=== PATIENT | female | born 1930 | race Caucasian/White ===

== ENCOUNTER 2017-02-13 14:12 | Inpatient (IN) | payer BC ==
--- NOTE | 2017-02-13 17:13 | PDOC ---
History of Present Illness - General History Source: Patient Exam Limitations: No Limitations - History of Present Illness Initial Comments: 02/13/17 17:13 Patient is a 86 year old female with a significant past medical history of hypertension, hyperlipidemia and colon ca (s/p resection in 2011 no radiating, no chemotherapy) who presents to the ED with left hip pain for 1 month sent in by Dr. Valentine. Patient states that the pain is localized to the left groin and outer left hip. She notes that she is unable to ambulate due to pain. Patient can only ambulate using her rolerate cane. Patient states that she is unable to get up and down the stairs at her house. She states that the pain is worse in the morning when she wakes up and when she tries to get up to use the restroom. Patient states that 3 months ago she was doing exercises at home and believes that she developed the pain after. Patient notes that she is unable to raise the leg because it is very weak. She denies any back pain. She denies any recent trauma or fall. PCP - Dr. Valentine SH: lives at home alone <Caridad Capellan - Last Filed: 02/13/17 17:23> <Elsie Garcia - Last Filed: 02/13/17 18:25> - General Chief Complaint: Pain Stated Complaint: PAIN IN LEG Time Seen by Provider: 02/13/17 16:13 Past History <Caridad Capellan - Last Filed: 02/13/17 17:23> - Past Medical History Anemia: No Asthma: No Cancer: Yes (colon ca) Cardiac Disorders: No CVA: No COPD: No CHF: No Dementia: No Diabetes: No GI Disorders: No Disorders: No HTN: Yes Hypercholesterolemia: Yes Liver Disease: No Seizures: No Thyroid Disease: No - Surgical History Abdominal Surgery: Yes (COLOSTOMY WITH REVERSAL) Appendectomy: No Cardiac Surgery: No Cholecystectomy: No Lung Surgery: No Neurologic Surgery: No Orthopedic Surgery: No - Psycho/Social/Smoking Cessation Hx Anxiety: No Suicidal Ideation: No Smoking History: Never smoked Have you smoked in the past 12 months: No If you are a former smoker, when did you quit?: 25yrs ago Hx Alcohol Use: No Drug/Substance Use Hx: No Substance Use Type: None Hx Substance Use Treatment: No <Elsie Garcia - Last Filed: 02/13/17 18:25> - Past Medical History Allergies/Adverse Reactions: Allergies Allergy/AdvReac Type Severity Reaction Status Date / Time No Known Drug Allergies Allergy Verified 02/13/17 14:18 Home Medications: Ambulatory Orders Irbesartan [Avapro (Nf) -] 300 mg PO DAILY 01/21/13 Metoprolol Succinate/Hctz [Dutoprol 25-12.5 mg Tablet] 1 each PO DAILY 08/30/14 Rosuvastatin Calcium [Crestor] 10 mg PO HS 08/30/14 Review of Systems - Review of Systems Able to Perform ROS?: Yes Comments:: 02/13/17 17:13 GENERAL/CONSTITUTIONAL: No fever or chills. No weakness. HEAD, EYES, EARS, NOSE AND THROAT: No change in vision. No ear pain or discharge. No sore throat. GASTROINTESTINAL: No nausea, vomiting, diarrhea or constipation. GENITOURINARY: No dysuria, frequency, or change in urination. CARDIOVASCULAR: No chest pain or shortness of breath. RESPIRATORY: No cough, wheezing, or hemoptysis. MUSCULOSKELETAL:(+)left hip/groin pain. No muscle swelling. No neck or back pain. SKIN: No rash NEUROLOGIC: No headache, vertigo, loss of consciousness, or change in strength/ sensation. ENDOCRINE: No increased thirst. No abnormal weight change. HEMATOLOGIC/LYMPHATIC: No anemia, easy bleeding, or history of blood clots. ALLERGIC/IMMUNOLOGIC: No hives or skin allergy. <Caridad Capellan - Last Filed: 02/13/17 17:23> *Physical Exam - Vital Signs Last Vital Signs Temp Pulse Resp BP Pulse Ox 98.9 F 90 20 152/57 95 02/13/17 14:14 02/13/17 14:14 02/13/17 14:14 02/13/17 14:14 02/13/17 14:14 - Physical Exam Comments: 02/13/17 17:14 GENERAL: Awake, alert, and fully oriented, in no acute distress HEAD: No signs of trauma EYES: PERRLA, EOMI, sclera anicteric, conjunctiva clear ENT: Auricles normal inspection, nares patent, Moist mucosa NECK: Normal ROM, supple, no lymphadenopathy, JVD, or masses LUNGS: Breath sounds equal, clear to auscultation bilaterally. No wheezes, and no crackles HEART: Regular rate and rhythm, normal S1 and S2, no murmurs, rubs or gallops ABDOMEN: Soft, nontender, normoactive bowel sounds. No guarding, no rebound. No masses EXTREMITIES: (+) left anterior hip tenderness and lateral hip tenderness, right hip non tender full ROM. (+)Left hip flexion 4/5 (limited due to pain), (+)All else 5/5, (+)Sensation 5/5 in all extremities. No edema. No clubbing or cyanosis. No cords. NEUROLOGICAL: No midline spinal tenderness. Normal speech SKIN: (+)Right anterior jones eczematous type dermatitis. Warm, Dry, normal turgor. <Caridad Capellan - Last Filed: 02/13/17 17:23> - Vital Signs Last Vital Signs Temp Pulse Resp BP Pulse Ox 98.9 F 90 20 152/57 95 02/13/17 14:14 02/13/17 14:14 02/13/17 14:14 02/13/17 14:14 02/13/17 14:14 <Elsie Garcia - Last Filed: 02/13/17 18:25> Heart Score/ECG Review #1 ECG reviewed & interpreted by me at: 18:25 General ECG Interpretation: Sinus Rhythm, Normal Rate (92), Normal Intervals, No acute ischemic changes <Elsie Garcia - Last Filed: 02/13/17 18:25> ED Treatment Course - RADIOLOGY Radiology Studies Ordered: Category Date Time Status HIP & PELVIS-LEFT [RAD] Stat Radiology 02/13/17 16:56 Ordered SPINE-LUMBAR SACRAL [RAD] Stat Radiology 02/13/17 16:56 Ordered <Elsie Garcia - Last Filed: 02/13/17 18:25> Medical Decision Making - Medical Decision Making 02/13/17 17:08 86 yo F with h/o HLD and HTN ( colon ca s/p resection 2011) here wtih c/o left hip pain. has been going on for one month. did have an injury while exercising 3 mo ago. now pain with movement of hip. worse with going down stairs. has been using a walker. lives alone, now pain so bad unable to ambulate without assistance. no more recent trauma. no f/c no urinary complaints. no new back pain. does have h/o confirmed compression fractures on old ct per pt family at bedside . no new hernia. no n/v no sp no sob. no new weakness or numbness. on exam awake alert . lungs clear , heart RRR no m/r/g. abd soft nontender. left groin with anterior gale ttp, left lateral hip ttp. pain with hip flexion at 90deg. 4/5 hip flex due to pain, 5/5 ext, sensation intact bilat lower ext. 5 /5 all other extremities. nomildline spinal tenderness. plan xray hip, pelvis, spin. differential arthritis, anter pubic rami path fracture. uti plan ua xrays,. pt declines pain control at this time. may require admission for pt assessment due to living alone, unable to ambulate. will d/w dr. valentine. <Elsie Garcia - Last Filed: 02/13/17 18:25> *DC/Admit/Observation/Transfer - Attestations Scribe Attestion: 02/13/17 17:17 Documentation prepared by LATHA Warner, acting as medical physicist for Elsie Garcia MD. <Caridad Capellan - Last Filed: 02/13/17 17:23> - Discharge Dispostion Admit: Yes <Elsie Garcia - Last Filed: 02/13/17 18:25> Diagnosis at time of Disposition: Hip pain, left, Cannot walk - Referrals Referrals: Abby Valentine MD [Primary Care Provider] -
[2017-02-13] MEDS ORDERED: ATORVASTATIN CA 40 MG TABLET (FP) PO ONE (18:07)
[2017-02-13] MEDS ORDERED: METOPROLOL SUCCINATE 25 MG TAB.SR.24H (FP) PO ONE (18:07)
[2017-02-13] MEDS ORDERED: FUROSEMIDE 40 MG TABLET (FP) PO ONE (18:07)
[2017-02-13] MEDS ORDERED: ATORVASTATIN CA 40 MG TABLET (FP) ONE (18:38)
[2017-02-13] MEDS ORDERED: FUROSEMIDE 40 MG TABLET (FP) ONE (18:38)
[2017-02-13 19:14] LABS: URINE APPEARANCE CLEAR; URINE BILIRUBIN NEGATIVE (NEGATIVE); URINE COLOR YELLOW; URINE GLUCOSE (UA) NEGATIVE (NEGATIVE); URINE KETONE NEGATIVE (NEGATIVE); URINE NITRITE NEGATIVE (NEGATIVE); URINE PROTEIN NEGATIVE (NEGATIVE); URINE UROBILINOGEN NEGATIVE E.U./dl (0.2-1.0)
[2017-02-13 19:15] LABS: URINE BLOOD 1+ (NEGATIVE); URINE LEUK ESTERASE TRACE (NEGATIVE)
[2017-02-13 19:17] LABS: URINE BACTERIA RARE /hpf (NONE SEEN); URINE MUCUS RARE; URINE RBC 16 /hpf (0-3); URINE WBC 8 /hpf (3-5)
[2017-02-13 19:20] LABS: BASOPHIL 1.4 % (0-2.0); EOSINOPHIL 0.8 % (0-4.5); MCH 28.4 pg (25.7-33.7); MCHC 32.2 g/dl (32.0-36.0); MEAN CELL VOLUME 88.1 fl (80-96); MEAN PLT VOLUME 8.9 fl (7.5-11.1); NEUTROPHILS 67.7 % (42.8-82.8); PLATELET COUNT 302 K/MM3 (134-434); RDW 13.7 % (11.6-15.6); WHITE BLOOD COUNT 7.3 K/mm3 (4.0-10.0)
[2017-02-13 20:37] LABS: ALBUMIN 3.5 g/dl (3.4-5.0); ANION GAP 9 (8-16); BILIRUBIN,TOTAL 0.6 mg/dL (0.2-1.0); CALCIUM 9.1 mg/dL (8.5-10.1); CO2 27 mmol/L (21-32); COCKROFT - GAULT 77.35; CREATININE 0.7 mg/dL (0.55-1.02); GLUCOSE,RANDOM 95 mg/dL (74-106); SGOT/AST 20 U/L (15-37); SGPT/ALT 17 U/L (12-78); TOT PROT 6.8 g/dl (6.4-8.2)
[2017-02-13 20:38] LABS: ALK PHOS 165 U/L (45-117)
[2017-02-14 00:08] VITALS: BMI 37.6
[2017-02-14 08:14] LABS: BASOPHIL 1.3 % (0-2.0); MCH 28.9 pg (25.7-33.7); MCHC 33.2 g/dl (32.0-36.0); MEAN CELL VOLUME 87.3 fl (80-96); MEAN PLT VOLUME 9.1 fl (7.5-11.1); NEUTROPHILS 60.6 % (42.8-82.8); PLATELET COUNT 381 K/MM3 (134-434); RDW 13.8 % (11.6-15.6); WHITE BLOOD COUNT 10.3 K/mm3 (4.0-10.0)
[2017-02-14 09:08] LABS: BILIRUBIN,TOTAL 0.8 mg/dL (0.2-1.0); CALCIUM 9.8 mg/dL (8.5-10.1); COCKROFT - GAULT 59.9675; CREATININE 0.9 mg/dL (0.55-1.02); TOT PROT 7.4 g/dl (6.4-8.2)
[2017-02-14] MEDS: LOSARTAN POTASSIUM 50 MG TABLET (FP) PO SCH (09:41)
--- NOTE | 2017-02-14 10:59 | PN ---
Progress Note (short form) - Note Progress Note: Pt is an 86 year old female well known to us. She has acute on chronic severe left hip pain. She denies any recent history of trauma. Her left hip hurts with weight bearing. She has a history of severe left hip OA. We have recommended a left THR in the past. PE Pt is overweight. She has no signs of acute trauma. She is able to ambulate, but with pain. ROM of hip, knee, ankle, foot, toes all good. Xrays Show severe left hip OA, deformed femoral head Imp Severe left hip OA Rec Left THR on an elective, out pt basis Now do P.T., WBAT Pain meds
--- NOTE | 2017-02-14 14:02 | HP ---
Admitting History and Physical - Primary Care Physician PCP: Abby Mtz - Admission Chief Complaint: Left groin pain History of Present Illness: Patient is a 86 year old female with a significant past medical history of hypertension, hyperlipidemia and colon ca (s/p resection in 2011 no radiating, no chemotherapy) who presents to the ED with left hip pain for 1 month sent in by Dr. Mtz. Patient states that the pain is localized to the left groin and outer left hip. She notes that she is unable to ambulate due to pain. Patient states that she is unable to get up and down the stairs at her house. She states that the pain is worse when she lies down in bed, in the morning when she wakes up and when she tries to get up to use the restroom. Patient states that 3 months ago she was doing exercises at home and believes that she developed the pain after. Patient notes that she is unable to raise the leg because it is very weak. She denies any back pain. She denies any recent trauma or fall. PCP - Dr. Mtz SH: lives at home alone History Source: Patient Limitations to Obtaining History: No Limitations - Past Medical History Cardiovascular: Yes: HTN, Hyperlipdemia - Past Surgical History Additional Past Surgical History: Colon resection - Smoking History Smoking history: Never smoked Have you smoked in the past 12 months: No If you are a former smoker, when did you quit?: 25yrs ago - Alcohol/Substance Use Hx Alcohol Use: No - Social History Usual Living Arrangement: Yes: Alone ADL: Independent History of Recent Travel: No Home Medications - Allergies Allergies/Adverse Reactions: Allergies Allergy/AdvReac Type Severity Reaction Status Date / Time No Known Drug Allergies Allergy Verified 02/13/17 14:18 - Home Medications Home Medications: Ambulatory Orders Irbesartan [Avapro (Nf) -] 300 mg PO DAILY 01/21/13 Rosuvastatin Calcium [Crestor] 10 mg PO HS 08/30/14 Furosemide [Lasix -] 40 mg PO DAILY 02/13/17 Metoprolol Succinate [Toprol Xl -] 25 mg PO DAILY 02/13/17 Family Disease History - Family Disease History Family Disease History: Diabetes: Sister (HTN, Hyperlipidemia), Heart Disease: Brother (CABG,HTN, hyperlipidemia), Sister Review of Systems - Review of Systems Constitutional: reports: No Symptoms Eyes: reports: No Symptoms HENT: reports: No Symptoms Neck: reports: No Symptoms Cardiovascular: reports: No Symptoms Respiratory: reports: No Symptoms Gastrointestinal: reports: No Symptoms Genitourinary: reports: No Symptoms Breasts: reports: No Symptoms Reported Musculoskeletal: reports: Muscle Pain (Left Groin and left thigh) Integumentary: reports: No Symptoms Neurological: reports: No Symptoms Endocrine: reports: No Symptoms Hematology/Lymphatic: reports: No Symptoms Psychiatric: reports: No Symptoms Pain Intensity: 3 Physical Examination Vital Signs: Vital Signs Temperature 98.4 F 02/14/17 06:15 Pulse Rate 99 H 02/14/17 06:15 Respiratory Rate 20 02/14/17 06:15 Blood Pressure 128/74 02/14/17 06:15 O2 Sat by Pulse Oximetry (%) 95 02/13/17 23:38 Constitutional: Yes: Well Nourished, No Distress, Calm Cardiovascular: Yes: Regular Rate and Rhythm Respiratory: Yes: WNL, Regular Gastrointestinal: Yes: WNL, Normal Bowel Sounds Musculoskeletal: Yes: WNL Extremities: Yes: WNL Edema: No Peripheral Pulses WNL: Yes Integumentary: Yes: WNL Neurological: Yes: Alert, Oriented ...Motor Strength: WNL Psychiatric: Yes: WNL, Alert, Oriented Labs: CBC, BMP 02/14/17 06:00 02/14/17 06:00 Problem List - Problems (1) Hip pain, left Code(s): M25.552 - PAIN IN LEFT HIP (2) Lumbar disc disease with radiculopathy Code(s): M51.16 - INTERVERTEBRAL DISC DISORDERS W RADICULOPATHY, LUMBAR REGION Assessment/Plan MRI OF LUMBAR SPINE ORTHOPEDIC CONSULT PHYSICAL THERAPY PAIN MANAGEMENT D/C IN AM TO REHAB
[2017-02-14] MEDS: GABAPENTIN 100 MG CAPSULE (FP) PO SCH ×2 (14:09→21:34)
--- NOTE | 2017-02-14 16:29 | EKG ---
Test Reason : Blood Pressure : / mmHG Vent. Rate : 092 BPM Atrial Rate : 090 BPM P-R Int : 168 ms QRS Dur : 072 ms QT Int : 348 ms P-R-T Axes : 090 -10 007 degrees QTc Int : 430 ms SINUS RHYTHM WITH PREMATURE ATRIAL COMPLEXES NONSPECIFIC ST ABNORMALITY ABNORMAL ECG WHEN COMPARED WITH ECG OF 29-OCT-2011 19:10, FUSION COMPLEXES ARE NO LONGER PRESENT PREMATURE VENTRICULAR COMPLEXES ARE NO LONGER PRESENT PREMATURE ATRIAL COMPLEXES ARE NOW PRESENT T WAVE INVERSION NO LONGER EVIDENT IN ANTERIOR LEADS QT HAS SHORTENED Confirmed by EARLE BALLARD, DEVEN (2014) on 02/14/2017 4:28:37 PM Referred By: Confirmed By:DEVEN OG MD
[2017-02-14] MEDS ORDERED: PT OWN MED DRAWER 7, Y5N ONE (21:31)
[2017-02-14] MEDS: KETOROLAC TROMETHAMINE 10 MG TABLET PO PRN (21:34)
[2017-02-15] MEDS: GABAPENTIN 100 MG CAPSULE (FP) PO SCH ×3 (05:36→22:13)
[2017-02-15] MEDS ORDERED: PT OWN MED DRAWER 7, Y5N ONE ×3 (06:40→22:06)
--- NOTE | 2017-02-15 08:47 | PN ---
Progress Note, Physician History of Present Illness: BACK PAIN ON MOVEMENT - Current Medication List Current Medications: Active Medications Acetaminophen (Tylenol -) 650 mg PO Q6H PRN PRN Reason: PAIN Gabapentin (Neurontin -) 100 mg PO TID [facility] Last Admin: 02/15/17 05:36 Dose: 100 mg Ketorolac Tromethamine (Toradol) 10 mg PO TID PRN PRN Reason: PAIN LEVEL 6-10 Stop: 02/18/17 21:59 Last Admin: 02/14/17 21:34 Dose: 10 mg Losartan Potassium (Cozaar -) 100 mg PO DAILY [facility] Last Admin: 02/14/17 09:41 Dose: 100 mg - Objective Vital Signs: Vital Signs Temperature 98.1 F 02/15/17 06:19 Pulse Rate 100 H 02/15/17 06:19 Respiratory Rate 21 02/15/17 06:19 Blood Pressure 134/95 02/15/17 06:19 O2 Sat by Pulse Oximetry (%) 95 02/14/17 21:00 Cardiovascular: Yes: Murmur, S1, S2 Respiratory: Yes: Regular, CTA Bilaterally Gastrointestinal: Yes: Normal Bowel Sounds, Soft. No: Tenderness Labs: CBC, BMP 02/14/17 06:00 02/14/17 06:00 Problem List - Problems (1) Lumbar disc disease with radiculopathy Assessment/Plan: CT OF LS NS PAIN CONTROL PT---SNF Code(s): M51.16 - INTERVERTEBRAL DISC DISORDERS W RADICULOPATHY, LUMBAR REGION (2) Compression fracture Assessment/Plan: R/O NEW FRACTURE CT OF THORACIC SPINE Code(s): OIZ6125 - (3) Hypertension Assessment/Plan: SAME MEDS Code(s): I10 - ESSENTIAL (PRIMARY) HYPERTENSION (4) Abnormal EKG Assessment/Plan: CARDIOLOGY CONSULT WILL REVIEW OFFICE RECORDS Code(s): R94.31 - ABNORMAL ELECTROCARDIOGRAM [ECG] [EKG]
--- NOTE | 2017-02-15 08:56 | PN ---
Progress Note (short form) - Note Progress Note: Ortho Pt seen and examined- feeling better, less pain in left hip PE- decr pain with ambulation, decr rom with IR and ER, calf soft, nt nvi a/p- left hip djd, LS spine multi-level DDD prior L1 kyphoplasty PT pain control f/u as outpatient may require a THR if pain does not improve d/w Dr. Smith
[2017-02-15 09:48] LABS: BASOPHIL 1.2 % (0-2.0); EOSINOPHIL 1.6 % (0-4.5); MCH 29.1 pg (25.7-33.7); MCHC 33.3 g/dl (32.0-36.0); MEAN CELL VOLUME 87.6 fl (80-96); MEAN PLT VOLUME 8.4 fl (7.5-11.1); NEUTROPHILS 53.8 % (42.8-82.8); PLATELET COUNT 312 K/MM3 (134-434); RDW 13.6 % (11.6-15.6); WHITE BLOOD COUNT 7.2 K/mm3 (4.0-10.0)
[2017-02-15] MEDS: LOSARTAN POTASSIUM 50 MG TABLET (FP) PO SCH (11:30)
[2017-02-15] MEDS: KETOROLAC TROMETHAMINE 10 MG TABLET PO PRN ×2 (11:31→22:13)
--- NOTE | 2017-02-15 12:00 | PN ---
Progress Note (short form) - Note Progress Note: NEUROSURGERY CONSULT DICTATED Chart reviewed CT scan reviewed History obtained Pt examined H/o hypertension, hyperlipidemia and colon ca c/o chronic left hip pain with 1 month exacerbation. Pain is localized to the left groin. She notes that she is unable to ambulate and get upstairs due to pain. Pain is better sitting down. No leg numbness or tingling though some L hip weakness. Had received lumabr EPSI x3 (Dr Cochran) for LBP previously which were not effective reportedly. PE: AF, VSS, sitting in chair General- obese, B LE edema CN- intact; Motor 5/5 except L IP 4- pain limited; Sensation- intact LT, decreased distal vibration B LE; DTR- hyporeflexia B; negative SLR B to [address]: multilevel DDD, osteopenia, prior T12 and L1 vertebroplasty cement contrast; no significant canal compromise; T11 sup endplate fx No acute neurosurgical issue L groin pain most c/w L hip disease Pt does not want to undergo surgery Can consider L hip injection for temporary pain relief If mid or low back pain could consult Dr Cochran for T11 vertebroplasty
[2017-02-15 12:10] LABS: ERYTHROCYTE SEDIMENTATION RATE 40 mm/hr (0-30)
--- NOTE | 2017-02-15 15:32 | CON.CARD ---
Consult Consult Specialty:: Cardiology Referred by:: Dr. Mtz Reason for Consultation:: Abnormal ECG - History of Present Illness History of Present Illness: 86 F HTN HLD obesity with prior colon Ca and chronic lower extremity edema and osteoarthritis. Admitted 02/13/17 for intractable left hip pain. She has no previous history of arrhythmia or CAD. States she is unable to lay flat due to dispnea. Leg swelling has been ongoing and managed with diuretics. Deines chest pain, dyspnea, cough dizziness. - History Source History Provided By: Patient, Medical Record Limitations to Obtaining History: No Limitations - Past Medical History Cardio/Vascular: Yes: HTN, Hyperlipdemia - Alcohol/Substance Use Hx Alcohol Use: No - Smoking History Smoking history: Never smoked Have you smoked in the past 12 months: No If you are a former smoker, when did you quit?: 25yrs ago - Social History ADL: Independent History of Recent Travel: No Home Medications - Allergies Allergies/Adverse Reactions: Allergies Allergy/AdvReac Type Severity Reaction Status Date / Time No Known Drug Allergies Allergy Verified 02/13/17 14:18 - Home Medications Home Medications: Ambulatory Orders Irbesartan [Avapro (Nf) -] 300 mg PO DAILY 01/21/13 Rosuvastatin Calcium [Crestor] 10 mg PO HS 08/30/14 Furosemide [Lasix -] 40 mg PO DAILY 02/13/17 Metoprolol Succinate [Toprol Xl -] 25 mg PO DAILY 02/13/17 Family Disease History - Family Disease History Family Disease History: Diabetes: Sister (HTN, Hyperlipidemia), Heart Disease: Brother (CABG,HTN, hyperlipidemia), Sister Review of Systems - Review of Systems Constitutional: reports: No Symptoms Eyes: reports: No Symptoms HENT: reports: No Symptoms Neck: reports: No Symptoms Cardiovascular: reports: Edema, Shortness of Breath Respiratory: reports: Orthopnea Gastrointestinal: reports: No Symptoms Genitourinary: reports: No Symptoms Vital Signs: Vital Signs Temperature 97.3 F L 02/15/17 15:08 Pulse Rate 104 H 02/15/17 15:08 Respiratory Rate 21 02/15/17 06:19 Blood Pressure 125/56 02/15/17 15:08 O2 Sat by Pulse Oximetry (%) 95 02/14/17 21:00 Constitutional: Yes: Obese Eyes: Yes: Conjunctiva Clear, EOM Intact HENT: Yes: Atraumatic, Normocephalic Neck: Yes: Supple, Trachea Midline Respiratory: Yes: Regular, CTA Bilaterally Gastrointestinal: Yes: Normal Bowel Sounds, Soft Cardiovascular: Yes: Regular Rate and Rhythm JVD: No Carotid Bruit: No Heart Sounds: Yes: S1, S2 Edema: Yes Edema: LLE: 1+, RLE: 1+ - Other Data Labs, Other Data: CBC, BMP 02/15/17 09:40 02/14/17 06:00 NSR with APCs and NSST Imaging - Results Chest X-ray: Report Reviewed (Promenent mediastinum. CLear lungs) EKG: Image Reviewed Problem List - Problems (1) Abnormal EKG Code(s): R94.31 - ABNORMAL ELECTROCARDIOGRAM [ECG] [EKG] Assessment/Plan 86 F obese HTN with HLD and chronic Lext edema admitted for intractible hip pain. ECG was compared to 2014 and is unchanged. Has Nonspecific ST changes and APCs. Rec: Lower extremity venous duplex Echocardiogram
[2017-02-16] MEDS: GABAPENTIN 100 MG CAPSULE (FP) PO SCH ×3 (06:15→22:23)
--- NOTE | 2017-02-16 08:49 | PN ---
Progress Note (short form) - Note Progress Note: NEUROSURGERY Some L groin pain Able to bear weight with L leg with pain meds PE: AF, VSS, sitting in chair General- obese, B LE edema CN- intact; Motor 5/5 except L IP 4- pain limited; Sensation- intact LT, decreased distal vibration B LE; DTR- hyporeflexia B; negative SLR B to [address]: multilevel DDD, osteopenia, prior T12 and L1 vertebroplasty cement contrast; no significant canal compromise; T11 sup endplate fx T11 acute/subacute fx No acute neurosurgical issue L groin pain most c/w L hip disease PT Pt does not want to undergo surgery If recurrent mid or low back pain could re-consult Dr Cochran for T11 vertebroplasty
--- NOTE | 2017-02-16 09:15 | PN ---
Progress Note, Physician History of Present Illness: BACK PAIN ON MOVEMENT - Current Medication List Current Medications: Active Medications Acetaminophen (Tylenol -) 650 mg PO Q6H PRN PRN Reason: PAIN Gabapentin (Neurontin -) 100 mg PO TID [facility] Last Admin: 02/16/17 06:15 Dose: 100 mg Ketorolac Tromethamine (Toradol) 10 mg PO TID PRN PRN Reason: PAIN LEVEL 6-10 Stop: 02/18/17 21:59 Last Admin: 02/15/17 22:13 Dose: 10 mg Losartan Potassium (Cozaar -) 100 mg PO DAILY [facility] Last Admin: 02/15/17 11:30 Dose: 100 mg - Objective Vital Signs: Vital Signs Temperature 98.4 F 02/16/17 08:00 Pulse Rate 91 H 02/16/17 08:00 Respiratory Rate 18 02/16/17 08:00 Blood Pressure 133/95 02/16/17 08:00 O2 Sat by Pulse Oximetry (%) 95 02/15/17 21:00 Cardiovascular: Yes: S1, S2 Respiratory: Yes: Regular, CTA Bilaterally Gastrointestinal: Yes: Normal Bowel Sounds, Soft Labs: CBC, BMP 02/15/17 09:40 02/14/17 06:00 Problem List - Problems (1) Lumbar disc disease with radiculopathy Assessment/Plan: CT OF LS NS PAIN CONTROL PT---SNF Code(s): M51.16 - INTERVERTEBRAL DISC DISORDERS W RADICULOPATHY, LUMBAR REGION (2) Compression fracture Assessment/Plan: NEW FRACTURE CT OF THORACIC SPINE Code(s): [id number] - (3) Hypertension Assessment/Plan: SAME MEDS Code(s): I10 - ESSENTIAL (PRIMARY) HYPERTENSION (4) Abnormal EKG Assessment/Plan: CARDIOLOGY CONSULT NOTED WILL REVIEW OFFICE RECORDS Code(s): R94.31 - ABNORMAL ELECTROCARDIOGRAM [ECG] [EKG]
[2017-02-16] MEDS: LOSARTAN POTASSIUM 50 MG TABLET (FP) PO SCH (09:58)
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
[2017-02-16] MEDS ORDERED: FLUCONAZOLE 100 MG TABLET (UD) PO ONE (15:00)
[2017-02-17] MEDS: GABAPENTIN 100 MG CAPSULE (FP) PO SCH ×3 (06:48→22:39)
--- NOTE | 2017-02-17 09:42 | PN ---
Progress Note (short form) - Note Progress Note: NEUROSURGERY Some L groin pain Still does not want surgery for L hip Not much back complaint PE: AF, VSS General- obese, B LE edema CN- intact; Motor 5/5 except L IP 4- pain limited; Sensation- intact LT, decreased distal vibration B LE T11 sup endplate fx T11 acute/subacute fx No acute neurosurgical issue L groin pain most c/w L hip disease, plans per ortho and patient F/U T spine x-rays to assess T11 stature in 2-4 weeks If recurrent mid or low back pain could re-consult Dr [facility]
[2017-02-17] MEDS: LOSARTAN POTASSIUM 50 MG TABLET (FP) PO SCH (09:55)
[2017-02-17] MEDS: KETOROLAC TROMETHAMINE 10 MG TABLET PO PRN ×2 (09:57→17:57)
[2017-02-17] MEDS ORDERED: PT OWN MED DRAWER 7, Y5N ONE ×2 (09:57→22:33)
--- NOTE | 2017-02-17 12:50 | PN ---
Progress Note, Physician History of Present Illness: BACK PAIN ON MOVEMENT - Current Medication List Current Medications: Active Medications Acetaminophen (Tylenol -) 650 mg PO Q6H PRN PRN Reason: PAIN Gabapentin (Neurontin -) 100 mg PO TID [facility] Last Admin: 02/17/17 06:48 Dose: 100 mg Ketorolac Tromethamine (Toradol) 10 mg PO TID PRN PRN Reason: PAIN LEVEL 6-10 Stop: 02/18/17 21:59 Last Admin: 02/17/17 09:57 Dose: 10 mg Losartan Potassium (Cozaar -) 100 mg PO DAILY [facility] Last Admin: 02/17/17 09:55 Dose: 100 mg - Objective Vital Signs: Vital Signs Temperature 97.8 F 02/17/17 08:00 Pulse Rate 81 02/17/17 08:00 Respiratory Rate 18 02/17/17 08:00 Blood Pressure 158/61 02/17/17 08:00 O2 Sat by Pulse Oximetry (%) 95 02/16/17 21:00 Cardiovascular: Yes: Regular Rate and Rhythm Respiratory: Yes: Regular, CTA Bilaterally Gastrointestinal: Yes: Normal Bowel Sounds, Soft Labs: CBC, BMP 02/15/17 09:40 02/14/17 06:00 Problem List - Problems (1) Lumbar disc disease with radiculopathy Assessment/Plan: CT--DISC AND NEW COPMRESION FX NS PAIN CONTROL PT---SNF Code(s): M51.16 - INTERVERTEBRAL DISC DISORDERS W RADICULOPATHY, LUMBAR REGION (2) Compression fracture Assessment/Plan: NEW FRACTURE CT OF THORACIC SPINE--COMPRESSION FX Code(s): [id number] - (3) Hypertension Assessment/Plan: SAME MEDS Code(s): I10 - ESSENTIAL (PRIMARY) HYPERTENSION (4) Abnormal EKG Assessment/Plan: CARDIOLOGY CONSULT NOTED WILL REVIEW OFFICE RECORDS Code(s): R94.31 - ABNORMAL ELECTROCARDIOGRAM [ECG] [EKG]
--- NOTE | 2017-02-17 15:28 | PN ---
Progress Note, Physician Chief Complaint: Remains comfortable History of Present Illness: 86 F HTN HLD obesity with prior colon Ca and chronic lower extremity edema and osteoarthritis. Admitted 02/13/17 for intractable left hip pain. She has no previous history of arrhythmia or CAD. States she is unable to lay flat due to dispnea. Leg swelling has been ongoing and managed with diuretics. Deines chest pain, dyspnea, cough dizziness. Echocardiogram 02/15/17: EF 63.4% Normal LV FXN Normal RV FXN Mild MR Mild TR Trival pericardial effusion - Current Medication List Current Medications: Active Medications Acetaminophen (Tylenol -) 650 mg PO Q6H PRN PRN Reason: PAIN Gabapentin (Neurontin -) 100 mg PO TID [facility] Last Admin: 02/17/17 14:05 Dose: 100 mg Ketorolac Tromethamine (Toradol) 10 mg PO TID PRN PRN Reason: PAIN LEVEL 6-10 Stop: 02/18/17 21:59 Last Admin: 02/17/17 09:57 Dose: 10 mg Losartan Potassium (Cozaar -) 100 mg PO DAILY [facility] Last Admin: 02/17/17 09:55 Dose: 100 mg - Objective Vital Signs: Vital Signs Temperature 98.2 F 02/17/17 14:00 Pulse Rate 82 02/17/17 14:00 Respiratory Rate 18 02/17/17 14:00 Blood Pressure 155/58 02/17/17 14:00 O2 Sat by Pulse Oximetry (%) 96 02/17/17 09:00 Constitutional: Yes: No Distress Cardiovascular: Yes: Regular Rate and Rhythm, S1, S2 (No MRHG) Respiratory: Yes: CTA Bilaterally Gastrointestinal: Yes: Soft Extremities: Yes: Other (Trace edema of the lower extremities bilaterally) Labs: CBC, BMP 02/15/17 09:40 02/14/17 06:00 Assessment/Plan [facility] *LIVE* 02/14/17 06:00 86 F obese HTN with HLD and chronic Lext edema admitted for intractible hip pain. ECG was compared to 2014 and is unchanged. Has Nonspecific ST changes and APCs. Echocardiogram with normal LV function giving her the diagnosis of diastolic CHF (HFpEF) Would therefore consider adding a low dose beta dorothy such as lopressor 25 mg BID and a mild Thiazide diuretic such as HCTZ 12.5 mg daily.
[2017-02-18] MEDS: GABAPENTIN 100 MG CAPSULE (FP) PO SCH ×3 (06:38→21:05)
[2017-02-18] MEDS ORDERED: PT OWN MED DRAWER 7, Y5N ONE ×3 (08:25→20:31)
[2017-02-18] MEDS: KETOROLAC TROMETHAMINE 10 MG TABLET PO PRN ×3 (08:33→21:05)
[2017-02-18] MEDS: LOSARTAN POTASSIUM 50 MG TABLET (FP) PO SCH (09:25)
--- NOTE | 2017-02-18 10:58 | DS ---
Physical Examination Vital Signs: Vital Signs Temperature 98 F 02/18/17 08:00 Pulse Rate 78 02/18/17 08:00 Respiratory Rate 18 02/18/17 08:00 Blood Pressure 164/93 02/18/17 08:00 O2 Sat by Pulse Oximetry (%) 95 02/17/17 21:00 Constitutional: Yes: Calm Neck: Yes: Trachea Midline Cardiovascular: Yes: Regular Rate and Rhythm, S1, S2 Respiratory: Yes: CTA Bilaterally Gastrointestinal: Yes: Normal Bowel Sounds, Soft Extremities: Yes: Erythema (on right jones circular) Edema: Yes Neurological: Yes: Alert, Oriented Labs: CBC, BMP 02/15/17 09:40 02/14/17 06:00 Discharge Summary Reason For Visit: PAIN OF LEFT HIP Current Active Problems Abnormal EKG (Acute) Cannot walk (Acute) Compression fracture (Acute) Hip pain, left (Acute) Hypertension (Acute) Lumbar disc disease with radiculopathy (Acute) Hospital Course: - Primary Care Physician PCP: Abby Mtz - Admission Chief Complaint: Left groin pain History of Present Illness: Patient is a 86 year old female with a significant past medical history of hypertension, hyperlipidemia and colon ca (s/p resection in 2011 no radiating, no chemotherapy) who presents to the ED with left hip pain for 1 month sent in by Dr. Mtz. Patient states that the pain is localized to the left groin and outer left hip. She notes that she is unable to ambulate due to pain. Patient states that she is unable to get up and down the stairs at her house. She states that the pain is worse when she lies down in bed, in the morning when she wakes up and when she tries to get up to use the restroom. Patient states that 3 months ago she was doing exercises at home and believes that she developed the pain after. Patient notes that she is unable to raise the leg because it is very weak. She denies any back pain. She denies any recent trauma or fall. PCP - Dr. Mtz SH: lives at home alone History Source: Patient Limitations to Obtaining History: No Limitations T 11 subacute fracture, multilevel DDD and osteopenia L groin pain sec to hip\seen by ortho no surgery for now will need THR if pain gets worse plan to go to rehab and pain control- tramadol and neurontin cardio: seen by echo normal Ejection fractire diastolic CHf start on lopressor and HCTZ 12.5mg daily check bmp weekly Condition: Improved - Instructions Referrals: Abby Mtz MD [Primary Care Provider] - Disposition: [facility] - Home Medications Comprehensive Discharge Medication List: Ambulatory Orders Irbesartan [Avapro (Nf) -] 300 mg PO DAILY 01/21/13 Rosuvastatin Calcium [Crestor] 10 mg PO HS 08/30/14 Furosemide [Lasix -] 40 mg PO DAILY 02/13/17 Metoprolol Succinate [Toprol Xl -] 25 mg PO DAILY 02/13/17
[2017-02-18] MEDS: HYDROCHLOROTHIAZIDE 12.5 MG CAPSULE (FP) PO SCH (11:54)
[2017-02-18] MEDS: METOPROLOL TARTRATE 25 MG TABLET (FP) PO SCH ×2 (11:54→21:05)
[2017-02-19] MEDS: GABAPENTIN 100 MG CAPSULE (FP) PO SCH ×3 (05:52→21:12)
--- NOTE | 2017-02-19 10:11 | PN ---
Progress Note, Physician Chief Complaint: Left Hip Fracture History of Present Illness: Patient came in the hospital with left hip pain. CT thoracic and lumbar spine showed mild acute compression of L4, mild compression of L1 and moderate compression of T12. - Current Medication List Current Medications: Active Medications Acetaminophen (Tylenol -) 650 mg PO Q6H PRN PRN Reason: PAIN Gabapentin (Neurontin -) 100 mg PO TID [facility] Last Admin: 02/19/17 05:52 Dose: 100 mg Hydrochlorothiazide (Hctz -) 12.5 mg PO DAILY [facility] Last Admin: 02/18/17 11:54 Dose: 12.5 mg Losartan Potassium (Cozaar -) 100 mg PO DAILY [facility] Last Admin: 02/18/17 09:25 Dose: 100 mg Metoprolol Tartrate (Lopressor -) 25 mg PO BID [facility] Last Admin: 02/18/17 21:05 Dose: 25 mg - Objective Vital Signs: Vital Signs Temperature 97.6 F 02/19/17 06:34 Pulse Rate 59 L 02/19/17 06:34 Respiratory Rate 16 02/19/17 06:34 Blood Pressure 141/52 02/19/17 06:34 O2 Sat by Pulse Oximetry (%) 96 02/18/17 09:00 Constitutional: Yes: Well Nourished, No Distress, Calm Cardiovascular: Yes: Regular Rate and Rhythm Respiratory: Yes: Regular Gastrointestinal: Yes: Normal Bowel Sounds Extremities: Yes: WNL Edema: No Peripheral Pulses WNL: Yes Neurological: Yes: Alert, Oriented Labs: CBC, BMP 02/15/17 09:40 02/14/17 06:00 Problem List - Problems (1) Hip pain, left Assessment/Plan: Physical Therapy Pain management Code(s): M25.552 - PAIN IN LEFT HIP (2) Lumbar disc disease with radiculopathy Assessment/Plan: Pain management Code(s): M51.16 - INTERVERTEBRAL DISC DISORDERS W RADICULOPATHY, LUMBAR REGION Assessment/Plan PHYSICAL THERAPY PAIN MANAGEMENT D/C TO REHAB PENDING AUTH.
[2017-02-19] MEDS: METOPROLOL TARTRATE 25 MG TABLET (FP) PO SCH ×2 (10:59→21:12)
[2017-02-19] MEDS: HYDROCHLOROTHIAZIDE 12.5 MG CAPSULE (FP) PO SCH (11:00)
[2017-02-19] MEDS: LOSARTAN POTASSIUM 50 MG TABLET (FP) PO SCH (11:01)
[2017-02-20] MEDS: ACETAMINOPHEN 325 MG TABLET (FP) PO PRN ×3 (00:46→19:37)
[2017-02-20] MEDS: GABAPENTIN 100 MG CAPSULE (FP) PO SCH ×3 (05:53→21:17)
[2017-02-20] MEDS: LOSARTAN POTASSIUM 50 MG TABLET (FP) PO SCH (11:06)
[2017-02-20] MEDS: HYDROCHLOROTHIAZIDE 12.5 MG CAPSULE (FP) PO SCH (11:06)
[2017-02-20] MEDS: METOPROLOL TARTRATE 25 MG TABLET (FP) PO SCH ×2 (11:07→21:17)
--- NOTE | 2017-02-20 11:52 | DS ---
Physical Examination Vital Signs: Vital Signs Temperature 97.6 F 02/20/17 06:00 Pulse Rate 54 L 02/20/17 06:00 Respiratory Rate 18 02/20/17 06:00 Blood Pressure 132/62 02/20/17 06:00 O2 Sat by Pulse Oximetry (%) 96 02/18/17 09:00 Cardiovascular: Yes: Regular Rate and Rhythm Respiratory: Yes: Regular, CTA Bilaterally Gastrointestinal: Yes: Normal Bowel Sounds, Soft Neurological: Yes: Alert, Oriented, Unsteady Gait, Weakness Labs: CBC, BMP 02/15/17 09:40 02/14/17 06:00 Discharge Summary Reason For Visit: PAIN OF LEFT HIP Current Active Problems Abnormal EKG (Acute) Cannot walk (Acute) Compression fracture (Acute) Hip pain, left (Acute) Hypertension (Acute) Lumbar disc disease with radiculopathy (Acute) Hospital Course: Chief Complaint: Left groin pain History of Present Illness: Patient is a 86 year old female with a significant past medical history of hypertension, hyperlipidemia and colon ca (s/p resection in 2011 no radiating, no chemotherapy) who presents to the ED with left hip pain for 1 month that got much worse affecting her adl. Patient states that the pain is localized to the left groin and outer left hip. She notes that she is unable to ambulate due to pain. Patient states that she is unable to get up and down the stairs at her house. She states that the pain is worse when she lies down in bed, in the morning when she wakes up and when she tries to get up to use the restroom. Patient states that 3 months ago she was doing exercises at home and believes that she developed the pain after. Patient notes that she is unable to raise the leg because it is very weak. She denies any back pain. She denies any recent trauma or fall. PCP - Dr. Mtz SH: lives at home alone History Source: Patient Limitations to Obtaining History: No Limitations T 11 subacute fracture, multilevel DDD and osteopenia L groin pain sec to hip\seen by ortho no surgery for now will need THR if pain gets worse plan to go to rehab and pain control- tramadol and neurontin cardio: seen by echo normal Ejection fraction diastolic CHf start on lopressor and HCTZ 12.5mg daily check bmp weekly Condition: Improved Condition: Improved - Instructions Diet, Activity, Other Instructions: tramadol prn for pain uptitrate neurontin as needed check weekly BMP to monitor lytes and renal function check BP once daily Referrals: Abby Mtz MD [Primary Care Provider] - Disposition: RETIREMENT FACILITY - Home Medications Comprehensive Discharge Medication List: Ambulatory Orders Irbesartan [Avapro (Nf) -] 300 mg PO DAILY 01/21/13 Rosuvastatin Calcium [Crestor] 10 mg PO HS 08/30/14 Gabapentin [Neurontin -] 100 mg PO TID #90 tab MDD 3 02/18/17 Hydrochlorothiazide [Hctz -] 12.5 mg PO DAILY #30 cap MDD 1 02/18/17 Ketorolac Tromethamine [Toradol -] 10 mg PO TID PRN #20 tablet MDD 3 02/18/17 Metoprolol Tartrate [Lopressor -] 25 mg PO BID #60 tablet MDD 2 02/18/17
[2017-02-21] MEDS: GABAPENTIN 100 MG CAPSULE (FP) PO SCH ×3 (05:59→21:19)
[2017-02-21] MEDS ORDERED: PT OWN MED DRAWER 7, Y5N ONE (09:09)
[2017-02-21] MEDS: HYDROCHLOROTHIAZIDE 12.5 MG CAPSULE (FP) PO SCH (09:12)
[2017-02-21] MEDS: LOSARTAN POTASSIUM 50 MG TABLET (FP) PO SCH (09:12)
[2017-02-21] MEDS: METOPROLOL TARTRATE 25 MG TABLET (FP) PO SCH ×2 (09:12→21:19)
[2017-02-21] MEDS: ACETAMINOPHEN 325 MG TABLET (FP) PO PRN (09:14)
--- NOTE | 2017-02-21 11:02 | PN ---
Progress Note (short form) - Note Progress Note: Pt seen and examined. Still c/o severe pain in the left hip and ant groin area. This pain is due to her severe left hip OA We are recommending a L THR, as an out pt, when medically cleared
--- NOTE | 2017-02-21 18:39 | PN ---
Progress Note, Physician Chief Complaint: Left Hip Fracture History of Present Illness: Patient came in the hospital with left hip pain. CT thoracic and lumbar spine showed mild acute compression of L4, mild compression of L1 and moderate compression of T12. - Current Medication List Current Medications: Active Medications Acetaminophen (Tylenol -) 650 mg PO Q6H PRN PRN Reason: PAIN Last Admin: 02/21/17 09:14 Dose: 650 mg Gabapentin (Neurontin -) 100 mg PO TID [facility] Last Admin: 02/21/17 14:00 Dose: 100 mg Hydrochlorothiazide (Hctz -) 12.5 mg PO DAILY [facility] Last Admin: 02/21/17 09:12 Dose: 12.5 mg Losartan Potassium (Cozaar -) 100 mg PO DAILY [facility] Last Admin: 02/21/17 09:12 Dose: 100 mg Metoprolol Tartrate (Lopressor -) 25 mg PO BID [facility] Last Admin: 02/21/17 09:12 Dose: 25 mg - Objective Vital Signs: Vital Signs Temperature 98.6 F 02/21/17 13:58 Pulse Rate 61 02/21/17 13:58 Respiratory Rate 18 02/21/17 09:05 Blood Pressure 144/66 02/21/17 13:58 O2 Sat by Pulse Oximetry (%) 97 02/21/17 09:00 Constitutional: Yes: Well Nourished, No Distress, Calm Cardiovascular: Yes: Regular Rate and Rhythm Respiratory: Yes: Regular Gastrointestinal: Yes: Normal Bowel Sounds Musculoskeletal: Yes: Joint Stiffness, Muscle Pain, Muscle Weakness Edema: No Peripheral Pulses WNL: Yes Neurological: Yes: Alert, Oriented Labs: CBC, BMP 02/15/17 09:40 02/14/17 06:00 Problem List - Problems (1) Hip pain, left Assessment/Plan: Physical [id number] PENDING Pain management Code(s): M25.552 - PAIN IN LEFT HIP (2) Lumbar disc disease with radiculopathy Assessment/Plan: Pain management Code(s): M51.16 - INTERVERTEBRAL DISC DISORDERS W RADICULOPATHY, LUMBAR REGION Assessment/Plan PHYSICAL [id number] AWAITING AUTH FROM INSURANCE PAIN MANAGEMENT D/C TO REHAB PENDING AUTH.
[2017-02-21] MEDS ORDERED: KETOROLAC TROMETHAMINE 10 MG TABLET PO PRN (18:40)
[2017-02-21] MEDS ORDERED: traMADol HCL 50 MG TABLET PO PRN (19:58)
[2017-02-22] MEDS: GABAPENTIN 100 MG CAPSULE (FP) PO SCH ×3 (05:48→21:32)
[2017-02-22] MEDS ORDERED: PT OWN MED DRAWER 7, Y5N ONE (09:05)
[2017-02-22] MEDS: LOSARTAN POTASSIUM 50 MG TABLET (FP) PO SCH (09:06)
[2017-02-22] MEDS: METOPROLOL TARTRATE 25 MG TABLET (FP) PO SCH ×2 (09:06→21:32)
[2017-02-22] MEDS: HYDROCHLOROTHIAZIDE 12.5 MG CAPSULE (FP) PO SCH (09:06)
--- NOTE | 2017-02-22 10:05 | PN ---
Progress Note, Physician Chief Complaint: Left Hip Fracture History of Present Illness: Patient came in the hospital with left hip pain. CT thoracic and lumbar spine showed mild acute compression of L4, mild compression of L1 and moderate compression of T12. - Current Medication List Current Medications: Active Medications Acetaminophen (Tylenol -) 650 mg PO Q6H PRN PRN Reason: PAIN Last Admin: 02/21/17 09:14 Dose: 650 mg Gabapentin (Neurontin -) 100 mg PO TID [facility] Last Admin: 02/22/17 05:48 Dose: 100 mg Hydrochlorothiazide (Hctz -) 12.5 mg PO DAILY [facility] Last Admin: 02/22/17 09:06 Dose: 12.5 mg Losartan Potassium (Cozaar -) 100 mg PO DAILY [facility] Last Admin: 02/22/17 09:06 Dose: 100 mg Metoprolol Tartrate (Lopressor -) 25 mg PO BID [facility] Last Admin: 02/22/17 09:06 Dose: 25 mg Tramadol HCl (Ultram -) 50 mg PO Q8H PRN PRN Reason: PAIN Last Admin: 02/22/17 08:40 Dose: 50 mg - Objective Vital Signs: Vital Signs Temperature 98.5 F 02/22/17 09:00 Pulse Rate 88 02/22/17 09:00 Respiratory Rate 18 02/22/17 09:00 Blood Pressure 154/67 02/22/17 09:00 O2 Sat by Pulse Oximetry (%) 97 02/22/17 09:00 Constitutional: Yes: Well Nourished, No Distress, Calm Cardiovascular: Yes: Regular Rate and Rhythm Respiratory: Yes: Regular Gastrointestinal: Yes: Normal Bowel Sounds Musculoskeletal: Yes: Joint Stiffness (left hip), Muscle Weakness Extremities: Yes: WNL Edema: Yes Edema: LLE: Trace, RLE: Trace Peripheral Pulses WNL: Yes Labs: CBC, BMP 02/15/17 09:40 02/14/17 06:00 Problem List - Problems (1) Hip pain, left Assessment/Plan: Physical [id number] PENDING Pain management Code(s): M25.552 - PAIN IN LEFT HIP (2) Lumbar disc disease with radiculopathy Assessment/Plan: Pain management Awaiting response from [facility] for peer to peer. Left message to call back. Code(s): M51.16 - INTERVERTEBRAL DISC DISORDERS W RADICULOPATHY, LUMBAR REGION Assessment/Plan PHYSICAL [id number] AWAITING AUTH FROM INSURANCE PAIN MANAGEMENT- tolerating Tramadol so far. D/C TO REHAB PENDING AUTH.
[2017-02-23] MEDS: KETOROLAC TROMETHAMINE 10 MG TABLET PO PRN (00:02)
[2017-02-23] MEDS: GABAPENTIN 100 MG CAPSULE (FP) PO SCH ×3 (06:12→21:35)
[2017-02-23] MEDS ORDERED: PT OWN MED DRAWER 7, Y5N ONE (06:50)
--- NOTE | 2017-02-23 09:57 | PN ---
Progress Note, Physician Chief Complaint: THIS IS MY FIRST ENCOUNTER WITH THIS PATIENT NOTES AND RECORDS REVIEWED MILD DISTRESS C/O SEDATIVE EFFECT OF PAIN MEDS - Current Medication List Current Medications: Active Medications Acetaminophen (Tylenol -) 650 mg PO Q6H PRN PRN Reason: PAIN Last Admin: 02/21/17 09:14 Dose: 650 mg Gabapentin (Neurontin -) 100 mg PO TID [facility] Last Admin: 02/23/17 06:12 Dose: 100 mg Hydrochlorothiazide (Hctz -) 12.5 mg PO DAILY [facility] Last Admin: 02/22/17 09:06 Dose: 12.5 mg Ketorolac Tromethamine (Toradol) 10 mg PO Q8H PRN Stop: 02/27/17 10:33 Last Admin: 02/23/17 00:02 Dose: 10 mg Losartan Potassium (Cozaar -) 100 mg PO DAILY [facility] Last Admin: 02/22/17 09:06 Dose: 100 mg Metoprolol Tartrate (Lopressor -) 25 mg PO BID [facility] Last Admin: 02/22/17 21:32 Dose: 25 mg - Objective Vital Signs: Vital Signs Temperature 98.2 F 02/23/17 06:43 Pulse Rate 55 L 02/23/17 06:43 Respiratory Rate 20 02/23/17 06:43 Blood Pressure 114/75 02/23/17 06:43 O2 Sat by Pulse Oximetry (%) 97 02/22/17 21:00 Constitutional: Yes: Mild Distress Eyes: Yes: WNL HENT: Yes: WNL Neck: Yes: WNL Cardiovascular: Yes: WNL Respiratory: Yes: WNL Gastrointestinal: Yes: WNL Genitourinary: Yes: WNL Musculoskeletal: Yes: Back Pain, Joint Stiffness, Joint Swelling, Muscle Pain, Muscle Weakness Extremities: Yes: WNL Edema: No Peripheral Pulses WNL: Yes Integumentary: Yes: WNL Wound/Incision: Yes: Clean/Dry Neurological: Yes: WNL ...Motor Strength: LLE, RLE Psychiatric: Yes: WNL Labs: CBC, BMP 02/15/17 09:40 02/14/17 06:00 Problem List - Problems (1) Cannot walk Code(s): R26.2 - DIFFICULTY IN WALKING, NOT ELSEWHERE CLASSIFIED (2) Compression fracture Code(s): [id number] - (3) Hip pain, left Code(s): M25.552 - PAIN IN LEFT HIP (4) Hypertension Code(s): I10 - ESSENTIAL (PRIMARY) HYPERTENSION (5) Lumbar disc disease with radiculopathy Code(s): M51.16 - INTERVERTEBRAL DISC DISORDERS W RADICULOPATHY, LUMBAR REGION Assessment/Plan PAIN CONTROL, WILL NEED TO ADJUST DOSAGE IF PATIENT FEELS SEDATED. FALL RISK PRECAUTIONS OOB TO CHAIR WITH ASSIST [facility] SATURDAY
[2017-02-23] MEDS: HYDROCHLOROTHIAZIDE 12.5 MG CAPSULE (FP) PO SCH (10:06)
[2017-02-23] MEDS: LOSARTAN POTASSIUM 50 MG TABLET (FP) PO SCH (10:06)
[2017-02-23] MEDS: METOPROLOL TARTRATE 25 MG TABLET (FP) PO SCH ×2 (10:07→21:35)
--- NOTE | 2017-02-23 11:31 | PN ---
Progress Note (short form) - Note Progress Note: Pt seen, doing better, weight bearing is possible but painful in hips. As we've discussed she needs an elective THR as an out pt. She can be DC'd from our pov, and f/u as an out pt
[2017-02-23] MEDS: ACETAMINOPHEN 325 MG TABLET (FP) PO PRN (11:59)
[2017-02-24] MEDS: GABAPENTIN 100 MG CAPSULE (FP) PO SCH ×3 (06:17→22:11)
[2017-02-24] MEDS: METOPROLOL TARTRATE 25 MG TABLET (FP) PO SCH ×2 (09:39→22:11)
[2017-02-24] MEDS: LOSARTAN POTASSIUM 50 MG TABLET (FP) PO SCH (09:39)
[2017-02-24] MEDS: HYDROCHLOROTHIAZIDE 12.5 MG CAPSULE (FP) PO SCH (09:39)
[2017-02-24] MEDS ORDERED: PT OWN MED DRAWER 7, Y5N ONE (09:45)
[2017-02-24] MEDS: KETOROLAC TROMETHAMINE 10 MG TABLET PO PRN (09:54)
--- NOTE | 2017-02-24 11:37 | PN ---
Progress Note, Physician Chief Complaint: AWAKE ALERT DOES NOT WANT SURGERY WOULD LIKE TO SEE DR TOWNSEND PHYSIATRY FOR A POSSIBLE EPIDURAL INJECTION ETC... - Current Medication List Current Medications: Active Medications Acetaminophen (Tylenol -) 650 mg PO Q6H PRN PRN Reason: PAIN Last Admin: 02/23/17 11:59 Dose: 650 mg Gabapentin (Neurontin -) 100 mg PO TID [facility] Last Admin: 02/24/17 06:17 Dose: 100 mg Hydrochlorothiazide (Hctz -) 12.5 mg PO DAILY [facility] Last Admin: 02/24/17 09:39 Dose: 12.5 mg Ketorolac Tromethamine (Toradol) 10 mg PO Q8H PRN Stop: 02/27/17 10:33 Last Admin: 02/24/17 09:54 Dose: 10 mg Losartan Potassium (Cozaar -) 100 mg PO DAILY [facility] Last Admin: 02/24/17 09:39 Dose: 100 mg Metoprolol Tartrate (Lopressor -) 25 mg PO BID [facility] Last Admin: 02/24/17 09:39 Dose: 25 mg - Objective Vital Signs: Vital Signs Temperature 98.8 F 02/24/17 09:38 Pulse Rate 61 02/24/17 09:38 Respiratory Rate 20 02/24/17 09:38 Blood Pressure 149/71 02/24/17 09:38 O2 Sat by Pulse Oximetry (%) 98 02/23/17 21:00 Constitutional: Yes: Mild Distress Eyes: Yes: WNL HENT: Yes: WNL Neck: Yes: WNL Cardiovascular: Yes: WNL Respiratory: Yes: WNL Gastrointestinal: Yes: WNL Genitourinary: Yes: WNL Musculoskeletal: Yes: Back Pain, Joint Swelling, Muscle Pain, Muscle Weakness Extremities: Yes: WNL Edema: No Peripheral Pulses WNL: Yes Integumentary: Yes: WNL Wound/Incision: Yes: Clean/Dry Neurological: Yes: Other ...Motor Strength: LLE, RLE Psychiatric: Yes: Other Labs: CBC, BMP 02/15/17 09:40 02/14/17 06:00 Problem List - Problems (1) Cannot walk Code(s): R26.2 - DIFFICULTY IN WALKING, NOT ELSEWHERE CLASSIFIED (2) Compression fracture Code(s): [id number] - (3) Hip pain, left Code(s): M25.552 - PAIN IN LEFT HIP (4) Hypertension Code(s): I10 - ESSENTIAL (PRIMARY) HYPERTENSION (5) Lumbar disc disease with radiculopathy Code(s): M51.16 - INTERVERTEBRAL DISC DISORDERS W RADICULOPATHY, LUMBAR REGION Assessment/Plan PATIENT WOULD LIKE NON-SURGICAL OPTIONS PHYSIATRY EVAL PAIN CONTROL PT
[2017-02-25] MEDS: GABAPENTIN 100 MG CAPSULE (FP) PO SCH ×3 (06:05→21:51)
[2017-02-25 08:02] LABS: MCH 29.1 pg (25.7-33.7); MCHC 32.9 g/dl (32.0-36.0); MEAN CELL VOLUME 88.3 fl (80-96); MEAN PLT VOLUME 9.2 fl (7.5-11.1); PLATELET COUNT 281 K/MM3 (134-434); RDW 13.7 % (11.6-15.6); WHITE BLOOD COUNT 5.4 K/mm3 (4.0-10.0)
[2017-02-25 08:29] LABS: ANION GAP 8 (8-16); CO2 31 mmol/L (21-32); COCKROFT - GAULT 67.4645; CREATININE 0.8 mg/dL (0.55-1.02); GLUCOSE,RANDOM 84 mg/dL (74-106); SGOT/AST 14 U/L (15-37); SGPT/ALT 15 U/L (12-78)
[2017-02-25 08:30] LABS: ALK PHOS 117 U/L (45-117); BILIRUBIN,TOTAL 0.5 mg/dL (0.2-1.0); TOT PROT 5.7 g/dl (6.4-8.2)
[2017-02-25] MEDS: METOPROLOL TARTRATE 25 MG TABLET (FP) PO SCH ×2 (09:25→21:51)
[2017-02-25] MEDS: LOSARTAN POTASSIUM 50 MG TABLET (FP) PO SCH (09:25)
[2017-02-25] MEDS: HYDROCHLOROTHIAZIDE 12.5 MG CAPSULE (FP) PO SCH (09:25)
--- NOTE | 2017-02-25 10:08 | PN ---
Progress Note, Physician History of Present Illness: back pain hip pain unsteady gait - Current Medication List Current Medications: Active Medications Acetaminophen (Tylenol -) 650 mg PO Q6H PRN PRN Reason: PAIN Last Admin: 02/23/17 11:59 Dose: 650 mg Gabapentin (Neurontin -) [address] [facility] Last Admin: 02/25/17 06:05 Dose: 100 mg Hydrochlorothiazide (Hctz -) 12.[address] [facility] Last Admin: 02/25/17 09:25 Dose: 12.5 mg Ketorolac Tromethamine (Toradol) 10 mg PO Q8H PRN Stop: 02/27/17 10:33 Last Admin: 02/24/17 09:54 Dose: 10 mg Losartan Potassium (Cozaar -) [address] [facility] Last Admin: 02/25/17 09:25 Dose: 100 mg Metoprolol Tartrate (Lopressor -) [address] [facility] Last Admin: 02/25/17 09:25 Dose: 25 mg - Objective Vital Signs: Vital Signs Temperature 98.3 F 02/25/17 05:59 Pulse Rate 55 L 02/25/17 05:59 Respiratory Rate 20 02/25/17 05:59 Blood Pressure 138/57 02/25/17 05:59 O2 Sat by Pulse Oximetry (%) 98 02/24/17 21:00 Cardiovascular: Yes: Regular Rate and Rhythm Respiratory: Yes: Regular, CTA Bilaterally Gastrointestinal: Yes: Normal Bowel Sounds, Soft Neurological: Yes: Unsteady Gait, Weakness Labs: CBC, BMP 02/25/17 05:38 02/25/17 05:38 Problem List - Problems (1) Lumbar disc disease with radiculopathy Assessment/Plan: CT--DISC AND NEW COPMRESION FX NS PAIN CONTROL PT---SNF Code(s): M51.16 - INTERVERTEBRAL DISC DISORDERS W RADICULOPATHY, LUMBAR REGION (2) Compression fracture Assessment/Plan: NEW FRACTURE CT OF THORACIC SPINE--COMPRESSION FX Code(s): [id number] - (3) Hypertension Assessment/Plan: SAME MEDS Code(s): I10 - ESSENTIAL (PRIMARY) HYPERTENSION (4) Abnormal EKG Assessment/Plan: CARDIOLOGY CONSULT NOTED Code(s): R94.31 - ABNORMAL ELECTROCARDIOGRAM [ECG] [EKG] (5) Hip pain, left Assessment/Plan: need thr--will hold off on surgery at this time Code(s): M25.552 - PAIN IN LEFT HIP
[2017-02-25] MEDS ORDERED: PT OWN MED DRAWER 7, Y5N ONE (11:35)
[2017-02-25] MEDS: KETOROLAC TROMETHAMINE 10 MG TABLET PO PRN (11:42)
--- NOTE | 2017-02-25 17:05 | CONS ---
DATE OF CONSULTATION: 02/25/2017 REFERRING PHYSICIAN: Breanna Mcgregor MD HISTORY OF PRESENT ILLNESS: The patient is an 86-year-old woman who was admitted with difficulty walking and pain in her left groin on February 13, 2017. 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 She also underwent CT of the lumbar spine, which showed multiple compression fractures including a mild acute/subacute compression of L4 and moderate compression/anterior wedging of T11 with mild retropulsion. Patient really does not complain of her back pain at all at this point. The pain is more in the left lower quadrant of her abdomen and possibly the left groin. She has undergone evaluation with physical therapy, is able to ambulate about 55 feet with a rolling walker with supervision, step to gait, favoring the left lower extremity. Blood work on admission: CBC normal. WBC 7.2, hemoglobin 12.2, platelet count 312. Repeat February 25 showed normal platelet count 281, hemoglobin 10.9, WBC is 6.4. Chemistry on February 14 was within normal limits except for a slight elevation in her glucose 116 but normal sodium 140, potassium 3.8, chloride borderline 97, CO2 32, BUN 15, creatinine 0.9. She did have an increase in her BUN on last blood work February 25 done today, with a BUN of 26 to creatinine 0.8, and normal glucose 8.4. The patient does live in an apartment within a private home and has a few flights of stairs, which are apparently very large stairs to negotiate at home. REVIEW OF PAST MEDICAL AND SURGICAL HISTORY: Hypertension, hyperlipidemia, colon cancer status post resection in 2011 without any need for radiation or chemotherapy. SOCIAL HISTORY: As above. REVIEW OF SYSTEMS: No lightheadedness, dizziness, blurry vision, double vision. No headache. No nausea, vomiting, difficulty swallowing, difficulty chewing. No neck pain. No midback or low back pain. She has chronic swelling in her lower extremities, she states due to cellulitis in the past but no calf tenderness. Again, some left lower quadrant pain but no other joint arthralgias. No shoulder pain or upper extremity discomfort. No knee pain or right groin or hip pain. No numbness/tingling in the upper or lower extremities. PHYSICAL EXAMINATION: General: Slightly overweight petite woman seen both sitting as well as standing by the bedside. HEENT: Normocephalic and atraumatic. Extraocular muscles appear intact. Neck: Supple, with fairly good cervical range of motion. She has no tenderness in the thoracic or lumbar paraspinals. Extremities: Extremities do have edema, at least +2, with some erythema noted or some vascular change noted distally in the right lower extremity. Neuromuscular: She is awake and cooperative. She is oriented and seems to have good insight into her medical conditions. Her cranial nerves appear grossly intact. She has fairly good strength and range in the upper extremities. 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 Good elbow flexion, elbow extension. Normal sensation in the lower extremities. She has slight limitation in left hip flexion but no real tenderness in the hip flexor muscle, and no real pain with resisted hip flexion. More tenderness in the left lower quadrant of the abdomen. She has better range and strength in the right hip girdle, and good knee flexion/extension, good dorsiflexion and plantar flexion. No pain with internal/external rotation of the hip. She is able to sit to stand, but she does favor the left lower extremity. OVERALL IMPRESSION: 1. Deficits in mobility and activities of daily living. 2. Left lower quadrant abdominal discomfort plus/minus groin pain, probable strain of the muscle, improving. 3. History of thoracic and lumbar compression fractures without any significant pain. 4. 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 5. Overweight. 6. History of hypertension. 7. History of hyperlipidemia. 8. History of colon cancer in 2011 without any need for radiation, resection only, no chemotherapy. 9. Elevated risk for deep vein thrombosis due to immobility. 10. History of edema of the lower extremities. Rule out chronic venous insufficiency, possible history of cellulitis, per the patient. PLAN/SUGGESTION: 1. Continue physical therapy. 2. Out of bed to chair. 3. Abdominal binder for use when sitting, transferring, and ambulating as needed. 4. Will consider deep vein thrombosis prophylaxis until more mobile. 5. Bowel regimen. Monitor for constipation. 6. Monitor heels and sacrum for pressure ulcerations or erythema. 7. Patient agreeable to short-term rehab in a alf facility. Currently awaiting bed availability. Thank you for this referral. NADIA TOWNSEND M.D. KODI/[id number]
[2017-02-26] MEDS: GABAPENTIN 100 MG CAPSULE (FP) PO SCH ×2 (05:52→14:20)
[2017-02-26] MEDS: HYDROCHLOROTHIAZIDE 12.5 MG CAPSULE (FP) PO SCH (10:39)
[2017-02-26] MEDS: METOPROLOL TARTRATE 25 MG TABLET (FP) PO SCH (10:40)
[2017-02-26] MEDS: LOSARTAN POTASSIUM 50 MG TABLET (FP) PO SCH (10:40)
[2017-02-26] MEDS ORDERED: PT OWN MED DRAWER 7, Y5N ONE (14:19)
[2017-02-26] MEDS: KETOROLAC TROMETHAMINE 10 MG TABLET PO PRN (14:20)
[2017-02-26 14:23] VITALS: BP 135/79; PULSE 72; TEMP 98.2
--- NOTE | 2017-02-26 18:16 | PN ---
Progress Note, Physician Chief Complaint: Left Hip Fracture History of Present Illness: Patient came in the hospital with left hip pain. CT thoracic and lumbar spine showed mild acute compression of L4, mild compression of L1 and moderate compression of T12. Left several messages for [employer], No response received. - Current Medication List Current Medications: Active Medications Acetaminophen (Tylenol -) 650 mg PO Q6H PRN PRN Reason: PAIN Last Admin: 02/23/17 11:59 Dose: 650 mg Gabapentin (Neurontin -) 100 mg PO TID [facility] Last Admin: 02/26/17 14:20 Dose: 100 mg Hydrochlorothiazide (Hctz -) 12.5 mg PO DAILY [facility] Last Admin: 02/26/17 10:39 Dose: 12.5 mg Ketorolac Tromethamine (Toradol) 10 mg PO Q8H PRN Stop: 02/27/17 10:33 Last Admin: 02/26/17 14:20 Dose: 10 mg Losartan Potassium (Cozaar -) 100 mg PO DAILY [facility] Last Admin: 02/26/17 10:40 Dose: 100 mg Metoprolol Tartrate (Lopressor -) 25 mg PO BID [facility] Last Admin: 02/26/17 10:40 Dose: 25 mg - Objective Vital Signs: Vital Signs Temperature 98.2 F 02/26/17 14:00 Pulse Rate 72 02/26/17 14:00 Respiratory Rate 18 02/26/17 14:00 Blood Pressure 135/79 02/26/17 14:00 O2 Sat by Pulse Oximetry (%) 98 02/25/17 21:00 Constitutional: Yes: Well Nourished, No Distress, Calm Cardiovascular: Yes: Regular Rate and Rhythm Respiratory: Yes: Regular Gastrointestinal: Yes: Normal Bowel Sounds Musculoskeletal: Yes: Joint Stiffness (left hip), Muscle Weakness, Other ( unsteady gait, walking minimally with walker.) Edema: Yes Edema: LLE: Trace, RLE: Trace Labs: CBC, BMP 02/25/17 05:38 02/25/17 05:38 Problem List - Problems (1) Hip pain, left Assessment/Plan: Physical Therapy at home Pain management Code(s): M25.552 - PAIN IN LEFT HIP (2) Lumbar disc disease with radiculopathy Assessment/Plan: Pain management at home Left several messages to call back, no response received. D/C home with VNS and PT Code(s): M51.16 - INTERVERTEBRAL DISC DISORDERS W RADICULOPATHY, LUMBAR REGION Assessment/Plan Unable to receive any response from the insurance. Patient d/c'd home with VNS and PT.
== END 2017-02-26 19:02 | disposition home health service (06) | DRG 543 ==
LOC: JER 14:12 → JERBED 17:54 → J6S 21:14
PROVIDERS: ADMIT Family Medicine; ATTEND Family Medicine
DX: M48.56XA Collapsed vertebra, not elsewhere classified, lumbar region, initial encounter for fracture (principal); I50.30 Unspecified diastolic (congestive) heart failure; M48.54XA Collapsed vertebra, not elsewhere classified, thoracic region, initial encounter for fracture; M51.16 Intervertebral disc disorders with radiculopathy, lumbar region; E78.5 Hyperlipidemia, unspecified; I11.0 Hypertensive heart disease with heart failure; R94.31 Abnormal electrocardiogram [ECG] [EKG]; M85.80 Other specified disorders of bone density and structure, unspecified site; E66.9 Obesity, unspecified; Z68.37 Body mass index [BMI] 37.0-37.9, adult; Z71.3 Dietary counseling and surveillance; R26.2 Difficulty in walking, not elsewhere classified; M16.12 Unilateral primary osteoarthritis, left hip; M47.9 Spondylosis, unspecified
CPT/HCPCS: 36415; 71010-TC; 72100-TC; 72128-TC; 72131-TC; 73523-TC; 80053; 81003; 81015; 85025; 85027; 85651; 87081; 93005; 93010; 93306-TC; 93970-TC; 97116-GP; 97162-PG; 99284-25

== ENCOUNTER 2017-09-26 19:10 | Inpatient (IN) | payer OTHER, MEDICARE ==
[2017-09-26 19:19] VITALS: BMI 34.3
--- NOTE | 2017-09-26 19:35 | PDOC ---
History of Present Illness <Chantelle Montes - Last Filed: 09/26/17 22:23> - General History Source: Patient Exam Limitations: No Limitations - History of Present Illness Initial Comments: 09/26/17 22:32 Patient is a 86 year old female with a significant past medical history of HTN, HLD and Colon cancer, who presents to the ED with complaints of right leg pain, s/p wound for 3 months. Patient reports she has not seen a doctor for 6 months due to being bed bound for 5 months. She reports experiencing burning and tingling on right leg secondary to wound. Patient reports experiencing left hip pain and right shoulder pain, but denies any hx of falling. As per patient' s daughter, patient is supposed to have surgery on hip but orthopedists states he wants a cardiac consult. Patient reports experiencing 2 episodes of vomiting yesterday afternoon. Denies chest pain, SOB. Denies nausea, vomiting. Denies fevers, chills. Denies contact with sick individuals, out of state travelling. Denies dysuria, hematuria. Denies any other symptoms. Allergies: None Social history: Lives alone. Former smoker (20 years ago). No alcohol. No illicit drugs. Surgical history: Colon resection (2011) PMD: Dr. Mtz <Abdoulaye Osorio - Last Filed: 09/26/17 22:54> - General Chief Complaint: Weakness Stated Complaint: WEAKNESS Time Seen by Provider: 09/26/17 19:25 Past History - Past Medical History Anemia: No Asthma: No Cancer: Yes (colon ca) Cardiac Disorders: No CVA: No COPD: No CHF: No Dementia: No Diabetes: No GI Disorders: No Disorders: No HTN: Yes Hypercholesterolemia: Yes Liver Disease: No Seizures: No Thyroid Disease: No - Surgical History Abdominal Surgery: Yes (COLOSTOMY WITH REVERSAL) Appendectomy: No Cardiac Surgery: No Cholecystectomy: No Lung Surgery: No Neurologic Surgery: No Orthopedic Surgery: No - Suicide/Smoking/Psychosocial Hx Smoking History: Former smoker Have you smoked in the past 12 months: No If you are a former smoker, when did you quit?: 25yrs ago Information on smoking cessation initiated: No Hx Alcohol Use: No Drug/Substance Use Hx: No Substance Use Type: None Hx Substance Use Treatment: No <Chantelle Montes - Last Filed: 09/26/17 22:23> <Abdoulaye Osorio - Last Filed: 09/26/17 22:54> - Past Medical History Allergies/Adverse Reactions: Allergies Allergy/AdvReac Type Severity Reaction Status Date / Time No Known Drug Allergies Allergy Verified 09/26/17 19:15 Home Medications: Ambulatory Orders Hydrochlorothiazide [Hctz -] 12.5 mg PO DAILY #30 cap MDD 1 02/26/17 Atorvastatin Ca [Lipitor] 40 mg PO HS 07/29/17 Cephalexin [Keflex] 500 mg PO QID 07/29/17 Cholecalciferol (Vitamin D3) [Vitamin D3] 1 each PO DAILY 07/29/17 Furosemide [Lasix] 40 mg PO DAILY 07/29/17 Metoprolol Tartrate [Lopressor -] 25 mg PO DAILY MDD 2 07/29/17 Silver Sulfadiazine 1% Top Cr [Silvadene -] 1 applic TP DAILY 07/29/17 Review of Systems - Review of Systems Able to Perform ROS?: Yes Comments:: 09/26/17 22:53 GENERAL/CONSTITUTIONAL: No fever or chills. No weakness. HEAD, EYES, EARS, NOSE AND THROAT: No change in vision. No ear pain or discharge. No sore throat. GASTROINTESTINAL: No nausea, vomiting, diarrhea or constipation. GENITOURINARY: No dysuria, frequency, or change in urination. CARDIOVASCULAR: No chest pain or shortness of breath. RESPIRATORY: No cough, wheezing, or hemoptysis. MUSCULOSKELETAL: +Bilateral leg swelling. +Left hip pain. +Right shoulder pain. No neck or back pain. SKIN: +Right leg wound. NEUROLOGIC: No headache, vertigo, loss of consciousness, or change in strength/ sensation. ENDOCRINE: No increased thirst. No abnormal weight change. HEMATOLOGIC/LYMPHATIC: No anemia, easy bleeding, or history of blood clots. ALLERGIC/IMMUNOLOGIC: No hives or skin allergy. All Other Systems: Reviewed and Negative <Abdoulaye Osorio - Last Filed: 09/26/17 22:54> *Physical Exam - Vital Signs Last Vital Signs Temp Pulse Resp BP Pulse Ox 97.6 F 94 H 18 90/67 100 09/26/17 19:16 09/26/17 19:16 09/26/17 19:16 09/26/17 19:16 09/26/17 19:16 <Chantelle Montes - Last Filed: 09/26/17 22:23> - Vital Signs Last Vital Signs Temp Pulse Resp BP Pulse Ox 97.6 F 94 H 18 90/67 100 09/26/17 19:16 09/26/17 19:16 09/26/17 19:16 09/26/17 19:16 09/26/17 19:16 - Physical Exam Comments: 09/26/17 22:53 GENERAL: Awake, alert, and fully oriented, in no acute distress HEAD: No signs of trauma EYES: PERRLA, EOMI, sclera anicteric, conjunctiva clear ENT: Auricles normal inspection, hearing grossly normal, nares patent, oropharynx clear without exudates. Moist mucosa NECK: Normal ROM, supple, no lymphadenopathy, JVD, or masses LUNGS: Breath sounds equal, clear to auscultation bilaterally. No wheezes, and no crackles HEART: Regular rate and rhythm, normal S1 and S2, no murmurs, rubs or gallops ABDOMEN: Soft, nontender, normoactive bowel sounds. No guarding, no rebound. No masses EXTREMITIES: +Limited right shoulder ROM. +Bilateral lower extremity edema. + bilateral feet deformity. +Chronic venous stasis changes in both legs. + Ulceration of bilateral lower extremity. No surround erythema or cellulitis. Normal range of motion, no edema. No clubbing or cyanosis. No cords, erythema, or tenderness NEUROLOGICAL: Cranial nerves II through XII grossly intact. Normal speech, normal gait SKIN: Warm, Dry, normal turgor, no rashes or lesions noted. <Abdoulaye Osorio - Last Filed: 09/26/17 22:54> Heart Score/ECG Review - ECG Intrepretation Comment:: 09/26/17 22:23 sinus at 85, nl axis, nl interval, t wave flattening diffusely, no acute st/t wave findings <Chantelle Montes - Last Filed: 09/26/17 22:23> ED Treatment Course - LABORATORY CBC & Chemistry Diagram: 09/26/17 20:40 09/26/17 20:40 <Chantelle Montes - Last Filed: 09/26/17 22:23> - LABORATORY CBC & Chemistry Diagram: 09/26/17 20:40 09/26/17 20:40 - ADDITIONAL ORDERS Additional order review: Laboratory Results 09/26/17 09/26/17 09/26/17 20:40 20:40 20:40 PT with INR 10.70 INR 0.95 PTT (Actin FS) 24.2 L Sodium Potassium Chloride Carbon Dioxide Anion Gap BUN Creatinine Creat Clearance w eGFR Random Glucose Lactic Acid Calcium Magnesium Total Bilirubin AST ALT Alkaline Phosphatase Creatine Kinase Troponin I B-Natriuretic Peptide Total Protein Albumin Stool Occult Blood Negative Blood Type Cancelled Antibody Screen Cancelled 09/26/17 09/26/17 09/26/17 20:40 20:40 20:40 PT with INR INR PTT (Actin FS) Sodium 138 Potassium 3.4 L Chloride 102 Carbon Dioxide 24 D Anion Gap 12 BUN 138 H* Creatinine 3.0 H Creat Clearance w eGFR 14.87 Random Glucose 135 H Lactic Acid 0.8 Calcium 8.9 Magnesium 2.7 H Total Bilirubin 0.3 D AST 6 L D ALT 11 L D Alkaline Phosphatase 134 H Creatine Kinase 30 Troponin I < 0.02 B-Natriuretic Peptide 685.48 H Total Protein 7.2 D Albumin 3.5 Stool Occult Blood Blood Type Antibody Screen 09/26/17 20:40 RBC 4.15 MCV 87.5 MCHC 33.0 RDW 13.1 MPV 9.4 Neutrophils % 70.5 D Lymphocytes % 20.9 D Monocytes % 7.0 Eosinophils % 0.6 Basophils % 1.0 <Abdoulaye Osorio - Last Filed: 09/26/17 22:54> Medical Decision Making - Medical Decision Making 09/26/17 20:22 a/p: 86yo female with LE weakness/edema/ulcers -bedbound -has not been out of the house x 6 months -hx of R frozen shoulder and L hip pain -unable to ambulate -will need hospitalization -labs, ekg, cxr, shoulder xray, pelvis/hip xray -will need UA -melena on rectal exam 09/26/17 22:02 pt with acute dvt on L on ultrasound will need heparin therapy will need admission also with ARF will give ivf hydration 09/26/17 22:[address] Borja - accepts pt to service <Chantelle Montes - Last Filed: 09/26/17 22:23> *DC/Admit/Observation/Transfer - Discharge Dispostion Admit: Yes - Attestations Physician Attestion: 09/26/17 22:14 I, Dr. Chantelle Montes DO, attest that this document has been prepared under my direction and personally reviewed by me in its entirety. I further attest, that it accurately reflects all work, treatment, procedures and medical decision -making performed by me. <Chantelle Montes - Last Filed: 09/26/17 22:23> - Attestations Scribe Attestion: 09/26/17 22:54 Documentation prepared by Abdoulaye Osorio, acting as medical microbiologist for Chantelle Montes DO, MD/. <Abdoulaye Osorio - Last Filed: 09/26/17 22:54> Diagnosis at time of Disposition: Hip pain, left, Cannot walk, Acute renal failure, Acute DVT (deep venous thrombosis) - Discharge Dispostion Condition at time of disposition: Guarded
[2017-09-26 20:59] LABS: EOS % 0.6 % (0-4.5); HEMATOCRIT 36.3 % (32.4-45.2); LYMPH % 20.9 % (8-40); MCH 28.9 pg (25.7-33.7); MEAN CELL VOLUME 87.5 fl (80-96); MEAN PLT VOLUME 9.4 fl (7.5-11.1); NEUT % 70.5 % (42.8-82.8); PLATELET COUNT 339 K/MM3 (134-434); RBC 4.15 M/mm3 (3.60-5.2); RDW 13.1 % (11.6-15.6); WHITE BLOOD COUNT 8.6 K/mm3 (4.0-10.0)
[2017-09-26 21:13] LABS: INR 0.95 (0.82-1.09); PROTHROMBIN TIME (PATIENT) 10.7 SEC (9.98-11.88)
[2017-09-26 21:16] LABS: ACTIVATED PTT 24.2 SECONDS (26.9-34.4)
[2017-09-26 21:26] LABS: ALBUMIN 3.5 g/dl (3.4-5.0); ANION GAP 12 (8-16); CALCIUM 8.9 mg/dL (8.5-10.1); CHLORIDE 102 mmol/L (98-107); CO2 24 mmol/L (21-32); GLUCOSE,RANDOM 135 mg/dL (74-106); MAGNESIUM 2.7 mg/dL (1.8-2.4); POTASSIUM 3.4 mmol/L (3.5-5.1); SODIUM 138 mmol/L (136-145)
[2017-09-26 21:39] LABS: ALK PHOS 134 U/L (45-117); BILIRUBIN,TOTAL 0.3 mg/dL (0.2-1.0); SGOT/AST 6 U/L (15-37); SGPT/ALT 11 U/L (12-78); TOT PROT 7.2 g/dl (6.4-8.2)
[2017-09-26 21:41] LABS: BLOOD UREA NITROGEN 138 mg/dL (7-18)
[2017-09-26] MEDS ORDERED: HEPARIN NA (PORCINE) 5,000 UNITS/ML 1ML VIAL IVPUSH PRN (22:02)
[2017-09-26] MEDS ORDERED: SODIUM CHLORIDE 0.9% 1000 ML INFUS.BAG IV ONE (22:07)
--- NOTE | 2017-09-26 22:11 | PN ---
Teaching Attending Note Name of Resident: Isra Zhong ATTENDING PHYSICIAN STATEMENT I saw and evaluated the patient. I reviewed the resident's note and discussed the case with the resident. I agree with the resident's findings and plan as documented. SUBJECTIVE: 86 yo F with pmhx HTN, HLD, colon Ca, (s/p resection 12) who has not left her house in 6 months. She came in with pain in the right lower extremity X 3 months. Notes she has not been to a physician in 6 months, due to being bed- bound. Also notes 2 episodes of vomiting yesterday. Notes she has left hip pain and right shoulder pain. She was also supposed to have hip sx as per ED note, but cardiac clearance was wanted. OBJECTIVE: Physical: VS: Vital Signs Period Temp Pulse Resp BP Sys/Brown Pulse Ox Last 24 Hr 97.6 F 94 18 90/67 100 GEN: NAD, Resting in bed, AA0X3 HEENT: NCAT, PERRL, throat without erythema or exudates CARD: RRR S1, S2 RESP: CTAB ABD: BSx4, NTD to palpation EXT: +2 Pitting edema bilateral, multiple Excorations on LE, with surrounding erythema and edema CBCD WBC 8.6 K/mm3 (4.0-10.0) D 09/26/17 20:40 RBC 4.15 M/mm3 (3.60-5.2) 09/26/17 20:40 Hgb 12.0 GM/dL (10.7-15.3) D 09/26/17 20:40 Hct 36.3 % (32.4-45.2) 09/26/17 20:40 MCV 87.5 fl (80-96) 09/26/17 20:40 MCHC 33.0 g/dl (32.0-36.0) 09/26/17 20:40 RDW 13.1 % (11.6-15.6) 09/26/17 20:40 Plt Count 339 K/MM3 (134-434) D 09/26/17 20:40 MPV 9.4 fl (7.5-11.1) 09/26/17 20:40 CMP Sodium 138 mmol/L (136-145) 09/26/17 20:40 Potassium 3.4 mmol/L (3.5-5.1) L 09/26/17 20:40 Chloride 102 mmol/L (98-107) 09/26/17 20:40 Carbon Dioxide 24 mmol/L (21-32) D 09/26/17 20:40 Anion Gap 12 (8-16) 09/26/17 20:40 BUN 138 mg/dL (7-18) H* 09/26/17 20:40 Creatinine 3.0 mg/dL (0.55-1.02) H 09/26/17 20:40 Creat Clearance w eGFR 14.87 (>60) 09/26/17 20:40 Random Glucose 135 mg/dL (74-106) H 09/26/17 20:40 Calcium 8.9 mg/dL (8.5-10.1) 09/26/17 20:40 Total Bilirubin 0.3 mg/dL (0.2-1.0) D 09/26/17 20:40 AST 6 U/L (15-37) L D 09/26/17 20:40 ALT 11 U/L (12-78) L D 09/26/17 20:40 Alkaline Phosphatase 134 U/L (45-117) H 09/26/17 20:40 Total Protein 7.2 g/dl (6.4-8.2) D 09/26/17 20:40 Albumin 3.5 g/dl (3.4-5.0) 09/26/17 20:40 CARDIAC ENZYMES Creatine Kinase 30 IU/L (26-192) 09/26/17 20:40 Troponin I < 0.02 ng/ml (0.00-0.05) 09/26/17 20:40 Ambulatory Orders Hydrochlorothiazide [Hctz -] 12.5 mg PO DAILY #30 cap MDD 1 02/26/17 Atorvastatin Ca [Lipitor] 40 mg PO HS 07/29/17 Cephalexin [Keflex] 500 mg PO QID 07/29/17 Cholecalciferol (Vitamin D3) [Vitamin D3] 1 each PO DAILY 07/29/17 Furosemide [Lasix] 40 mg PO DAILY 07/29/17 Metoprolol Tartrate [Lopressor -] 25 mg PO DAILY MDD 2 07/29/17 Silver Sulfadiazine 1% Top Cr [Silvadene -] 1 applic TP DAILY 07/29/17 Duplex LE: Non-Occlusive Thrombosis in LLE involving common femoral, femoral, profunda femoral, and posterior tibial veins. L. Popiteal V not visualized. NO evidence of DVT in RLE EKG: sinus at 85, nl axis, nl interval, t wave flattening diffusely, no acute st /t wave findings CXR- No Acute Process ASSESSMENT AND PLAN: 86 yo F with pmhx HTN, HLD, colon Ca, (s/p resection 12) who presents with RLE pain found to have a DVT, in LLE and bilateral cellulitis 1.) DVT - Heparin gtt - Chk. Coags in Am - Transition to NoAc if possible - CBC in AM 2.) Bilateral Cellulitis - Clindamycin 600 Iv Q 8 - Cx 3.) ARF - Urine Lytes - IVF - Hold Lasix and HCTZ - Nephro consult 4.) Hx. OF Colon Ca - Follow up outpt.
--- NOTE | 2017-09-26 22:33 | HP ---
CHIEF COMPLAINT: Weakness, R leg pain PCP: Dr. Mtz HISTORY OF PRESENT ILLNESS: 86 yo woman w/ pmh of HTN, HLD, Diastolic CHF and Colon Ca (s/p resection in 2011 no radiation, no chemotherapy) who presents with progressive weakness, inability to ambulate and R leg pain and L hip pain. Pt states that she has been functionally bedbound for the last six month due to chronic L hip pain. Pt normally ambulates with a walker at home, but endorses progressive decreased strength in her legs, stating she has been vitually unable to walk over the last few days. Pt endorses chronic L hip pain (present on last admission on 03/02 ) and R leg pain on her anterior jones at a wound site for the last three months. Patient describes the pain as burning with paresthesias. She has not seen a doctor in the last six months. She denies any hx of kidney dz, kidney stones, diabetes, autoimmune conditions, vasculitidies, recent contrast exposure or new medications. In addition, pt endorse "black" diarrhea yesterday , but denies any hematochezia or other episodes of melena. She denies any fever/ chills, GLASS, cough, SOB, CP, palpitations, Abdominal pain, N/V, back or groin pain. She denies any dysuria, hematuria, hesistancy or frequency. Pt endorses chronic BL LE edema, as well as R shoulder pain w/ limited ROM. Pt states she normally consumes copious amounts of water and has received good PO hydration up until today. She denies any hx of blood clots, sick contacts or recent travel. Pt lives at home alone, however receives assistance from visiting [employer] [facility]. ER course was notable for: (1) BUN/Cr 138/3.0 (2) BNP 685 (3) L leg DVT on duplex Recent Travel: None PAST MEDICAL HISTORY: Colon Ca HTN HLD Lumbar Disk Dz w/ radiculopathy Thoracic spine compression fx's Diastolic CHF on ECHO PAST SURGICAL HISTORY: Colostomy w/ reversal Social History: Smoking:Former smoker, quit 25 years ago Alcohol: no Drugs: no Lives at home alone, ambulates with walker Family History: Sister with unspecified renal dz. Father with CAD. Allergies No Known Drug Allergies Allergy (Verified 09/26/17 19:15) HOME MEDICATIONS: Home Medications Medication Instructions Recorded Hydrochlorothiazide [Hctz -] 12.5 mg PO DAILY #30 cap MDD 1 02/26/17 Atorvastatin Ca [Lipitor] 40 mg PO HS 07/29/17 Cephalexin [Keflex] 500 mg PO QID 07/29/17 Cholecalciferol (Vitamin D3) 1 each PO DAILY 07/29/17 [Vitamin D3] Furosemide [Lasix] 40 mg PO DAILY 07/29/17 Metoprolol Tartrate [Lopressor -] 25 mg PO DAILY MDD 2 07/29/17 Silver Sulfadiazine 1% Top Cr 1 applic TP DAILY 07/29/17 [Silvadene -] REVIEW OF SYSTEMS CONSTITUTIONAL: generalized weakness Absent: fever, chills, diaphoresis, malaise, loss of appetite, weight change HEENT: Absent: rhinorrhea, nasal congestion, throat pain, throat swelling, difficulty swallowing, mouth swelling, ear pain, eye pain, visual changes CARDIOVASCULAR: peripheral edema Absent: chest pain, syncope, palpitations, irregular heart rate, lightheadedness , RESPIRATORY: Absent: cough, shortness of breath, dyspnea with exertion, orthopnea, wheezing, stridor, hemoptysis GASTROINTESTINAL: diarrhea, black stools yesterday Absent: abdominal pain, abdominal distension, nausea, vomiting, constipation, melena, hematochezia GENITOURINARY: Absent: dysuria, frequency, urgency, hesitancy, hematuria, flank pain, genital pain MUSCULOSKELETAL: R shoulder pain/decreased ROM, L hip pain, R LE pain on anterior jones wound Absent: myalgia, arthralgia, joint swelling, back pain, neck pain SKIN: R jones rash Absent:itching, pallor HEMATOLOGIC/IMMUNOLOGIC: Absent: easy bleeding, easy bruising, lymphadenopathy, frequent infections ENDOCRINE: Absent: unexplained weight gain, unexplained weight loss, heat intolerance, cold intolerance NEUROLOGIC: Absent: headache, focal weakness or paresthesias, dizziness, unsteady gait, seizure, mental status changes, bladder or bowel incontinence PHYSICAL EXAMINATION Vital Signs - 24 hr 09/26/17 19:16 Temperature 97.6 F Pulse Rate 94 H Respiratory 18 Rate Blood Pressure 90/67 O2 Sat by Pulse 100 Oximetry (%) GENERAL: Awake, alert, and fully oriented, in no intermittent distress, complaining of hip pain. Obese woman HEAD: Normal with no signs of trauma. EYES: Pupils equal, round and reactive to light, extraocular movements intact, sclera anicteric, conjunctiva clear. No lid lag. EARS, NOSE, THROAT: Ears normal, nares patent, oropharynx clear without exudates. Moist mucous membranes. NECK: Normal range of motion, supple without lymphadenopathy, JVD, or masses. LUNGS: Breath sounds equal, clear to auscultation bilaterally. Decreased at bases. No wheezes, and no crackles. No accessory muscle use. HEART: Distant heart sounds, RRR, normal S1 and S2 without murmur, rub or gallop. ABDOMEN: Protuberant. Soft, nontender, not distended, normoactive bowel sounds, no guarding, no rebound, no masses. No hepatomegaly or splenomegaly. MUSCULOSKELETAL: Decreased ROM in R shoulder and L hip. Normal range of motion at all other joints. No bony deformities or tenderness. No CVA tenderness. UPPER EXTREMITIES: 2+ pulses, warm, well-perfused. No cyanosis. No clubbing. No peripheral edema. LOWER EXTREMITIES: 2+ pulses, warm, well-perfused. No calf tenderness. 3+ peripheral edema with chronic venous insufficiency. Chronic toe deformities, BL severe varus deviation of halluces. NEUROLOGICAL: Cranial nerves II-XII intact. Normal speech. Gait not evaluated. 5/5 strength grossly in all extremities. Unable to lift L leg due to hip pain. Preserved sensation to light touch across all dermatomes. PSYCHIATRIC: Cooperative. Good eye contact. Appropriate mood and affect. SKIN: Large cellulitic ulcer on R anterior jones with surrounding erythema, calor , minimal purulence noted.. L inflamed ulcer on proximal, posterior calf, as well. Warm, dry, normal turgor, normal capillary refill. Laboratory Results - last 24 hr CBC, BMP 09/26/17 20:40 09/26/17 20:40 09/26/17 09/26/17 09/26/17 20:40 20:40 20:40 WBC 8.6 D RBC 4.15 Hgb 12.0 D Hct 36.3 MCV 87.5 MCH 28.9 MCHC 33.0 RDW 13.1 Plt Count 339 D MPV 9.4 Neutrophils % 70.5 D Lymphocytes % 20.9 D Monocytes % 7.0 Eosinophils % 0.6 Basophils % 1.0 PT with INR INR PTT (Actin FS) Sodium 138 Potassium 3.4 L Chloride 102 Carbon Dioxide 24 D Anion Gap 12 BUN 138 H* Creatinine 3.0 H Creat Clearance w eGFR 14.87 Random Glucose 135 H Lactic Acid 0.8 Calcium 8.9 Magnesium 2.7 H Total Bilirubin 0.3 D AST 6 L D ALT 11 L D Alkaline Phosphatase 134 H Creatine Kinase 30 Troponin I < 0.02 B-Natriuretic Peptide Total Protein 7.2 D Albumin 3.5 Blood Type Antibody Screen 09/26/17 09/26/17 09/26/17 20:40 20:40 20:40 WBC RBC Hgb Hct MCV MCH MCHC RDW Plt Count MPV Neutrophils % Lymphocytes % Monocytes % Eosinophils % Basophils % PT with INR 10.70 INR 0.95 PTT (Actin FS) 24.2 L Sodium Potassium Chloride Carbon Dioxide Anion Gap BUN Creatinine Creat Clearance w eGFR Random Glucose Lactic Acid Calcium Magnesium Total Bilirubin AST ALT Alkaline Phosphatase Creatine Kinase Troponin I B-Natriuretic Peptide 685.48 H Total Protein Albumin Blood Type Cancelled Antibody Screen Cancelled FOBT negative EKG: sinus at 85, nl axis, nl interval, t wave flattening diffusely, no acute st /t wave findings CXR: No acute pathology noted Venous Duplex LEs: 1. Nonocclusive thrombosis in the left lower extremity involving the common femoral, femoral, profunda femoral and posterior tibial veins. Left popliteal vein not visualized. 2. No evidence of deep vein thrombosis in the right lower extremity, as above. ASSESSMENT/PLAN: 86 yo woman w/ pmh of HTN, HLD, Diastolic CHF and Colon Ca (s/p resection in 2011 no radiation, no chemotherapy) who presents with progressive weakness, inability to ambulate and R leg pain and L hip pain. Now w/ found to have ARF secondary to unknown etiology (pre, intra, or post-renal - diabetic, stones, dehydration, meds, AI, obstructive uropathy, cardiogenic, thrombus, etc...). Will likely require extensive work-up. #Acute renal failure - Unknown etiology (pre, intra or post-renal etiology); BUN /Cr 138/3.0 - Renal u/s w/ doppler - f/u UA - Urine lytes - A1C - IVFs - Renal Consulted - Confirm current meds - May require renal bx - Avoid nephrotoxic agents - Hold HCTZ, lasix - Once determined if pre, intra or postrenal, will require further work-up for etiology #R leg cellulitis - afebrile, no WBC count - Wound care - ID consulted - Trend fever, WBC curve - ECHO to r/o IE given ARF - IV Abx, renally dosed - Clindamycin 600mg IV q8h #L leg DVT - confirmed on U/S - heparin gtt - check coags in AM - Start NOAC if possible - CBC in AM - negative FOBT #Weakness - likely secondary to deconditioning - Monitor #HTN - - Hold BB, diuretics in setting of Hypotension - Confirm home meds - Vitals Q4h #HLD - Lipid panel - Statin #Diastolic CHF - BNP elevated; prior echo w/ diastolic CHF - ECHO - Strict Is and Os - Daily Weights PPX Heparin gtt FEN NS 75cc/hr Daily BMP, monitor for hypoK Fat-controlled diet Plan discussed with attending, Dr. Huong Zhong, PGY1 Visit type - Emergency Visit Emergency Visit: Yes ED Registration Date: 09/26/17 Care time: The patient presented to the Emergency Department on the above date and was hospitalized for further evaluation of their emergent condition. - New Patient This patient is new to me today: Yes Date on this admission: 09/27/17 - Critical Care Critical Care patient: No
[2017-09-26] MEDS ORDERED: HEPARIN INFUSION - 25,000 UNITS/500 ML INFUS.BAG IVPB ONE (22:39)
[2017-09-26] MEDS: HEPARIN - 25,000 UNIT in SODIUM CHLORIDE 495 ML IV SCH (22:46)
[2017-09-26] MEDS ORDERED: SODIUM CHLORIDE 1,000 ML IV SCH (23:30)
[2017-09-27] MEDS ORDERED: morphine CARPU-JECT 10 MG/1 ML DISP.SYRIN ONE ×3 (00:32→09:31)
[2017-09-27] MEDS: morphine CARPU-JECT 10 MG/1 ML DISP.SYRIN IVPUSH PRN ×3 (00:34→09:36)
[2017-09-27 00:58] LABS: URINE APPEARANCE CLEAR; URINE BILIRUBIN NEGATIVE (NEGATIVE); URINE BLOOD 2+ (NEGATIVE); URINE COLOR STRAW; URINE GLUCOSE (UA) NEGATIVE (NEGATIVE); URINE KETONE NEGATIVE (NEGATIVE); URINE NITRITE NEGATIVE (NEGATIVE); URINE PROTEIN NEGATIVE (NEGATIVE); URINE UROBILINOGEN NEGATIVE mg/dL (0.2-1.0)
[2017-09-27 01:01] LABS: URINE LEUK ESTERASE 2+ (NEGATIVE)
[2017-09-27] MEDS ORDERED: CLINDAMYCIN 600MG PREMIX IVPB 600 MG/50 ML BAG IVPB SCH (02:00)
[2017-09-27 02:05] LABS: EPI CELLS RARE /HPF (FEW); URINE BACTERIA RARE /hpf (NONE SEEN); URINE HYALINE CAST 4 /lpf; URINE MUCUS RARE
[2017-09-27] MEDS ORDERED: CLINDAMYCIN 600MG PREMIX IVPB 600 MG/50 ML BAG IVPB ONE (02:06)
[2017-09-27 04:55] LABS: BASO % 0.7 % (0-2.0); EOS % 0.6 % (0-4.5); HEMATOCRIT 31.3 % (32.4-45.2); HEMOGLOBIN 10.3 GM/dL (10.7-15.3); LYMPH % 27.9 % (8-40); MCH 28.9 pg (25.7-33.7); MEAN CELL VOLUME 87.7 fl (80-96); MEAN PLT VOLUME 9.1 fl (7.5-11.1); MONO % 8.6 % (3.8-10.2); NEUT % 62.2 % (42.8-82.8); PLATELET COUNT 310 K/MM3 (134-434); RBC 3.57 M/mm3 (3.60-5.2); WHITE BLOOD COUNT 8.4 K/mm3 (4.0-10.0)
[2017-09-27 05:21] LABS: CHOLESTEROL 305 mg/dL (50-200); HDL CHOLESTEROL 42 mg/dL (40-60); LDL CHOLESTEROL (ONLY SJRH) 203 mg/dL (5-100); TRIGLYCERIDES 203 mg/dL (35-160)
[2017-09-27 05:31] LABS: ALBUMIN 2.9 g/dl (3.4-5.0); ANION GAP 10 (8-16); BILIRUBIN,TOTAL 0.3 mg/dL (0.2-1.0); CALCIUM 8.3 mg/dL (8.5-10.1); CHLORIDE 106 mmol/L (98-107); CO2 26 mmol/L (21-32); CREATININE 2.5 mg/dL (0.55-1.02); GLUCOSE,RANDOM 119 mg/dL (74-106); MAGNESIUM 2.6 mg/dL (1.8-2.4); PHOSPHOROUS 5.3 mg/dL (2.5-4.9); POTASSIUM 3.6 mmol/L (3.5-5.1); SGOT/AST 10 U/L (15-37); SGPT/ALT 11 U/L (12-78); SODIUM 142 mmol/L (136-145)
[2017-09-27 05:32] LABS: ALK PHOS 113 U/L (45-117)
[2017-09-27 05:56] LABS: BLOOD UREA NITROGEN 131 mg/dL (7-18)
[2017-09-27] MEDS ORDERED: SODIUM CHLORIDE 1,000 ML IV SCH (06:01)
--- NOTE | 2017-09-27 09:27 | PN ---
Progress Note (short form) - Note Progress Note: ID consult dictated imp/reccd 86 year old female admitted from home nonambulatory for last 6 months, essentailly homebound due to left hip pain also chronic right shoulder pain- lack of mobility seen by practitioner at home yesterday and sent to ED with low bp no fevers or chills LLE DVT Acute renal failure cellulitis (mild) both lower extrmities fluids anticoagulation blood cultures/ancef Problem List - Problems (1) Acute DVT (deep venous thrombosis) Code(s): I82.409 - ACUTE EMBOLISM AND THOMBOS UNSP DEEP VN UNSP LOWER EXTREMITY (2) Acute renal failure Code(s): N17.9 - ACUTE KIDNEY FAILURE, UNSPECIFIED (3) Cellulitis Code(s): L03.90 - CELLULITIS, UNSPECIFIED
[2017-09-27] MEDS ORDERED: CHOLECALCIFEROL PO SCH (10:00)
[2017-09-27] MEDS ORDERED: CEFAZOLIN 1 GM PUSH 1 GM/10 ML SYRINGE IVPUSH SCH (10:00)
--- NOTE | 2017-09-27 10:02 | EKG ---
Test Reason : Blood Pressure : / mmHG Vent. Rate : 085 BPM Atrial Rate : 081 BPM P-R Int : 000 ms QRS Dur : 062 ms QT Int : 364 ms P-R-T Axes : 000 052 -17 degrees QTc Int : 433 ms NORMAL SINUS RHYTHM WITH MARKED SINUS ARRHYTHMIA ABNORMAL ECG Confirmed by MD PRUDENCIO, JEANNE ([id number]) on 09/27/2017 10:02:13 AM Referred By: Confirmed By:JEANNE FLANNERY MD
--- NOTE | 2017-09-27 10:25 | PN ---
Progress Note, Physician Chief Complaint: LLE DVT Weakness Cellulitis History of Present Illness: NAD, feels weak. seen in radiology, down for renal ultrasound -no pain at this time, controlled with morphine - Current Medication List Current Medications: Active Medications Atorvastatin Calcium (Lipitor -) 40 mg PO HS MATHEW Cefazolin Sodium (Ancef -) 1 gm IVPUSH BID MATHEW Heparin Sodium (Porcine) (Heparin -) 1,000 unit IVPUSH PRN PRN PRN Reason: Heparin Heparin Sodium (Porcine) (Heparin -) 5,000 unit IVPUSH PRN PRN PRN Reason: Heparin Heparin Sodium (Porcine) 25, (000 unit/ Sodium Chloride) 500 mls @ 20 mls/hr IV TITR MATHEW; 1,000 UNIT/HR PRN Reason: Protocol Last Admin: 09/26/17 22:46 Dose: 1,000 unit/hr, 20 mls/hr Lactated Ringer's (Lactated Ringers Solution) 1,000 ml in 1,000 mls @ 125 mls/ hr IV ASDIR MATHEW Morphine Sulfate (Morphine Injection -) 1 mg IVPUSH Q4H PRN PRN Reason: PAIN LEVEL 4 - 6 Last Admin: 09/27/17 09:36 Dose: 1 mg Non-Formulary Medication (Cholecalciferol (Vitamin D3) [Vitamin D3]) 1 each PO DAILY [facility] - Objective Vital Signs: Vital Signs Temperature 97.8 F 09/27/17 09:35 Pulse Rate 84 09/27/17 09:35 Respiratory Rate 16 09/27/17 09:35 Blood Pressure 119/62 09/27/17 09:35 O2 Sat by Pulse Oximetry (%) 98 09/27/17 09:35 Constitutional: Yes: Well Nourished, No Distress, Calm Cardiovascular: Yes: Regular Rate and Rhythm Respiratory: Yes: Regular Gastrointestinal: Yes: Normal Bowel Sounds, Soft, Abdomen, Obese Musculoskeletal: Yes: Muscle Weakness Extremities: Yes: Erythema (RLE) Edema: Yes (RLE) Peripheral Pulses WNL: Yes Wound/Incision: Yes: Reddened (RLE) Neurological: Yes: Alert, Oriented Psychiatric: Yes: Alert, Oriented Labs: CBC, BMP 09/27/17 04:30 09/27/17 04:30 INR, PTT INR 0.95 (0.82-1.09) 09/26/17 20:40 - ....Imaging Chest X-ray: Report Reviewed Ultrasound: Report Reviewed Problem List - Problems (1) Weakness Assessment/Plan: -secondary to polyarthritis -DVT -dehydration -on IVF -Physical therapy once stabilized Code(s): R53.1 - WEAKNESS (2) Polyarthralgia Code(s): M25.50 - PAIN IN UNSPECIFIED JOINT (3) Acute DVT (deep venous thrombosis) Assessment/Plan: -Vascular consult -IV heparin for now until renal function is at baseline, then likely switch over to facto Xa inhibitors Code(s): I82.409 - ACUTE EMBOLISM AND THOMBOS UNSP DEEP VN UNSP LOWER EXTREMITY (4) Acute renal failure Assessment/Plan: -dehydration -LR IVF to avoid metabolic acidosis -renal U/S unremarkable -nephrology consult Code(s): N17.9 - ACUTE KIDNEY FAILURE, UNSPECIFIED (5) Cellulitis Assessment/Plan: -ID consult appreciated -IV abx -silvadene topical daily Code(s): L03.90 - CELLULITIS, UNSPECIFIED (6) Anemia Assessment/Plan: -likely dilutional -check Iron profile, B 12, folate, TSH, FT4 -Guaiac all stools -monitor H/H Code(s): D64.9 - ANEMIA, UNSPECIFIED Assessment/Plan see problem list Echo done, overall improvement in cardiac functioning
--- NOTE | 2017-09-27 11:30 | CONS ---
DATE OF CONSULTATION: DATE OF DICTATION: 09/27/2017 REQUESTING PHYSICIAN: Abby Mtz MD HISTORY OF PRESENT ILLNESS: This is an 86-year-old woman with a past medical history of hypertension, hyperlipidemia, diastolic heart failure, and prior colon cancer. She was in the hospital in January of 2017 with pain in her left hip. 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 She had CT scan of the lumbar spine, which showed multiple compression fractures. She was ultimately discharged home with VNS. She reports that for the last 6 months, she has had worsening mobility. She has really been unable to leave her house. She denies any fevers or chills. She has been having a home health aide. She has nieces who live nearby who help with food. She has essentially been non-ambulatory. She was seen yesterday by a practitioner who came to her house who noted she was having a low blood pressure and sent her to the emergency room. She has seen an orthopedist, and the plan is for left hip surgery when she is medically maximized. She also complains of shoulder pain, which is chronic. In the emergency room, she was noted to be awake and alert. Her blood pressure was noted to be low. She was started on gentle IV fluids. She had no cultures drawn. She was started on clindamycin for some erythema of both her legs. She had a duplex, as well, for both her legs done that showed a left lower extremity DVT. She was started on heparin. ALLERGIES: She has no known drug allergies. PAST MEDICAL HISTORY: Notable for colon cancer, hypertension, hyperlipidemia, she has multiple compression fractures, diastolic heart failure. PAST SURGICAL HISTORY: Notable for colostomy with reversal. FAMILY HISTORY: Unremarkable. SOCIAL HISTORY: She lives alone. She has essentially been bedbound. She has not gone out, she reports, for months. There is no history of any substance use. She is a former smoker, quit 25 years ago. REVIEW OF SYSTEMS: She had diarrhea yesterday which has resolved. She has chronic shoulder pain of her right shoulder. She complains of severe pain in her left hip. MEDICATIONS AT HOME: Include hydrochlorothiazide, Lipitor, vitamin D, Lasix, Lopressor. PHYSICAL EXAMINATION General: She is awake and alert. Vital signs: Temperature of 97.6; pulse of 64, blood pressure 98/53, respiratory rate 18, she is saturating 98% on room air. HEENT: She is normocephalic. Her eyes are anicteric. Neck: Supple. Lungs: Clear to auscultation. Heart: Regular rate and rhythm. Abdomen: Soft, nontender. Extremities: She has limited range of motion of her right shoulder. She has limited range of motion of her left hip. She has swelling of her left calf, and she has venous stasis changes with some mild erythema of both her legs. DIAGNOSTIC DATA: Duplex of her legs show left lower extremity DVT. Right shoulder shows a large joint effusion versus hematoma. She has a humeral head that is medially displaced. Chest x-ray shows no pulmonary disease. X-rays of her hip and pelvis showed deformed left hip. SUMMARY: This is an elderly woman with severe left hip osteoarthritis, now left lower extremity deep venous thrombosis with some mild cellulitis of her legs. She has no systemic signs of infection. She is in acute renal failure, as well, which needs to be evaluated. Would suggest, we treat her at this time with some cefazolin for cellulitis and address her other acute problems including her deep venous thrombosis and acute renal failure. Will obtain blood cultures for completeness. Further recommendations to follow. Juan C [id number]
[2017-09-27] MEDS: LACTATED RINGERS SOLUTION 1,000 ML/1,000 ML INFUS.BAG IV SCH (11:37)
[2017-09-27] MEDS ORDERED: METOPROLOL TARTRATE 25 MG TABLET (FP) ONE (12:33)
[2017-09-27] MEDS: METOPROLOL TARTRATE 25 MG TABLET (FP) PO SCH (12:35)
[2017-09-27] MEDS ORDERED: CEFAZOLIN 1 GM/D5W 1 GM/50 ML BAG ONE (12:48)
[2017-09-27] MEDS: CEFAZOLIN 1 GM PUSH 1 GM/10 ML DISP.SYRIN IVPUSH SCH ×2 (12:51→23:05)
[2017-09-27] MEDS ORDERED: SILVER SULFADIAZINE 1% TOP CREAM 50 GM JAR TP ONE (13:05)
[2017-09-27] MEDS: SILVER SULFADIAZINE 1% TOP CREAM 400 GM JAR TP SCH (13:05)
[2017-09-27] MEDS ORDERED: ONDANSETRON 4 MG/2 ML VIAL ONE (13:28)
[2017-09-27] MEDS ORDERED: ONDANSETRON 4 MG/2 ML VIAL IVPUSH PRN (16:34)
--- NOTE | 2017-09-27 17:07 | CON.NEP ---
Consult Consult Specialty:: Nephrology Referred by:: Medicine Reason for Consultation:: Acute kidney injury - History of Present Illness Chief Complaint: Inability to ambulate for 6 months. Fatigue and tiredness. Edema and erythema of the lower extremities. - History Source History Provided By: Patient, Medical Record Limitations to Obtaining History: No Limitations - Past Medical History Cardio/Vascular: Yes: HTN, Hyperlipdemia Gastrointestinal: Yes: Cancer Renal/: Yes: Renal Inusuff ...: No (Elderly) Heme/Onc: Yes: Anemia Musculoskeletal: Yes: Chronic low back pain - Smoking History Smoking history: Former smoker Have you smoked in the past 12 months: No If you are a former smoker, when did you quit?: 25yrs ago - Social History ADL: Independent (Lives alone at home) History of Recent Travel: No Home Medications - Allergies Allergies/Adverse Reactions: Allergies Allergy/AdvReac Type Severity Reaction Status Date / Time No Known Drug Allergies Allergy Verified 09/26/17 19:15 - Home Medications Home Medications: Ambulatory Orders Atorvastatin Ca [Lipitor] 40 mg PO HS 07/29/17 Cholecalciferol (Vitamin D3) [Vitamin D3] 1 each PO DAILY 07/29/17 Furosemide [Lasix] 40 mg PO DAILY 07/29/17 Metoprolol Tartrate [Lopressor -] 25 mg PO DAILY MDD 2 07/29/17 Silver Sulfadiazine 1% Top Cr [Silvadene -] 1 applic TP DAILY 07/29/17 Family Disease History - Family Disease History Family Disease History: Diabetes: Sister (HTN, Hyperlipidemia), Heart Disease: Brother (CABG,HTN, hyperlipidemia), Sister Review of Systems - Review of Systems Constitutional: reports: Loss of Appetite, Weakness Musculoskeletal: reports: Extremity Pain, Muscle Weakness Integumentary: reports: Blister, Bruising, Erythema Nephrology Consult - Height Height: 4 ft 11 in - Weight Weight: 170 lb - BMI Body Mass Index (BMI): 34.3 - Lab Results CBC,BMP: CBC, BMP 09/27/17 04:30 09/27/17 04:30 Anion Gap: Anion Gap Anion Gap 10 (8-16) 09/27/17 04:30 - Physical Examination Vital Signs: Vital Signs Temperature 97.6 F 09/27/17 13:36 Pulse Rate 83 09/27/17 13:36 Respiratory Rate 16 09/27/17 13:36 Blood Pressure 119/53 09/27/17 13:36 O2 Sat by Pulse Oximetry (%) 98 09/27/17 13:36 Problem List - Problems (1) Acute DVT (deep venous thrombosis) Code(s): I82.409 - ACUTE EMBOLISM AND THOMBOS UNSP DEEP VN UNSP LOWER EXTREMITY (2) Acute renal failure Assessment/Plan: Elderly female with history of hypertension, hyperlipidemia and colon cancer s/ p resection in 2011 who is now admitted with cellulitis of the right leg, DVT of the left lower extremity, anemia and probable acute kidney injury. Patient has relatively high BUN:creatinine ratio which will favor pre renal etiology. However the presence of cellulitis also raises suspicion for post infectious etiology. In addition, the fact that the patient has been home bound and has this multiple blistering lesions in the lower extremity raises the possibility of rhabdomyolysis. In the interim continue iv fluid using lactated ringers as you are currently doing and monitor fluid intake and urine output. Obtain result of renal sonogram. Check spot urine for protein and creatinine ratio, obtain CPK , ASO and serum complement, ( c3, c4)., ANCA titers. Avoid the use of nephrotoxic agents and adjust all medications for reduced eGFR. Will follow. Thank you for the consultation. Code(s): N17.9 - ACUTE KIDNEY FAILURE, UNSPECIFIED (3) Anemia Assessment/Plan: Check iron indices, vitamin B12 and folate level. Also check stool for occult blood as this could also lead to an increase in the blood urea nitrogen. Code(s): D64.9 - ANEMIA, UNSPECIFIED (4) Cellulitis Code(s): L03.90 - CELLULITIS, UNSPECIFIED
--- NOTE | 2017-09-27 17:48 | PN ---
Progress Note (short form) - Note Progress Note: Vascular Surgery Pt seen and examined. LLE DVT. On IV heparin. Can convert to AC for 6 months. Silvadene and ARELIS wraps to right lower ext daily. Right jones ulcer is clean. Sergio Gamez DO
[2017-09-27] MEDS: ATORVASTATIN CA 40 MG TABLET (FP) PO SCH (21:31)
[2017-09-28] MEDS: HEPARIN - 25,000 UNIT in SODIUM CHLORIDE 495 ML IV SCH ×2 (02:28→10:45)
[2017-09-28 08:37] LABS: CHLORIDE 109 mmol/L (98-107); POTASSIUM 3.2 mmol/L (3.5-5.1); SODIUM 144 mmol/L (136-145)
[2017-09-28 08:50] LABS: HEMATOCRIT 28.7 % (32.4-45.2); HEMOGLOBIN 9.4 GM/dL (10.7-15.3); MCH 29.3 pg (25.7-33.7); MEAN CELL VOLUME 88.9 fl (80-96); MEAN PLT VOLUME 9.4 fl (7.5-11.1); PLATELET COUNT 307 K/MM3 (134-434); RBC 3.22 M/mm3 (3.60-5.2); RDW 12.7 % (11.6-15.6); WHITE BLOOD COUNT 6.7 K/mm3 (4.0-10.0)
[2017-09-28 09:00] LABS: ALBUMIN 2.6 g/dl (3.4-5.0); ANION GAP 13 (8-16); BLOOD UREA NITROGEN 86 mg/dL (7-18); CALCIUM 8.2 mg/dL (8.5-10.1); CO2 22 mmol/L (21-32); CREATININE 1.6 mg/dL (0.55-1.02); GLUCOSE,RANDOM 71 mg/dL (74-106); SGOT/AST 11 U/L (15-37); SGPT/ALT 12 U/L (12-78); TOT PROT 5.5 g/dl (6.4-8.2)
[2017-09-28 09:08] LABS: ALK PHOS 144 U/L (45-117); BILIRUBIN,TOTAL 0.3 mg/dL (0.2-1.0)
[2017-09-28] MEDS: CEFAZOLIN 1 GM PUSH 1 GM/10 ML DISP.SYRIN IVPUSH SCH ×2 (09:37→21:37)
[2017-09-28] MEDS: LACTATED RINGERS SOLUTION 1,000 ML/1,000 ML INFUS.BAG IV SCH (09:38)
[2017-09-28] MEDS: SILVER SULFADIAZINE 1% TOP CREAM 400 GM JAR TP SCH (09:38)
[2017-09-28] MEDS: METOPROLOL TARTRATE 25 MG TABLET (FP) PO SCH (09:38)
[2017-09-28] MEDS ORDERED: FLU VACCINE QUAD 60 MCG/0.5 ML (MDV 17-18) IM ONE (10:00)
--- NOTE | 2017-09-28 13:21 | PN ---
Progress Note, Physician - Current Medication List Current Medications: Active Medications Atorvastatin Calcium (Lipitor -) 40 mg PO HS [facility] Last Admin: 09/27/17 21:31 Dose: 40 mg Heparin Sodium (Porcine) (Heparin -) 1,000 unit IVPUSH PRN PRN PRN Reason: Heparin Heparin Sodium (Porcine) (Heparin -) 5,000 unit IVPUSH PRN PRN PRN Reason: Heparin Heparin Sodium (Porcine) 25, (000 unit/ Sodium Chloride) 500 mls @ 20 mls/hr IV TITR MATHEW; 1,000 UNIT/HR PRN Reason: Protocol Last Admin: 09/28/17 02:28 Dose: 1,000 unit/hr, 20 mls/hr Lactated Ringer's (Lactated Ringers Solution) 1,000 ml in 1,000 mls @ 125 mls/ hr IV ASDIR [facility] Last Admin: 09/28/17 09:38 Dose: Not Given Cefazolin Sodium (Ancef -) 1 gm in 10 mls @ 120 mls/hr IVPUSH BID [facility] Last Admin: 09/28/17 09:37 Dose: 120 mls/hr Metoprolol Tartrate (Lopressor -) 25 mg PO DAILY [facility] Last Admin: 09/28/17 09:38 Dose: 25 mg Morphine Sulfate (Morphine Injection -) 1 mg IVPUSH Q4H PRN PRN Reason: PAIN LEVEL 4 - 6 Last Admin: 09/27/17 09:36 Dose: 1 mg Non-Formulary Medication (Cholecalciferol (Vitamin D3) [Vitamin D3]) 1 each PO DAILY [facility] Ondansetron HCl (Zofran Injection) 4 mg IVPUSH Q8H PRN PRN Reason: NAUSEA Silver Sulfadiazine (Silvadene -) 1 applic TP DAILY [facility] Last Admin: 09/28/17 09:38 Dose: 1 applic - Objective Vital Signs: Vital Signs Temperature 98.1 F 09/28/17 10:00 Pulse Rate 107 H 09/28/17 10:00 Respiratory Rate 20 09/28/17 10:00 Blood Pressure 120/62 09/28/17 10:00 O2 Sat by Pulse Oximetry (%) 98 09/27/17 21:00 Labs: CBC, BMP 09/28/17 05:48 09/28/17 05:48 INR, PTT INR 0.95 (0.82-1.09) 09/26/17 20:40
--- NOTE | 2017-09-28 13:30 | PN ---
Progress Note, Physician Chief Complaint: AWAKE ALERT FEELING BETTER WITH DVT LEFT LEG THIS IS MY FIRST ENCOUNTER WITH THIS PATIENT EVENTS AND NOTES REVIEWED - Current Medication List Current Medications: Active Medications Atorvastatin Calcium (Lipitor -) 40 mg PO HS [facility] Last Admin: 09/27/17 21:31 Dose: 40 mg Heparin Sodium (Porcine) (Heparin -) 1,000 unit IVPUSH PRN PRN PRN Reason: Heparin Heparin Sodium (Porcine) (Heparin -) 5,000 unit IVPUSH PRN PRN PRN Reason: Heparin Heparin Sodium (Porcine) 25, (000 unit/ Sodium Chloride) 500 mls @ 20 mls/hr IV TITR MATHEW; 1,000 UNIT/HR PRN Reason: Protocol Last Admin: 09/28/17 02:28 Dose: 1,000 unit/hr, 20 mls/hr Lactated Ringer's (Lactated Ringers Solution) 1,000 ml in 1,000 mls @ 125 mls/ hr IV ASDIR [facility] Last Admin: 09/28/17 09:38 Dose: Not Given Cefazolin Sodium (Ancef -) 1 gm in 10 mls @ 120 mls/hr IVPUSH BID [facility] Last Admin: 09/28/17 09:37 Dose: 120 mls/hr Metoprolol Tartrate (Lopressor -) 25 mg PO DAILY [facility] Last Admin: 09/28/17 09:38 Dose: 25 mg Morphine Sulfate (Morphine Injection -) 1 mg IVPUSH Q4H PRN PRN Reason: PAIN LEVEL 4 - 6 Last Admin: 09/27/17 09:36 Dose: 1 mg Non-Formulary Medication (Cholecalciferol (Vitamin D3) [Vitamin D3]) 1 each PO DAILY [facility] Ondansetron HCl (Zofran Injection) 4 mg IVPUSH Q8H PRN PRN Reason: NAUSEA Potassium Chloride (K-Dur -) 40 meq PO ONCE ONE Stop: 09/28/17 13:30 Silver Sulfadiazine (Silvadene -) 1 applic TP DAILY [facility] Last Admin: 09/28/17 09:38 Dose: 1 applic - Objective Vital Signs: Vital Signs Temperature 98.1 F 09/28/17 10:00 Pulse Rate 107 H 09/28/17 10:00 Respiratory Rate 20 09/28/17 10:00 Blood Pressure 120/62 09/28/17 10:00 O2 Sat by Pulse Oximetry (%) 98 09/27/17 21:00 Constitutional: Yes: No Distress Eyes: Yes: WNL HENT: Yes: WNL Neck: Yes: WNL Cardiovascular: Yes: WNL Respiratory: Yes: WNL Gastrointestinal: Yes: WNL Genitourinary: Yes: WNL Musculoskeletal: Yes: Muscle Pain Extremities: Yes: WNL Edema: No Peripheral Pulses WNL: Yes Integumentary: Yes: WNL Wound/Incision: Yes: Clean/Dry Neurological: Yes: WNL ...Motor Strength: LLE, RLE Psychiatric: Yes: WNL Labs: CBC, BMP 09/28/17 05:48 09/28/17 05:48 INR, PTT INR 0.95 (0.82-1.09) 09/26/17 20:40 Problem List - Problems (1) Acute DVT (deep venous thrombosis) Code(s): I82.409 - ACUTE EMBOLISM AND THOMBOS UNSP DEEP VN UNSP LOWER EXTREMITY Qualifiers: DVT location: lower extremity Laterality: left (2) Acute renal failure Code(s): N17.9 - ACUTE KIDNEY FAILURE, UNSPECIFIED (3) Anemia Code(s): D64.9 - ANEMIA, UNSPECIFIED (4) Cannot walk Code(s): R26.2 - DIFFICULTY IN WALKING, NOT ELSEWHERE CLASSIFIED (5) Cellulitis Code(s): L03.90 - CELLULITIS, UNSPECIFIED (6) Hip pain, left Code(s): M25.552 - PAIN IN LEFT HIP (7) Polyarthralgia Code(s): M25.50 - PAIN IN UNSPECIFIED JOINT (8) Weakness Code(s): R53.1 - WEAKNESS (9) Abnormal EKG Code(s): R94.31 - ABNORMAL ELECTROCARDIOGRAM [ECG] [EKG] (10) Hypertension Code(s): I10 - ESSENTIAL (PRIMARY) HYPERTENSION (11) Lumbar disc disease with radiculopathy Code(s): M51.16 - INTERVERTEBRAL DISC DISORDERS W RADICULOPATHY, LUMBAR REGION Assessment/Plan MONITOR H/H ON HEPARIN IV STOOL OCCULT CHECK DAILY PT EVAL WILL NEED 3 MONTHS OF COUMADIN THERAPY ONCE CLEARED FOR A GI BLEED
[2017-09-28] MEDS ORDERED: POTASSIUM CHLORIDE TABS 20 MEQ TABLET.ER (FP) PO ONE (14:00)
--- NOTE | 2017-09-28 15:00 | PN ---
Progress Note (short form) - Note Progress Note: 86 year old female with history of diastolic HF, hypertension and hyperlipidemia admitted with DVT of the left lower extremity and cellulitis of the right leg. Patient is feeling better today and laboratory data reflect resolving azotemia. Vitals: Vital Signs (72 hours) 09/26/17 09/27/17 09/27/17 19:16 04:49 05:06 Temperature 97.6 F Pulse Rate 94 H 64 Pulse Rate [ Apical] Respiratory 18 Rate Blood Pressure 90/67 Blood Pressure [Right Arm] O2 Sat by Pulse 100 97 97 Oximetry (%) 09/27/17 09/27/17 09/27/17 05:07 06:52 09:35 Temperature 97.8 F Pulse Rate Pulse Rate [ 64 64 84 Apical] Respiratory 23 18 16 Rate Blood Pressure Blood Pressure 98/48 98/53 119/62 [Right Arm] O2 Sat by Pulse 97 98 98 Oximetry (%) 09/27/17 09/27/17 09/27/17 11:51 13:08 13:36 Temperature 98.6 F 97.6 F Pulse Rate 111 H Pulse Rate [ 132 H 83 Apical] Respiratory 16 16 Rate Blood Pressure Blood Pressure 136/69 119/53 [Right Arm] O2 Sat by Pulse 98 97 98 Oximetry (%) 09/27/17 09/27/17 09/27/17 18:00 19:00 21:00 Temperature 97.1 F L 99 F Pulse Rate 82 72 Pulse Rate [ Apical] Respiratory 20 20 20 Rate Blood Pressure 99/46 101/50 Blood Pressure [Right Arm] O2 Sat by Pulse 98 98 Oximetry (%) 09/27/17 09/28/17 09/28/17 22:00 02:00 05:32 Temperature 99 F 98.5 F 98.9 F Pulse Rate 75 75 79 Pulse Rate [ Apical] Respiratory 20 20 20 Rate Blood Pressure 100/49 113/55 121/46 Blood Pressure [Right Arm] O2 Sat by Pulse Oximetry (%) 09/28/17 09/28/17 10:00 14:00 Temperature 98.1 F 99.3 F Pulse Rate 107 H 91 H Pulse Rate [ Apical] Respiratory 20 20 Rate Blood Pressure 120/62 93/41 Blood Pressure [Right Arm] O2 Sat by Pulse Oximetry (%) Lungs; coarse breath sound in both lung [place] Heart: S1 S2 regular Abd: Full, soft and non-tender Ext: Dressing over the right leg Neuro: Awake and alert Labs: CBCD WBC 6.7 K/mm3 (4.0-10.0) 09/28/17 05:48 RBC 3.22 M/mm3 (3.60-5.2) L 09/28/17 05:48 Hgb 9.4 GM/dL (10.7-15.3) L 09/28/17 05:48 Hct 28.7 % (32.4-45.2) L 09/28/17 05:48 MCV 88.9 fl (80-96) 09/28/17 05:48 MCHC 33.0 g/dl (32.0-36.0) 09/28/17 05:48 RDW 12.7 % (11.6-15.6) 09/28/17 05:48 Plt Count 307 K/MM3 (134-434) 09/28/17 05:48 MPV 9.4 fl (7.5-11.1) 09/28/17 05:48 CMP Sodium 144 mmol/L (136-145) 09/28/17 05:48 Potassium 3.2 mmol/L (3.5-5.1) L 09/28/17 05:48 Chloride 109 mmol/L (98-107) H 09/28/17 05:48 Carbon Dioxide 22 mmol/L (21-32) 09/28/17 05:48 Anion Gap 13 (8-16) 09/28/17 05:48 BUN 86 mg/dL (7-18) H D 09/28/17 05:48 Creatinine 1.6 mg/dL (0.55-1.02) H 09/28/17 05:48 Creat Clearance w eGFR 30.71 (>60) 09/28/17 05:48 Calcium 8.2 mg/dL (8.5-10.1) L 09/28/17 05:48 Total Bilirubin 0.3 mg/dL (0.2-1.0) 09/28/17 05:48 AST 11 U/L (15-37) L 09/28/17 05:48 ALT 12 U/L (12-78) 09/28/17 05:48 Alkaline Phosphatase 144 U/L (45-117) H D 09/28/17 05:48 Total Protein 5.5 g/dl (6.4-8.2) L 09/28/17 05:48 Albumin 2.6 g/dl (3.4-5.0) L 09/28/17 05:48 A/P: Elderly femaale with resolving azotemia most likely secondary to intra- vascular volume depletion. Patient is responding to the current management. Will follow. Avoid the use of nephrotoxic agents. Replete potassium deficit orally as tolerated. Problem List - Problems (1) Acute DVT (deep venous thrombosis) Code(s): I82.409 - ACUTE EMBOLISM AND THOMBOS UNSP DEEP VN UNSP LOWER EXTREMITY (2) Acute renal failure Code(s): N17.9 - ACUTE KIDNEY FAILURE, UNSPECIFIED (3) Anemia Code(s): D64.9 - ANEMIA, UNSPECIFIED (4) Cellulitis Code(s): L03.90 - CELLULITIS, UNSPECIFIED
[2017-09-28] MEDS ORDERED: PT OWN MED DRAWER 7, Y5N ONE (21:33)
[2017-09-28] MEDS: ATORVASTATIN CA 40 MG TABLET (FP) PO SCH (21:37)
[2017-09-28] MEDS: morphine CARPU-JECT 10 MG/1 ML DISP.SYRIN IVPUSH PRN (21:44)
[2017-09-29 06:36] LABS: SERUM IRON SATURATION 50 % (15-55); TOTAL IRON BINDING CAPACITY 201 ug/dL (250-450); UIBC 101 ug/dL (118-369)
[2017-09-29 07:25] LABS: HEMATOCRIT 26.7 % (32.4-45.2); HEMOGLOBIN 8.8 GM/dL (10.7-15.3); MCH 29.5 pg (25.7-33.7); MCHC 33.1 g/dl (32.0-36.0); MEAN PLT VOLUME 9.6 fl (7.5-11.1); PLATELET COUNT 275 K/MM3 (134-434); WHITE BLOOD COUNT 7.4 K/mm3 (4.0-10.0)
[2017-09-29 07:59] LABS: ANION GAP 8 (8-16); BLOOD UREA NITROGEN 59 mg/dL (7-18); CALCIUM 7.8 mg/dL (8.5-10.1); CHLORIDE 111 mmol/L (98-107); CO2 26 mmol/L (21-32); GLUCOSE,RANDOM 94 mg/dL (74-106); MAGNESIUM 1.6 mg/dL (1.8-2.4); SODIUM 145 mmol/L (136-145)
[2017-09-29 08:01] LABS: CREATININE 1.1 mg/dL (0.55-1.02)
[2017-09-29] MEDS: morphine CARPU-JECT 10 MG/1 ML DISP.SYRIN IVPUSH PRN ×2 (09:07→21:52)
[2017-09-29] MEDS: HEPARIN NA (PORCINE) 5,000 UNITS/ML 1ML VIAL IVPUSH PRN (09:09)
[2017-09-29] MEDS: CEFAZOLIN 1 GM PUSH 1 GM/10 ML DISP.SYRIN IVPUSH SCH ×2 (09:09→21:52)
[2017-09-29] MEDS: METOPROLOL TARTRATE 25 MG TABLET (FP) PO SCH (09:09)
[2017-09-29] MEDS: HEPARIN - 25,000 UNIT in SODIUM CHLORIDE 495 ML IV SCH ×2 (09:10→15:44)
--- NOTE | 2017-09-29 10:36 | PN ---
Progress Note, Physician Chief Complaint: AWAKE ALERT FEELING BETTER WITH DVT LEFT LEG NO ABD PAIN NO BM FOR 2 DAYS - Current Medication List Current Medications: Active Medications Atorvastatin Calcium (Lipitor -) 40 mg PO HS [facility] Last Admin: 09/28/17 21:37 Dose: 40 mg Heparin Sodium (Porcine) (Heparin -) 1,000 unit IVPUSH PRN PRN PRN Reason: Heparin Last Admin: 09/29/17 09:09 Dose: 1,000 unit Heparin Sodium (Porcine) (Heparin -) 5,000 unit IVPUSH PRN PRN PRN Reason: Heparin Heparin Sodium (Porcine) 25, (000 unit/ Sodium Chloride) 500 mls @ 20 mls/hr IV TITR MATHEW; 1,000 UNIT/HR PRN Reason: Protocol Last Admin: 09/29/17 09:10 Dose: 800 unit/hr, 16 mls/hr Lactated Ringer's (Lactated Ringers Solution) 1,000 ml in 1,000 mls @ 125 mls/ hr IV ASDIR [facility] Last Admin: 09/28/17 09:38 Dose: Not Given Cefazolin Sodium (Ancef -) 1 gm in 10 mls @ 120 mls/hr IVPUSH BID [facility] Last Admin: 09/29/17 09:09 Dose: 120 mls/hr Metoprolol Tartrate (Lopressor -) 25 mg PO DAILY [facility] Last Admin: 09/29/17 09:09 Dose: 25 mg Morphine Sulfate (Morphine Injection -) 1 mg IVPUSH Q4H PRN PRN Reason: PAIN LEVEL 4 - 6 Last Admin: 09/29/17 09:07 Dose: 1 mg Non-Formulary Medication (Cholecalciferol (Vitamin D3) [Vitamin D3]) 1 each PO DAILY [facility] Ondansetron HCl (Zofran Injection) 4 mg IVPUSH Q8H PRN PRN Reason: NAUSEA Silver Sulfadiazine (Silvadene -) 1 applic TP DAILY [facility] Last Admin: 09/28/17 09:38 Dose: 1 applic - Objective Vital Signs: Vital Signs Temperature 98.2 F 09/29/17 05:54 Pulse Rate 82 09/29/17 05:54 Respiratory Rate 20 09/29/17 05:54 Blood Pressure 109/67 09/29/17 05:54 O2 Sat by Pulse Oximetry (%) 98 09/28/17 21:00 Constitutional: Yes: Mild Distress Eyes: Yes: WNL, Occular Prosthesis HENT: Yes: Other Neck: Yes: Tenderness Respiratory: Yes: WNL Gastrointestinal: Yes: WNL Genitourinary: Yes: WNL Musculoskeletal: Yes: Muscle Pain Extremities: Yes: WNL Edema: No Peripheral Pulses WNL: Yes Integumentary: Yes: WNL Wound/Incision: Yes: Clean/Dry Neurological: Yes: WNL ...Motor Strength: LLE Psychiatric: Yes: WNL Labs: CBC, BMP 09/29/17 05:05 09/29/17 05:05 INR, PTT INR 0.95 (0.82-1.09) 09/26/17 20:40 Problem List - Problems (1) Acute DVT (deep venous thrombosis) Code(s): I82.409 - ACUTE EMBOLISM AND THOMBOS UNSP DEEP VN UNSP LOWER EXTREMITY Qualifiers: DVT location: lower extremity Laterality: left (2) Acute renal failure Code(s): N17.9 - ACUTE KIDNEY FAILURE, UNSPECIFIED (3) Anemia Code(s): D64.9 - ANEMIA, UNSPECIFIED (4) Cannot walk Code(s): R26.2 - DIFFICULTY IN WALKING, NOT ELSEWHERE CLASSIFIED (5) Cellulitis Code(s): L03.90 - CELLULITIS, UNSPECIFIED (6) Hip pain, left Code(s): M25.552 - PAIN IN LEFT HIP (7) Polyarthralgia Code(s): M25.50 - PAIN IN UNSPECIFIED JOINT (8) Weakness Code(s): R53.1 - WEAKNESS (9) Abnormal EKG Code(s): R94.31 - ABNORMAL ELECTROCARDIOGRAM [ECG] [EKG] (10) Hypertension Code(s): I10 - ESSENTIAL (PRIMARY) HYPERTENSION (11) Lumbar disc disease with radiculopathy Code(s): M51.16 - INTERVERTEBRAL DISC DISORDERS W RADICULOPATHY, LUMBAR REGION Assessment/Plan MONITOR H/H ON HEPARIN IV STOOL OCCULT CHECK DAILY PT EVAL WILL NEED 3 MONTHS OF COUMADIN THERAPY ONCE CLEARED FOR A GI BLEED
[2017-09-29] MEDS ORDERED: MAGNESIUM SULF 50% (8.12 MEQ/2 ML-1 GM VIAL) IVPB ONE (11:00)
--- NOTE | 2017-09-29 15:16 | CON.GI ---
Consult Consult Specialty:: GI: Dr. Evangelista covering for Dr. Morton who resumes care Referred by:: Dr. Breanna Mcgregor Reason for Consultation:: Anemia - History of Present Illness Chief Complaint: "My leg was hurting me" History of Present Illness: 86F admitted to [facility] for leg pain and she describes being told that her blood pressure was low by a ? home health aid or visiting nurse. Asked to evaluate anemia. Hgb was 10.3 on admission and 8.8 today. Ms. Bacon gives a history of anemia however her Hgb was 10/9 03/02. She describes dark bowel movements this past week and no overt rectal bleeding. NSAID use described as occasional , having used aleve about a month ago. She also gives a history of colon cancer in 2011 that led to ileostomy with subsequent reversal of her ileostomy. She was started on heparin for LLE DVT on admission. She has not had an upper endoscopy and has not had a colonoscopy since her colon cancer was diagnosed. - History Source History Provided By: Patient, Medical Record - Past Medical History Cardio/Vascular: Yes: HTN, Hyperlipdemia Gastrointestinal: Yes: Cancer (colon cancer s/p resection 2011) Renal/: Yes: Renal Inusuff ...: No (Elderly) Musculoskeletal: Yes: Chronic low back pain, Osteoarthritis - Past Surgical History Past Surgical History: Yes: Ileosotomy (with ) - Alcohol/Substance Use Hx Alcohol Use: No History of Substance Use: reports: None - Smoking History Smoking history: Former smoker Have you smoked in the past 12 months: No If you are a former smoker, when did you quit?: 25yrs ago - Social History ADL: Independent (Lives alone at home, ) 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 Place of : [facility] [employer] History of Recent Travel: No Home Medications - Allergies Allergies/Adverse Reactions: Allergies Allergy/AdvReac Type Severity Reaction Status Date / Time No Known Drug Allergies Allergy Verified 09/26/17 19:15 - Home Medications Home Medications: Ambulatory Orders Atorvastatin Ca [Lipitor] 40 mg PO HS 07/29/17 Cholecalciferol (Vitamin D3) [Vitamin D3] 1 each PO DAILY 07/29/17 Furosemide [Lasix] 40 mg PO DAILY 07/29/17 Metoprolol Tartrate [Lopressor -] 25 mg PO DAILY [facility] 2 07/29/17 Silver Sulfadiazine 1% Top Cr [Silvadene -] 1 applic TP DAILY 07/29/17 Family Disease History - Family Disease History Family Disease History: Diabetes: Sister (HTN, Hyperlipidemia), Heart Disease: Brother (CABG,HTN, hyperlipidemia), Sister, Other: Father ( 70: [place]), Mother ( 84: chf) Other Family History: No children, no family history of colorectal cancer or other GI malignancy Review of Systems - Review of Systems Constitutional: reports: Weakness. denies: Chills, Lethargy, Unintentional Wgt. Loss Cardiovascular: denies: Chest Pain Respiratory: reports: SOB Gastrointestinal: reports: Other (dark BM's). denies: Abdominal Pain, Bloating , Constipation, Diarrhea, Dysphagia, Nausea, Rectal Bleeding, Vomiting Musculoskeletal: reports: Joint Pain (left hip) Physical Exam-GI Vital Signs: Vital Signs Temperature 98.2 F 09/29/17 14:00 Pulse Rate 72 09/29/17 14:00 Respiratory Rate 20 09/29/17 14:00 Blood Pressure 132/46 09/29/17 14:00 O2 Sat by Pulse Oximetry (%) 98 09/28/17 21:00 Constitutional: Yes: Calm Eyes: No: Sclera Icterus Cardiovascular: Yes: Regular Rate and Rhythm, Murmur Respiratory: Yes: CTA Bilaterally Gastrointestinal Inspection: Yes: Scars (horizontal right sided abdominal scar with suspected non tender incisional hernia) ...Auscultate: Yes: Normoactive Bowel Sounds ...Palpate: No: Hepatomegaly, Splenomegaly ...Percussion: No: Tympanitic ...Rectal Exam: Yes: Other (No external lesions, no masses, dark stool in rectal vault, guaiac negative) Edema: Yes Edema: LLE: 1+, RLE: 1+ Neurological: Yes: Alert, Oriented Labs: CBC, BMP 09/29/17 05:05 09/29/17 05:05 INR, PTT INR 0.95 (0.82-1.09) 09/26/17 20:40 Hepatic Panel Total Bilirubin 0.3 mg/dL (0.2-1.0) 09/28/17 05:48 AST 11 U/L (15-37) L 09/28/17 05:48 ALT 12 U/L (12-78) 09/28/17 05:48 Alkaline Phosphatase 144 U/L (45-117) H D 09/28/17 05:48 Albumin 2.6 g/dl (3.4-5.0) L 09/28/17 05:48 Problem List - Problems (1) Anemia Assessment/Plan: Decrease in H/H with initiation of heparin. Gave h/o dark BM history prior to admission (without iron use) and while guaiac negative on my exam, I discussed that especially in the setting of needing anticoagulation given her LLE DVT, EGD and colonoscopy with Ms. Bacon to assess potential sources of GI blood loss such a PUD, bleeding blood vessels, polyps. I also explained that given that she had a history of colon cancer and has not had follow-up colonoscopy since her surgery in 2011, colonoscopy would be helpful in excluding recurrence. She was still uncertain if she wanted to proceed with procedures. I advised she speak with her PMD Dr. Mtz regarding this and would keep her on heparin while she makes final decision before initializing oral anticoagulation. Protonix 40mg once daily Dr. Morton will resume coverage 09/30 Code(s): D64.9 - ANEMIA, UNSPECIFIED
[2017-09-29] MEDS: LACTATED RINGERS SOLUTION 1,000 ML/1,000 ML INFUS.BAG IV SCH (15:41)
[2017-09-29] MEDS: PANTOPRAZOLE 40 MG TABLET (FP) PO SCH (17:25)
[2017-09-29] MEDS: SILVER SULFADIAZINE 1% TOP CREAM 50 GM JAR TP SCH (17:41)
[2017-09-29] MEDS ORDERED: PT OWN MED DRAWER 7, Y5N ONE (20:47)
[2017-09-29] MEDS: ATORVASTATIN CA 40 MG TABLET (FP) PO SCH (21:51)
--- NOTE | 2017-09-30 08:26 | PN ---
Progress Note, Physician - Current Medication List Current Medications: Active Medications Atorvastatin Calcium (Lipitor -) 40 mg PO HS [facility] Last Admin: 09/29/17 21:51 Dose: 40 mg Heparin Sodium (Porcine) (Heparin -) 1,000 unit IVPUSH PRN PRN PRN Reason: Heparin Last Admin: 09/29/17 09:09 Dose: 1,000 unit Heparin Sodium (Porcine) (Heparin -) 5,000 unit IVPUSH PRN PRN PRN Reason: Heparin Last Admin: 09/29/17 15:43 Dose: 5,000 unit Heparin Sodium (Porcine) 25, (000 unit/ Sodium Chloride) 500 mls @ 20 mls/hr IV TITR MATHEW; 1,000 UNIT/HR PRN Reason: Protocol Last Titration: 09/29/17 23:30 Dose: 800 unit/hr, 16 mls/hr Lactated Ringer's (Lactated Ringers Solution) 1,000 ml in 1,000 mls @ 125 mls/ hr IV ASDIR [facility] Last Admin: 09/29/17 15:41 Dose: 125 mls/hr Cefazolin Sodium (Ancef -) 1 gm in 10 mls @ 120 mls/hr IVPUSH BID [facility] Last Admin: 09/29/17 21:52 Dose: 120 mls/hr Metoprolol Tartrate (Lopressor -) 25 mg PO DAILY [facility] Last Admin: 09/29/17 09:09 Dose: 25 mg Morphine Sulfate (Morphine Injection -) 1 mg IVPUSH Q4H PRN PRN Reason: PAIN LEVEL 4 - 6 Last Admin: 09/29/17 21:52 Dose: 1 mg Non-Formulary Medication (Cholecalciferol (Vitamin D3) [Vitamin D3]) 1 each PO DAILY [facility] Ondansetron HCl (Zofran Injection) 4 mg IVPUSH Q8H PRN PRN Reason: NAUSEA Pantoprazole Sodium (Protonix -) 40 mg PO DAILY [facility] Last Admin: 09/29/17 17:25 Dose: 40 mg Silver Sulfadiazine (Silvadene -) 1 applic TP DAILY [facility] Last Admin: 09/29/17 17:41 Dose: 1 applic - Objective Vital Signs: Vital Signs Temperature 98.4 F 09/30/17 06:00 Pulse Rate 75 09/30/17 06:00 Respiratory Rate 20 09/30/17 06:00 Blood Pressure 122/62 09/30/17 06:00 O2 Sat by Pulse Oximetry (%) 98 09/29/17 20:35 Labs: INR, PTT INR 0.95 (0.82-1.09) 09/26/17 20:40 Assessment/Plan - Problems (1) Weakness Assessment/Plan: -secondary to polyarthritis -DVT -dehydration -on IVF -Physical therapy once stabilized Code(s): R53.1 - WEAKNESS (2) Polyarthralgia Code(s): M25.50 - PAIN IN UNSPECIFIED JOINT (3) Acute DVT (deep venous thrombosis) Assessment/Plan: -Vascular consult -IV heparin for now until renal function is at baseline, then likely switch over to facto Xa inhibitors Code(s): I82.409 - ACUTE EMBOLISM AND THOMBOS UNSP DEEP VN UNSP LOWER EXTREMITY (4) Acute renal failure Assessment/Plan: -IMPROVED -dehydration -LR IVF to avoid metabolic acidosis -renal U/S unremarkable -nephrology consult Code(s): N17.9 - ACUTE KIDNEY FAILURE, UNSPECIFIED (5) Cellulitis Assessment/Plan: -ID consult appreciated -IV abx -silvadene topical daily Code(s): L03.90 - CELLULITIS, UNSPECIFIED (6) Anemia Assessment/Plan: -likely dilutional -check Iron profile, B 12, folate, TSH, FT4 -Guaiac all stools -monitor H/H Code(s): D64.9 - ANEMIA, UNSPECIFIED
[2017-09-30 08:32] LABS: HEMATOCRIT 27.7 % (32.4-45.2); HEMOGLOBIN 8.9 GM/dL (10.7-15.3); MCH 28.7 pg (25.7-33.7); MCHC 32.2 g/dl (32.0-36.0); MEAN CELL VOLUME 88.9 fl (80-96); PLATELET COUNT 266 K/MM3 (134-434); RBC 3.11 M/mm3 (3.60-5.2); WHITE BLOOD COUNT 6.1 K/mm3 (4.0-10.0)
[2017-09-30 08:43] LABS: CHLORIDE 110 mmol/L (98-107); POTASSIUM 3.9 mmol/L (3.5-5.1); SODIUM 145 mmol/L (136-145)
[2017-09-30 09:02] LABS: ANION GAP 10 (8-16); BLOOD UREA NITROGEN 31 mg/dL (7-18); CALCIUM 8.3 mg/dL (8.5-10.1); CO2 25 mmol/L (21-32); CREATININE 0.9 mg/dL (0.55-1.02); GLUCOSE,RANDOM 93 mg/dL (74-106)
[2017-09-30] MEDS: CEFAZOLIN 1 GM PUSH 1 GM/10 ML DISP.SYRIN IVPUSH SCH ×2 (09:35→21:34)
[2017-09-30] MEDS: HEPARIN NA (PORCINE) 5,000 UNITS/ML 1ML VIAL IVPUSH PRN (09:36)
[2017-09-30] MEDS: METOPROLOL TARTRATE 25 MG TABLET (FP) PO SCH (09:43)
[2017-09-30] MEDS: PANTOPRAZOLE 40 MG TABLET (FP) PO SCH (09:43)
[2017-09-30] MEDS: HEPARIN - 25,000 UNIT in SODIUM CHLORIDE 495 ML IV SCH (09:44)
[2017-09-30] MEDS: SILVER SULFADIAZINE 1% TOP CREAM 50 GM JAR TP SCH (09:44)
[2017-09-30] MEDS: morphine CARPU-JECT 10 MG/1 ML DISP.SYRIN IVPUSH PRN ×2 (09:48→21:32)
--- NOTE | 2017-09-30 13:04 | PN ---
Progress Note, Physician History of Present Illness: No events. Comfortable. - Current Medication List Current Medications: Active Medications Atorvastatin Calcium (Lipitor -) 40 mg PO HS [facility] Last Admin: 09/29/17 21:51 Dose: 40 mg Heparin Sodium (Porcine) (Heparin -) 1,000 unit IVPUSH PRN PRN PRN Reason: Heparin Last Admin: 09/30/17 09:36 Dose: 1,000 unit Heparin Sodium (Porcine) (Heparin -) 5,000 unit IVPUSH PRN PRN PRN Reason: Heparin Last Admin: 09/29/17 15:43 Dose: 5,000 unit Heparin Sodium (Porcine) 25, (000 unit/ Sodium Chloride) 500 mls @ 20 mls/hr IV TITR MATHEW; 1,000 UNIT/HR PRN Reason: Protocol Last Admin: 09/30/17 09:44 Dose: 900 unit/hr, 18 mls/hr Cefazolin Sodium (Ancef -) 1 gm in 10 mls @ 120 mls/hr IVPUSH BID [facility] Last Admin: 09/30/17 09:35 Dose: 120 mls/hr Metoprolol Tartrate (Lopressor -) 25 mg PO DAILY [facility] Last Admin: 09/30/17 09:43 Dose: 25 mg Morphine Sulfate (Morphine Injection -) 1 mg IVPUSH Q4H PRN PRN Reason: PAIN LEVEL 4 - 6 Last Admin: 09/30/17 09:48 Dose: 1 mg Non-Formulary Medication (Cholecalciferol (Vitamin D3) [Vitamin D3]) 1 each PO DAILY [facility] Ondansetron HCl (Zofran Injection) 4 mg IVPUSH Q8H PRN PRN Reason: NAUSEA Pantoprazole Sodium (Protonix -) 40 mg PO DAILY [facility] Last Admin: 09/30/17 09:43 Dose: 40 mg Silver Sulfadiazine (Silvadene -) 1 applic TP DAILY [facility] Last Admin: 09/30/17 09:44 Dose: 1 applic - Objective Vital Signs: Vital Signs Temperature 98 F 09/30/17 10:00 Pulse Rate 86 09/30/17 10:00 Respiratory Rate 18 09/30/17 10:00 Blood Pressure 110/66 09/30/17 10:00 O2 Sat by Pulse Oximetry (%) 98 09/30/17 09:00 Constitutional: Yes: No Distress, Calm Eyes: Yes: Conjunctiva Clear HENT: Yes: Atraumatic Neck: Yes: Supple Cardiovascular: Yes: Regular Rate and Rhythm Respiratory: Yes: Regular Gastrointestinal: Yes: Normal Bowel Sounds, Soft. No: Melena, Rectal Bleeding, Tenderness, Vomiting Neurological: Yes: Alert, Oriented Labs: CBC, BMP 09/30/17 07:15 09/30/17 07:15 INR, PTT INR 0.95 (0.82-1.09) 09/26/17 20:40 Laboratory Results - last 24 hr 09/29/17 09/29/17 09/29/17 14:38 17:06 21:35 WBC RBC Hgb Hct MCV MCH MCHC RDW Plt Count MPV PTT (Actin FS) 38.3 H 104.2 H D Sodium Potassium Chloride Carbon Dioxide Anion Gap BUN Creatinine POC Glucometer 115 Random Glucose Calcium 09/30/17 09/30/17 09/30/17 07:15 07:15 07:15 WBC 6.1 RBC 3.11 L Hgb 8.9 L Hct 27.7 L MCV 88.9 MCH 28.7 MCHC 32.2 RDW 13.0 Plt Count 266 MPV 9.0 PTT (Actin FS) 46.7 H D Sodium 145 Potassium 3.9 Chloride 110 H Carbon Dioxide 25 Anion Gap 10 BUN 31 H D Creatinine 0.9 POC Glucometer Random Glucose 93 Calcium 8.3 L Problem List - Problems (1) Anemia Code(s): D64.9 - ANEMIA, UNSPECIFIED (2) History of colon cancer in adulthood Code(s): Z85.038 - PERSONAL HISTORY OF MALIGNANT NEOPLASM OF LARGE INTESTINE Assessment/Plan Normocytic, normochromic anemia in an 86 yo patient with history of colon cancer 5 y ago, s/p partial colectomy w/o follow up to date. No overts signs of bleeding. EGD and colnoscopy, including risks and benefits were discussed. The patient is considering. Monitor for signs of GI bleeding, continue PPI for now. Will follow
--- NOTE | 2017-09-30 15:22 | PN ---
Progress Note (short form) - Note Progress Note: much improved no longer in pain Vital Signs Period Temp Pulse Resp BP Sys/Brown Pulse Ox Last 24 Hr 97.5 F-98.5 F 68-86 18-20 106-122/48-66 98-98 cor-rrr lungs clear abd soft,nt ext no edema CBC, BMP 09/30/17 07:15 09/30/17 07:15 Microbiology 09/27/17 09:57 Blood - Peripheral Venous Blood Culture - Preliminary NO GROWTH OBTAINED AFTER 72 HOURS, INCUBATION TO CONTINUE FOR 2 DAYS. 09/27/17 09:57 Blood - Peripheral Venous Blood Culture - Preliminary NO GROWTH OBTAINED AFTER 72 HOURS, INCUBATION TO CONTINUE FOR 2 DAYS. 09/26/17 20:15 Urine - Urine - Catheterized Urine Culture - Final Escherichia Coli imp/reccd LLE DVT Acute renal failure cellulitis (mild) both lower extrmities fluids anticoagulation blood cultures/ancef day #4 Problem List - Problems (1) Acute DVT (deep venous thrombosis) Code(s): I82.409 - ACUTE EMBOLISM AND THOMBOS UNSP DEEP VN UNSP LOWER EXTREMITY Qualifiers: DVT location: lower extremity Laterality: left (2) Acute renal failure Code(s): N17.9 - ACUTE KIDNEY FAILURE, UNSPECIFIED (3) Cellulitis Code(s): L03.90 - CELLULITIS, UNSPECIFIED
--- NOTE | 2017-09-30 18:18 | PN ---
Progress Note (short form) - Note Progress Note: Elderly female admitted with cellulitis of the right leg and DVT of the left lower extremity. Patient is feeling much better with resolving acute azotemia. She reports improving oral intake. Vitals; Vital Signs (72 hours) 09/27/17 09/27/17 09/27/17 19:00 21:00 22:00 Temperature 99 F 99 F Pulse Rate 72 75 Respiratory 20 20 20 Rate Blood Pressure 101/50 100/49 O2 Sat by Pulse 98 98 Oximetry (%) 09/28/17 09/28/17 09/28/17 02:00 05:32 09:00 Temperature 98.5 F 98.9 F Pulse Rate 75 79 Respiratory 20 20 20 Rate Blood Pressure 113/55 121/46 O2 Sat by Pulse 98 Oximetry (%) 09/28/17 09/28/17 09/28/17 10:00 14:00 19:40 Temperature 98.1 F 99.3 F 98.1 F Pulse Rate 107 H 91 H 70 Respiratory 20 20 20 Rate Blood Pressure 120/62 93/41 99/40 O2 Sat by Pulse Oximetry (%) 09/28/17 09/29/17 09/29/17 21:00 02:27 05:54 Temperature 98.4 F 97.4 F L 98.2 F Pulse Rate 88 90 82 Respiratory 20 20 20 Rate Blood Pressure 108/47 114/49 109/67 O2 Sat by Pulse 98 Oximetry (%) 09/29/17 09/29/17 09/29/17 09:00 14:00 18:00 Temperature 98 F 98.2 F 98.5 F Pulse Rate 100 H 72 68 Respiratory 18 20 20 Rate Blood Pressure 104/60 132/46 106/48 O2 Sat by Pulse 98 Oximetry (%) 09/29/17 09/29/17 09/30/17 20:34 20:35 02:00 Temperature 98.1 F 97.5 F L Pulse Rate 82 86 Respiratory 20 20 20 Rate Blood Pressure 122/54 120/59 O2 Sat by Pulse 98 Oximetry (%) 09/30/17 09/30/17 09/30/17 06:00 09:00 10:00 Temperature 98.4 F 98 F Pulse Rate 75 86 Respiratory 20 18 Rate Blood Pressure 122/62 110/66 O2 Sat by Pulse 98 Oximetry (%) 09/30/17 14:10 Temperature 98.9 F Pulse Rate 62 Respiratory 18 Rate Blood Pressure 114/56 O2 Sat by Pulse Oximetry (%) Lungs: Good air entry bilat Heart: S1 S2 regular, no gallop Abd; Full, soft, non-tender, BS normal Ext: Dressing over the right leg. Decreasing edema Labs: CBC,CMP WBC 6.1 K/mm3 (4.0-10.0) 09/30/17 07:15 RBC 3.11 M/mm3 (3.60-5.2) L 09/30/17 07:15 Hgb 8.9 GM/dL (10.7-15.3) L 09/30/17 07:15 Hct 27.7 % (32.4-45.2) L 09/30/17 07:15 MCV 88.9 fl (80-96) 09/30/17 07:15 MCH 28.7 pg (25.7-33.7) 09/30/17 07:15 MCHC 32.2 g/dl (32.0-36.0) 09/30/17 07:15 RDW 13.0 % (11.6-15.6) 09/30/17 07:15 Plt Count 266 K/MM3 (134-434) 09/30/17 07:15 MPV 9.0 fl (7.5-11.1) 09/30/17 07:15 Neutrophils % 62.2 % (42.8-82.8) 09/27/17 04:30 Lymphocytes % 27.9 % (8-40) D 09/27/17 04:30 Monocytes % 8.6 % (3.8-10.2) 09/27/17 04:30 Eosinophils % 0.6 % (0-4.5) 09/27/17 04:30 Basophils % 0.7 % (0-2.0) 09/27/17 04:30 Sodium 145 mmol/L (136-145) 09/30/17 07:15 Potassium 3.9 mmol/L (3.5-5.1) 09/30/17 07:15 Chloride 110 mmol/L (98-107) H 09/30/17 07:15 Carbon Dioxide 25 mmol/L (21-32) 09/30/17 07:15 Anion Gap 10 (8-16) 09/30/17 07:15 BUN 31 mg/dL (7-18) H D 09/30/17 07:15 Creatinine 0.9 mg/dL (0.55-1.02) 09/30/17 07:15 Creat Clearance w eGFR 30.71 (>60) 09/28/17 05:48 POC Glucometer 115 UNITS (80-120) 09/29/17 17:06 Random Glucose 93 mg/dL (74-106) 09/30/17 07:15 Hemoglobin A1c % 6.4 % (4.8-6.0) H D 09/27/17 04:30 Serum Osmolality 329 mosm/kg (278-305) H 09/27/17 04:30 Lactic Acid 0.8 mmol/L (0.4-2.0) 09/26/17 20:40 Calcium 8.3 mg/dL (8.5-10.1) L 09/30/17 07:15 Phosphorus 5.3 mg/dL (2.5-4.9) H 09/27/17 04:30 Magnesium 1.6 mg/dL (1.8-2.4) L D 09/29/17 05:05 Iron 100 ug/dL (27-139) 09/28/17 05:48 TIBC 201 ug/dL (250-450) L 09/28/17 05:48 Iron Saturation 50 % (15-55) 09/28/17 05:48 Ferritin 284.920 ng/ml (6.9-282.5) H 09/28/17 05:48 Total Bilirubin 0.3 mg/dL (0.2-1.0) 09/28/17 05:48 AST 11 U/L (15-37) L 09/28/17 05:48 ALT 12 U/L (12-78) 09/28/17 05:48 Alkaline Phosphatase 144 U/L (45-117) H D 09/28/17 05:48 Creatine Kinase 30 IU/L (26-192) 09/26/17 20:40 Troponin I < 0.02 ng/ml (0.00-0.05) 09/26/17 20:40 B-Natriuretic Peptide 685.48 pg/ml (5-450) H 09/26/17 20:40 Total Protein 5.5 g/dl (6.4-8.2) L 09/28/17 05:48 Albumin 2.6 g/dl (3.4-5.0) L 09/28/17 05:48 Triglycerides 203 mg/dL (35-160) H 09/27/17 04:30 Cholesterol 305 mg/dL (50-200) H 09/27/17 04:30 Total LDL Cholesterol 203 mg/dL (5-100) H 09/27/17 04:30 HDL Cholesterol 42 mg/dL (40-60) 09/27/17 04:30 Vitamin B12 570 pg/ml (180-914) 09/28/17 05:48 Serum Folate 8 ng/ml (3.1-17.5) 09/28/17 05:48 TSH 2.06 uIU/ml (0.358-3.74) 09/28/17 05:48 Free T4 1.34 ng/dl (0.76-1.46) 09/28/17 05:48 A/P: Elderly female with right leg cellulitis, left LE deep vein thrombosis and resolving acute azotemia Remove in dwelling carrillo catheter. Will follow as needed. Problem List - Problems (1) Acute DVT (deep venous thrombosis) Code(s): I82.409 - ACUTE EMBOLISM AND THOMBOS UNSP DEEP VN UNSP LOWER EXTREMITY Qualifiers: DVT location: lower extremity Laterality: left (2) Acute renal failure Code(s): N17.9 - ACUTE KIDNEY FAILURE, UNSPECIFIED (3) Anemia Code(s): D64.9 - ANEMIA, UNSPECIFIED (4) Cellulitis Code(s): L03.90 - CELLULITIS, UNSPECIFIED
[2017-09-30] MEDS: ATORVASTATIN CA 40 MG TABLET (FP) PO SCH (21:32)
[2017-09-30] MEDS ORDERED: PT OWN MED DRAWER 7, Y5N ONE (21:34)
[2017-10-01] MEDS: morphine CARPU-JECT 10 MG/1 ML DISP.SYRIN IVPUSH PRN (06:46)
[2017-10-01 07:19] LABS: HEMATOCRIT 27.5 % (32.4-45.2); HEMOGLOBIN 8.9 GM/dL (10.7-15.3); MCHC 32.6 g/dl (32.0-36.0); MEAN CELL VOLUME 88.9 fl (80-96); MEAN PLT VOLUME 9.1 fl (7.5-11.1); PLATELET COUNT 274 K/MM3 (134-434); RBC 3.09 M/mm3 (3.60-5.2); RDW 13.2 % (11.6-15.6); WHITE BLOOD COUNT 6.1 K/mm3 (4.0-10.0)
--- NOTE | 2017-10-01 07:57 | PN ---
Progress Note, Physician - Current Medication List Current Medications: Active Medications Atorvastatin Calcium (Lipitor -) 40 mg PO HS [facility] Last Admin: 09/30/17 21:32 Dose: 40 mg Cefazolin Sodium (Ancef -) 1 gm in 10 mls @ 120 mls/hr IVPUSH BID [facility] Last Admin: 09/30/17 21:34 Dose: 120 mls/hr Metoprolol Tartrate (Lopressor -) 25 mg PO DAILY [facility] Last Admin: 09/30/17 09:43 Dose: 25 mg Non-Formulary Medication (Cholecalciferol (Vitamin D3) [Vitamin D3]) 1 each PO DAILY [facility] Ondansetron HCl (Zofran Injection) 4 mg IVPUSH Q8H PRN PRN Reason: NAUSEA Pantoprazole Sodium (Protonix -) 40 mg PO DAILY [facility] Last Admin: 09/30/17 09:43 Dose: 40 mg Silver Sulfadiazine (Silvadene -) 1 applic TP DAILY [facility] Last Admin: 09/30/17 09:44 Dose: 1 applic - Objective Vital Signs: Vital Signs Temperature 98.5 F 10/01/17 05:00 Pulse Rate 85 10/01/17 05:00 Respiratory Rate 20 10/01/17 05:00 Blood Pressure 104/75 10/01/17 05:00 O2 Sat by Pulse Oximetry (%) 98 09/30/17 21:00 Cardiovascular: Yes: S1, S2 Respiratory: Yes: Regular, CTA Bilaterally Gastrointestinal: Yes: Normal Bowel Sounds, Soft Labs: CBC, BMP 10/01/17 05:20 09/30/17 07:15 INR, PTT INR 0.95 (0.82-1.09) 09/26/17 20:40 Assessment/Plan - Problems (1) Weakness Assessment/Plan: -secondary to polyarthritis -DVT -dehydration resolved -OFF IVF -Physical therapy Code(s): R53.1 - WEAKNESS (2) Polyarthralgia Code(s): M25.50 - PAIN IN UNSPECIFIED JOINT (3) Acute DVT (deep venous thrombosis) Assessment/Plan: -Vascular consult -IV heparin --DC START ELIQUIS Code(s): I82.409 - ACUTE EMBOLISM AND THOMBOS UNSP DEEP VN UNSP LOWER EXTREMITY (4) Acute renal failure Assessment/Plan: -IMPROVED -dehydration -DC LR IVF -renal U/S unremarkable -nephrology consult Code(s): N17.9 - ACUTE KIDNEY FAILURE, UNSPECIFIED (5) Cellulitis Assessment/Plan: -ID consult appreciated -IV abx -silvadene topical daily Code(s): L03.90 - CELLULITIS, UNSPECIFIED (6) Anemia Assessment/Plan: -likely dilutional -check Iron profile, B 12, folate, TSH, FT4 -Guaiac all stools -monitor H/H -GI ON CASE Code(s): D64.9 - ANEMIA, UNSPECIFIED PHYSICAL THERAPY--SNF--D/W PT
--- NOTE | 2017-10-01 09:00 | PN ---
Progress Note, Physician History of Present Illness: No events. Comfortable. - Current Medication List Current Medications: Active Medications Apixaban (Eliquis -) 10 mg PO BID [facility] Atorvastatin Calcium (Lipitor -) 40 mg PO HS [facility] Last Admin: 09/30/17 21:32 Dose: 40 mg Cefazolin Sodium (Ancef -) 1 gm in 10 mls @ 120 mls/hr IVPUSH BID [facility] Last Admin: 09/30/17 21:34 Dose: 120 mls/hr Metoprolol Tartrate (Lopressor -) 25 mg PO DAILY [facility] Last Admin: 09/30/17 09:43 Dose: 25 mg Non-Formulary Medication (Cholecalciferol (Vitamin D3) [Vitamin D3]) 1 each PO DAILY [facility] Ondansetron HCl (Zofran Injection) 4 mg IVPUSH Q8H PRN PRN Reason: NAUSEA Pantoprazole Sodium (Protonix -) 40 mg PO DAILY [facility] Last Admin: 09/30/17 09:43 Dose: 40 mg Silver Sulfadiazine (Silvadene -) 1 applic TP DAILY [facility] Last Admin: 09/30/17 09:44 Dose: 1 applic - Objective Vital Signs: Vital Signs Temperature 98.5 F 10/01/17 05:00 Pulse Rate 85 10/01/17 05:00 Respiratory Rate 20 10/01/17 05:00 Blood Pressure 104/75 10/01/17 05:00 O2 Sat by Pulse Oximetry (%) 98 09/30/17 21:00 Constitutional: Yes: No Distress, Calm Eyes: Yes: Conjunctiva Clear HENT: Yes: Atraumatic Neck: Yes: Supple Cardiovascular: Yes: Regular Rate and Rhythm Respiratory: Yes: Regular Gastrointestinal: Yes: Soft. No: Melena, Rectal Bleeding, Tenderness Neurological: Yes: Alert Labs: CBC, BMP 10/01/17 05:20 09/30/17 07:15 INR, PTT INR 0.95 (0.82-1.09) 09/26/17 20:40 Abnormal Lab Results 09/30/17 09/30/17 10/01/17 07:15 15:40 05:20 RBC 3.09 L Hgb 8.9 L Hct 27.5 L PTT (Actin FS) 76.7 H D Chloride 110 H BUN 31 H D Calcium 8.3 L 10/01/17 05:20 RBC Hgb Hct PTT (Actin FS) 71.7 H Chloride BUN Calcium Problem List - Problems (1) Anemia Code(s): D64.9 - ANEMIA, UNSPECIFIED (2) History of colon cancer in adulthood Code(s): Z85.038 - PERSONAL HISTORY OF MALIGNANT NEOPLASM OF LARGE INTESTINE Assessment/Plan Normocytic, normochromic anemia in an 86 yo patient with history of colon cancer 5 y ago, s/p partial colectomy w/o follow up to date. No overts signs of bleeding. EGD and colonoscopy, including risks and benefits were discussed. The patient is not interest in having these done at this time. Monitor for signs of GI blood loss.
[2017-10-01] MEDS ORDERED: PT OWN MED DRAWER 7, Y5N ONE (10:02)
[2017-10-01] MEDS: DOCUSATE SODIUM 100 MG CAPSULE (FP) PO SCH ×2 (10:11→21:57)
[2017-10-01] MEDS: PANTOPRAZOLE 40 MG TABLET (FP) PO SCH (10:11)
[2017-10-01] MEDS: METOPROLOL TARTRATE 25 MG TABLET (FP) PO SCH (10:11)
--- NOTE | 2017-10-01 10:20 | CONS ---
PHYSICAL MEDICINE REHABILITATION CONSULTATION DATE OF CONSULTATION: 10/01/2017 REFERRING PHYSICIAN: Abby Mtz MD HISTORY OF PRESENT ILLNESS: The patient is an 86-year-old woman with extensive past medical history which includes lumbar radiculopathy, thoracic compression fractures, left hip osteoarthritis, who was admitted with bilateral lower extremity pain. Patient underwent evaluation including an ultrasound of the left lower extremity, which showed a deep venous thrombosis. Patient also found to have right lower extremity cellulitis. She was started on anticoagulation as well as antibiotics. On admission, her BUN was over 130 and creatinine elevated at 3.0. She had a low potassium of 3.4. Hemoglobin was 12.0, WBC was 8.6, and platelet count normal at 379. She was treated with antibiotic, IV fluid hydration, and her BUN has improved to 31, creatinine 0.9 as of yesterday's blood work. Potassium normalized at 3.9. She does have a drop in her hemoglobin, 8.9, possibly due to hemodilution. Mainly, she is complaining of left hip pain at this point. She had other imaging including a right shoulder, which showed a large joint effusion versus hematoma. She states she has chronic problems with her right shoulder and underwent cortisone injection with Dr. Waylon miles in May, but the pain has recurred. She also underwent x-rays of her pelvis, which showed destruction of the left femoral head with dislocated left hip and deformed left acetabulum, underlying degenerative changes. Intact right hip was noted. Patient is anticoagulated with Eliquis and is now seen in rehabilitation evaluation. Again, she continues to have pain mainly near the left hip and in the right shoulder. PAST MEDICAL AND SURGICAL HISTORY: Congestive heart failure, colon cancer, hypertension, lumbar radiculopathy, hyperlipidemia. SOCIAL HISTORY: Patient lives in a private house. She has 2 flights of stairs. Premorbidly, she used a rollator, struggled with stair negotiation. Current function: She has not been evaluated by Therapy and is mainly at bedrest. REVIEW OF SYSTEMS: No headache. No lightheadedness, dizziness. No blurry vision, double vision, or change in vision. No nausea, vomiting, difficulty swallowing, difficulty chewing. No chest pain, shortness of breath, dyspnea on exertion, cough, or abdominal pain. She is constipated. No bowel movement she states since admission. She has no numbness, tingling. She does not complain of any knee pain or other joint arthralgias. PHYSICAL EXAMINATION: General: Patient is an overweight woman, seen lying in bed, in no acute distress. HEENT: She is normocephalic and atraumatic. Her extraocular muscles appear intact. Neck: Supple with reduced range of motion. Extremities: She has dressing in the right lower extremity and dysvascular changes noted. Some edema in the left lower extremity more than the right. Neuromuscular: She is awake, alert, oriented x3. Cranial nerves are grossly intact. She has good strength and range in the upper extremities except for in her right shoulder where she has limited active range due to pain. Passively, she has some crepitus in the right shoulder and some pain past 90 degrees. In the lower extremities, she has weakness of the left proximal lower extremity, only 1/5 in the hip girdle and knee extensors, 2/5 left dorsiflexion, plantar flexion 5/5. Right lower extremity at least antigravity strength in the hip girdle as well as distally in the right lower extremity. She has passive pain with internal and external rotation of the left hip. Normal sensation to light touch in the upper and lower extremities. Pin not used due to frail skin and edema. Unable to assess gait. OVERALL IMPRESSION: 1. Deficits in mobility and activities of daily living, multifactorial. 2. Underlying left hip deformity, osteoarthritis, possible dislocation. 3. Left lower extremity deep venous thrombosis on anticoagulation. 4. Right lower extremity cellulitis. 5. Acute kidney injury, improved. 6. Right shoulder pain, history of adhesive capsulitis, possible underlying degenerative changes. 7. Overweight. 8. Diffuse osteoarthritis. 9. Other past medical history as above including congestive heart failure and colon cancer. PLAN/SUGGESTION: 1. Physical therapy ordered for mobilization as able. Bed mobility. Range of motion, strengthening, transfers if appropriate. 2. Out of bed to chair. 3. Bowel regimen: Will order Colace but consider stronger medication if needed. 4. On Eliquis. No further anticoagulation needed. 5. Case management for evaluation for longterm facility. She has been to [facility]. Thank you for this referral. NADIA TOWNSEND M.D. [id number]
[2017-10-01] MEDS: APIXABAN 5 MG TABLET PO SCH ×2 (10:45→22:03)
[2017-10-01] MEDS: CEFAZOLIN 1 GM PUSH 1 GM/10 ML DISP.SYRIN IVPUSH SCH (12:24)
--- NOTE | 2017-10-01 14:52 | PN ---
Progress Note (short form) - Note Progress Note: hip pain today Vital Signs Period Temp Pulse Resp BP Sys/Brown Pulse Ox Last 24 Hr 97.9 F-98.6 F 73-91 18-20 104-133/38-82 98-98 cor-rrr lungs clear abd soft,nt ext less erythema of the legs CBC, BMP 10/01/17 05:20 09/30/17 07:15 Microbiology 09/27/17 09:57 Blood - Peripheral Venous Blood Culture - Preliminary NO GROWTH OBTAINED AFTER 96 HOURS, INCUBATION TO CONTINUE FOR 1 DAYS. 09/27/17 09:57 Blood - Peripheral Venous Blood Culture - Preliminary NO GROWTH OBTAINED AFTER 96 HOURS, INCUBATION TO CONTINUE FOR 1 DAYS. 09/26/17 20:15 Urine - Urine - Catheterized Urine Culture - Final Escherichia Coli imp/reccd LLE DVT Acute renal failure-resolved cellulitis (mild) both lower extremities- improved-day #5 antibiotics can switch to po keflex for 3 days please call back if needed Problem List - Problems (1) Acute DVT (deep venous thrombosis) Code(s): I82.409 - ACUTE EMBOLISM AND THOMBOS UNSP DEEP VN UNSP LOWER EXTREMITY Qualifiers: DVT location: lower extremity Laterality: left (2) Acute renal failure Code(s): N17.9 - ACUTE KIDNEY FAILURE, UNSPECIFIED (3) Cellulitis Code(s): L03.90 - CELLULITIS, UNSPECIFIED
[2017-10-01] MEDS: oxyCODONE HCL 5 MG TABLET PO PRN ×2 (15:35→21:57)
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
[2017-10-01] MEDS: CEPHALEXIN MONOHYDRATE 500 MG CAPSULE (UD) PO SCH (21:56)
[2017-10-01] MEDS: ATORVASTATIN CA 40 MG TABLET (FP) PO SCH (21:57)
[2017-10-02 07:36] LABS: HEMATOCRIT 26.6 % (32.4-45.2); HEMOGLOBIN 8.7 GM/dL (10.7-15.3); MCHC 32.6 g/dl (32.0-36.0); MEAN CELL VOLUME 88.9 fl (80-96); MEAN PLT VOLUME 8.9 fl (7.5-11.1); PLATELET COUNT 278 K/MM3 (134-434); RBC 2.99 M/mm3 (3.60-5.2); WHITE BLOOD COUNT 7.1 K/mm3 (4.0-10.0)
--- NOTE | 2017-10-02 08:30 | PN ---
Progress Note, Physician History of Present Illness: IMPROVING STATED ON PT - Current Medication List Current Medications: Active Medications Apixaban (Eliquis -) 5 mg PO BID [facility] Atorvastatin Calcium (Lipitor -) 40 mg PO HS [facility] Last Admin: 10/01/17 21:57 Dose: 40 mg Cephalexin HCl (Keflex -) 500 mg PO BID [facility] Last Admin: 10/01/17 21:56 Dose: 500 mg Docusate Sodium (Colace -) 100 mg PO BID [facility] Last Admin: 10/01/17 21:57 Dose: 100 mg Metoprolol Tartrate (Lopressor -) 25 mg PO DAILY [facility] Last Admin: 10/01/17 10:11 Dose: 25 mg Non-Formulary Medication (Cholecalciferol (Vitamin D3) [Vitamin D3]) 1 each PO DAILY [facility] Ondansetron HCl (Zofran Injection) 4 mg IVPUSH Q8H PRN PRN Reason: NAUSEA Oxycodone HCl (Roxicodone -) 5 mg PO Q4H PRN PRN Reason: PAIN LEVEL 4 - 6 Last Admin: 10/01/17 21:57 Dose: 5 mg Pantoprazole Sodium (Protonix -) 40 mg PO DAILY [facility] Last Admin: 10/01/17 10:11 Dose: 40 mg Silver Sulfadiazine (Silvadene -) 1 applic TP DAILY [facility] Last Admin: 09/30/17 09:44 Dose: 1 applic - Objective Vital Signs: Vital Signs Temperature 98.8 F 10/02/17 02:00 Pulse Rate 75 10/02/17 05:46 Respiratory Rate 20 10/02/17 05:46 Blood Pressure 115/52 10/02/17 05:46 O2 Sat by Pulse Oximetry (%) 96 10/01/17 21:00 Cardiovascular: Yes: Murmur, S1, S2 Respiratory: Yes: Regular, CTA Bilaterally Gastrointestinal: Yes: Normal Bowel Sounds, Soft Labs: CBC, BMP 10/02/17 06:25 09/30/17 07:15 INR, PTT INR 0.95 (0.82-1.09) 09/26/17 20:40 Assessment/Plan - Problems (1) Weakness Assessment/Plan: -IMPROVED -secondary to polyarthritis -DVT -dehydration resolved -OFF IVF -Physical therapy Code(s): R53.1 - WEAKNESS (2) Polyarthralgia ORTHO ON CASE Code(s): M25.50 - PAIN IN UNSPECIFIED JOINT (3) Acute DVT (deep venous thrombosis) Assessment/Plan: -Vascular consult -IV heparin --DC START ELIQUIS Code(s): I82.409 - ACUTE EMBOLISM AND THOMBOS UNSP DEEP VN UNSP LOWER EXTREMITY (4) Acute renal failure Assessment/Plan: -IMPROVED -dehydration -DC LR IVF -renal U/S unremarkable -nephrology consult Code(s): N17.9 - ACUTE KIDNEY FAILURE, UNSPECIFIED (5) Cellulitis Assessment/Plan: -ID consult appreciated -IV abx -silvadene topical daily Code(s): L03.90 - CELLULITIS, UNSPECIFIED (6) Anemia Assessment/Plan: -likely dilutional -check Iron profile, B 12, folate, TSH, FT4 -Guaiac all stools -monitor H/H -GI ON CASE Code(s): D64.9 - ANEMIA, UNSPECIFIED (7) Abnormal Echo Assessment/Plan: -[facility] PHYSICAL THERAPY--SNF ONCE CLEARED BY CARDIO--D/W PT
--- NOTE | 2017-10-02 09:08 | PN ---
Progress Note (short form) - Note Progress Note: Ortho Pt seen and examined. left hip is feeling ok + ttp, dec rom nvi a/p defers THR at present time If pain and immobility continues then she will consider THR d/w Dr. Mclaughlin
[2017-10-02] MEDS: METOPROLOL TARTRATE 25 MG TABLET (FP) PO SCH (09:31)
[2017-10-02] MEDS: APIXABAN 5 MG TABLET PO SCH ×2 (09:31→22:09)
[2017-10-02] MEDS: CEPHALEXIN MONOHYDRATE 500 MG CAPSULE (UD) PO SCH ×2 (09:32→22:09)
[2017-10-02] MEDS: PANTOPRAZOLE 40 MG TABLET (FP) PO SCH (09:32)
[2017-10-02] MEDS: DOCUSATE SODIUM 100 MG CAPSULE (FP) PO SCH ×3 (09:32→22:24)
[2017-10-02] MEDS: oxyCODONE HCL 5 MG TABLET PO PRN ×3 (10:04→22:21)
--- NOTE | 2017-10-02 12:39 | CON.CARD ---
Consult Consult Specialty:: Cardiology Reason for Consultation:: Abnormal echocardiogram - History of Present Illness Chief Complaint: Left HIP pain History of Present Illness: This is an 86 year old female with HTN, HLD, and colol Ca. She presented to the hospital with right leg pain. No cardiac symptoms. An echocardiogram 09/27/17 showed an EF of 78%, normal LV function, normal RV size and function, on the mitral leaflet there is a mobile echodensity attached to the posterior leaflet measuring 0.5 cm x 0.4 cm. I personally reviewed the study, the same area of focal calcification was present on an echocardiogram performed on 02/15/17. It appears to be an area of focal calcification of a chordal structure and does not have the echo appearance of a vegetation. It did not change size from to 09/27/17. 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 History of Recent Travel: No Home Medications - Allergies Allergies/Adverse Reactions: Allergies Allergy/AdvReac Type Severity Reaction Status Date / Time No Known Drug Allergies Allergy Verified 09/26/17 19:15 - Home Medications Home Medications: Ambulatory Orders Atorvastatin Ca [Lipitor] 40 mg PO HS 07/29/17 Cholecalciferol (Vitamin D3) [Vitamin D3] 1 each PO DAILY 07/29/17 Furosemide [Lasix] 40 mg PO DAILY 07/29/17 Metoprolol Tartrate [Lopressor -] 25 mg PO DAILY [facility] 2 07/29/17 Silver Sulfadiazine 1% Top Cr [Silvadene -] 1 applic TP DAILY 07/29/17 Family Disease History - Family Disease History Family Disease History: Diabetes: Sister (HTN, Hyperlipidemia), Heart Disease: Brother (CABG,HTN, hyperlipidemia), Sister, Other: Father ( 70: MS), Mother ( 84: chf) Other Family History: No children, no family history of colorectal cancer or other GI malignancy Review of Systems Unable to obtain ROS, reason: As per HPI Vital Signs: Vital Signs Temperature 98.5 F 10/02/17 09:00 Pulse Rate 95 H 10/02/17 09:00 Respiratory Rate 18 10/02/17 09:00 Blood Pressure 123/70 10/02/17 09:00 O2 Sat by Pulse Oximetry (%) 96 10/02/17 09:00 Constitutional: Yes: Well Nourished, No Distress HENT: Yes: WNL Neck: Yes: WNL Respiratory: Yes: CTA Bilaterally Gastrointestinal: Yes: Soft Cardiovascular: Yes: Regular Rate and Rhythm (NL S1 S2, no MRHG) Extremities: Yes: WNL Edema: Yes (Bilateral lower extremies) Neurological: Yes: Alert, Oriented (Grossly nonfocal) - Other Data Labs, Other Data: CBC, BMP 10/02/17 06:25 09/30/17 07:15 INR, PTT INR 0.95 (0.82-1.09) 09/26/17 20:40 Assessment/Plan Abnormal Echocardiography findings The echocardiogram 09/27/17 showed an EF of 78%, normal LV function, normal RV size and function, on the mitral leaflet there is a mobile echodensity attached to the posterior leaflet measuring 0.5 cm x 0.4 cm. I personally reviewed the study, the same area of focal calcification was present on an echocardiogram performed on 02/15/17. It appears to be an area of focal calcification of a chordal structure and does not have the echo appearance of a vegetation. It did not change size from 02/15/17 to 09/27/17. Given the stable nature of this finding and the lack of clinical signs of infection, this finding likely represents an area of focal calcification on a chordal structure of the mitral valve and does not require further testing at this time.
[2017-10-02] MEDS: ATORVASTATIN CA 40 MG TABLET (FP) PO SCH (22:09)
[2017-10-02] MEDS: SILVER SULFADIAZINE 1% TOP CREAM 50 GM JAR TP SCH (22:40)
[2017-10-03] MEDS: oxyCODONE HCL 5 MG TABLET PO PRN ×2 (03:18→09:37)
[2017-10-03 08:21] VITALS: BP 119/67; PULSE 89; TEMP 98.6
--- NOTE | 2017-10-03 08:40 | DS ---
Physical Examination Vital Signs: Vital Signs Temperature 98.6 F 10/03/17 08:17 Pulse Rate 89 10/03/17 08:17 Respiratory Rate 20 10/03/17 08:21 Blood Pressure 119/67 10/03/17 08:17 O2 Sat by Pulse Oximetry (%) 100 10/03/17 08:21 Cardiovascular: Yes: S1, S2 Respiratory: Yes: Regular, CTA Bilaterally Gastrointestinal: Yes: Normal Bowel Sounds, Soft Labs: CBC, BMP 10/02/17 06:25 09/30/17 07:15 Discharge Summary Reason For Visit: ACUTE RENAL FAILURE/ACUTE DEEP VEIN THROMBOSIS Current Active Problems Acute DVT (deep venous thrombosis) (Acute) Acute renal failure (Acute) Anemia (Acute) Anemia (Acute) Cannot walk (Acute) Cellulitis (Acute) Hip pain, left (Acute) History of colon cancer in adulthood (Acute) Polyarthralgia (Acute) Weakness (Acute) Hospital Course: 86 yo woman w/ pmh of HTN, HLD, Diastolic CHF and Colon Ca (s/p resection in 2011 no radiation, no chemotherapy) who presents with progressive weakness, inability to ambulate and R leg pain and L hip pain. Pt states that she has been functionally bedbound for the last six month due to chronic L hip pain. Pt normally ambulates with a walker at home, but endorses progressive decreased strength in her legs, stating she has been vitually unable to walk over the last few days. Pt endorses chronic L hip pain (present on last admission on 03/02 ) and R leg pain on her anterior jones at a wound site for the last three months. Patient describes the pain as burning with paresthesias. She has not seen a doctor in the last six months. She denies any hx of kidney dz, kidney stones, diabetes, autoimmune conditions, vasculitidies, recent contrast exposure or new medications. In addition, pt endorse "black" diarrhea yesterday , but denies any hematochezia or other episodes of melena. She denies any fever/ chills, GLASS, cough, SOB, CP, palpitations, Abdominal pain, N/V, back or groin pain. She denies any dysuria, hematuria, hesistancy or frequency. Pt endorses chronic BL LE edema, as well as R shoulder pain w/ limited ROM. Pt states she normally consumes copious amounts of water and has received good PO hydration up until today. She denies any hx of blood clots, sick contacts or recent travel. Pt lives at home alone, however receives assistance from visiting [employer] service. ER course was notable for: (1) BUN/Cr 138/3.0 (2) BNP 685 (3) L leg DVT on duplex Recent Travel: None PAST MEDICAL HISTORY: Colon Ca HTN HLD Lumbar Disk Dz w/ radiculopathy Thoracic spine compression fx's Diastolic CHF on ECHO PAST SURGICAL HISTORY: Colostomy w/ reversal - Problems (1) Weakness Assessment/Plan: -IMPROVED -secondary to polyarthritis -DVT -dehydration resolved -OFF IVF -Physical therapy Code(s): R53.1 - WEAKNESS (2) Polyarthralgia ORTHO ON CASE Code(s): M25.50 - PAIN IN UNSPECIFIED JOINT (3) Acute DVT (deep venous thrombosis) Assessment/Plan: -Vascular consult -IV heparin --DC START ELIQUIS Code(s): I82.409 - ACUTE EMBOLISM AND THOMBOS UNSP DEEP VN UNSP LOWER EXTREMITY (4) Acute renal failure Assessment/Plan: -IMPROVED -dehydration -DC LR IVF -renal U/S unremarkable -nephrology consult Code(s): N17.9 - ACUTE KIDNEY FAILURE, UNSPECIFIED (5) Cellulitis Assessment/Plan: -ID consult appreciated -OFF IV abx -silvadene topical daily Code(s): L03.90 - CELLULITIS, UNSPECIFIED (6) Anemia Assessment/Plan: -likely dilutional -check Iron profile, B 12, folate, TSH, FT4 -Guaiac all stools -monitor H/H -GI ON CASE Code(s): D64.9 - ANEMIA, UNSPECIFIED (7) Abnormal Echo Assessment/Plan: -CRDIO NOTED-NO FURTHER W/U PHYSICAL THERAPY--SNF ONCE CLEARED BY CARDIO--D/W PT Condition: Improved - Instructions Diet, Activity, Other Instructions: 2 gm Sodium/Cholesterol/Fat controlled diet Maintain good hydration throughout the day Daily physical therapy Pain management Disposition: [facility] F[facility]ILITY - Home Medications Comprehensive Discharge Medication List: Ambulatory Orders Atorvastatin Ca [Lipitor] 40 mg PO HS 07/29/17 Cholecalciferol (Vitamin D3) [Vitamin D3] 1 each PO DAILY 07/29/17 Metoprolol Tartrate [Lopressor -] 25 mg PO DAILY MDD 2 07/29/17 Silver Sulfadiazine 1% Top Cr [Silvadene -] 1 applic TP DAILY 07/29/17 Apixaban [Eliquis -] 5 mg PO BID tablet 10/03/17 Docusate Sodium [Colace -] 100 mg PO BID capsule 10/03/17 Oxycodone HCl [Roxicodone -] 5 mg PO Q4H PRN tablet MDD 4 10/03/17 Pantoprazole Sodium [Protonix -] 40 mg PO DAILY tablet.ec 10/03/17
[2017-10-03] MEDS: CEPHALEXIN MONOHYDRATE 500 MG CAPSULE (UD) PO SCH (09:10)
[2017-10-03] MEDS: APIXABAN 5 MG TABLET PO SCH (09:11)
[2017-10-03] MEDS: PANTOPRAZOLE 40 MG TABLET (FP) PO SCH (09:11)
[2017-10-03] MEDS: DOCUSATE SODIUM 100 MG CAPSULE (FP) PO SCH (09:11)
[2017-10-03] MEDS: METOPROLOL TARTRATE 25 MG TABLET (FP) PO SCH (09:11)
--- NOTE | 2017-10-03 10:40 | PN ---
Progress Note (short form) - Note Progress Note: Pt seen and examined. Her left hip doesn't bother her at all at this time, therefore I am not rec surgery. I would rec a left THR if she cannot ambulate bc of left hip pain and/or dysfunction.
[2017-10-03] MEDS: SILVER SULFADIAZINE 1% TOP CREAM 50 GM JAR TP SCH (10:55)
--- NOTE | 2017-10-03 12:29 | EKG ---
Test Reason : Blood Pressure : / mmHG Vent. Rate : 134 BPM Atrial Rate : 122 BPM P-R Int : 000 ms QRS Dur : 062 ms QT Int : 324 ms P-R-T Axes : 000 025 -41 degrees QTc Int : 483 ms SUPRAVENTRICULAR TACHYCARDIA NONSPECIFIC ST AND T WAVE ABNORMALITY ABNORMAL ECG WHEN COMPARED WITH ECG OF 26-SEP-2017 20:53, SINUS RHYTHM HAS REPLACED ATRIAL FIBRILLATION VENT. RATE HAS INCREASED BY [address] NOW DEPRESSED IN LATERAL LEADS NONSPECIFIC T WAVE ABNORMALITY NOW EVIDENT IN LATERAL LEADS Confirmed by DEVEN OG MD ([id number]) on 10/03/2017 12:29:30 PM Referred By: Confirmed By:DEVEN OG MD
== END 2017-10-03 11:20 | DRG 300 ==
LOC: JER 19:10 → JERBED 22:22 → J4W 09-27 14:45
PROVIDERS: ADMIT Internal Medicine; ATTEND Family Medicine
DX: I82.412 Acute embolism and thrombosis of left femoral vein (principal); N17.9 Acute kidney failure, unspecified; L03.116 Cellulitis of left lower limb; L03.115 Cellulitis of right lower limb; I50.30 Unspecified diastolic (congestive) heart failure; R53.1 Weakness; I82.432 Acute embolism and thrombosis of left popliteal vein; M54.5 Low back pain; M25.552 Pain in left hip; M25.511 Pain in right shoulder; D64.9 Anemia, unspecified; E78.5 Hyperlipidemia, unspecified; E86.0 Dehydration; M51.16 Intervertebral disc disorders with radiculopathy, lumbar region; M84.452D Pathological fracture, left femur, subsequent encounter for fracture with routine healing; M16.12 Unilateral primary osteoarthritis, left hip; R94.31 Abnormal electrocardiogram [ECG] [EKG]; I11.0 Hypertensive heart disease with heart failure; L89.222 Pressure ulcer of left hip, stage 2; L89.212 Pressure ulcer of right hip, stage 2; Z74.01 Bed confinement status; Z85.038 Personal history of other malignant neoplasm of large intestine; Z87.891 Personal history of nicotine dependence
CPT/HCPCS: 36415; 71045-TC-FY; 73030-TC-RT-FY; 73523-TC; 76775-TC; 80048; 80053; 80061; 81003; 81015; 82272; 82550; 82570; 82607; 82728; 82746; 82962; 83036; 83540; 83550; 83605; 83721; 83735; 83880; 83930; 83935; 84100; 84300; 84439; 84443; 84484; 85025; 85027; 85610; 85730; 87040; 87086; 87186; 90688; 93005; 93010; 93306-TC; 93970-TC; 97116-GP; 97161-GP; 99285-25; G0008; J1644

== ENCOUNTER 2017-11-17 10:35 | Inpatient (IN) | payer OTHER, MEDICARE ==
--- NOTE | 2017-11-17 11:11 | PDOC ---
Attending Attestation - Resident Resident Name: Matthew Rodríguez - ED Attending Attestation I have performed the following: I have examined & evaluated the patient, The case was reviewed & discussed with the resident, I agree w/resident's findings & plan, Exceptions are as noted - HPI HPI: 11/17/17 11:13 86y F hx of dvt (on eliquis) presents with painful rash to LLE x 3 weeks that is itchy, burning. STarted as itchy, but became burning nature. pt was given abx as outpatient (keflex) due to supicion of cellulitis without improvement. Denies any fever/chills, n/v, diarrhea, dysuria, hematuria, cough, hemoptysis vitals noted for fever here with HR of 120 GENERAL: The patient is awake, alert, and fully oriented, Nontoxic - in no acute distress. HEAD: Normocephalic, atraumatic. EYES: extraocular movements intact, sclera anicteric, conjunctiva clear. ENT: Normal voice, Moist mucous membranes. NECK: Normal range of motion, supple LUNGS: Breath sounds equal, clear to auscultation bilaterally. No wheezes, no rhonchi, no rales. HEART: Regular rate and rhythm, normal S1 and S2 without murmur, rub or gallop. ABDOMEN: Soft, nontender, normoactive bowel sounds. No guarding, no rebound. . No CVA tenderness EXTREMITIES: bl edema in lower extreimites, no tenderness NEUROLOGICAL: No facial assymetry, Normal speech, PSYCH: Normal mood, normal affect. SKIN: erythemadous plaques/vesicles along L4 dermotome on left thigh/buttock, but small vesicular rash also noted in the mid/left abdomen likely zoster, but with tachcyardia, low grade fever, concern for possible suprainfection with additional abdomen area and +fever/tachycardia - ? disseminated zoster will ck labs will dw dr. valentine - Physicial Exam PE: 11/18/17 20:15 see above - Medical Decision Making 11/17/17 14:13 labs reviewed noted for hyokalemia --> will replete anticipate obs awaiting UA 11/17/17 15:13 case dw covering ID requests admission for further management possible suprainfection of her zoster
--- NOTE | 2017-11-17 11:16 | PDOC ---
History of Present Illness <Ilya Sethi - Last Filed: 11/17/17 16:13> - History of Present Illness Initial Comments: 11/17/17 11:45 The patient is an 86 year old female with a history of HTN, HLD, Colon CA, DVT who presents for evaluation of a rash to her left thigh. The patient reports a 3 week history of worsening erythematous rash with blistering to her right thigh. She notes that her symptoms initially began as an itching sensation and then the rash began and has worsened over the past 3 week prompting her presentation to the ED for evaluation. She states that the rash has a severe burning sensation. She denies fevers, chills, SOB, chest pain, nausea, vomiting , abdominal pain, or changes with urination or bowel movements. <Matthew Rodríguez - Last Filed: 11/17/17 16:16> - General Chief Complaint: Rash Stated Complaint: BLISTERS ON THIGH Time Seen by Provider: 11/17/17 10:39 Past History <Ilya Sethi - Last Filed: 11/17/17 16:13> - Past Medical History Anemia: No Asthma: No Cancer: Yes (colon ca) Cardiac Disorders: No CVA: No COPD: No CHF: No Dementia: No Diabetes: No GI Disorders: No Disorders: No HTN: Yes Hypercholesterolemia: Yes Liver Disease: No Seizures: No Thyroid Disease: No - Surgical History Abdominal Surgery: Yes (COLOSTOMY WITH REVERSAL) Appendectomy: No Cardiac Surgery: No Cholecystectomy: No Lung Surgery: No Neurologic Surgery: No Orthopedic Surgery: No - Immunization History Immunization Up to Date: Yes - Suicide/Smoking/Psychosocial Hx Smoking History: Former smoker Have you smoked in the past 12 months: No If you are a former smoker, when did you quit?: 30 yrs ago Information on smoking cessation initiated: No Hx Alcohol Use: No Drug/Substance Use Hx: No Substance Use Type: None Hx Substance Use Treatment: No <Matthew Rodríguez - Last Filed: 11/17/17 16:16> - Past Medical History Allergies/Adverse Reactions: Allergies Allergy/AdvReac Type Severity Reaction Status Date / Time No Known Drug Allergies Allergy Verified 11/17/17 10:58 Home Medications: Ambulatory Orders Atorvastatin Ca [Lipitor] 40 mg PO HS 07/29/17 Metoprolol Tartrate [Lopressor -] 25 mg PO DAILY MDD 2 07/29/17 Silver Sulfadiazine 1% Top Cr [Silvadene -] 1 applic TP DAILY 07/29/17 Apixaban [Eliquis -] 5 mg PO BID tablet 10/03/17 Pantoprazole Sodium [Protonix -] 40 mg PO DAILY tablet.ec 10/03/17 Cephalexin [Keflex] 500 mg PO TID 11/17/17 Furosemide [Lasix] 40 mg PO DAILY 11/17/17 Metolazone 2.5 mg PO DAILY 11/17/17 Oxycodone HCl 10 mg PO Q12H 11/17/17 oxyCODONE HCL [Roxicodone -] 5 mg PO Q6H PRN MDD 4 11/17/17 Review of Systems - Review of Systems Comments:: 11/17/17 11:49 Constitutional: No fevers, chills, fatigue, malaise HEENT: No Rhinorrhea, nasal congestion, visual changes Cardiovascular: No chest pain, syncope, palpitations, lightheadedness Respiratory: No Cough, SOB, Hemoptysis, Gastrointestinal: No Abdominal pain, Nausea, Vomiting, Constipation, Diarrhea, Melena Genitourinary: No Dysuria, Frequency, Urgency, Hesitancy, Hematuria, Flank pain Musculoskeletal: No Myalgia, arthralgia Skin: Rash to the left thigh. No bruising, pallor Neurologic: No Headache, Dizziness, Numbness, Weakness, or Tingling Psychiatric: No Hallucinations. No SI or HI <Matthew Rodríguez - Last Filed: 11/17/17 16:16> *Physical Exam - Vital Signs Last Vital Signs Temp Pulse Resp BP Pulse Ox 98.2 F 102 H 20 94/47 97 11/17/17 14:58 11/17/17 14:58 11/17/17 10:58 11/17/17 14:58 11/17/17 14:58 <Ilya Sethi - Last Filed: 11/17/17 16:13> - Vital Signs Last Vital Signs Temp Pulse Resp BP Pulse Ox 100.1 F H 120 H 20 124/66 97 11/17/17 10:58 11/17/17 10:58 11/17/17 10:58 11/17/17 10:58 11/17/17 10:58 - Physical Exam Comments: 11/17/17 11:49 General Appearance: Nourished. No Apparent Distress HEENT: EOMI, ROGELIO. No Pharyngeal Erythema, Tonsillar Exudate, Tonsillar Erythema Neck: No Cervical Lymphadenopathy Respiratory/Chest: Lungs Clear, Normal Breath Sounds. No Crackles, Rales, Rhonchi, Wheezing Cardiovascular: Regular Rhythm, Regular Rate. No Murmur, Gallops, Rubs Gastrointestinal/Abdominal: Normal Bowel Sounds, Soft. No Guarding, Rebound, Tenderness Musculoskeletal: No CVA Tenderness Extremity: Normal Capillary Refill Integumentary: Erythematous rash with vesicles in a dermatomal pattern along the L2/L3 dermatome on the left thigh. Normal Color, Dry, Warm Neurologic: Fully Oriented, Alert, Normal Mood/Affect, Normal Response, <Matthew Rodríguez - Last Filed: 11/17/17 16:16> ED Treatment Course - LABORATORY CBC & Chemistry Diagram: 11/17/17 11:30 11/17/17 13:03 - ADDITIONAL ORDERS Additional order review: Laboratory Results 11/17/17 11/17/17 11/17/17 13:03 11:30 11:30 PT with INR INR PTT (Actin FS) VBG pH POC VBG pCO2 POC VBG pO2 Mixed VBG HCO3 Sodium 138 Potassium 2.8 L* Chloride 95 L Carbon Dioxide 34 H Anion Gap 9 BUN 39 H Creatinine 1.2 H Creat Clearance w eGFR 42.80 Random Glucose 125 H Lactic Acid 1.4 Calcium 7.8 L Total Bilirubin 0.4 D AST 17 ALT 10 L Alkaline Phosphatase 121 H Creatine Kinase 31 Troponin I < 0.02 Total Protein 5.8 L Albumin 2.4 L Blood Type Cancelled Antibody Screen Cancelled 11/17/17 11/17/17 11/17/17 11:30 11:30 11:30 PT with INR 15.10 H INR 1.34 H D PTT (Actin FS) 23.6 L VBG pH 7.45 H POC VBG pCO2 51.0 POC VBG pO2 28.4 Mixed VBG HCO3 35.1 H Sodium Cancelled Potassium Cancelled Chloride Cancelled Carbon Dioxide Cancelled Anion Gap Cancelled BUN Cancelled Creatinine Cancelled Creat Clearance w eGFR Cancelled Random Glucose Cancelled Lactic Acid Calcium Cancelled Total Bilirubin Cancelled AST Cancelled ALT Cancelled Alkaline Phosphatase Cancelled Creatine Kinase Cancelled Troponin I Cancelled Total Protein Cancelled Albumin Cancelled Blood Type Antibody Screen 11/17/17 11:30 RBC 3.73 D MCV 85.8 MCHC 33.4 RDW 15.5 D MPV 8.5 Neutrophils % 72.7 Lymphocytes % 17.9 D Monocytes % 8.3 Eosinophils % 0.5 Basophils % 0.6 - Medications Given in the ED: ED Medications Discontinued Medications Generic Name Dose Route Start Last Admin Trade Name Estrellita PRN Reason Stop Dose Admin Oxycodone/Acetaminophen 1 combo 11/17/17 14:15 11/17/17 14:35 Percocet 5/325 - PO 11/17/17 14:16 1 combo ONCE ONE Administration Potassium Chloride 40 meq 11/17/17 13:44 11/17/17 14:35 K-Dur - PO 11/17/17 13:45 40 meq ONCE ONE Administration <Ilya Sethi - Last Filed: 11/17/17 16:13> - LABORATORY CBC & Chemistry Diagram: 11/17/17 11:30 11/17/17 13:03 <Matthew Rodríguez - Last Filed: 11/17/17 16:16> Medical Decision Making - Medical Decision Making 11/17/17 16:[address] Mtz service for admission at about 14:30, told hospitalist is covering. Paged hospitalist at 15:00, who said they don't cover Dr. Mtz until 17:00. Called Dr. Mtz service again at 15:30. Called Dr. Mtz service again at 16:00, who said [facility] Marie is covering. Awaiting callback. 11/17/17 16:13 Spoke with ARCHANA Salazar regarding this patient. <Ilya Sethi - Last Filed: 11/17/17 16:13> - Medical Decision Making 11/17/17 11:52 The patient is an 86 year old female with a history of HTN, HLD, Colon CA, DVT who presents for evaluation of a rash to her left thigh. Differential includes but is not limited to: Shingles, cellulitis, infectious, metabolic derangement. Given the patient's physical exam, her symptoms are consistent with shingles. However, given the patient's tachycardia and low grade fever, we will obtain a cbc, cmp, lactate, blood cultures, troponin, ekg to evaluate for possible other etiologies. We will continue to monitor and reassess. 11/17/17 15:09 CBC is unremarkable. cmp demonstrates a hypokalemia to 2.8. Lactate and troponin are unremarkable. We discussed the case with ID who have evaluated the patient and agree with admission for further management given the severity of her zoster infection and the possibility of a superimposed cellulitis. We will treat with 800mg of acyclovir and ancef in the meantime per ID recs. The patient will require admission for further management. We appreciate ID consultation and recs. 11/17/17 16:15 We discussed the case with ARCHANA Salazar who accepted the patient for admission. <Matthew Rodríguez - Last Filed: 11/17/17 16:16> *DC/Admit/Observation/Transfer <Ilya Sethi - Last Filed: 11/17/17 16:13> - Discharge Dispostion Admit: Yes <Matthew Rodríguez - Last Filed: 11/17/17 16:16> Diagnosis at time of Disposition: Herpes zoster Qualifiers: Herpes zoster complications: unspecified herpes zoster complication Qualified Code(s): B02.8 - Zoster with other complications Cellulitis Qualifiers: Site of cellulitis: unspecified site Qualified Code(s): L03.90 - Cellulitis, unspecified - Discharge Dispostion Condition at time of disposition: Stable
[2017-11-17 12:20] LABS: VENOUS PH 7.45 (7.32-7.42); VENOUS PO2 28.4 mmHg (28-48)
[2017-11-17 12:21] LABS: BASO % 0.6 % (0-2.0); EOS % 0.5 % (0-4.5); HEMOGLOBIN 10.7 GM/dL (10.7-15.3); LYMPH % 17.9 % (8-40); MCH 28.6 pg (25.7-33.7); MCHC 33.4 g/dl (32.0-36.0); MEAN CELL VOLUME 85.8 fl (80-96); MEAN PLT VOLUME 8.5 fl (7.5-11.1); MONO % 8.3 % (3.8-10.2); NEUT % 72.7 % (42.8-82.8); PLATELET COUNT 341 K/MM3 (134-434); RBC 3.73 M/mm3 (3.60-5.2); RDW 15.5 % (11.6-15.6); WHITE BLOOD COUNT 5.2 K/mm3 (4.0-10.0)
[2017-11-17 12:29] LABS: INR 1.34 (0.82-1.09); PROTHROMBIN TIME (PATIENT) 15.1 SEC (9.98-11.88)
[2017-11-17 12:32] LABS: ACTIVATED PTT 23.6 SECONDS (26.9-34.4)
[2017-11-17 13:39] LABS: ALBUMIN 2.4 g/dl (3.4-5.0); ANION GAP 9 (8-16); BILIRUBIN,TOTAL 0.4 mg/dL (0.2-1.0); BLOOD UREA NITROGEN 39 mg/dL (7-18); CALCIUM 7.8 mg/dL (8.5-10.1); CHLORIDE 95 mmol/L (98-107); CO2 34 mmol/L (21-32); CREATININE 1.2 mg/dL (0.55-1.02); GLUCOSE,RANDOM 125 mg/dL (74-106); SGOT/AST 17 U/L (15-37); SGPT/ALT 10 U/L (12-78); SODIUM 138 mmol/L (136-145); TOT PROT 5.8 g/dl (6.4-8.2)
[2017-11-17 13:41] LABS: ALK PHOS 121 U/L (45-117)
[2017-11-17 13:44] LABS: POTASSIUM 2.8 mmol/L (3.5-5.1)
[2017-11-17] MEDS ORDERED: POTASSIUM CHLORIDE TABS 20 MEQ TABLET.ER (FP) PO ONE ×2 (13:44→14:20)
--- NOTE | 2017-11-17 14:18 | EKG ---
Test Reason : Blood Pressure : / mmHG Vent. Rate : 107 BPM Atrial Rate : 127 BPM P-R Int : 000 ms QRS Dur : 062 ms QT Int : 344 ms P-R-T Axes : 068 001 017 degrees QTc Int : 459 ms UNDETERMINED RHYTHM POSSIBLE Normal SINUS RHYTHM with FREQUENT APCS vs MULTIFOCAL ATRIAL TACHYCARDIA CANNOT RULE OUT ANTERIOR INFARCT , AGE UNDETERMINED NONSPECIFIC ST ABNORMALITY ABNORMAL ECG Confirmed by MD PRUDENCIO, JEANNE ([id number]) on 11/17/2017 2:18:15 PM Referred By: Confirmed By:JEANNE FLANNERY MD
[2017-11-17] MEDS ORDERED: ACYCLOVIR 400 MG TABLET PO ONE (15:08)
[2017-11-17] MEDS ORDERED: CEFAZOLIN 1 GM in DEXTROSE 5%-WATER - 50 ML IVPB ONE (15:08)
[2017-11-17] MEDS ORDERED: SODIUM CHLORIDE 1,000 ML IV STA (15:32)
[2017-11-17] MEDS ORDERED: ACYCLOVIR 200 MG CAPSULE ONE (15:56)
[2017-11-17] MEDS ORDERED: CEFAZOLIN 1 GM PUSH 1 GM/10 ML DISP.SYRIN IVPUSH ONE (15:56)
[2017-11-17] MEDS: PATIENT'S OWN MEDICATION (NON-FORMULARY) (Oxycodone Hcl [Oxycodone Hcl] 10 MG) PO SCH ×2 (16:37→16:57)
[2017-11-17] MEDS ORDERED: oxyCODONE HCL 5 MG TABLET ONE (16:56)
[2017-11-17 19:22] VITALS: BMI 31.3
[2017-11-17] MEDS: APIXABAN 5 MG TABLET PO SCH (21:47)
[2017-11-17] MEDS: oxyCODONE HCL 10 MG SUSTAINED ACTING TABLET PO SCH (21:47)
[2017-11-17] MEDS: ATORVASTATIN CA 40 MG TABLET (FP) PO SCH (21:47)
[2017-11-18] MEDS: oxyCODONE HCL 5 MG TABLET PO PRN ×3 (01:02→19:59)
[2017-11-18 07:19] LABS: BASO % 0.7 % (0-2.0); EOS % 1.4 % (0-4.5); HEMATOCRIT 25.2 % (32.4-45.2); HEMOGLOBIN 8.5 GM/dL (10.7-15.3); LYMPH % 32.9 % (8-40); MCH 28.9 pg (25.7-33.7); MCHC 33.7 g/dl (32.0-36.0); MEAN CELL VOLUME 85.9 fl (80-96); MEAN PLT VOLUME 8.4 fl (7.5-11.1); MONO % 11.2 % (3.8-10.2); NEUT % 53.8 % (42.8-82.8); PLATELET COUNT 264 K/MM3 (134-434); RBC 2.94 M/mm3 (3.60-5.2); RDW 15.4 % (11.6-15.6); WHITE BLOOD COUNT 5.3 K/mm3 (4.0-10.0)
[2017-11-18 07:46] LABS: CHLORIDE 100 mmol/L (98-107); POTASSIUM 3.2 mmol/L (3.5-5.1); SODIUM 139 mmol/L (136-145)
[2017-11-18 07:55] LABS: ALK PHOS 95 U/L (45-117); ANION GAP 6 (8-16); BILIRUBIN,TOTAL 0.4 mg/dL (0.2-1.0); BLOOD UREA NITROGEN 30 mg/dL (7-18); CALCIUM 7.2 mg/dL (8.5-10.1); CO2 33 mmol/L (21-32); CREATININE 0.8 mg/dL (0.55-1.02); GLUCOSE,RANDOM 88 mg/dL (74-106); SGOT/AST 15 U/L (15-37); SGPT/ALT 7 U/L (12-78)
--- NOTE | 2017-11-18 08:43 | HP ---
Admitting History and Physical - Admission History of Present Illness: 86 year old female with a history of HTN, HLD, Colon CA, DVT who presents for evaluation of a rash to her left thigh. The patient reports a 3 week history of worsening erythematous rash with blistering to her right thigh. She notes that her symptoms initially began as an itching sensation and then the rash began and has worsened over the past 3 week prompting her presentation to the ED for evaluation. She states that the rash has a severe burning sensation. She denies fevers, chills, SOB, chest pain, nausea, vomiting, abdominal pain, or changes with urination or bowel movements. Patient states it was treated as outpatient but not sure of meds - Past Medical History Cardiovascular: Yes: HTN, Hyperlipdemia Gastrointestinal: Yes: Cancer (colon cancer s/p resection 2011) Renal/: Yes: Renal Inusuff Heme/Onc: Yes: Anemia Musculoskeletal: Yes: Chronic low back pain, Osteoarthritis - Past Surgical History Past Surgical History: Yes: Ileosotomy (with ) - Smoking History Smoking history: Former smoker Have you smoked in the past 12 months: No If you are a former smoker, when did you quit?: 30 yrs ago - Alcohol/Substance Use Hx Alcohol Use: No History of Substance Use: reports: None - Social History ADL: Independent (Lives alone at home, ) 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 History of Recent Travel: No Home Medications - Allergies Allergies/Adverse Reactions: Allergies Allergy/AdvReac Type Severity Reaction Status Date / Time No Known Drug Allergies Allergy Verified 11/17/17 10:58 - Home Medications Home Medications: Ambulatory Orders Atorvastatin Ca [Lipitor] 40 mg PO HS 07/29/17 Metoprolol Tartrate [Lopressor -] 25 mg PO DAILY 07/29/17 Silver Sulfadiazine 1% Top Cr [Silvadene -] 1 applic TP DAILY 07/29/17 Apixaban [Eliquis -] 5 mg PO BID tablet 10/03/17 Pantoprazole Sodium [Protonix -] 40 mg PO DAILY tablet.ec 10/03/17 Bacitracin - [Bacitracin Topical Ointment -] 1 applic TP DAILY 11/17/17 Carboxymethylcellulose Sodium [Lubricant Eye Drops] 1 each OU HS 11/17/17 Cephalexin [Keflex] 500 mg PO TID 11/17/17 Clotrimazole [Lotrimin AF] 0 gm TP BID 11/17/17 Diphenhydramine HCl [Benadryl -] 25 mg PO Q4H PRN 11/17/17 Furosemide [Lasix] 40 mg PO DAILY 11/17/17 Metolazone 2.5 mg PO DAILY 11/17/17 oxyCODONE HCL [Roxicodone -] 5 mg PO Q6H PRN MDD 4 11/17/17 oxyCODONE SR [Oxycontin] 10 mg PO BID 11/17/17 Family Disease History - Family Disease History Family Disease History: Diabetes: Sister (HTN, Hyperlipidemia), Heart Disease: Brother (CABG,HTN, hyperlipidemia), Sister, Other: Father ( 70: VT), Mother ( 84: chf) Review of Systems - Review of Systems Cardiovascular: denies: Chest Pain Respiratory: denies: SOB Gastrointestinal: denies: Abdominal Pain Integumentary: reports: Blister, Erythema Neurological: reports: No Symptoms Physical Examination Vital Signs: Vital Signs Temperature 99.4 F 11/18/17 06:00 Pulse Rate 115 H 11/18/17 06:00 Respiratory Rate 16 11/18/17 06:00 Blood Pressure 121/75 11/18/17 06:00 O2 Sat by Pulse Oximetry (%) 97 11/17/17 18:40 Cardiovascular: Yes: Murmur, S1, S2 Respiratory: Yes: Regular, CTA Bilaterally Gastrointestinal: Yes: Normal Bowel Sounds, Soft, Tenderness Integumentary: Yes: Erythema, Rash, Other (bullous ds) Labs: CBC, BMP 11/18/17 06:35 Problem List - Problems (1) Bullous dermatitis Assessment/Plan: Derm consult id consult iv abx Code(s): L13.9 - BULLOUS DISORDER, UNSPECIFIED (2) Cellulitis Assessment/Plan: per id Code(s): L03.90 - CELLULITIS, UNSPECIFIED Qualifiers: Site of cellulitis: unspecified site Qualified Code(s): L03.90 - Cellulitis , unspecified (3) Anemia Assessment/Plan: follow labs stool for blood Code(s): D64.9 - ANEMIA, UNSPECIFIED (4) Herpes zoster Assessment/Plan: await id consult Code(s): B02.9 - ZOSTER WITHOUT COMPLICATIONS Qualifiers: Herpes zoster complications: unspecified herpes zoster complication Qualified Code(s): B02.8 - Zoster with other complications (5) Tachycardia Assessment/Plan: ekg follow labs increase metoprolol cardio Code(s): R00.0 - TACHYCARDIA, UNSPECIFIED
--- NOTE | 2017-11-18 09:04 | CON.ID ---
Consult Consult Specialty:: Infectious Disease Referred by:: Primary Team Reason for Consultation:: Rash on Left thigh - History of Present Illness History of Present Illness: 86 year old F with pmh of HTN, HLD, DVT, and colon cancer ([id number], s/p surgery, in remission) presented with rash to her left thigh. Patient states 3 months prior she began having itching to her abdomen and erythema. The rash over time spread to her left thigh with blisters. Patient endorses pruritus and burning. Patient denies fever, chills, abdominal pain, new medications. - History Source History Provided By: Patient Limitations to Obtaining History: No Limitations - Past Medical History Cardio/Vascular: Yes: HTN, Hyperlipdemia Gastrointestinal: Yes: Cancer (colon cancer s/p resection 2011) Renal/: Yes: Renal Inusuff Musculoskeletal: Yes: Chronic low back pain, Osteoarthritis - Past Surgical History Past Surgical History: Yes: Ileosotomy (with ) - Alcohol/Substance Use Hx Alcohol Use: No History of Substance Use: reports: None - Smoking History Smoking history: Former smoker Have you smoked in the past 12 months: No If you are a former smoker, when did you quit?: 30 yrs ago - Social History ADL: Independent (Lives alone at home, ) 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 History of Recent Travel: No Home Medications - Allergies Allergies/Adverse Reactions: Allergies Allergy/AdvReac Type Severity Reaction Status Date / Time No Known Drug Allergies Allergy Verified 11/17/17 10:58 - Home Medications Home Medications: Ambulatory Orders Atorvastatin Ca [Lipitor] 40 mg PO HS 07/29/17 Metoprolol Tartrate [Lopressor -] 25 mg PO DAILY 07/29/17 Silver Sulfadiazine 1% Top Cr [Silvadene -] 1 applic TP DAILY 07/29/17 Apixaban [Eliquis -] 5 mg PO BID tablet 10/03/17 Pantoprazole Sodium [Protonix -] 40 mg PO DAILY tablet.ec 10/03/17 Bacitracin - [Bacitracin Topical Ointment -] 1 applic TP DAILY 11/17/17 Carboxymethylcellulose Sodium [Lubricant Eye Drops] 1 each OU HS 11/17/17 Cephalexin [Keflex] 500 mg PO TID 11/17/17 Clotrimazole [Lotrimin AF] 0 gm TP BID 11/17/17 Diphenhydramine HCl [Benadryl -] 25 mg PO Q4H PRN 11/17/17 Furosemide [Lasix] 40 mg PO DAILY 11/17/17 Metolazone 2.5 mg PO DAILY 11/17/17 oxyCODONE HCL [Roxicodone -] 5 mg PO Q6H PRN MDD 4 11/17/17 oxyCODONE SR [Oxycontin] 10 mg PO BID 11/17/17 Family Disease History - Family Disease History Family Disease History: Diabetes: Sister (HTN, Hyperlipidemia), Heart Disease: Brother (CABG,HTN, hyperlipidemia), Sister, Other: Father ( 70: [place]), Mother ( 84: chf) Review of Systems - Review of Systems Constitutional: reports: Fever Eyes: reports: No Symptoms HENT: reports: No Symptoms Neck: reports: No Symptoms Cardiovascular: reports: No Symptoms Respiratory: reports: No Symptoms Gastrointestinal: reports: Other (abdominal itching) Integumentary: reports: Blister, Erythema, Pruritis, Rash Hematology/Lymphatic: reports: No Symptoms Physical Exam Vital Signs: Vital Signs Temperature 98.9 F 11/18/17 08:45 Pulse Rate 132 H 11/18/17 08:45 Respiratory Rate 18 11/18/17 08:45 Blood Pressure 111/66 11/18/17 08:45 O2 Sat by Pulse Oximetry (%) 96 11/18/17 08:45 Constitutional: Yes: Well Nourished, No Distress, Calm Eyes: Yes: Conjunctiva Clear, EOM Intact HENT: Yes: Atraumatic, Normocephalic Neck: Yes: Supple, Trachea Midline Cardiovascular: Yes: Tachycardia, S1, S2 Respiratory: Yes: Regular, CTA Bilaterally Gastrointestinal: Yes: Normal Bowel Sounds, Soft. No: Tenderness Integumentary: Yes: Other (Grouped vesicles and tense bullae on an erythematous base in dermatomal distrubtion of L1-L3.) Neurological: Yes: Alert, Oriented Psychiatric: Yes: Alert, Oriented Labs: CBC, BMP 11/18/17 06:35 11/18/17 06:35 Microbiology 11/17/17 11:30 Blood Culture - Preliminary Blood - Peripheral Venous Pending Organism Assessment/Plan Assessment: 1. Herpes Zoster 2. G+ cocci in clusters bacteremia Plan: 1. Acyclovir IV 10 mg/kg q8h 2. IVF 3. Contact Isolation 4. Vancomycin 1g BID
[2017-11-18] MEDS ORDERED: PT OWN MED DRAWER 7, Y5N ONE ×2 (09:09→18:05)
[2017-11-18] MEDS: PANTOPRAZOLE 40 MG TABLET (FP) PO SCH (09:19)
[2017-11-18] MEDS: APIXABAN 5 MG TABLET PO SCH ×2 (09:19→21:51)
[2017-11-18] MEDS: oxyCODONE HCL 10 MG SUSTAINED ACTING TABLET PO SCH ×2 (09:20→21:50)
--- NOTE | 2017-11-18 09:31 | PN ---
Teaching Attending Note Name of Resident: Darius Crawley ATTENDING PHYSICIAN STATEMENT I saw and evaluated the patient. I reviewed the resident's note and discussed the case with the resident. I agree with the resident's findings and plan as documented. SUBJECTIVE:Painful blistering rash in a dermatomal distribution sacrum and down the left leg. 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
[2017-11-18] MEDS ORDERED: POTASSIUM CHLORIDE 10 MEQ in SODIUM CHLORIDE 1,000 ML IVPB SCH (09:45)
[2017-11-18] MEDS ORDERED: SODIUM CHLORIDE 1,000 ML with POTASSIUM CHLORIDE 10 MEQ IVPB SCH (09:45)
[2017-11-18] MEDS ORDERED: METOPROLOL TARTRATE 25 MG TABLET (FP) PO SCH (10:00)
[2017-11-18] MEDS ORDERED: FUROSEMIDE 40 MG TABLET (FP) PO SCH (10:00)
[2017-11-18] MEDS ORDERED: METOLAZONE 2.5 MG TABLET (FP) PO SCH (10:00)
--- NOTE | 2017-11-18 10:33 | EKG ---
Test Reason : Blood Pressure : / mmHG Vent. Rate : 092 BPM Atrial Rate : 092 BPM P-R Int : 168 ms QRS Dur : 072 ms QT Int : 366 ms P-R-T Axes : 062 000 015 degrees QTc Int : 452 ms SINUS RHYTHM WITH PREMATURE ATRIAL COMPLEXES LOW VOLTAGE QRS NONSPECIFIC ST AND T WAVE ABNORMALITY ABNORMAL ECG WHEN COMPARED WITH ECG OF 17-NOV-2017 12:22, NO SIGNIFICANT CHANGE WAS FOUND Confirmed by BRANDON BALLARD, GURWINDER ([id number]) on 11/18/2017 10:32:47 AM Referred By: Confirmed By:GURWINDER TAYLOR MD
[2017-11-18 11:00] LABS: MAGNESIUM 1.7 mg/dL (1.8-2.4)
--- NOTE | 2017-11-18 11:25 | PN ---
Progress Note, Physician Chief Complaint: patient in isolation on acyclovir - Current Medication List Current Medications: Active Medications Apixaban (Eliquis -) 5 mg PO BID [facility] Last Admin: 11/18/17 09:19 Dose: 5 mg Atorvastatin Calcium (Lipitor -) 40 mg PO HS [facility] Last Admin: 11/17/17 21:47 Dose: 40 mg Furosemide (Lasix -) 40 mg PO DAILY [facility] Last Admin: 11/18/17 09:19 Dose: 40 mg Acyclovir 700 mg/ Dextrose 114 mls @ 100 mls/hr IVPB Q8H-IV [facility] Potassium Chloride 10 meq/ (Sodium Chloride) 105 mls @ 100 mls/hr IVPB Q60M [facility] Stop: 11/18/17 12:44 Magnesium Sulfate (Magnesium Sulfate) 1 gm IVPB ONCE ONE Stop: 11/18/17 11:22 Metoprolol Tartrate (Lopressor -) 25 mg PO BID [facility] Oxycodone HCl (Roxicodone -) 5 mg PO Q6H PRN PRN Reason: PAIN LEVEL 4 - 6 Last Admin: 11/18/17 01:02 Dose: 5 mg Oxycodone HCl (Oxycontin -) 10 mg PO BID [facility] Last Admin: 11/18/17 09:20 Dose: 10 mg Pantoprazole Sodium (Protonix -) 40 mg PO DAILY [facility] Last Admin: 11/18/17 09:19 Dose: 40 mg Potassium Chloride (K-Dur -) 20 meq PO DAILY [facility] - Objective Vital Signs: Vital Signs Temperature 98.9 F 11/18/17 08:45 Pulse Rate 132 H 11/18/17 08:45 Respiratory Rate 18 11/18/17 08:45 Blood Pressure 111/66 11/18/17 08:45 O2 Sat by Pulse Oximetry (%) 96 11/18/17 08:45 Constitutional: Yes: Calm Cardiovascular: Yes: Regular Rate and Rhythm, S1, S2 Respiratory: Yes: CTA Bilaterally Gastrointestinal: Yes: Normal Bowel Sounds, Soft Extremities: Yes: Other (bullous rash on left thigh) Neurological: Yes: Alert, Oriented Labs: CBC, BMP 11/18/17 06:35 11/18/17 06:35 INR, PTT INR 1.34 (0.82-1.09) H D 11/17/17 11:30 Problem List - Problems (1) Bullous dermatitis Assessment/Plan: derm consult ID on board isolation acyclovir Code(s): L13.9 - BULLOUS DISORDER, UNSPECIFIED (2) Herpes zoster Assessment/Plan: acyclovir and hydration Code(s): B02.9 - ZOSTER WITHOUT COMPLICATIONS Qualifiers: Herpes zoster complications: unspecified herpes zoster complication Qualified Code(s): B02.8 - Zoster with other complications (3) Acute DVT (deep venous thrombosis) Assessment/Plan: AC Code(s): I82.409 - ACUTE EMBOLISM AND THOMBOS UNSP DEEP VN UNSP LOWER EXTREMITY Qualifiers: DVT location: lower extremity Laterality: left (4) Electrolyte abnormality Assessment/Plan: repleted Mg and K Code(s): E87.8 - OTH DISORDERS OF ELECTROLYTE AND FLUID BALANCE, NEC
[2017-11-18] MEDS: POTASSIUM CHLORIDE TABS 20 MEQ TABLET.ER (FP) PO SCH (11:35)
[2017-11-18] MEDS: SODIUM CHLORIDE 1,000 ML IV SCH (11:35)
[2017-11-18] MEDS ORDERED: MAGNESIUM 1GM/D5W 100ML - 100 ML IVPB IVPB ONE (12:00)
[2017-11-18] MEDS: ACYCLOVIR INJECTION 700 MG in DEXTROSE 5%-WATER - 100 ML IVPB SCH ×2 (12:07→18:11)
[2017-11-18] MEDS: POTASSIUM CHLORIDE 10 MEQ in SODIUM CHLORIDE 100 ML IVPB SCH ×2 (12:21→13:27)
[2017-11-18] MEDS: VANCOMYCIN 1,000 MG in DEXTROSE 5%-WATER - 250 ML IVPB SCH (13:27)
--- NOTE | 2017-11-18 14:46 | CON.CARD ---
Consult Consult Specialty:: cardiology Referred by:: Bibi Reason for Consultation:: Tachycardia - History of Present Illness Chief Complaint: Painful rash History of Present Illness: The patient is an 86-year-old female, we have a history of hypertension, hyperlipidemia, colon cancer resected, chronic leg edema, now admitted with a painful rash and tachycardia. The patient reports no chest pains, no palpitations, no shortness of breath. The pain is controlled. Tachycardias resolved. - History Source History Provided By: Patient, Medical Record Limitations to Obtaining History: Poor Historian - Past Medical History Cardio/Vascular: Yes: HTN, Hyperlipdemia Gastrointestinal: Yes: Cancer (colon cancer s/p resection 2011) Renal/: Yes: Renal Inusuff Musculoskeletal: Yes: Chronic low back pain, Osteoarthritis - Past Surgical History Past Surgical History: Yes: Ileosotomy (with ) - Alcohol/Substance Use Hx Alcohol Use: No History of Substance Use: reports: None - Smoking History Smoking history: Former smoker Have you smoked in the past 12 months: No If you are a former smoker, when did you quit?: 30 yrs ago - Social History ADL: Independent (Lives alone at home, ) 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 History of Recent Travel: No Home Medications - Allergies Allergies/Adverse Reactions: Allergies Allergy/AdvReac Type Severity Reaction Status Date / Time No Known Drug Allergies Allergy Verified 11/17/17 10:58 - Home Medications Home Medications: Ambulatory Orders Atorvastatin Ca [Lipitor] 40 mg PO HS 07/29/17 Metoprolol Tartrate [Lopressor -] 25 mg PO DAILY 07/29/17 Silver Sulfadiazine 1% Top Cr [Silvadene -] 1 applic TP DAILY 07/29/17 Apixaban [Eliquis -] 5 mg PO BID tablet 10/03/17 Pantoprazole Sodium [Protonix -] 40 mg PO DAILY tablet.ec 10/03/17 Bacitracin - [Bacitracin Topical Ointment -] 1 applic TP DAILY 11/17/17 Carboxymethylcellulose Sodium [Lubricant Eye Drops] 1 each OU HS 11/17/17 Cephalexin [Keflex] 500 mg PO TID 11/17/17 Clotrimazole [Lotrimin AF] 0 gm TP BID 11/17/17 Diphenhydramine HCl [Benadryl -] 25 mg PO Q4H PRN 11/17/17 Furosemide [Lasix] 40 mg PO DAILY 11/17/17 Metolazone 2.5 mg PO DAILY 11/17/17 oxyCODONE HCL [Roxicodone -] 5 mg PO Q6H PRN MDD 4 11/17/17 oxyCODONE SR [Oxycontin] 10 mg PO BID 11/17/17 Family Disease History - Family Disease History Family Disease History: Diabetes: Sister (HTN, Hyperlipidemia), Heart Disease: Brother (CABG,HTN, hyperlipidemia), Sister, Other: Father ( 70: [place]), Mother ( 84: chf) Review of Systems - Review of Systems Constitutional: reports: No Symptoms Eyes: reports: No Symptoms HENT: reports: No Symptoms Neck: reports: No Symptoms Cardiovascular: reports: No Symptoms Respiratory: reports: No Symptoms Gastrointestinal: reports: No Symptoms Genitourinary: reports: No Symptoms Breasts: reports: No Symptoms Reported Musculoskeletal: reports: No Symptoms Integumentary: reports: Blister Neurological: reports: No Symptoms Endocrine: reports: No Symptoms Hematology/Lymphatic: reports: No Symptoms Psychiatric: reports: No Symptoms Vital Signs: Vital Signs Temperature 98.9 F 11/18/17 08:45 Pulse Rate 116 H 11/18/17 13:40 Respiratory Rate 18 11/18/17 13:40 Blood Pressure 99/53 11/18/17 13:40 O2 Sat by Pulse Oximetry (%) 96 11/18/17 08:45 Constitutional: Yes: Well Nourished, No Distress, Calm Eyes: Yes: WNL, Conjunctiva Clear HENT: Yes: WNL, Atraumatic, Normocephalic Neck: Yes: WNL, Supple, Trachea Midline Respiratory: Yes: WNL, Regular, CTA Bilaterally Gastrointestinal: Yes: WNL, Normal Bowel Sounds, Soft Renal/: Yes: WNL Cardiovascular: Yes: WNL, Regular Rate and Rhythm, Tachycardia JVD: No Carotid Bruit: No PMI: Non-Displaced Heart Sounds: Yes: S1, S2 Murmur: Yes: Systolic Murmur, Grade 2 Musculoskeletal: Yes: WNL Extremities: Yes: WNL Edema: Yes Edema: LUE: 1+, RUE: 1+, LLE: 1+, RLE: 1+ Peripheral Pulses: 1+ Left Carotid, 1+ Right Carotid, 1+ Left Femoral, 1+ Right Femoral, 1+ Left Popliteal, 1+ Right Popliteal, 1+ Left Doralis Pedis, 1+ Right Dorsalis Pedis Integumentary: Yes: WNL Neurological: Yes: WNL, Alert, Oriented Psychiatric: Yes: WNL - Other Data Labs, Other Data: CBC, BMP 11/18/17 06:35 11/18/17 06:35 INR, PTT INR 1.34 (0.82-1.09) H D 11/17/17 11:30 Troponin, BNP 11/18/17 10:00 Troponin I < 0.02 Troponin, BNP 11/18/17 10:00 Troponin I < 0.02 Assessment/Plan 86-year-old female presenting with a painful rash. Most likely zoster. Was in sinus tachycardia. Symptoms and heart rate are now better controlled and improved. There is no evidence of ischemia nor acute coronary syndrome. No CHF. No acute ECG changes. The patient has been in sinus rhythm. Short runs of PAT and APCs on telemetry. Non-of which are clinically important in this setting. Please achieve good pain control. There is no need for further cardiac workup nor testing of this point. There is no need for cardiac monitoring. The patient is stable. Please do not hesitate to call us PRN.
--- NOTE | 2017-11-18 16:43 | CONSULT ---
Consult - text type - Consultation Consultation Note: Dermatology Called to see patient for rash on left hip. erythematous eruption with multiple vesicles and pustules in dermatomal distribution extending outside of dermatome. Diagnosis -Herpes Shingles . Maintain patient in isolation and continue antiviral and antibiotic treatment until lesions scabbed over and dry. follow up as outpatient. Thank you
[2017-11-18] MEDS: ATORVASTATIN CA 40 MG TABLET (FP) PO SCH (21:50)
[2017-11-18] MEDS: METOPROLOL TARTRATE 25 MG TABLET (FP) PO SCH (21:51)
[2017-11-19] MEDS: VANCOMYCIN 1,000 MG in DEXTROSE 5%-WATER - 250 ML IVPB SCH ×3 (00:23→23:24)
[2017-11-19] MEDS: ACYCLOVIR INJECTION 700 MG in DEXTROSE 5%-WATER - 100 ML IVPB SCH ×3 (02:00→18:10)
[2017-11-19] MEDS: oxyCODONE HCL 5 MG TABLET PO PRN (02:07)
[2017-11-19 06:06] LABS: SERUM IRON SATURATION 27 % (15-55); TOTAL IRON BINDING CAPACITY 151 ug/dL (250-450); UIBC 110 ug/dL (118-369)
[2017-11-19 08:55] LABS: BASO % 0.5 % (0-2.0); EOS % 1.8 % (0-4.5); HEMOGLOBIN 8.4 GM/dL (10.7-15.3); LYMPH % 45.8 % (8-40); MCH 28.8 pg (25.7-33.7); MCHC 33.4 g/dl (32.0-36.0); MEAN CELL VOLUME 86.2 fl (80-96); MEAN PLT VOLUME 8.4 fl (7.5-11.1); NEUT % 43.9 % (42.8-82.8); PLATELET COUNT 272 K/MM3 (134-434); RDW 15.7 % (11.6-15.6); WHITE BLOOD COUNT 6.8 K/mm3 (4.0-10.0)
[2017-11-19 09:19] LABS: ALK PHOS 91 U/L (45-117); ANION GAP 11 (8-16); BILIRUBIN,TOTAL 0.4 mg/dL (0.2-1.0); BLOOD UREA NITROGEN 22 mg/dL (7-18); CALCIUM 7.6 mg/dL (8.5-10.1); CHLORIDE 96 mmol/L (98-107); CO2 30 mmol/L (21-32); CREATININE 0.9 mg/dL (0.55-1.02); GLUCOSE,RANDOM 87 mg/dL (74-106); MAGNESIUM 2.1 mg/dL (1.8-2.4); POTASSIUM 3.2 mmol/L (3.5-5.1); SGOT/AST 16 U/L (15-37); SGPT/ALT 8 U/L (12-78); SODIUM 137 mmol/L (136-145); TOT PROT 5.2 g/dl (6.4-8.2)
[2017-11-19] MEDS ORDERED: PT OWN MED DRAWER 7, Y5N ONE (09:24)
--- NOTE | 2017-11-19 10:12 | PN ---
Progress Note, Physician History of Present Illness: No acute events overnight. Patient with left hip pain. Denies any fever, chills , chest pain, abdominal pain. - Current Medication List Current Medications: Active Medications Apixaban (Eliquis -) 5 mg PO BID [facility] Last Admin: 11/18/17 21:51 Dose: 5 mg Atorvastatin Calcium (Lipitor -) 40 mg PO HS [facility] Last Admin: 11/18/17 21:50 Dose: 40 mg Acyclovir 700 mg/ Dextrose 114 mls @ 100 mls/hr IVPB Q8H-IV [facility] Last Admin: 11/19/17 02:00 Dose: 100 mls/hr Vancomycin HCl 1,000 mg/ (Dextrose) 250 mls @ 200 mls/hr IVPB BID@0000,1200 [facility] Last Admin: 11/19/17 00:23 Dose: 200 mls/hr Sodium Chloride (Normal Saline -) 1,000 mls @ 100 mls/hr IV ASDIR [facility] Last Admin: 11/19/17 00:00 Dose: 100 mls/hr Metoprolol Tartrate (Lopressor -) 25 mg PO BID [facility] Last Admin: 11/18/17 21:51 Dose: 25 mg Oxycodone HCl (Roxicodone -) 5 mg PO Q6H PRN PRN Reason: PAIN LEVEL 4 - 6 Last Admin: 11/19/17 02:07 Dose: 5 mg Oxycodone HCl (Oxycontin -) 10 mg PO BID [facility] Last Admin: 11/18/17 21:50 Dose: 10 mg Pantoprazole Sodium (Protonix -) 40 mg PO DAILY [facility] Last Admin: 11/18/17 09:19 Dose: 40 mg Potassium Chloride (K-Dur -) 20 meq PO DAILY [facility] Last Admin: 11/18/17 11:35 Dose: 20 meq - Objective Vital Signs: Vital Signs Temperature 99.0 F 11/19/17 05:28 Pulse Rate 98 H 11/19/17 05:28 Respiratory Rate 20 11/19/17 05:28 Blood Pressure 105/58 11/19/17 05:28 O2 Sat by Pulse Oximetry (%) 95 11/18/17 20:05 Constitutional: Yes: Well Nourished, No Distress, Calm Eyes: Yes: Conjunctiva Clear, EOM Intact HENT: Yes: Atraumatic, Normocephalic Neck: Yes: Supple, Trachea Midline Cardiovascular: Yes: Tachycardia, S1, S2 Respiratory: Yes: Regular, CTA Bilaterally Gastrointestinal: Yes: Normal Bowel Sounds, Soft. No: Tenderness Integumentary: Yes: Other (Grouped vesicles and tense bullae on an erythematous base in dermatomal distrubtion of L1-L3.) Neurological: Yes: Alert, Oriented Psychiatric: Yes: Alert, Oriented Labs: CBC, BMP 11/19/17 08:00 11/19/17 08:00 INR, PTT INR 1.34 (0.82-1.09) H D 11/17/17 11:30 Assessment/Plan Assessment: 1. Herpes Zoster 2. Staph coag negative bacteremia--likely contaminant Plan: 1. Continue Acyclovir IV 10 mg/kg q8h 2. IVF 3. Contact Isolation 4. D/c Vancomycin
[2017-11-19] MEDS: PANTOPRAZOLE 40 MG TABLET (FP) PO SCH (10:14)
[2017-11-19] MEDS: METOPROLOL TARTRATE 25 MG TABLET (FP) PO SCH ×2 (10:14→21:19)
[2017-11-19] MEDS: APIXABAN 5 MG TABLET PO SCH ×2 (10:14→21:19)
[2017-11-19] MEDS: oxyCODONE HCL 10 MG SUSTAINED ACTING TABLET PO SCH ×2 (10:14→21:19)
[2017-11-19] MEDS: POTASSIUM CHLORIDE TABS 20 MEQ TABLET.ER (FP) PO SCH ×2 (10:14→11:56)
[2017-11-19] MEDS ORDERED: POTASSIUM CHLORIDE ORAL LIQUID 20 MEQ/15 ML PO ONE (10:49)
--- NOTE | 2017-11-19 10:52 | PN ---
Progress Note, Physician Chief Complaint: Cellulitis Zoster rash History of Present Illness: NAD -seen by ID and dermatology -IV acyclovir and Vanco Hypokalemic - Current Medication List Current Medications: Active Medications Apixaban (Eliquis -) 5 mg PO BID [facility] Last Admin: 11/19/17 10:14 Dose: 5 mg Atorvastatin Calcium (Lipitor -) 40 mg PO HS [facility] Last Admin: 11/18/17 21:50 Dose: 40 mg Acyclovir 700 mg/ Dextrose 114 mls @ 100 mls/hr IVPB Q8H-IV [facility] Last Admin: 11/19/17 10:14 Dose: 100 mls/hr Vancomycin HCl 1,000 mg/ (Dextrose) 250 mls @ 200 mls/hr IVPB BID@0000,1200 [facility] Last Admin: 11/19/17 00:23 Dose: 200 mls/hr Sodium Chloride (Normal Saline -) 1,000 mls @ 100 mls/hr IV ASDIR [facility] Last Admin: 11/19/17 00:00 Dose: 100 mls/hr Metoprolol Tartrate (Lopressor -) 25 mg PO BID [facility] Last Admin: 11/19/17 10:14 Dose: 25 mg Oxycodone HCl (Roxicodone -) 5 mg PO Q6H PRN PRN Reason: PAIN LEVEL 4 - 6 Last Admin: 11/19/17 02:07 Dose: 5 mg Oxycodone HCl (Oxycontin -) 10 mg PO BID [facility] Last Admin: 11/19/17 10:14 Dose: 10 mg Pantoprazole Sodium (Protonix -) 40 mg PO DAILY [facility] Last Admin: 11/19/17 10:14 Dose: 40 mg Potassium Chloride (K-Dur -) 40 meq PO DAILY [facility] Potassium Chloride (Potassium Chloride Oral Liquid) 40 meq PO ONCE ONE Stop: 11/19/17 10:50 - Objective Vital Signs: Vital Signs Temperature 98.9 F 11/19/17 09:00 Pulse Rate 128 H 11/19/17 09:00 Respiratory Rate 20 11/19/17 09:00 Blood Pressure 120/67 11/19/17 09:00 O2 Sat by Pulse Oximetry (%) 95 11/18/17 20:05 Constitutional: Yes: Well Nourished, No Distress, Calm Cardiovascular: Yes: Regular Rate and Rhythm Respiratory: Yes: Regular Musculoskeletal: Yes: Muscle Weakness Extremities: Yes: WNL Edema: No Peripheral Pulses WNL: Yes Integumentary: Yes: Rash Neurological: Yes: Alert, Oriented Psychiatric: Yes: Alert, Oriented Labs: CBC, BMP 11/19/17 08:00 11/19/17 08:00 INR, PTT INR 1.34 (0.82-1.09) H D 11/17/17 11:30 Problem List - Problems (1) Hypokalemia Assessment/Plan: -another 40 meq Kcl -Increase daily kcl to 40 meq -monitor labs in AM Code(s): E87.6 - HYPOKALEMIA (2) Bullous dermatitis Assessment/Plan: -IV Acyclovir -seen by derm and ID -IV vancomycin Code(s): L13.9 - BULLOUS DISORDER, UNSPECIFIED (3) Cellulitis Assessment/Plan: -seen by ID and derm -IV vancomycin Code(s): L03.90 - CELLULITIS, UNSPECIFIED Qualifiers: Site of cellulitis: unspecified site Qualified Code(s): L03.90 - Cellulitis , unspecified Assessment/Plan see problem list -GI/DVT prophylaxis Physical Therapy
--- NOTE | 2017-11-19 12:52 | PN ---
Teaching Attending Note Name of Resident: Darius Crawley ATTENDING PHYSICIAN STATEMENT I saw and evaluated the patient. I reviewed the resident's note and discussed the case with the resident. I agree with the resident's findings and plan as documented. SUBJECTIVE: C/O pain L leg No fever/ chills BC SCN (contaminant) OBJECTIVE: Cor S1S2 Lungs clear Abdomen obese, soft, non tender + vesicular rash L LE ASSESSMENT AND PLAN: VZV L LE multidermatomal +BC SCN Probable contaminant Continue acyclovir D/C vancomycin
[2017-11-19] MEDS: GABAPENTIN 300 MG CAPSULE (FP) PO SCH ×2 (15:05→21:19)
[2017-11-19] MEDS: ATORVASTATIN CA 40 MG TABLET (FP) PO SCH (21:19)
[2017-11-19] MEDS: SODIUM CHLORIDE 1,000 ML IV SCH ×2 (21:20)
[2017-11-20] MEDS: ACYCLOVIR INJECTION 700 MG in DEXTROSE 5%-WATER - 100 ML IVPB SCH ×3 (02:37→17:02)
[2017-11-20] MEDS: SODIUM CHLORIDE 1,000 ML IV SCH ×3 (06:14→21:09)
[2017-11-20] MEDS: GABAPENTIN 300 MG CAPSULE (FP) PO SCH ×3 (06:15→21:08)
--- NOTE | 2017-11-20 08:29 | PN ---
Progress Note, Physician Chief Complaint: AWAKE ALERT X 2 NOTES AND EVENTS REVIEWED LEG WEAKNESS PER PATIENT - Current Medication List Current Medications: Active Medications Acetaminophen (Tylenol -) 650 mg PO Q4H PRN PRN Reason: PAIN OR FEVER Apixaban (Eliquis -) 5 mg PO BID [facility] Last Admin: 11/19/17 21:19 Dose: 5 mg Atorvastatin Calcium (Lipitor -) 40 mg PO HS [facility] Last Admin: 11/19/17 21:19 Dose: 40 mg Gabapentin (Neurontin -) 300 mg PO TID [facility] Last Admin: 11/20/17 06:15 Dose: 300 mg Acyclovir 700 mg/ Dextrose 114 mls @ 100 mls/hr IVPB Q8H-IV [facility] Last Admin: 11/20/17 02:37 Dose: 100 mls/hr Vancomycin HCl 1,000 mg/ (Dextrose) 250 mls @ 200 mls/hr IVPB BID@0000,1200 [facility] Last Admin: 11/19/17 23:24 Dose: 200 mls/hr Sodium Chloride (Normal Saline -) 1,000 mls @ 100 mls/hr IV ASDIR [facility] Last Admin: 11/20/17 06:14 Dose: 100 mls/hr Metoprolol Tartrate (Lopressor -) 25 mg PO BID [facility] Last Admin: 11/19/17 21:19 Dose: 25 mg Oxycodone HCl (Roxicodone -) 5 mg PO Q6H PRN PRN Reason: PAIN LEVEL 4 - 6 Last Admin: 11/19/17 02:07 Dose: 5 mg Oxycodone HCl (Oxycontin -) 10 mg PO BID [facility] Last Admin: 11/19/17 21:19 Dose: 10 mg Pantoprazole Sodium (Protonix -) 40 mg PO DAILY [facility] Last Admin: 11/19/17 10:14 Dose: 40 mg Potassium Chloride (K-Dur -) 40 meq PO DAILY [facility] Last Admin: 11/19/17 11:56 Dose: 40 meq - Objective Vital Signs: Vital Signs Temperature 98.2 F 11/20/17 05:32 Pulse Rate 89 11/20/17 05:32 Respiratory Rate 20 11/20/17 05:32 Blood Pressure 138/76 11/20/17 05:32 O2 Sat by Pulse Oximetry (%) 97 11/19/17 19:57 Constitutional: Yes: Mild Distress Eyes: Yes: WNL HENT: Yes: WNL Neck: Yes: WNL Cardiovascular: Yes: Pulse Irregular Respiratory: Yes: WNL Gastrointestinal: Yes: WNL Genitourinary: Yes: WNL Musculoskeletal: Yes: Muscle Weakness Extremities: Yes: Other Edema: No Peripheral Pulses WNL: Yes Integumentary: Yes: Rash Wound/Incision: Yes: Dressing Dry and Intact Neurological: Yes: Weakness ...Motor Strength: LLE Psychiatric: Yes: WNL Labs: CBC, BMP 11/19/17 08:00 11/19/17 08:00 INR, PTT INR 1.34 (0.82-1.09) H D 11/17/17 11:30 Problem List - Problems (1) Cellulitis Code(s): L03.90 - CELLULITIS, UNSPECIFIED Qualifiers: Site of cellulitis: unspecified site Qualified Code(s): L03.90 - Cellulitis , unspecified (2) Herpes zoster Code(s): B02.9 - ZOSTER WITHOUT COMPLICATIONS Qualifiers: Herpes zoster complications: unspecified herpes zoster complication Qualified Code(s): B02.8 - Zoster with other complications (3) Acute DVT (deep venous thrombosis) Code(s): I82.409 - ACUTE EMBOLISM AND THOMBOS UNSP DEEP VN UNSP LOWER EXTREMITY Qualifiers: DVT location: lower extremity Laterality: left (4) Anemia Code(s): D64.9 - ANEMIA, UNSPECIFIED (5) Cannot walk Code(s): R26.2 - DIFFICULTY IN WALKING, NOT ELSEWHERE CLASSIFIED (6) Hip pain, left Code(s): M25.552 - PAIN IN LEFT HIP Assessment/Plan NEUROLOGY EVAL LEG WEAKNESS ZOSTER ON ISOLATION TREATING WITH ACYCLOVIR PAIN CONTROL PT EVAL
--- NOTE | 2017-11-20 09:44 | PN ---
Progress Note, Physician Chief Complaint: ID Brooke day 2 therapy Pain subsiding Says cannot use of her left leg - Current Medication List Current Medications: Active Medications Acetaminophen (Tylenol -) 650 mg PO Q4H PRN PRN Reason: PAIN OR FEVER Apixaban (Eliquis -) 5 mg PO BID [facility] Last Admin: 11/19/17 21:19 Dose: 5 mg Atorvastatin Calcium (Lipitor -) 40 mg PO HS [facility] Last Admin: 11/19/17 21:19 Dose: 40 mg Gabapentin (Neurontin -) 300 mg PO TID [facility] Last Admin: 11/20/17 06:15 Dose: 300 mg Acyclovir 700 mg/ Dextrose 114 mls @ 100 mls/hr IVPB Q8H-IV [facility] Last Admin: 11/20/17 02:37 Dose: 100 mls/hr Vancomycin HCl 1,000 mg/ (Dextrose) 250 mls @ 200 mls/hr IVPB BID@0000,1200 [facility] Last Admin: 11/19/17 23:24 Dose: 200 mls/hr Sodium Chloride (Normal Saline -) 1,000 mls @ 100 mls/hr IV ASDIR [facility] Last Admin: 11/20/17 06:14 Dose: 100 mls/hr Metoprolol Tartrate (Lopressor -) 25 mg PO BID [facility] Last Admin: 11/19/17 21:19 Dose: 25 mg Oxycodone HCl (Roxicodone -) 5 mg PO Q6H PRN PRN Reason: PAIN LEVEL 4 - 6 Last Admin: 11/19/17 02:07 Dose: 5 mg Oxycodone HCl (Oxycontin -) 10 mg PO BID [facility] Last Admin: 11/19/17 21:19 Dose: 10 mg Pantoprazole Sodium (Protonix -) 40 mg PO DAILY [facility] Last Admin: 11/19/17 10:14 Dose: 40 mg Potassium Chloride (K-Dur -) 40 meq PO DAILY [facility] Last Admin: 11/19/17 11:56 Dose: 40 meq - Objective Vital Signs: Vital Signs Temperature 98.2 F 11/20/17 08:00 Pulse Rate 81 11/20/17 08:00 Respiratory Rate 18 11/20/17 08:00 Blood Pressure 119/71 11/20/17 08:00 O2 Sat by Pulse Oximetry (%) 96 11/20/17 08:57 Constitutional: Yes: Well Nourished, No Distress Neck: Yes: WNL, Supple Cardiovascular: Yes: S1, S2 Respiratory: Yes: WNL, Regular, CTA Bilaterally Gastrointestinal: Yes: WNL, Normal Bowel Sounds, Soft. No: Tenderness Integumentary: Yes: Other (Blistering rash left upper leg) Labs: CBC, BMP 11/19/17 08:00 11/19/17 08:00 INR, PTT INR 1.34 (0.82-1.09) H D 11/17/17 11:30 Problem List - Problems (1) Herpes zoster Code(s): B02.9 - ZOSTER WITHOUT COMPLICATIONS Qualifiers: Herpes zoster complications: unspecified herpes zoster complication Qualified Code(s): B02.8 - Zoster with other complications Assessment/Plan Laboratory Tests 11/19/17 08:00 WBC 6.8 Hgb 8.4 L Hct 25.0 L Plt Count 272 Assessment Extensive HVZ left leg Says cannot move her left leg? APpears to have good strength PLan Continue Acyclovir and Stop Vancomycin Dr Meredith to see "cannot move left leg" ? Virus related Fifi BALLARD
[2017-11-20 10:15] LABS: HEMATOCRIT 25.7 % (32.4-45.2); HEMOGLOBIN 8.7 GM/dL (10.7-15.3); MCHC 33.7 g/dl (32.0-36.0); MEAN CELL VOLUME 86.1 fl (80-96); MEAN PLT VOLUME 8.3 fl (7.5-11.1); PLATELET COUNT 263 K/MM3 (134-434); RBC 2.98 M/mm3 (3.60-5.2); RDW 15.2 % (11.6-15.6); WHITE BLOOD COUNT 8.2 K/mm3 (4.0-10.0)
[2017-11-20 10:26] LABS: CHLORIDE 101 mmol/L (98-107); POTASSIUM 3.5 mmol/L (3.5-5.1); SODIUM 137 mmol/L (136-145)
[2017-11-20] MEDS ORDERED: PT OWN MED DRAWER 7, Y5N ONE ×2 (10:35→21:02)
[2017-11-20] MEDS: oxyCODONE HCL 10 MG SUSTAINED ACTING TABLET PO SCH ×2 (10:38→21:08)
[2017-11-20] MEDS: PANTOPRAZOLE 40 MG TABLET (FP) PO SCH (10:39)
[2017-11-20] MEDS: METOPROLOL TARTRATE 25 MG TABLET (FP) PO SCH ×2 (10:39→21:09)
[2017-11-20] MEDS: POTASSIUM CHLORIDE TABS 20 MEQ TABLET.ER (FP) PO SCH (10:39)
[2017-11-20] MEDS: APIXABAN 5 MG TABLET PO SCH ×2 (10:39→21:09)
[2017-11-20 10:40] LABS: ANION GAP 8 (8-16); BLOOD UREA NITROGEN 22 mg/dL (7-18); CALCIUM 7.3 mg/dL (8.5-10.1); CO2 28 mmol/L (21-32); CREATININE 0.8 mg/dL (0.55-1.02); GLUCOSE,RANDOM 139 mg/dL (74-106); MAGNESIUM 1.8 mg/dL (1.8-2.4)
--- NOTE | 2017-11-20 11:50 | CONSULT ---
Consult - text type - Consultation Consultation Note: NEUROLOGY CONSULTATION is greatly appreciated: This86 yo RH woman lives in assisted living with Home health Aide. Usually in a wheelchair and requires assist to transfer. PMH sig for HTN, Chol, Colonic CA, GERD and DVT. Maintained on Apixaban, metoprolol, atorvastatin, pantoprazole, furosamide, metalozoane and Coxycodone for pain. Now admitted after two weeks of Left proximal leg rash unresponsive to Keflex for cellulitis With the new development of inability to lift the left leg off the bed. Recently Patient notes tremors of the left hand when holding glasses. EXAM: Obese. Neck supple. Neg Kernig's. No bruits. Severe vessicular and erythematous rash over Right lower abdomen, Hip region and thigh (approx T12-L3). NEURO: Awake, alert cooperative, Fluent. Mild OMS. No frontal release findings. CN II-XII: Normal Motor: No drift. Normal arm strength. Minimal cogwheling and slightly reduced ROM left fingers. Elevates the right leg against gravity but NOT the left. Right knee extension is 5/5 left is 4/5. Anle dorsiflexion is 5/5 B/L. Right KJ present, left is absent. R AJ is present, l absent. Toes downgoing. Coord: No FTN dystaxia Sensory: reduced pin and hyperpathic to touch over rash area. IMP: Left upper lumbar Zoster (L1, L2, L3). Myotomal weakness in the same distribution. Mild OMS Etiology of chronic gait dysfunction is probably multifactorial including probable contribution from LS Spinal stenosis. SUGGESTIONS: Continue antivirals and antibiotics as per ID. MRI or CT of LS spine. Aggressive Bedside PT and DVT prophylaxis. Mobilize Pt. OO bed to Chair KAREN. Thank you very much, Dread Meredith MD
[2017-11-20] MEDS: AMINO ACIDS/PROTEIN HYDROLYS 30 ML LIQUID.PKT PO SCH (17:02)
[2017-11-20] MEDS: ATORVASTATIN CA 40 MG TABLET (FP) PO SCH (21:08)
[2017-11-21] MEDS ORDERED: PT OWN MED DRAWER 7, Y5N ONE ×3 (01:18→21:03)
[2017-11-21] MEDS: ACYCLOVIR INJECTION 700 MG in DEXTROSE 5%-WATER - 100 ML IVPB SCH ×3 (01:45→17:06)
[2017-11-21] MEDS: GABAPENTIN 300 MG CAPSULE (FP) PO SCH ×3 (06:31→21:10)
[2017-11-21] MEDS: AMINO ACIDS/PROTEIN HYDROLYS 30 ML LIQUID.PKT PO SCH ×2 (07:34→17:06)
--- NOTE | 2017-11-21 08:53 | PN ---
Progress Note, Physician - Current Medication List Current Medications: Active Medications Acetaminophen (Tylenol -) 650 mg PO Q4H PRN PRN Reason: PAIN OR FEVER Amino Acids (Prosource No Carb Liquid Pkt) 30 ml PO BID@0800,1730 [facility] Last Admin: 11/21/17 07:34 Dose: 30 ml Apixaban (Eliquis -) 5 mg PO BID [facility] Last Admin: 11/20/17 21:09 Dose: 5 mg Atorvastatin Calcium (Lipitor -) 40 mg PO HS [facility] Last Admin: 11/20/17 21:08 Dose: 40 mg Gabapentin (Neurontin -) 300 mg PO TID [facility] Last Admin: 11/21/17 06:31 Dose: 300 mg Acyclovir 700 mg/ Dextrose 114 mls @ 100 mls/hr IVPB Q8H-IV [facility] Last Admin: 11/21/17 01:45 Dose: 100 mls/hr Sodium Chloride (Normal Saline -) 1,000 mls @ 100 mls/hr IV ASDIR [facility] Last Admin: 11/20/17 21:09 Dose: 100 mls/hr Metoprolol Tartrate (Lopressor -) 25 mg PO BID [facility] Last Admin: 11/20/17 21:09 Dose: 25 mg Oxycodone HCl (Roxicodone -) 5 mg PO Q6H PRN PRN Reason: PAIN LEVEL 4 - 6 Last Admin: 11/19/17 02:07 Dose: 5 mg Oxycodone HCl (Oxycontin -) 10 mg PO BID [facility] Last Admin: 11/20/17 21:08 Dose: 10 mg Pantoprazole Sodium (Protonix -) 40 mg PO DAILY [facility] Last Admin: 11/20/17 10:39 Dose: 40 mg Potassium Chloride (K-Dur -) 40 meq PO DAILY [facility] Last Admin: 11/20/17 10:39 Dose: 40 meq - Objective Vital Signs: Vital Signs Temperature 98.9 F 11/21/17 08:00 Pulse Rate 97 H 11/21/17 08:00 Respiratory Rate 18 11/21/17 08:00 Blood Pressure 134/69 11/21/17 08:00 O2 Sat by Pulse Oximetry (%) 96 11/20/17 21:00 Cardiovascular: Yes: Regular Rate and Rhythm Respiratory: Yes: Regular, CTA Bilaterally Gastrointestinal: Yes: Normal Bowel Sounds, Soft Edema: Yes Integumentary: Yes: Rash (HEALING) Labs: CBC, BMP 11/20/17 09:30 11/20/17 09:30 INR, PTT INR 1.34 (0.82-1.09) H D 11/17/17 11:30 Problem List - Problems (1) Bullous dermatitis Assessment/Plan: c/w herpes zoster Derm consult id consult iv acyclovir Code(s): L13.9 - BULLOUS DISORDER, UNSPECIFIED (2) Anemia Assessment/Plan: follow labs stool for blood Code(s): D64.9 - ANEMIA, UNSPECIFIED (3) Herpes zoster Assessment/Plan: acyclovir per id consult Code(s): B02.9 - ZOSTER WITHOUT COMPLICATIONS Qualifiers: Herpes zoster complications: unspecified herpes zoster complication Qualified Code(s): B02.8 - Zoster with other complications (4) Tachycardia Assessment/Plan: improved ekg sinus follow labs increase metoprolol cardio noted Code(s): R00.0 - TACHYCARDIA, UNSPECIFIED
[2017-11-21] MEDS: POTASSIUM CHLORIDE TABS 20 MEQ TABLET.ER (FP) PO SCH (10:13)
[2017-11-21] MEDS: METOPROLOL TARTRATE 25 MG TABLET (FP) PO SCH ×2 (10:13→21:10)
[2017-11-21] MEDS: PANTOPRAZOLE 40 MG TABLET (FP) PO SCH (10:13)
[2017-11-21] MEDS: oxyCODONE HCL 10 MG SUSTAINED ACTING TABLET PO SCH ×2 (10:13→21:10)
[2017-11-21] MEDS: APIXABAN 5 MG TABLET PO SCH ×2 (10:13→21:09)
--- NOTE | 2017-11-21 12:09 | PN ---
Progress Note, Physician Chief Complaint: ID Neurology note appreciated Acyclovir day 4 Says very sleepy likely secondary Zovirax - Current Medication List Current Medications: Active Medications Acetaminophen (Tylenol -) 650 mg PO Q4H PRN PRN Reason: PAIN OR FEVER Amino Acids (Prosource No Carb Liquid Pkt) 30 ml PO BID@0800,1730 [facility] Last Admin: 11/21/17 07:34 Dose: 30 ml Apixaban (Eliquis -) 5 mg PO BID [facility] Last Admin: 11/21/17 10:13 Dose: 5 mg Atorvastatin Calcium (Lipitor -) 40 mg PO HS [facility] Last Admin: 11/20/17 21:08 Dose: 40 mg Gabapentin (Neurontin -) 300 mg PO TID [facility] Last Admin: 11/21/17 06:31 Dose: 300 mg Acyclovir 700 mg/ Dextrose 114 mls @ 100 mls/hr IVPB Q8H-IV [facility] Last Admin: 11/21/17 10:49 Dose: 100 mls/hr Sodium Chloride (Normal Saline -) 1,000 mls @ 100 mls/hr IV ASDIR [facility] Last Admin: 11/20/17 21:09 Dose: 100 mls/hr Metoprolol Tartrate (Lopressor -) 25 mg PO BID [facility] Last Admin: 11/21/17 10:13 Dose: 25 mg Oxycodone HCl (Roxicodone -) 5 mg PO Q6H PRN PRN Reason: PAIN LEVEL 4 - 6 Last Admin: 11/19/17 02:07 Dose: 5 mg Oxycodone HCl (Oxycontin -) 10 mg PO BID [facility] Last Admin: 11/21/17 10:13 Dose: 10 mg Pantoprazole Sodium (Protonix -) 40 mg PO DAILY [facility] Last Admin: 11/21/17 10:13 Dose: 40 mg Potassium Chloride (K-Dur -) 40 meq PO DAILY [facility] Last Admin: 11/21/17 10:13 Dose: 40 meq - Objective Vital Signs: Vital Signs Temperature 98.9 F 11/21/17 08:00 Pulse Rate 97 H 11/21/17 08:00 Respiratory Rate 18 11/21/17 08:00 Blood Pressure 134/69 11/21/17 08:00 O2 Sat by Pulse Oximetry (%) 95 11/21/17 09:00 Extremities: Yes: Other (Still large juan antonio of blistering though some drying of rash noted) Labs: CBC, BMP 11/20/17 09:30 11/20/17 09:30 INR, PTT INR 1.34 (0.82-1.09) H D 11/17/17 11:30 Problem List - Problems (1) Herpes zoster Code(s): B02.9 - ZOSTER WITHOUT COMPLICATIONS Qualifiers: Herpes zoster complications: unspecified herpes zoster complication Qualified Code(s): B02.8 - Zoster with other complications Assessment/Plan Laboratory Tests 11/20/17 11/20/17 09:30 09:30 WBC 8.2 Hgb 8.7 L Plt Count 263 BUN 22 H Creatinine 0.8 Assessment Severe HVZ rash with myotomal weakness left leg Plan Continue current IV therapy Moniter electrolytes Fifi BALLARD
[2017-11-21] MEDS: SODIUM CHLORIDE 1,000 ML IV SCH ×2 (13:15→15:49)
[2017-11-21] MEDS: ATORVASTATIN CA 40 MG TABLET (FP) PO SCH (21:10)
[2017-11-22] MEDS ORDERED: PT OWN MED DRAWER 7, Y5N ONE ×4 (01:14→21:29)
[2017-11-22] MEDS: ACYCLOVIR INJECTION 700 MG in DEXTROSE 5%-WATER - 100 ML IVPB SCH ×3 (01:19→17:35)
[2017-11-22] MEDS: GABAPENTIN 300 MG CAPSULE (FP) PO SCH ×3 (06:47→21:36)
[2017-11-22] MEDS: SODIUM CHLORIDE 1,000 ML IV SCH ×2 (06:47→12:20)
[2017-11-22] MEDS: AMINO ACIDS/PROTEIN HYDROLYS 30 ML LIQUID.PKT PO SCH ×2 (07:50→17:36)
[2017-11-22] MEDS: POTASSIUM CHLORIDE TABS 20 MEQ TABLET.ER (FP) PO SCH (10:08)
[2017-11-22] MEDS: oxyCODONE HCL 10 MG SUSTAINED ACTING TABLET PO SCH ×2 (10:09→21:36)
[2017-11-22] MEDS: PANTOPRAZOLE 40 MG TABLET (FP) PO SCH (10:10)
[2017-11-22] MEDS: APIXABAN 5 MG TABLET PO SCH ×2 (10:10→21:37)
[2017-11-22] MEDS: METOPROLOL TARTRATE 25 MG TABLET (FP) PO SCH ×2 (10:10→21:36)
--- NOTE | 2017-11-22 14:25 | PN ---
Progress Note, Physician Chief Complaint: sleepy in bed has pain in leg - Current Medication List Current Medications: Active Medications Acetaminophen (Tylenol -) 650 mg PO Q4H PRN PRN Reason: PAIN OR FEVER Amino Acids (Prosource No Carb Liquid Pkt) 30 ml PO BID@0800,1730 [facility] Last Admin: 11/22/17 07:50 Dose: 30 ml Apixaban (Eliquis -) 5 mg PO BID [facility] Last Admin: 11/22/17 10:10 Dose: 5 mg Atorvastatin Calcium (Lipitor -) 40 mg PO HS [facility] Last Admin: 11/21/17 21:10 Dose: 40 mg Gabapentin (Neurontin -) 300 mg PO TID [facility] Last Admin: 11/22/17 14:03 Dose: 300 mg Acyclovir 700 mg/ Dextrose 114 mls @ 100 mls/hr IVPB Q8H-IV [facility] Last Admin: 11/22/17 10:12 Dose: 100 mls/hr Sodium Chloride (Normal Saline -) 1,000 mls @ 100 mls/hr IV ASDIR [facility] Last Admin: 11/22/17 12:20 Dose: Not Given Metoprolol Tartrate (Lopressor -) 25 mg PO BID [facility] Last Admin: 11/22/17 10:10 Dose: 25 mg Oxycodone HCl (Roxicodone -) 5 mg PO Q6H PRN PRN Reason: PAIN LEVEL 4 - 6 Last Admin: 11/19/17 02:07 Dose: 5 mg Oxycodone HCl (Oxycontin -) 10 mg PO BID [facility] Last Admin: 11/22/17 10:09 Dose: 10 mg Pantoprazole Sodium (Protonix -) 40 mg PO DAILY [facility] Last Admin: 11/22/17 10:10 Dose: 40 mg Potassium Chloride (K-Dur -) 40 meq PO DAILY [facility] Last Admin: 11/22/17 10:08 Dose: 40 meq - Objective Vital Signs: Vital Signs Temperature 98.2 F 11/22/17 14:19 Pulse Rate 104 H 11/22/17 14:19 Respiratory Rate 18 11/22/17 08:00 Blood Pressure 130/76 11/22/17 14:19 O2 Sat by Pulse Oximetry (%) 95 11/22/17 08:41 Constitutional: Yes: Calm Cardiovascular: Yes: Regular Rate and Rhythm, S1, S2 Respiratory: Yes: CTA Bilaterally Gastrointestinal: Yes: Normal Bowel Sounds, Soft Extremities: Yes: Other (left thigh bullous lesion some have opened/popped drying up) Labs: CBC, BMP 11/20/17 09:30 11/20/17 09:30 INR, PTT INR 1.34 (0.82-1.09) H D 11/17/17 11:30 Problem List - Problems (1) Weakness Assessment/Plan: neurology consult appreciated LS spine CT scan ordered PT OOB to chair Code(s): R53.1 - WEAKNESS (2) Bullous dermatitis Assessment/Plan: ID on board isolation acyclovir Code(s): L13.9 - BULLOUS DISORDER, UNSPECIFIED (3) Herpes zoster Assessment/Plan: acyclovir and hydration- day 4\ neurontin for the pain Code(s): B02.9 - ZOSTER WITHOUT COMPLICATIONS Qualifiers: Herpes zoster complications: unspecified herpes zoster complication Qualified Code(s): B02.8 - Zoster with other complications (4) Acute DVT (deep venous thrombosis) Assessment/Plan: AC Code(s): I82.409 - ACUTE EMBOLISM AND THOMBOS UNSP DEEP VN UNSP LOWER EXTREMITY Qualifiers: DVT location: lower extremity Laterality: left (5) Electrolyte abnormality Assessment/Plan: repleted Mg and K Code(s): E87.8 - OTH DISORDERS OF ELECTROLYTE AND FLUID BALANCE, NEC
[2017-11-22] MEDS: ATORVASTATIN CA 40 MG TABLET (FP) PO SCH (21:36)
[2017-11-23] MEDS: ACETAMINOPHEN 325 MG TABLET (FP) PO PRN (00:13)
[2017-11-23] MEDS ORDERED: PT OWN MED DRAWER 7, Y5N ONE ×2 (00:26→10:20)
[2017-11-23] MEDS: ACYCLOVIR INJECTION 700 MG in DEXTROSE 5%-WATER - 100 ML IVPB SCH ×3 (01:04→20:30)
[2017-11-23] MEDS: GABAPENTIN 300 MG CAPSULE (FP) PO SCH ×3 (06:01→22:08)
[2017-11-23] MEDS: SODIUM CHLORIDE 1,000 ML IV SCH (06:16)
[2017-11-23 07:48] LABS: BASO % 0.8 % (0-2.0); EOS % 1.9 % (0-4.5); HEMATOCRIT 21.4 % (32.4-45.2); HEMOGLOBIN 7.1 GM/dL (10.7-15.3); LYMPH % 33.2 % (8-40); MCH 29.3 pg (25.7-33.7); MCHC 33.4 g/dl (32.0-36.0); MEAN CELL VOLUME 87.7 fl (80-96); MEAN PLT VOLUME 8.7 fl (7.5-11.1); MONO % 9.2 % (3.8-10.2); NEUT % 54.9 % (42.8-82.8); PLATELET COUNT 296 K/MM3 (134-434); RBC 2.44 M/mm3 (3.60-5.2); RDW 15.8 % (11.6-15.6); WHITE BLOOD COUNT 7.2 K/mm3 (4.0-10.0)
[2017-11-23 07:52] LABS: CHLORIDE 109 mmol/L (98-107); POTASSIUM 5.1 mmol/L (3.5-5.1); SODIUM 142 mmol/L (136-145)
[2017-11-23 08:22] LABS: ALBUMIN 1.3 g/dl (3.4-5.0); ALK PHOS 79 U/L (45-117); ANION GAP 12 (8-16); BILIRUBIN,TOTAL 0.3 mg/dL (0.2-1.0); BLOOD UREA NITROGEN 22 mg/dL (7-18); CALCIUM 7.8 mg/dL (8.5-10.1); CO2 21 mmol/L (21-32); CREATININE 0.8 mg/dL (0.55-1.02); GLUCOSE,RANDOM 89 mg/dL (74-106); SGOT/AST 15 U/L (15-37); SGPT/ALT 8 U/L (12-78); TOT PROT 4.4 g/dl (6.4-8.2)
[2017-11-23] MEDS: AMINO ACIDS/PROTEIN HYDROLYS 30 ML LIQUID.PKT PO SCH ×2 (09:00→17:36)
--- NOTE | 2017-11-23 10:24 | PN ---
Progress Note, Physician - Current Medication List Current Medications: Active Medications Acetaminophen (Tylenol -) 650 mg PO Q4H PRN PRN Reason: PAIN OR FEVER Last Admin: 11/23/17 00:13 Dose: 650 mg Amino Acids (Prosource No Carb Liquid Pkt) 30 ml PO BID@0800,1730 [facility] Last Admin: 11/22/17 17:36 Dose: 30 ml Apixaban (Eliquis -) 5 mg PO BID [facility] Last Admin: 11/22/17 21:37 Dose: 5 mg Atorvastatin Calcium (Lipitor -) 40 mg PO HS [facility] Last Admin: 11/22/17 21:36 Dose: 40 mg Gabapentin (Neurontin -) 300 mg PO TID [facility] Last Admin: 11/23/17 06:01 Dose: 300 mg Acyclovir 700 mg/ Dextrose 114 mls @ 100 mls/hr IVPB Q8H-IV [facility] Last Admin: 11/23/17 01:04 Dose: 100 mls/hr Metoprolol Tartrate (Lopressor -) 25 mg PO BID [facility] Last Admin: 11/22/17 21:36 Dose: 25 mg Oxycodone HCl (Roxicodone -) 5 mg PO Q6H PRN PRN Reason: PAIN LEVEL 4 - 6 Last Admin: 11/19/17 02:07 Dose: 5 mg Oxycodone HCl (Oxycontin -) 10 mg PO BID [facility] Last Admin: 11/22/17 21:36 Dose: 10 mg Pantoprazole Sodium (Protonix -) 40 mg PO DAILY [facility] Last Admin: 11/22/17 10:10 Dose: 40 mg Potassium Chloride (K-Dur -) 40 meq PO DAILY [facility] Last Admin: 11/22/17 10:08 Dose: 40 meq - Objective Vital Signs: Vital Signs Temperature 97.7 F 11/23/17 05:30 Pulse Rate 69 11/23/17 05:30 Respiratory Rate 16 11/23/17 05:30 Blood Pressure 96/45 11/23/17 05:30 O2 Sat by Pulse Oximetry (%) 94 L 11/22/17 21:00 Cardiovascular: Yes: S1, S2 Respiratory: Yes: Regular, CTA Bilaterally Gastrointestinal: Yes: Normal Bowel Sounds, Soft Labs: CBC, BMP 11/23/17 06:10 11/23/17 06:10 INR, PTT INR 1.34 (0.82-1.09) H D 11/17/17 11:30 Problem List - Problems (1) Bullous dermatitis Code(s): L13.9 - BULLOUS DISORDER, UNSPECIFIED (2) Anemia Code(s): D64.9 - ANEMIA, UNSPECIFIED (3) Herpes zoster Code(s): B02.9 - ZOSTER WITHOUT COMPLICATIONS Qualifiers: Herpes zoster complications: unspecified herpes zoster complication Qualified Code(s): B02.8 - Zoster with other complications (4) Tachycardia Code(s): R00.0 - TACHYCARDIA, UNSPECIFIED Assessment/Plan - Problems (1) Weakness Assessment/Plan: neurology consult appreciated LS spine CT scan ordered PT OOB to chair Code(s): R53.1 - WEAKNESS (2) Bullous dermatitis Assessment/Plan: ID on board isolation acyclovir Code(s): L13.9 - BULLOUS DISORDER, UNSPECIFIED (3) Herpes zoster Assessment/Plan: acyclovir and hydration- day 4\ neurontin for the pain Code(s): B02.9 - ZOSTER WITHOUT COMPLICATIONS Qualifiers: Herpes zoster complications: unspecified herpes zoster complication Qualified Code(s): B02.8 - Zoster with other complications (4) Acute DVT (deep venous thrombosis) Assessment/Plan: on prophylaxis Code(s): I82.409 - ACUTE EMBOLISM AND THOMBOS UNSP DEEP VN UNSP LOWER EXTREMITY Qualifiers: DVT location: lower extremity Laterality: left (5) Electrolyte abnormality Assessment/Plan: replete Mg and K Code(s): E87.8 - OTH DISORDERS OF ELECTROLYTE AND FLUID BALANCE, NEC (6) Anemia Assessment/Plan: -Transfuse prbc -gi consult (7) Colon CA==r/o rcurrence Assessment/Plan: -GI consult (8) destructive lesion of hip Assessment/Plan: -ortho and mri
[2017-11-23] MEDS: oxyCODONE HCL 10 MG SUSTAINED ACTING TABLET PO SCH ×2 (10:27→22:08)
[2017-11-23] MEDS: POTASSIUM CHLORIDE TABS 20 MEQ TABLET.ER (FP) PO SCH (10:27)
[2017-11-23] MEDS: METOPROLOL TARTRATE 25 MG TABLET (FP) PO SCH ×2 (10:28→22:08)
[2017-11-23] MEDS: PANTOPRAZOLE 40 MG TABLET (FP) PO SCH (10:28)
[2017-11-23] MEDS: APIXABAN 5 MG TABLET PO SCH ×2 (10:32→22:08)
--- NOTE | 2017-11-23 13:45 | PN ---
Progress Note (short form) - Note Progress Note: day 6 acyclovir no complaints other then pain quite alert today Vital Signs Period Temp Pulse Resp BP Sys/Brwon Pulse Ox Last 24 Hr 97.7 F-100.2 F 64-104 16-20 96-131/45-76 94 cor-rrr lungs clear abd soft,nt ext drying rash on legs CBC, BMP 11/23/17 06:10 11/23/17 06:10 Microbiology 11/18/17 12:50 Blood - Peripheral Venous Blood Culture - Final NO GROWTH AFTER 5 DAYS INCUBATION 11/18/17 12:20 Blood - Peripheral Venous Blood Culture - Final NO GROWTH AFTER 5 DAYS INCUBATION 11/17/17 11:30 Blood - Peripheral Venous Blood Culture - Final NO GROWTH AFTER 5 DAYS INCUBATION 11/17/17 11:30 Blood - Peripheral Venous Blood Culture - Final Staphylococcus Epidermidis a/p zoster- continue iv acyclovir day 6- to d/w neurology total duration based on associated leg weakness- perhaps another week with po? was not ambulating at baseline
--- NOTE | 2017-11-23 16:43 | PN ---
Progress Note (short form) - Note Progress Note: GI CONSULTATION: SEE COMPLETE DICTATION IN BRIEF: 86F POOR INFORMANT HX OF COLON CANCER, UNCLEAR DETAILS ADMIT WITH ZOSTER DROP IN HGB FROM 10.5 TO 7.1 WITH JARQUIN/G++++ STOOL ON A/C FOR DVT NO GI C/O MILDLY IMPACTED OCCULT GI BLEED ON A/C WOULD STRONGLY CONSIDER D/C A/C IF IT WOULD NOT POSE A CARDIO-PULM RISK PT IS OCCULTLY BLEEDING AGREE WITH EMPIRIC PPI PO Q 12 PT WISHES TO DEFER SCOPES FOR NOW, BUT SHE WILL "THINK ABOUT IT" UNCLEAR WHEN HER LAST GI EVAL WAS? NOTHING IN COMPUTER HERE FROM 2012-NOW F/U H/H THANKS, MD ELLEN
[2017-11-23] MEDS: oxyCODONE HCL 5 MG TABLET PO PRN (17:36)
[2017-11-23 18:53] LABS: URINE APPEARANCE CLEAR; URINE BILIRUBIN NEGATIVE (NEGATIVE); URINE BLOOD NEGATIVE (NEGATIVE); URINE COLOR YELLOW; URINE GLUCOSE (UA) NEGATIVE (NEGATIVE); URINE KETONE NEGATIVE (NEGATIVE); URINE LEUK ESTERASE NEGATIVE (NEGATIVE); URINE NITRITE NEGATIVE (NEGATIVE); URINE PROTEIN NEGATIVE (NEGATIVE); URINE UROBILINOGEN NEGATIVE mg/dL (0.2-1.0)
[2017-11-23] MEDS: ATORVASTATIN CA 40 MG TABLET (FP) PO SCH (22:08)
[2017-11-24] MEDS: ACYCLOVIR INJECTION 700 MG in DEXTROSE 5%-WATER - 100 ML IVPB SCH ×2 (03:35→09:25)
[2017-11-24] MEDS: GABAPENTIN 300 MG CAPSULE (FP) PO SCH ×3 (06:27→21:56)
[2017-11-24] MEDS: AMINO ACIDS/PROTEIN HYDROLYS 30 ML LIQUID.PKT PO SCH ×2 (08:16→17:26)
[2017-11-24 08:41] LABS: BASO % 0.7 % (0-2.0); HEMATOCRIT 28.8 % (32.4-45.2); HEMOGLOBIN 9.8 GM/dL (10.7-15.3); LYMPH % 28.6 % (8-40); MEAN CELL VOLUME 88.2 fl (80-96); MEAN PLT VOLUME 8.3 fl (7.5-11.1); MONO % 9.4 % (3.8-10.2); NEUT % 58.3 % (42.8-82.8); PLATELET COUNT 346 K/MM3 (134-434); RBC 3.27 M/mm3 (3.60-5.2); WHITE BLOOD COUNT 6.9 K/mm3 (4.0-10.0)
[2017-11-24 08:52] LABS: ALBUMIN 1.3 g/dl (3.4-5.0); ANION GAP 8 (8-16); BILIRUBIN,TOTAL 0.8 mg/dL (0.2-1.0); BLOOD UREA NITROGEN 26 mg/dL (7-18); CHLORIDE 109 mmol/L (98-107); CO2 25 mmol/L (21-32); CREATININE 0.8 mg/dL (0.55-1.02); GLUCOSE,RANDOM 88 mg/dL (74-106); POTASSIUM 5.1 mmol/L (3.5-5.1); SGOT/AST 14 U/L (15-37); SGPT/ALT 10 U/L (12-78); SODIUM 142 mmol/L (136-145); TOT PROT 4.4 g/dl (6.4-8.2)
[2017-11-24 08:53] LABS: ALK PHOS 81 U/L (45-117)
[2017-11-24] MEDS ORDERED: PT OWN MED DRAWER 7, Y5N ONE ×2 (09:43→21:48)
[2017-11-24] MEDS: POTASSIUM CHLORIDE TABS 20 MEQ TABLET.ER (FP) PO SCH (09:46)
[2017-11-24] MEDS: oxyCODONE HCL 10 MG SUSTAINED ACTING TABLET PO SCH ×2 (09:46→21:56)
[2017-11-24] MEDS: APIXABAN 5 MG TABLET PO SCH ×2 (09:46→21:55)
[2017-11-24] MEDS: PANTOPRAZOLE 40 MG TABLET (FP) PO SCH (09:46)
[2017-11-24] MEDS: METOPROLOL TARTRATE 25 MG TABLET (FP) PO SCH ×2 (09:46→21:56)
[2017-11-24 10:13] LABS: SERUM IRON SATURATION 11 % (15-55); TOTAL IRON BINDING CAPACITY 124 ug/dL (250-450); UIBC 110 ug/dL (118-369)
--- NOTE | 2017-11-24 11:58 | PN ---
Progress Note, Physician - Current Medication List Current Medications: Active Medications Acetaminophen (Tylenol -) 650 mg PO Q4H PRN PRN Reason: PAIN OR FEVER Last Admin: 11/23/17 00:13 Dose: 650 mg Amino Acids (Prosource No Carb Liquid Pkt) 30 ml PO BID@0800,1730 [facility] Last Admin: 11/24/17 08:16 Dose: 30 ml Apixaban (Eliquis -) 5 mg PO BID [facility] Last Admin: 11/24/17 09:46 Dose: 5 mg Atorvastatin Calcium (Lipitor -) 40 mg PO HS [facility] Last Admin: 11/23/17 22:08 Dose: 40 mg Gabapentin (Neurontin -) 300 mg PO TID [facility] Last Admin: 11/24/17 06:27 Dose: 300 mg Acyclovir 700 mg/ Dextrose 114 mls @ 100 mls/hr IVPB Q8H-IV [facility] Last Admin: 11/24/17 09:25 Dose: 100 mls/hr Metoprolol Tartrate (Lopressor -) 25 mg PO BID [facility] Last Admin: 11/24/17 09:46 Dose: 25 mg Oxycodone HCl (Roxicodone -) 5 mg PO Q6H PRN PRN Reason: PAIN LEVEL 4 - 6 Last Admin: 11/23/17 17:36 Dose: 5 mg Oxycodone HCl (Oxycontin -) 10 mg PO BID [facility] Last Admin: 11/24/17 09:46 Dose: 10 mg Pantoprazole Sodium (Protonix -) 40 mg PO DAILY [facility] Last Admin: 11/24/17 09:46 Dose: 40 mg Potassium Chloride (K-Dur -) 40 meq PO DAILY [facility] Last Admin: 11/24/17 09:46 Dose: 40 meq - Objective Vital Signs: Vital Signs Temperature 98.7 F 11/24/17 06:00 Pulse Rate 70 11/24/17 06:00 Respiratory Rate 16 11/24/17 06:00 Blood Pressure 107/40 11/24/17 06:00 O2 Sat by Pulse Oximetry (%) 98 11/23/17 21:00 Cardiovascular: Yes: Murmur, S1, S2 Respiratory: Yes: Regular, CTA Bilaterally Gastrointestinal: Yes: Normal Bowel Sounds, Soft Labs: CBC, BMP 11/24/17 08:00 11/24/17 08:00 INR, PTT INR 1.34 (0.82-1.09) H D 11/17/17 11:30 Problem List - Problems (1) Bullous dermatitis Code(s): L13.9 - BULLOUS DISORDER, UNSPECIFIED (2) Anemia Code(s): D64.9 - ANEMIA, UNSPECIFIED (3) Herpes zoster Code(s): B02.9 - ZOSTER WITHOUT COMPLICATIONS Qualifiers: Herpes zoster complications: unspecified herpes zoster complication Qualified Code(s): B02.8 - Zoster with other complications (4) Tachycardia Code(s): R00.0 - TACHYCARDIA, UNSPECIFIED Assessment/Plan - Problems (1) Weakness Assessment/Plan: neurology consult appreciated LS spine CT scan ordered PT OOB to chair Code(s): R53.1 - WEAKNESS (2) Bullous dermatitis Assessment/Plan: ID on board isolation acyclovir Code(s): L13.9 - BULLOUS DISORDER, UNSPECIFIED (3) Herpes zoster Assessment/Plan: acyclovir and hydration- day 4\ neurontin for the pain Code(s): B02.9 - ZOSTER WITHOUT COMPLICATIONS Qualifiers: Herpes zoster complications: unspecified herpes zoster complication Qualified Code(s): B02.8 - Zoster with other complications (4) Acute DVT (deep venous thrombosis) Assessment/Plan: on prophylaxis Code(s): I82.409 - ACUTE EMBOLISM AND THOMBOS UNSP DEEP VN UNSP LOWER EXTREMITY Qualifiers: DVT location: lower extremity Laterality: left (5) Electrolyte abnormality Assessment/Plan: replete Mg and K Code(s): E87.8 - OTH DISORDERS OF ELECTROLYTE AND FLUID BALANCE, NEC (6) Anemia Assessment/Plan: -Transfuse prbc -gi consult -cbc (7) Colon CA==r/o rcurrence Assessment/Plan: -GI consult -refuses colon (8) destructive lesion of hip Assessment/Plan: -ortho and mri
--- NOTE | 2017-11-24 12:41 | PN ---
Progress Note (short form) - Note Progress Note: day 7 acyclovir no complaints other then pain quite alert today s/p transfusion Vital Signs Period Temp Pulse Resp BP Sys/Brown Pulse Ox Last 24 Hr 97.8 F-98.7 F 68-89 16-18 107-129/40-58 98 cor-rrr lungs clear abd soft,nt ext drying rash on legs CBC, BMP 11/24/17 08:00 11/24/17 08:00 a/p zoster- day #7 acyclovir, will switch to po valtrex anemia- s/p transfusion abnl hip joint on ct scan- ortho evaluation, MRI right hydronephrosis-asymptomatic- consider urology eval
[2017-11-24] MEDS: valACYclovir HCL 500 MG TABLET (FP) PO SCH ×2 (14:06→21:55)
--- NOTE | 2017-11-24 15:46 | PN ---
GI Progress Note Subjective: GI F/U NOTE NO GI C/O TODAY NO N/V/F/C/S NO BRBPR NO DARK STOOLS TAKING PO WITHOUT PROBLEMS - Objective Vital Signs: Vital Signs Temperature 99.3 F 11/24/17 14:38 Pulse Rate 69 11/24/17 14:38 Respiratory Rate 20 11/24/17 14:38 Blood Pressure 115/55 11/24/17 14:38 O2 Sat by Pulse Oximetry (%) 98 11/23/17 21:00 Constitutional: Well Nourished, No Distress, Calm, Obese (+bS/SOFT/NT VERY OBESE ) Labs: CBC, BMP 11/24/17 08:00 11/24/17 08:00 INR, PTT INR 1.34 (0.82-1.09) H D 11/17/17 11:30 Assessment/Plan 86F POOR INFORMANT HX OF COLON CANCER, UNCLEAR DETAILS ADMIT WITH ZOSTER DROP IN HGB FROM 10.5 TO 7.1 WITH JARQUIN/G++++ STOOL ON A/C FOR DVT----S/P 2 U PRBC'S WITH RISE IN HGB TO 9.8---GOOD RESPONSE NO GI C/O MILDLY IMPACTED ON ALBERTO YESTERDAY OCCULT GI BLEED ON A/C WOULD STRONGLY CONSIDER D/C A/C IF IT WOULD NOT POSE A CARDIO-PULM RISK PT IS OCCULTLY BLEEDING AGREE WITH EMPIRIC PPI PO Q 12----GOOD RESPONSE TO PRBC'S AND NO EVIDENCE OF OVERT BLEEDING PT NOW AGREABLE TO SCOPES; HOWEVER, SHE REMAINS ON A/C. IT WOULD BE BETTER TO PERFORM GI W/U OFF OF A/C IF POSSIBLE IN CASE A BIOPSY OR POLYPECTOMY NEEDED. CONTINUE DIET/ PPI PO Q 12 HOURS F/U H/H OUR TEAM COULD ARRANGE GI EVAL: EGD/COLON ONCE ELIQUIS ABLE TO BE HELD FOR 48 HOURS MD ELLEN
[2017-11-24] MEDS: ATORVASTATIN CA 40 MG TABLET (FP) PO SCH (21:55)
[2017-11-25] MEDS: ACETAMINOPHEN 325 MG TABLET (FP) PO PRN (02:08)
[2017-11-25] MEDS: valACYclovir HCL 500 MG TABLET (FP) PO SCH ×3 (06:16→21:37)
[2017-11-25] MEDS: GABAPENTIN 300 MG CAPSULE (FP) PO SCH ×3 (06:16→21:37)
[2017-11-25 08:34] LABS: BASO % 0.6 % (0-2.0); HEMATOCRIT 27.7 % (32.4-45.2); HEMOGLOBIN 9.4 GM/dL (10.7-15.3); LYMPH % 31.9 % (8-40); MEAN CELL VOLUME 88.4 fl (80-96); MEAN PLT VOLUME 8.1 fl (7.5-11.1); MONO % 9.5 % (3.8-10.2); PLATELET COUNT 372 K/MM3 (134-434); RBC 3.13 M/mm3 (3.60-5.2); RDW 15.6 % (11.6-15.6); WHITE BLOOD COUNT 7.4 K/mm3 (4.0-10.0)
[2017-11-25 08:54] LABS: ALBUMIN 1.3 g/dl (3.4-5.0); ANION GAP 9 (8-16); BLOOD UREA NITROGEN 31 mg/dL (7-18); CHLORIDE 112 mmol/L (98-107); CO2 24 mmol/L (21-32); GLUCOSE,RANDOM 88 mg/dL (74-106); POTASSIUM 5.5 mmol/L (3.5-5.1); SGOT/AST 17 U/L (15-37); SODIUM 145 mmol/L (136-145)
[2017-11-25 08:56] LABS: ALK PHOS 81 U/L (45-117); BILIRUBIN,TOTAL 0.5 mg/dL (0.2-1.0); SGPT/ALT 13 U/L (12-78); TOT PROT 4.5 g/dl (6.4-8.2)
[2017-11-25] MEDS ORDERED: PT OWN MED DRAWER 7, Y5N ONE ×2 (09:23→14:17)
[2017-11-25] MEDS: PANTOPRAZOLE 40 MG TABLET (FP) PO SCH (09:29)
[2017-11-25] MEDS: METOPROLOL TARTRATE 25 MG TABLET (FP) PO SCH ×2 (09:29→21:37)
[2017-11-25] MEDS: AMINO ACIDS/PROTEIN HYDROLYS 30 ML LIQUID.PKT PO SCH ×2 (09:29→17:19)
[2017-11-25] MEDS: oxyCODONE HCL 10 MG SUSTAINED ACTING TABLET PO SCH ×2 (09:29→21:37)
[2017-11-25] MEDS: APIXABAN 5 MG TABLET PO SCH ×2 (09:29→21:37)
[2017-11-25] MEDS: POTASSIUM CHLORIDE TABS 20 MEQ TABLET.ER (FP) PO SCH (09:29)
--- NOTE | 2017-11-25 11:02 | PN ---
Progress Note, Physician Chief Complaint: patient is on valtrex lesion are crusting and drying up - Current Medication List Current Medications: Active Medications Acetaminophen (Tylenol -) 650 mg PO Q4H PRN PRN Reason: PAIN OR FEVER Last Admin: 11/25/17 02:08 Dose: 650 mg Amino Acids (Prosource No Carb Liquid Pkt) 30 ml PO BID@0800,1730 [facility] Last Admin: 11/25/17 09:29 Dose: 30 ml Apixaban (Eliquis -) 5 mg PO BID [facility] Last Admin: 11/25/17 09:29 Dose: 5 mg Atorvastatin Calcium (Lipitor -) 40 mg PO HS [facility] Last Admin: 11/24/17 21:55 Dose: 40 mg Gabapentin (Neurontin -) 300 mg PO TID [facility] Last Admin: 11/25/17 06:16 Dose: 300 mg Metoprolol Tartrate (Lopressor -) 25 mg PO BID [facility] Last Admin: 11/25/17 09:29 Dose: 25 mg Oxycodone HCl (Roxicodone -) 5 mg PO Q6H PRN PRN Reason: PAIN LEVEL 4 - 6 Last Admin: 11/23/17 17:36 Dose: 5 mg Oxycodone HCl (Oxycontin -) 10 mg PO BID [facility] Last Admin: 11/25/17 09:29 Dose: 10 mg Pantoprazole Sodium (Protonix -) 40 mg PO DAILY [facility] Last Admin: 11/25/17 09:29 Dose: 40 mg Valacyclovir HCl (Valtrex -) 1,000 mg PO TID [facility] Last Admin: 11/25/17 06:16 Dose: 1,000 mg - Objective Vital Signs: Vital Signs Temperature 98.6 F 11/25/17 09:00 Pulse Rate 92 H 11/25/17 09:00 Respiratory Rate 20 11/25/17 09:00 Blood Pressure 126/60 11/25/17 09:00 O2 Sat by Pulse Oximetry (%) 98 11/24/17 21:00 Constitutional: Yes: Calm Cardiovascular: Yes: Regular Rate and Rhythm, S1, S2 Respiratory: Yes: CTA Bilaterally Extremities: Yes: Other (lesion on the thigh crusted and drying up) Labs: CBC, BMP 11/25/17 08:00 11/25/17 08:00 INR, PTT INR 1.34 (0.82-1.09) H D 11/17/17 11:30 Problem List - Problems (1) Anemia Assessment/Plan: s/p prbc, h/h holding steady gi consult noted needs AC for 6 months can change to heparin drip for colonoscopy PPI bid stool occult pending Code(s): D64.9 - ANEMIA, UNSPECIFIED (2) Weakness Assessment/Plan: neurology consult appreciated LS spine CT scan ordered- result noted and ordered urology and ortho PT OOB to chair Code(s): R53.1 - WEAKNESS (3) Bullous dermatitis Assessment/Plan: ID on board isolation acyclovir Code(s): L13.9 - BULLOUS DISORDER, UNSPECIFIED (4) Herpes zoster Assessment/Plan: acyclovir and hydration- day 4\ neurontin for the pain Code(s): B02.9 - ZOSTER WITHOUT COMPLICATIONS Qualifiers: Herpes zoster complications: unspecified herpes zoster complication Qualified Code(s): B02.8 - Zoster with other complications (5) Acute DVT (deep venous thrombosis) Assessment/Plan: needs AC till february 2018 started in Sep 2017 for acute DVT can change to heparin drip for coloscopy then restart after it is completed Code(s): I82.409 - ACUTE EMBOLISM AND THOMBOS UNSP DEEP VN UNSP LOWER EXTREMITY Qualifiers: DVT location: lower extremity Laterality: left (6) Electrolyte abnormality Assessment/Plan: repleted Mg and K Code(s): E87.8 - OTH DISORDERS OF ELECTROLYTE AND FLUID BALANCE, NEC (7) Hydronephrosis Assessment/Plan: urology eval renal sono Code(s): N13.30 - UNSPECIFIED HYDRONEPHROSIS (8) Abnormal CT scan, lumbar spine Assessment/Plan: bony destruction of left hip ortho eval Code(s): R93.7 - ABNORMAL FINDINGS ON DIAGNOSTIC IMAGING OF PRT MS SYS
--- NOTE | 2017-11-25 11:23 | PN ---
Progress Note, Physician Chief Complaint: ID Currently on Valtrex Mostly complains of pain at site of rash - Current Medication List Current Medications: Active Medications Acetaminophen (Tylenol -) 650 mg PO Q4H PRN PRN Reason: PAIN OR FEVER Last Admin: 11/25/17 02:08 Dose: 650 mg Amino Acids (Prosource No Carb Liquid Pkt) 30 ml PO BID@0800,1730 [facility] Last Admin: 11/25/17 09:29 Dose: 30 ml Apixaban (Eliquis -) 5 mg PO BID [facility] Last Admin: 11/25/17 09:29 Dose: 5 mg Atorvastatin Calcium (Lipitor -) 40 mg PO HS [facility] Last Admin: 11/24/17 21:55 Dose: 40 mg Gabapentin (Neurontin -) 300 mg PO TID [facility] Last Admin: 11/25/17 06:16 Dose: 300 mg Metoprolol Tartrate (Lopressor -) 25 mg PO BID [facility] Last Admin: 11/25/17 09:29 Dose: 25 mg Oxycodone HCl (Roxicodone -) 5 mg PO Q6H PRN PRN Reason: PAIN LEVEL 4 - 6 Last Admin: 11/23/17 17:36 Dose: 5 mg Oxycodone HCl (Oxycontin -) 10 mg PO BID [facility] Last Admin: 11/25/17 09:29 Dose: 10 mg Pantoprazole Sodium (Protonix -) 40 mg PO DAILY [facility] Last Admin: 11/25/17 09:29 Dose: 40 mg Valacyclovir HCl (Valtrex -) 1,000 mg PO TID [facility] Last Admin: 11/25/17 06:16 Dose: 1,000 mg - Objective Vital Signs: Vital Signs Temperature 98.6 F 11/25/17 09:00 Pulse Rate 92 H 11/25/17 09:00 Respiratory Rate 20 11/25/17 09:00 Blood Pressure 126/60 11/25/17 09:00 O2 Sat by Pulse Oximetry (%) 98 11/24/17 21:00 Constitutional: Yes: Well Nourished, No Distress Integumentary: Yes: Other (Rash left thigh drying) Labs: CBC, BMP 11/25/17 08:00 11/25/17 08:00 INR, PTT INR 1.34 (0.82-1.09) H D 11/17/17 11:30 Problem List - Problems (1) Herpes zoster Code(s): B02.9 - ZOSTER WITHOUT COMPLICATIONS Qualifiers: Herpes zoster complications: unspecified herpes zoster complication Qualified Code(s): B02.8 - Zoster with other complications Assessment/Plan Laboratory Tests 11/25/17 11/25/17 08:00 08:00 WBC 7.4 Hgb 9.4 L Hct 27.7 L BUN 31 H Creatinine 1.0 Creat Clearance w eGFR 52.82 Assessment HVZ dermatomal improving Plan Complete total of 10 days of treatment now 8 so another 2 days with Discharge planning Fifi BALLARD
--- NOTE | 2017-11-25 12:54 | CON.GI ---
Consult Consult Specialty:: GI Reason for Consultation:: Anemia, hx of colon cancer - History of Present Illness History of Present Illness: Chart reviewed. Events noted. The pt is known to GI service from prior, recent admission. We were consulted for anemia in September of 2017, however pt refused endoscopic work up at that time. Currently, Elsie is recovering from shingles infection. Remains anemic, requiring blood transfusion while hospitalized. On Eliquist. Hemoccult-negative stools. Offers no specific GI-related complaints prior, or during this admission. Specifically, reports no nausea, vomiting, dysphagia, odynophagia, jaundice, melena, hematochezia, hematemesis, weight loss. - History Source History Provided By: Patient, Medical Record - Past Medical History Cardio/Vascular: Yes: HTN, Hyperlipdemia Gastrointestinal: Yes: Cancer (colon cancer s/p resection 2011) Renal/: Yes: Renal Inusuff Musculoskeletal: Yes: Chronic low back pain, Osteoarthritis - Past Surgical History Past Surgical History: Yes: Ileosotomy (with ) - Alcohol/Substance Use Hx Alcohol Use: No History of Substance Use: reports: None - Smoking History Smoking history: Former smoker Have you smoked in the past 12 months: No If you are a former smoker, when did you quit?: 30 yrs ago - Social History ADL: Independent (Lives alone at home, ) 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 History of Recent Travel: No Home Medications - Allergies Allergies/Adverse Reactions: Allergies Allergy/AdvReac Type Severity Reaction Status Date / Time crab Allergy Severe Hives Verified 11/19/17 11:05 No Known Drug Allergies Allergy Verified 11/17/17 10:58 - Home Medications Home Medications: Ambulatory Orders Atorvastatin Ca [Lipitor] 40 mg PO HS 07/29/17 Metoprolol Tartrate [Lopressor -] 25 mg PO DAILY 07/29/17 Silver Sulfadiazine 1% Top Cr [Silvadene -] 1 applic TP DAILY 07/29/17 Apixaban [Eliquis -] 5 mg PO BID tablet 10/03/17 Pantoprazole Sodium [Protonix -] 40 mg PO DAILY tablet.ec 10/03/17 Bacitracin - [Bacitracin Topical Ointment -] 1 applic TP DAILY 11/17/17 Carboxymethylcellulose Sodium [Lubricant Eye Drops] 1 each OU HS 11/17/17 Cephalexin [Keflex] 500 mg PO TID 11/17/17 Clotrimazole [Lotrimin AF] 0 gm TP BID 11/17/17 Diphenhydramine HCl [Benadryl -] 25 mg PO Q4H PRN 11/17/17 Furosemide [Lasix] 40 mg PO DAILY 11/17/17 Metolazone 2.5 mg PO DAILY 11/17/17 oxyCODONE HCL [Roxicodone -] 5 mg PO Q6H PRN MDD 4 11/17/17 oxyCODONE SR [Oxycontin] 10 mg PO BID 11/17/17 Family Disease History - Family Disease History Family Disease History: Diabetes: Sister (HTN, Hyperlipidemia), Heart Disease: Brother (CABG,HTN, hyperlipidemia), Sister, Other: Father ( 70: [place]), Mother ( 84: chf) Review of Systems Findings/Remarks: as per HPI, H&P Physical Exam-GI Vital Signs: Vital Signs Temperature 98.6 F 11/25/17 09:00 Pulse Rate 92 H 11/25/17 09:00 Respiratory Rate 20 11/25/17 09:00 Blood Pressure 126/60 11/25/17 09:00 O2 Sat by Pulse Oximetry (%) 98 11/24/17 21:00 Constitutional: Yes: No Distress, Calm, Pallor Eyes: Yes: Conjunctiva Clear HENT: Yes: Atraumatic Neck: Yes: Supple Cardiovascular: No: Bradycardia, Tachycardia Respiratory: Yes: Regular Gastrointestinal Inspection: No: Ascites, Distention ...Auscultate: Yes: Normoactive Bowel Sounds ...Palpate: No: Soft, Tenderness ...Rectal Exam: Yes: Guaiac Negative (lab tested) Labs: CBC, BMP 11/25/17 08:00 11/25/17 08:00 INR, PTT INR 1.34 (0.82-1.09) H D 11/17/17 11:30 Problem List - Problems (1) Normocytic normochromic anemia Code(s): D64.9 - ANEMIA, UNSPECIFIED (2) Anticoagulant long-term use Code(s): Z79.01 - SHELTER (CURRENT) USE OF ANTICOAGULANTS Assessment/Plan Hx of colon cancer. Normocytic, normochromic anemia requiring blood transfusions. No overs signs of bleeding. Agreeable to EGD and colonoscopy. If safe, hold Eliquis starting today and continue shingles treatment. Plan endoscopic work up on -Saturday. Will follow.
--- NOTE | 2017-11-25 15:33 | CONS ---
GASTROENTEROLOGY CONSULTATION DATE OF CONSULTATION: 11/23/2017 HISTORY OF PRESENT ILLNESS: I was asked by Dr. Mtz to evaluate this patient for GI bleeding. The patient is an 86-year-old white female who is a very poor informant. Apparently most of the history comes from the chart. She has a past history of hypertension, hyperlipidemia, colon cancer, DVT, who presents for evaluation of a rash to her left thigh. The patient reports a 3-week history of an erythematous, blistering rash on the left thigh. Symptoms began, became itchy, and then the rash blossomed. She came to the emergency room for evaluation. She also has severe burning over the rash. She has no other complaints or findings at that time, which then that prompted the admission. At the time the patient was having no GI complaints and denies any current GI complaints. Apparently, according to the medical record, it is noted she has hypertension, hyperlipidemia, colon cancer status post resection in 2011, although the details of such are uncertain. She does not recall such. She has chronic anemia. She tells me she has had anemia for years and that she has been transfused in the past. She has had chronic low back pain and spinal surgery. She has had osteoarthritis and she has had ileostomy. The patient apparently is a former smoker. She does not drink. She lives in assisted living. She was admitted for this bullous rash of the left thigh and possible cellulitis and started on medications and underwent an infectious disease consultation on November 18, 2017, and apparently at that time it was noted her hemoglobin was 8.5 on November 18. She was afebrile. Her vital signs were stable. She was thought to have possible Herpes zoster and gram-positive cocci in clusters, bacteremia, was started on acyclovir, vancomycin and contact isolation. She has been followed by Infectious Disease. She was also seen by Cardiology. She was noted to have sinus tachycardia which was thought to be due to the painful rash. There was no evidence of ischemia or an acute coronary syndrome. The patient, as noted, has been maintained on Eliquis as an outpatient for unclear reasons. The patient is uncertain of such. The patient was seen by Neurology on November 20, who noted that she has a home health aide in the assisted living. She has had prior history of DVT and apparently she was having mild and gait dysfunction thought to be multifactorial. We are now called today because it was noted that her hemoglobin had dropped. We are called for evaluation as her hemoglobin has dropped to 7.1. In speaking with the patient, she denies GI complaints. She denies nausea, vomiting, abdominal pain, change in bowel habits, diarrhea, rectal bleeding. She does not believe she is constipated. ALLERGIES: She has no known drug allergies. MEDICATIONS: Include Lipitor, Lopressor, silver sulfadiazine, Eliquis, Protonix, bacitracin, lubricant eye drops, Keflex, Lotrimin, Benadryl, Lasix, metolazone and oxycodone. In the hospital her current medications include Tylenol, IV fluid, Eliquis, Neurontin, Lopressor, Lipitor, oxycodone and potassium. FAMILY HISTORY: Significant in that her history has hypertension and hyperlipidemia. Her brother had a CABG, hypertension and hyperlipidemia. Her father had a myocardial infarction and her mother had CHF. PHYSICAL EXAM: General: She is in no acute distress. She is an obese woman in no distress. She is elderly. She does not really move too well in the bed.Vital Signs: Stable. She is afebrile. Her blood pressure is 112/50. Her heart rate is less than 70. Extremities: Her legs are swollen and edematous. You can see the blistering rash on the left thigh. Abdomen: Soft. Bowel sounds are active. There are no masses, rebound or guarding. Rectal: Exam reveals the presence of stool that is campoverde and strongly guaiac-positive. LABORATORY DATA: Notable in that her hemoglobin on November 17 was 10.7, today is 7.1. It has dropped 3.5 g. Her white count is normal and her platelet count is appropriate at 296,000. Coagulation studies reveal an INR of 1.3. Her chemistries reveal a serum sodium of 142, potassium 5.1, chloride 109, bicarbonate of 21, BUN 22, creatinine 0.8, calcium 7.8, total bilirubin of 0.3, AST 15, ALT 8, albumin 4.4. At the present time it appears she has had no GI films to comment. IMPRESSION: It is my impression that the patient is an 86-year-old elderly woman with multiple medical problems as noted. She comes in with what appears to be a blistering rash thought to possibly be zoster, has been on medication. She has also been on Eliquis for what appears to be it seems a deep venous thrombosis. It is unclear of the duration that she has been on the Eliquis. The patient has some underlying dementia as agreed upon by the neurologist Dr. Meredith and her history is not very accurate. She denies a prior gastrointestinal history or workup in the past. Clearly her hemoglobin has dropped 3 g from 10 down to 7. She is asymptomatic, but she is going to receive a unit of packed cells. Her stool is strongly guaiac-positive. Once she is more medically stable we can consider upper endoscopy and possible colonoscopy. At the present time she wishes to defer such evaluation and I would consider strongly stopping the Eliquis and I would consider placing the patient as you have on proton pump inhibition. At the present time she does not appear to be hemodynamically unstable or actively bleeding. I would continue your present treatment. I would stop the Eliquis if this is not going to jeopardize her from a cardiopulmonary standpoint. For now, I would continue her diet as she is not agreeable to taking a bowel preparation. We will continue to be available to aid in the management of this patient as needed. I will follow up the hemoglobin and hematocrit. LOVELY HUGHES M.D. [id number]
--- NOTE | 2017-11-25 16:05 | CON.GU ---
Consult Consult Specialty:: urology Referred by:: Merly Reason for Consultation:: right hydronephrosis - History of Present Illness Chief Complaint: right hydronephrosis History of Present Illness: Patient is an 86 year old female with multiple medical problems now being treated for shingles. The patient was found on a lumbar CT scan to have had urinary retention with right sided hydronephrosis. The CT was performed on 11/22 and the patient had a carrillo placed on 11/23. The patient currently is doing well with the carrillo catheter. The patient has had a CT scan performed in 2016 which showed no evidence of hydronephrosis. A renal sonogram performed on 09/27/17 showed bilateral renal cysts. The patient is in significant pain secondary to the shingles and is on oxycodone. - History Source History Provided By: Patient, Medical Record, Caregiver - Past Medical History Cardio/Vascular: Yes: HTN, Hyperlipdemia Gastrointestinal: Yes: Cancer (colon cancer s/p resection 2011) Renal/: Yes: Renal Inusuff Musculoskeletal: Yes: Chronic low back pain, Osteoarthritis - Past Surgical History Past Surgical History: Yes: Ileosotomy (with ) - Alcohol/Substance Use Hx Alcohol Use: No History of Substance Use: reports: None - Smoking History Smoking history: Former smoker Have you smoked in the past 12 months: No If you are a former smoker, when did you quit?: 30 yrs ago - Social History ADL: Independent (Lives alone at home, ) 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 History of Recent Travel: No Home Medications - Allergies Allergies/Adverse Reactions: Allergies Allergy/AdvReac Type Severity Reaction Status Date / Time crab Allergy Severe Hives Verified 11/19/17 11:05 No Known Drug Allergies Allergy Verified 11/17/17 10:58 - Home Medications Home Medications: Ambulatory Orders Atorvastatin Ca [Lipitor] 40 mg PO HS 07/29/17 Metoprolol Tartrate [Lopressor -] 25 mg PO DAILY 07/29/17 Silver Sulfadiazine 1% Top Cr [Silvadene -] 1 applic TP DAILY 07/29/17 Apixaban [Eliquis -] 5 mg PO BID tablet 10/03/17 Pantoprazole Sodium [Protonix -] 40 mg PO DAILY tablet.ec 10/03/17 Bacitracin - [Bacitracin Topical Ointment -] 1 applic TP DAILY 11/17/17 Carboxymethylcellulose Sodium [Lubricant Eye Drops] 1 each OU HS 11/17/17 Cephalexin [Keflex] 500 mg PO TID 11/17/17 Clotrimazole [Lotrimin AF] 0 gm TP BID 11/17/17 Diphenhydramine HCl [Benadryl -] 25 mg PO Q4H PRN 11/17/17 Furosemide [Lasix] 40 mg PO DAILY 11/17/17 Metolazone 2.5 mg PO DAILY 11/17/17 oxyCODONE HCL [Roxicodone -] 5 mg PO Q6H PRN MDD 4 11/17/17 oxyCODONE SR [Oxycontin] 10 mg PO BID 11/17/17 Family Disease History - Family Disease History Family Disease History: Diabetes: Sister (HTN, Hyperlipidemia), Heart Disease: Brother (CABG,HTN, hyperlipidemia), Sister, Other: Father ( 70: [place]), Mother ( 84: chf) Physical Exam- Vital Signs: Vital Signs Temperature 99.6 F 11/25/17 15:38 Pulse Rate 67 11/25/17 15:38 Respiratory Rate 18 11/25/17 15:38 Blood Pressure 118/46 11/25/17 15:38 O2 Sat by Pulse Oximetry (%) 98 11/24/17 21:00 Constitutional: Yes: Anxious Eyes: Yes: WNL, Conjunctiva Clear HENT: Yes: WNL, Atraumatic, Normocephalic Neck: Yes: WNL, Supple, Trachea Midline Respiratory: Yes: Regular Gastrointestinal: Yes: Normal Bowel Sounds, Soft Renal/: Yes: Carrillo Present Kidneys: Yes: WNL Labs: CBC, BMP 11/25/17 08:00 11/25/17 08:00 Imaging - Results Cat Scan: Report Reviewed Ultrasound: Report Reviewed Assessment/Plan impression right hydronephrosis urinary retention shingles on oxycodone plan The hydronephrosis is secondary to urinary retention. This is most likely secondary to narcotic usage and pain. When the patient's pain management is improved without the need for narcotics a trial of voiding may be done. I would keep the carrillo until she improves clinically
[2017-11-25] MEDS: ATORVASTATIN CA 40 MG TABLET (FP) PO SCH (21:37)
[2017-11-26] MEDS: GABAPENTIN 300 MG CAPSULE (FP) PO SCH ×2 (05:47→14:19)
[2017-11-26] MEDS: valACYclovir HCL 500 MG TABLET (FP) PO SCH ×3 (05:47→22:23)
[2017-11-26 08:30] LABS: BASO % 0.7 % (0-2.0); EOS % 2.9 % (0-4.5); HEMATOCRIT 30.3 % (32.4-45.2); LYMPH % 26.5 % (8-40); MCH 29.8 pg (25.7-33.7); MEAN CELL VOLUME 90.2 fl (80-96); NEUT % 60.9 % (42.8-82.8); PLATELET COUNT 453 K/MM3 (134-434); RBC 3.36 M/mm3 (3.60-5.2); WHITE BLOOD COUNT 9.9 K/mm3 (4.0-10.0)
[2017-11-26] MEDS: AMINO ACIDS/PROTEIN HYDROLYS 30 ML LIQUID.PKT PO SCH ×2 (08:30→17:23)
[2017-11-26] MEDS: APIXABAN 5 MG TABLET PO SCH ×3 (10:11→22:33)
[2017-11-26] MEDS: oxyCODONE HCL 10 MG SUSTAINED ACTING TABLET PO SCH ×2 (10:21→22:22)
[2017-11-26] MEDS: PANTOPRAZOLE 40 MG TABLET (FP) PO SCH (10:21)
[2017-11-26] MEDS: METOPROLOL TARTRATE 25 MG TABLET (FP) PO SCH ×2 (10:21→22:22)
--- NOTE | 2017-11-26 13:28 | PN ---
Progress Note, Physician Chief Complaint: patient seen and examined in bed afebrile - Current Medication List Current Medications: Active Medications Acetaminophen (Tylenol -) 650 mg PO Q4H PRN PRN Reason: PAIN OR FEVER Last Admin: 11/25/17 02:08 Dose: 650 mg Amino Acids (Prosource No Carb Liquid Pkt) 30 ml PO BID@0800,1730 [facility] Last Admin: 11/26/17 08:30 Dose: 30 ml Apixaban (Eliquis -) 5 mg PO BID [facility] Last Admin: 11/26/17 10:11 Dose: Not Given Atorvastatin Calcium (Lipitor -) 40 mg PO HS [facility] Last Admin: 11/25/17 21:37 Dose: 40 mg Gabapentin (Neurontin -) 300 mg PO TID [facility] Last Admin: 11/26/17 05:47 Dose: 300 mg Metoprolol Tartrate (Lopressor -) 25 mg PO BID [facility] Last Admin: 11/26/17 10:21 Dose: 25 mg Oxycodone HCl (Roxicodone -) 5 mg PO Q6H PRN PRN Reason: PAIN LEVEL 4 - 6 Last Admin: 11/23/17 17:36 Dose: 5 mg Oxycodone HCl (Oxycontin -) 10 mg PO BID [facility] Last Admin: 11/26/17 10:21 Dose: 10 mg Pantoprazole Sodium (Protonix -) 40 mg PO DAILY [facility] Last Admin: 11/26/17 10:21 Dose: 40 mg Valacyclovir HCl (Valtrex -) 1,000 mg PO TID [facility] Last Admin: 11/26/17 05:47 Dose: 1,000 mg - Objective Vital Signs: Vital Signs Temperature 98.8 F 11/26/17 10:00 Pulse Rate 93 H 11/26/17 10:00 Respiratory Rate 20 11/26/17 10:00 Blood Pressure 115/57 11/26/17 10:00 O2 Sat by Pulse Oximetry (%) 98 11/24/17 21:00 Constitutional: Yes: Calm Cardiovascular: Yes: Regular Rate and Rhythm, S1, S2 Respiratory: Yes: CTA Bilaterally Gastrointestinal: Yes: Normal Bowel Sounds, Soft Musculoskeletal: Yes: Other (dry scabing rash) Neurological: Yes: Alert, Oriented Labs: CBC, BMP 11/26/17 07:00 11/25/17 08:00 INR, PTT INR 1.34 (0.82-1.09) H D 11/17/17 11:30 Problem List - Problems (1) Anemia Assessment/Plan: s/p prbc, h/h holding steady gi consult noted to get egd/colonscopy on stop eliquis PPI bid stool occult negative Code(s): D64.9 - ANEMIA, UNSPECIFIED (2) Weakness Assessment/Plan: neurology consult appreciated LS spine CT scan ordered- result noted and ordered urology and ortho PT OOB to chair Code(s): R53.1 - WEAKNESS (3) Bullous dermatitis Assessment/Plan: ID on board isolation acyclovir day 05/26 Code(s): L13.9 - BULLOUS DISORDER, UNSPECIFIED (4) Herpes zoster Assessment/Plan: acyclovir and hydration- day 05/26 neurontin for the pain Code(s): B02.9 - ZOSTER WITHOUT COMPLICATIONS Qualifiers: Herpes zoster complications: unspecified herpes zoster complication Qualified Code(s): B02.8 - Zoster with other complications (5) Acute DVT (deep venous thrombosis) Assessment/Plan: needs AC till february 2018 started in Sep 2017 for acute DVT hold AC for dvt Code(s): I82.409 - ACUTE EMBOLISM AND THOMBOS UNSP DEEP VN UNSP LOWER EXTREMITY Qualifiers: DVT location: lower extremity Laterality: left (6) Electrolyte abnormality Assessment/Plan: repleted Mg and K Code(s): E87.8 - OTH DISORDERS OF ELECTROLYTE AND FLUID BALANCE, NEC (7) Hydronephrosis Assessment/Plan: urology eval noted hydronephrosis secondary to urinary retention keep carrillo till of narcotics and then trial of voiding Code(s): N13.30 - UNSPECIFIED HYDRONEPHROSIS (8) Abnormal CT scan, lumbar spine Assessment/Plan: bony destruction of left hip ortho eval pt eval vitamin D Code(s): R93.7 - ABNORMAL FINDINGS ON DIAGNOSTIC IMAGING OF PRT [facility]
[2017-11-26] MEDS ORDERED: PT OWN MED DRAWER 7, Y5N ONE ×2 (14:04→22:21)
--- NOTE | 2017-11-26 18:44 | PN ---
Progress Note (short form) - Note Progress Note: NEUROLOGY FOLLOW-UP: Events reviewed. Pt. examined. Now on oral valcyclovir. Pt. c/o pain BOTH legs (L>R) and weakness. She confirms that she was non-ambulatory Prior to this bout of shingles. Now feels "foggy" and "tired." EXAM: Obese. Atrophic skin changes both calves. Crusting dermatomal rash left leg. Decreased ROM with pain Right shoulder. - Anne's. + SLR B/L NEURO: [facility]. Cannot recall where she last lived. Knows she is going to [place] 2017 but recalls November after 3 mins. Fluent speech. Right arm difficult to test proximally due to shoulder arthropathy but right grasp is weak (4/5). Left arm strength is normal. Left BJ reduced. Cannot elevate either leg against gravity. Ankle DF 5/5 B/L. R knee flexion 4+/5, left 4-/5. Areflexic in legs. Reduced vibration in both feet. IMP: Mild OMS Left L1, 2, and 3 shingles with myotomal weakness. Post-herpetic neuralgia. Chronic leg weakness and non-ambulatory status. LS spinal stenosis? SUGGEST: Increase gabapentin to 400 mg q8 hrs Check TSH, B12, ESR, CRP, CK, UA, C&S, CT of LS spine if desired PM&R consultation. Mobilize patient beginning with bedside PT [place] with TV, Radio, computer Limit narcotics Thank you very much, Dread Meredith MD
[2017-11-26] MEDS: oxyCODONE HCL 5 MG TABLET PO PRN (20:22)
[2017-11-26] MEDS: GABAPENTIN 400 MG CAPSULE (FP) PO SCH (22:22)
[2017-11-26] MEDS: ATORVASTATIN CA 40 MG TABLET (FP) PO SCH (22:23)
[2017-11-27] MEDS ORDERED: PT OWN MED DRAWER 7, Y5N ONE ×4 (05:58→14:13)
[2017-11-27] MEDS: GABAPENTIN 400 MG CAPSULE (FP) PO SCH ×3 (06:05→21:40)
[2017-11-27] MEDS: valACYclovir HCL 500 MG TABLET (FP) PO SCH ×3 (06:05→21:41)
[2017-11-27] MEDS ORDERED: BISACODYL 5 MG TABLET.DR (FP) PO ONE (10:12)
--- NOTE | 2017-11-27 10:12 | PN ---
Progress Note, Physician History of Present Illness: No events. Wants to speak with primary care team re egd/colonoscopy - Current Medication List Current Medications: Active Medications Acetaminophen (Tylenol -) 650 mg PO Q4H PRN PRN Reason: PAIN OR FEVER Last Admin: 11/25/17 02:08 Dose: 650 mg Amino Acids (Prosource No Carb Liquid Pkt) 30 ml PO BID@0800,1730 [facility] Last Admin: 11/26/17 17:23 Dose: 30 ml Apixaban (Eliquis -) 5 mg PO BID [facility] Last Admin: 11/26/17 22:33 Dose: Not Given Atorvastatin Calcium (Lipitor -) 40 mg PO HS [facility] Last Admin: 11/26/17 22:23 Dose: 40 mg Gabapentin (Neurontin -) 400 mg PO TID [facility] Last Admin: 11/27/17 06:05 Dose: 400 mg Metoprolol Tartrate (Lopressor -) 25 mg PO BID [facility] Last Admin: 11/26/17 22:22 Dose: 25 mg Oxycodone HCl (Roxicodone -) 5 mg PO Q6H PRN PRN Reason: PAIN LEVEL 4 - 6 Last Admin: 11/26/17 20:22 Dose: 5 mg Oxycodone HCl (Oxycontin -) 10 mg PO BID [facility] Last Admin: 11/26/17 22:22 Dose: 10 mg Pantoprazole Sodium (Protonix -) 40 mg PO DAILY [facility] Last Admin: 11/26/17 10:21 Dose: 40 mg Valacyclovir HCl (Valtrex -) 1,000 mg PO TID [facility] Last Admin: 11/27/17 06:05 Dose: 1,000 mg - Objective Vital Signs: Vital Signs Temperature 100.1 F H 11/27/17 06:00 Pulse Rate 81 11/27/17 06:00 Respiratory Rate 20 11/27/17 06:00 Blood Pressure 130/55 11/27/17 06:00 O2 Sat by Pulse Oximetry (%) 98 11/24/17 21:00 Constitutional: Yes: No Distress, Calm Eyes: Yes: Conjunctiva Clear HENT: Yes: Atraumatic Neck: Yes: Supple Cardiovascular: No: Bradycardia, Tachycardia Respiratory: Yes: Regular Gastrointestinal: Yes: Soft. No: Melena, Rectal Bleeding, Vomiting Neurological: Yes: Alert Labs: CBC, BMP 11/26/17 07:00 11/25/17 08:00 INR, PTT INR 1.34 (0.82-1.09) H D 11/17/17 11:30 CBCD WBC 9.9 K/mm3 (4.0-10.0) D 11/26/17 07:00 RBC 3.36 M/mm3 (3.60-5.2) L 11/26/17 07:00 Hgb 10.0 GM/dL (10.7-15.3) L 11/26/17 07:00 Hct 30.3 % (32.4-45.2) L 11/26/17 07:00 MCV 90.2 fl (80-96) 11/26/17 07:00 MCHC 33.0 g/dl (32.0-36.0) 11/26/17 07:00 RDW 16.0 % (11.6-15.6) H 11/26/17 07:00 Plt Count 453 K/MM3 (134-434) H D 11/26/17 07:00 MPV 8.0 fl (7.5-11.1) 11/26/17 07:00 CMP Sodium 145 mmol/L (136-145) 11/25/17 08:00 Potassium 5.5 mmol/L (3.5-5.1) H 11/25/17 08:00 Chloride 112 mmol/L (98-107) H 11/25/17 08:00 Carbon Dioxide 24 mmol/L (21-32) 11/25/17 08:00 Anion Gap 9 (8-16) 11/25/17 08:00 BUN 31 mg/dL (7-18) H 11/25/17 08:00 Creatinine 1.0 mg/dL (0.55-1.02) 11/25/17 08:00 Creat Clearance w eGFR 52.82 (>60) 11/25/17 08:00 Calcium 8.0 mg/dL (8.5-10.1) L 11/25/17 08:00 Total Bilirubin 0.5 mg/dL (0.2-1.0) D 11/25/17 08:00 AST 17 U/L (15-37) 11/25/17 08:00 ALT 13 U/L (12-78) 11/25/17 08:00 Alkaline Phosphatase 81 U/L (45-117) 11/25/17 08:00 Total Protein 4.5 g/dl (6.4-8.2) L 11/25/17 08:00 Albumin 1.3 g/dl (3.4-5.0) L 11/25/17 08:00 Problem List - Problems (1) Normocytic normochromic anemia Code(s): D64.9 - ANEMIA, UNSPECIFIED (2) Anticoagulant long-term use Code(s): Z79.01 - [employer] (CURRENT) USE OF ANTICOAGULANTS Assessment/Plan Eliquis on hold, prep ordered. Pt is not sure about having EGD/colonoscopy, wants to speak with her PCP first.
--- NOTE | 2017-11-27 10:41 | PN ---
Progress Note, Physician Chief Complaint: Cellulitis Zoster rash History of Present Illness: NAD -seen by ID and dermatology -IV acyclovir and Vanco completed -seen by Neurology for weakness and AMS 2/2 to narcotics--> on gabapentin -seen by GI for anemia--> possible EGD/colonoscopy--> eliquis on hold -Stool guaiac negative -H/H stable at this time, received PRBC -Iron def, venofer ordered - Current Medication List Current Medications: Active Medications Acetaminophen (Tylenol -) 650 mg PO Q4H PRN PRN Reason: PAIN OR FEVER Last Admin: 11/25/17 02:08 Dose: 650 mg Amino Acids (Prosource No Carb Liquid Pkt) 30 ml PO BID@0800,1730 [facility] Last Admin: 11/26/17 17:23 Dose: 30 ml Apixaban (Eliquis -) 5 mg PO BID [facility] Last Admin: 11/26/17 22:33 Dose: Not Given Atorvastatin Calcium (Lipitor -) 40 mg PO HS [facility] Last Admin: 11/26/17 22:23 Dose: 40 mg Gabapentin (Neurontin -) 400 mg PO TID [facility] Last Admin: 11/27/17 06:05 Dose: 400 mg Iron Sucrose 300 mg/ Sodium (Chloride) 250 mls @ 250 mls/hr IVPB ONCE ONE Stop: 11/27/17 11:31 Metoprolol Tartrate (Lopressor -) 25 mg PO BID [facility] Last Admin: 11/26/17 22:22 Dose: 25 mg Oxycodone HCl (Roxicodone -) 5 mg PO Q6H PRN PRN Reason: PAIN LEVEL 4 - 6 Last Admin: 11/26/17 20:22 Dose: 5 mg Oxycodone HCl (Oxycontin -) 10 mg PO BID [facility] Last Admin: 11/26/17 22:22 Dose: 10 mg Pantoprazole Sodium (Protonix -) 40 mg PO DAILY [facility] Last Admin: 11/26/17 10:21 Dose: 40 mg Polyethylene Glycol/Electrolytes (Golytely Solution -) 4,000 ml PO ONCE ONE Stop: 11/27/17 16:01 Valacyclovir HCl (Valtrex -) 1,000 mg PO TID [facility] Last Admin: 11/27/17 06:05 Dose: 1,000 mg - Objective Vital Signs: Vital Signs Temperature 100.1 F H 11/27/17 06:00 Pulse Rate 81 11/27/17 06:00 Respiratory Rate 20 11/27/17 06:00 Blood Pressure 130/55 11/27/17 06:00 O2 Sat by Pulse Oximetry (%) 98 11/24/17 21:00 Constitutional: Yes: Well Nourished, No Distress, Calm Cardiovascular: Yes: Regular Rate and Rhythm Respiratory: Yes: Regular Gastrointestinal: Yes: Normal Bowel Sounds, Soft Musculoskeletal: Yes: Muscle Weakness Peripheral Pulses WNL: Yes Integumentary: Yes: Rash (Left hip and thigh) Neurological: Yes: Alert, Oriented Psychiatric: Yes: Alert, Oriented Labs: CBC, BMP 11/26/17 07:00 11/25/17 08:00 INR, PTT INR 1.34 (0.82-1.09) H D 11/17/17 11:30 Problem List - Problems (1) Bullous dermatitis Assessment/Plan: -IV Acyclovir completed -seen by derm and ID -IV vancomycin completed Code(s): L13.9 - BULLOUS DISORDER, UNSPECIFIED (2) History of DVT (deep vein thrombosis) Assessment/Plan: -was on Eliquis, on hold for now for planned EGD/colonoscopy in AM -Hematology consult to evaluate for pre op bridging Code(s): Z86.718 - PERSONAL HISTORY OF OTHER VENOUS THROMBOSIS AND EMBOLISM (3) Lumbar disc disease with radiculopathy Assessment/Plan: -seen y Neurology -Gabapentin -avoid Narcotics -B12, Thyroid profile normal -elevated CRP Code(s): M51.16 - INTERVERTEBRAL DISC DISORDERS W RADICULOPATHY, LUMBAR REGION (4) Polyarthralgia Code(s): M25.50 - PAIN IN UNSPECIFIED JOINT (5) Anemia Assessment/Plan: -Stool Ob negative -h/h is stable -Iron deficient on iron profile -Venofer ordered today -not sure about EGD/colonoscopy Code(s): D64.9 - ANEMIA, UNSPECIFIED (6) Anticoagulant long-term use Assessment/Plan: -was on Eliquis, on hold for now for planned EGD/colonoscopy in AM -Hematology consult to evaluate for pre op bridging Code(s): Z79.01 - USP (CURRENT) USE OF ANTICOAGULANTS (7) Hyperkalemia Assessment/Plan: -borderline -repeat CMP in AM Code(s): E87.5 - HYPERKALEMIA Assessment/Plan see problem list -poor performance with physical therapy, would need SNF upon discharge
[2017-11-27] MEDS: oxyCODONE HCL 10 MG SUSTAINED ACTING TABLET PO SCH ×2 (10:52→21:40)
[2017-11-27] MEDS: AMINO ACIDS/PROTEIN HYDROLYS 30 ML LIQUID.PKT PO SCH ×2 (10:52→17:14)
[2017-11-27] MEDS: METOPROLOL TARTRATE 25 MG TABLET (FP) PO SCH ×2 (10:52→21:42)
--- NOTE | 2017-11-27 10:52 | CON.PSY ---
Psychiatry Consult Chief Complaint: 86 year old female seen for psych eval for depression. Admitted with Herpes Z and Pain syndrome. no0 history of depression. Symptoms: reports: Depressed Mood - Previous Psychiatric Treatment Outpatient: None Inpatient: None - Previous Substance Abuse Treatment Outpatient: None Inpatient: None - Current Medications Current Medications: Active Medications Acetaminophen (Tylenol -) 650 mg PO Q4H PRN PRN Reason: PAIN OR FEVER Last Admin: 11/25/17 02:08 Dose: 650 mg Amino Acids (Prosource No Carb Liquid Pkt) 30 ml PO BID@0800,1730 [facility] Last Admin: 11/26/17 17:23 Dose: 30 ml Apixaban (Eliquis -) 5 mg PO BID [facility] Last Admin: 11/26/17 22:33 Dose: Not Given Atorvastatin Calcium (Lipitor -) 40 mg PO HS [facility] Last Admin: 11/26/17 22:23 Dose: 40 mg Gabapentin (Neurontin -) 400 mg PO TID [facility] Last Admin: 11/27/17 06:05 Dose: 400 mg Iron Sucrose 300 mg/ Sodium (Chloride) 265 mls @ 250 mls/hr IVPB ONCE ONE Stop: 11/27/17 12:03 Metoprolol Tartrate (Lopressor -) 25 mg PO BID [facility] Last Admin: 11/26/17 22:22 Dose: 25 mg Oxycodone HCl (Roxicodone -) 5 mg PO Q6H PRN PRN Reason: PAIN LEVEL 4 - 6 Last Admin: 11/26/17 20:22 Dose: 5 mg Oxycodone HCl (Oxycontin -) 10 mg PO BID [facility] Last Admin: 11/26/17 22:22 Dose: 10 mg Pantoprazole Sodium (Protonix -) 40 mg PO DAILY [facility] Last Admin: 11/26/17 10:21 Dose: 40 mg Polyethylene Glycol/Electrolytes (Golytely Solution -) 4,000 ml PO ONCE ONE Stop: 11/27/17 16:01 Valacyclovir HCl (Valtrex -) 1,000 mg PO TID [facility] Last Admin: 11/27/17 06:05 Dose: 1,000 mg - Allergies Allergies: Allergies Allergy/AdvReac Type Severity Reaction Status Date / Time crab Allergy Severe Hives Verified 11/19/17 11:05 No Known Drug Allergies Allergy Verified 11/17/17 10:58 - Current Living Status Usual Living Arrangement: Alone - Current Mental Status Evaluation Appearance: Disheveled Attitude: Cooperative - Affect Affect: Constrictive Appropriateness: Appropriate to Content - Mood Mood: Depressed - Speech/Language Expressive: Coherent - Psychomotor Activity Psychomotor Activity: Normal - Thought Process Thought Process: Intact - Thought Content Hallucinations: Absent Delusions: Absent - Self Perception Self Perception: No Impairment - Cognition Attention: Alert Orientation: Time Memory, Immediate Recall: Intact Memory, Short Term: 2/3 Memory, Remote with Promptin/3 - Concentration Serial Sevens Intact: No Simple Calculations Intact: No - Abstraction Proverb Interpretation: Intact Judgement: Intact - Insight Insight: Intact - Impulse Control Impulse Control: Good Control - Suicidal Ideation Suicidal Ideation: No - Homicidal Ideation Homicidal Ideation: No Assessment/Plan 1) Start Cymbalta 20 mg po for depression and pain.
[2017-11-27] MEDS: APIXABAN 5 MG TABLET PO SCH ×2 (10:53→21:34)
[2017-11-27] MEDS: PANTOPRAZOLE 40 MG TABLET (FP) PO SCH (10:53)
[2017-11-27] MEDS ORDERED: IRON SUCROSE INJECTION 300 MG in SODIUM CHLORIDE 250 ML IVPB ONE (11:00)
[2017-11-27] MEDS ORDERED: PEG 3350/NA SULF BICARB CL/KCL 4000 ML SOLN.RECON PO ONE (16:00)
--- NOTE | 2017-11-27 17:08 | CONSULT ---
Consult Consult Specialty:: Hematology - History of Present Illness History of Present Illness: 86 yo Female, lives in assisted living with Home health Aide. PMH: HTN, Chol, Colonic CA, GERD and DVT. Maintained on Apixaban, metoprolol, atorvastatin, pantoprazole, furosamide, metalozoane and oxycodone for pain. Hematology consulted for anemia/DVT Now pt admitted for cellulitis and zoster. Pt poor historian Chart reviewed thoroughly - History Source History Provided By: Medical Record - Past Medical History Cardio/Vascular: Yes: HTN, Hyperlipdemia Gastrointestinal: Yes: Cancer (colon cancer s/p resection 2011) Renal/: Yes: Renal Inusuff Musculoskeletal: Yes: Chronic low back pain, Osteoarthritis - Past Surgical History Past Surgical History: Yes: Ileosotomy (with ) - Alcohol/Substance Use Hx Alcohol Use: No History of Substance Use: reports: None - Smoking History Smoking history: Former smoker Have you smoked in the past 12 months: No If you are a former smoker, when did you quit?: 30 yrs ago - Social History Usual Living Arrangement: Alone ADL: Independent (Lives alone at home, ) 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 History of Recent Travel: No Home Medications - Allergies Allergies/Adverse Reactions: Allergies Allergy/AdvReac Type Severity Reaction Status Date / Time crab Allergy Severe Hives Verified 11/19/17 11:05 No Known Drug Allergies Allergy Verified 11/17/17 10:58 - Home Medications Home Medications: Ambulatory Orders Atorvastatin Ca [Lipitor] 40 mg PO HS 07/29/17 Metoprolol Tartrate [Lopressor -] 25 mg PO DAILY 07/29/17 Silver Sulfadiazine 1% Top Cr [Silvadene -] 1 applic TP DAILY 07/29/17 Apixaban [Eliquis -] 5 mg PO BID tablet 10/03/17 Pantoprazole Sodium [Protonix -] 40 mg PO DAILY tablet.ec 10/03/17 Bacitracin - [Bacitracin Topical Ointment -] 1 applic TP DAILY 11/17/17 Carboxymethylcellulose Sodium [Lubricant Eye Drops] 1 each OU HS 11/17/17 Cephalexin [Keflex] 500 mg PO TID 11/17/17 Clotrimazole [Lotrimin AF] 0 gm TP BID 11/17/17 Diphenhydramine HCl [Benadryl -] 25 mg PO Q4H PRN 11/17/17 Furosemide [Lasix] 40 mg PO DAILY 11/17/17 Metolazone 2.5 mg PO DAILY 11/17/17 oxyCODONE HCL [Roxicodone -] 5 mg PO Q6H PRN MDD 4 11/17/17 oxyCODONE SR [Oxycontin] 10 mg PO BID 11/17/17 Family Disease History - Family Disease History Family Disease History: Diabetes: Sister (HTN, Hyperlipidemia), Heart Disease: Brother (CABG,HTN, hyperlipidemia), Sister, Other: Father ( 70: [place]), Mother ( 84: chf) Physical Exam Vital Signs: Vital Signs Temperature 99.9 F H 11/27/17 14:00 Pulse Rate 102 H 11/27/17 10:00 Respiratory Rate 20 11/27/17 10:00 Blood Pressure 107/47 11/27/17 10:00 O2 Sat by Pulse Oximetry (%) 98 11/24/17 21:00 Constitutional: Yes: No Distress Eyes: Yes: Conjunctiva Clear HENT: Yes: Atraumatic, Normocephalic Neck: Yes: Supple Cardiovascular: Yes: Regular Rate and Rhythm Respiratory: Yes: Regular, CTA Bilaterally Gastrointestinal: Yes: Soft Integumentary: Yes: Erythema Wound/Incision: Yes: Clean/Dry Neurological: Yes: Alert Psychiatric: Yes: Alert Labs: CBC, BMP 11/26/17 07:00 11/25/17 08:00 Imaging - Results Cat Scan: Report Reviewed Problem List - Problems (1) Anemia Code(s): D64.9 - ANEMIA, UNSPECIFIED (2) Herpes zoster Code(s): B02.9 - ZOSTER WITHOUT COMPLICATIONS Qualifiers: Herpes zoster complications: unspecified herpes zoster complication Qualified Code(s): B02.8 - Zoster with other complications (3) History of DVT (deep vein thrombosis) Code(s): Z86.718 - PERSONAL HISTORY OF OTHER VENOUS THROMBOSIS AND EMBOLISM (4) Normocytic normochromic anemia Code(s): D64.9 - ANEMIA, UNSPECIFIED Assessment/Plan NC/NC anemia: h/o colon ca 2011, deemed high risk, but from available info, seems that pt did not receive adjuvant chemo check CEA for GI procedures H/o DVT in 09/2017 was on eliquis hold eliquis 48 hrs ( orders says "active", but confirmed from RN not given and 11/27) pre-procedures and depending on findings resume post-procedure when deemed appropriate. Zoster/cellulitis: per ID
[2017-11-27] MEDS: ATORVASTATIN CA 40 MG TABLET (FP) PO SCH (21:40)
[2017-11-28] MEDS: GABAPENTIN 400 MG CAPSULE (FP) PO SCH ×3 (06:12→21:17)
[2017-11-28] MEDS: valACYclovir HCL 500 MG TABLET (FP) PO SCH ×3 (06:12→21:18)
[2017-11-28] MEDS: AMINO ACIDS/PROTEIN HYDROLYS 30 ML LIQUID.PKT PO SCH ×2 (07:35→17:22)
[2017-11-28 08:27] LABS: BASO % 0.5 % (0-2.0); EOS % 0.4 % (0-4.5); HEMATOCRIT 32.4 % (32.4-45.2); HEMOGLOBIN 10.9 GM/dL (10.7-15.3); LYMPH % 18.1 % (8-40); MCH 30.1 pg (25.7-33.7); MCHC 33.8 g/dl (32.0-36.0); MEAN CELL VOLUME 89.1 fl (80-96); MONO % 7.9 % (3.8-10.2); NEUT % 73.1 % (42.8-82.8); PLATELET COUNT 571 K/MM3 (134-434); RBC 3.63 M/mm3 (3.60-5.2); RDW 15.5 % (11.6-15.6); WHITE BLOOD COUNT 9.7 K/mm3 (4.0-10.0)
--- NOTE | 2017-11-28 08:27 | PN ---
Progress Note, Physician - Current Medication List Current Medications: Active Medications Acetaminophen (Tylenol -) 650 mg PO Q4H PRN PRN Reason: PAIN OR FEVER Last Admin: 11/25/17 02:08 Dose: 650 mg Amino Acids (Prosource No Carb Liquid Pkt) 30 ml PO BID@0800,1730 [facility] Last Admin: 11/28/17 07:35 Dose: Not Given Apixaban (Eliquis -) 5 mg PO BID [facility] Last Admin: 11/27/17 21:34 Dose: Not Given Atorvastatin Calcium (Lipitor -) 40 mg PO HS [facility] Last Admin: 11/27/17 21:40 Dose: 40 mg Duloxetine HCl (Cymbalta -) 20 mg PO DAILY [facility] Gabapentin (Neurontin -) 400 mg PO TID [facility] Last Admin: 11/28/17 06:12 Dose: Not Given Metoprolol Tartrate (Lopressor -) 25 mg PO BID [facility] Last Admin: 11/27/17 21:42 Dose: 25 mg Oxycodone HCl (Roxicodone -) 5 mg PO Q6H PRN PRN Reason: PAIN LEVEL 4 - 6 Last Admin: 11/26/17 20:22 Dose: 5 mg Oxycodone HCl (Oxycontin -) 10 mg PO BID [facility] Last Admin: 11/27/17 21:40 Dose: 10 mg Pantoprazole Sodium (Protonix -) 40 mg PO DAILY [facility] Last Admin: 11/27/17 10:53 Dose: 40 mg Valacyclovir HCl (Valtrex -) 1,000 mg PO TID [facility] Last Admin: 11/28/17 06:12 Dose: Not Given - Objective Vital Signs: Vital Signs Temperature 97.9 F 11/28/17 08:00 Pulse Rate 114 H 11/28/17 08:00 Respiratory Rate 20 11/28/17 08:00 Blood Pressure 150/82 11/28/17 08:00 O2 Sat by Pulse Oximetry (%) 98 11/24/17 21:00 Cardiovascular: Yes: Regular Rate and Rhythm Respiratory: Yes: Regular, CTA Bilaterally Gastrointestinal: Yes: Normal Bowel Sounds, Soft. No: Tenderness Labs: CBC, BMP 11/28/17 07:30 INR, PTT INR 1.34 (0.82-1.09) H D 11/17/17 11:30 Problem List - Problems (1) Bullous dermatitis Code(s): L13.9 - BULLOUS DISORDER, UNSPECIFIED (2) Anemia Code(s): D64.9 - ANEMIA, UNSPECIFIED (3) Herpes zoster Code(s): B02.9 - ZOSTER WITHOUT COMPLICATIONS Qualifiers: Herpes zoster complications: unspecified herpes zoster complication Qualified Code(s): B02.8 - Zoster with other complications (4) Tachycardia Code(s): R00.0 - TACHYCARDIA, UNSPECIFIED Assessment/Plan - Problems (1) Bullous dermatitis Assessment/Plan: -IV Acyclovir completed--on po -seen by derm and ID -IV vancomycin completed Code(s): L13.9 - BULLOUS DISORDER, UNSPECIFIED (2) History of DVT (deep vein thrombosis) Assessment/Plan: -was on Eliquis, on hold for now for planned EGD/colonoscopy -Hematology consult to evaluate for pre op bridging--noted Code(s): Z86.718 - PERSONAL HISTORY OF OTHER VENOUS THROMBOSIS AND EMBOLISM (3) Lumbar disc disease with radiculopathy Assessment/Plan: -seen y Neurology -Gabapentin -avoid Narcotics -B12, Thyroid profile normal -elevated CRP Code(s): M51.16 - INTERVERTEBRAL DISC DISORDERS W RADICULOPATHY, LUMBAR REGION (4) Polyarthralgia Code(s): M25.50 - PAIN IN UNSPECIFIED JOINT (5) Anemia Assessment/Plan: -Stool Ob negative -h/h is stable -Iron deficient on iron profile -Venofer ordered today -now agrees to EGD/colonoscopy Code(s): D64.9 - ANEMIA, UNSPECIFIED (6) Anticoagulant long-term use Assessment/Plan: -was on Eliquis, on hold for now for planned EGD/colonoscopy in AM -Hematology consult to evaluate for pre op bridging-noted Code(s): Z79.01 - HALFWAY (CURRENT) USE OF ANTICOAGULANTS (7) Hyperkalemia Assessment/Plan: -borderline -repeat CMP Code(s): E87.5 - HYPERKALEMIA Assessment/Plan see problem list -poor performance with physical therapy, would need SNF upon discharge
[2017-11-28 08:35] LABS: ACTIVATED PTT 29.5 SECONDS (26.9-34.4); INR 1.17 (0.82-1.09); PROTHROMBIN TIME (PATIENT) 13.2 SEC (9.98-11.88)
[2017-11-28 08:55] LABS: ALBUMIN 1.5 g/dl (3.4-5.0); ANION GAP 10 (8-16); BLOOD UREA NITROGEN 28 mg/dL (7-18); CALCIUM 7.9 mg/dL (8.5-10.1); CHLORIDE 109 mmol/L (98-107); CO2 25 mmol/L (21-32); CREATININE 0.7 mg/dL (0.55-1.02); GLUCOSE,RANDOM 76 mg/dL (74-106); POTASSIUM 3.8 mmol/L (3.5-5.1); SODIUM 144 mmol/L (136-145)
[2017-11-28 09:01] LABS: ALK PHOS 117 U/L (45-117); BILIRUBIN,TOTAL 0.2 mg/dL (0.2-1.0); SGOT/AST 23 U/L (15-37); SGPT/ALT 23 U/L (12-78)
[2017-11-28] MEDS ORDERED: PT OWN MED DRAWER 7, Y5N ONE ×3 (09:04→21:08)
[2017-11-28] MEDS: APIXABAN 5 MG TABLET PO SCH ×3 (09:11→21:18)
[2017-11-28] MEDS: METOPROLOL TARTRATE 25 MG TABLET (FP) PO SCH ×2 (09:12→21:18)
[2017-11-28] MEDS ORDERED: PROPOFOL 20 ML ONE ×2 (12:10)
[2017-11-28] MEDS ORDERED: ETOMIDATE 20 MG/10 ML AMPUL IVPUSH ONE (12:10)
--- NOTE | 2017-11-28 12:47 | PN ---
Progress Note (short form) - Note Progress Note: EGD revealed mild gastritis, otherwise normal, biopsies taken Inadequate colon prep (solid and thick bown stool on DRG), colonoscopy rescheduled to tomorrow, repeat bowel prep today, tap water enema in am. Problem List - Problems (1) Normocytic normochromic anemia Code(s): D64.9 - ANEMIA, UNSPECIFIED (2) Anticoagulant long-term use Code(s): Z79.01 - USP (CURRENT) USE OF ANTICOAGULANTS
[2017-11-28] MEDS ORDERED: BISACODYL 5 MG TABLET.DR (FP) PO ONE (13:15)
[2017-11-28] MEDS ORDERED: PEG 3350/NA SULF BICARB CL/KCL 4000 ML SOLN.RECON PO ONE (13:30)
[2017-11-28] MEDS: DULoxetine HCL 20 MG CAPSULE.DR (FP) PO SCH (13:58)
[2017-11-28] MEDS: PANTOPRAZOLE 40 MG TABLET (FP) PO SCH (13:58)
[2017-11-28] MEDS: oxyCODONE HCL 10 MG SUSTAINED ACTING TABLET PO SCH ×2 (13:58→21:17)
--- NOTE | 2017-11-28 17:20 | CONS ---
PHYSICAL MEDICINE REHABILITATION CONSULTATION DATE OF CONSULTATION: 11/28/2017 HISTORY OF PRESENT ILLNESS: Patient is an 86-year-old woman with past medical history of deep venous thrombosis, hypertension, gastroesophageal reflux disease, who was admitted with pain in the left lower extremity, as well as a rash, weakness, and difficulty with transferring. Per the patient, she has not been walking in at least 6 months, but it is uncertain how reliable a historian she is. She has, per neurologic evaluation, some mild OMS. She did undergo evaluation including a CAT scan of the lumbar spine which showed lumbar spondylosis, stable from February 2017. However, there was new bone destruction noted in the left femoral head and left acetabulum, uncertain etiology, possibly septic joint in the past. Patient herself is not able to describe her inability to walk. In reviewing her blood work, she had normal WBCs on admission, 5.2; hemoglobin 10.7; platelet count 341. She did have a drop in her hemoglobin on November 23 to 7.1, but this quickly improved, and she has been stable over the last 4-5 days. Current CBC: WBC is 9.7, hemoglobin 10.9, platelet count 571. Current chemistry shows a low albumin at 1.5, low total protein at 5.0, normal B12 as of yesterday at 405, and TSH was normal at 2.63. C-reactive protein slightly elevated at 3.4. Otherwise, chemistry today: Sodium 144, potassium 3.8, BUN 28, creatinine 0.7. On admission, her potassium level was low at 2.8. Patient had negative troponin x2. She has been evaluated by Therapy, unable to really transfer or perform much bed mobility. She has mainly been doing exercise. PAST MEDICAL AND SURGICAL HISTORY: Extensive, hypertension, hyperlipidemia, colon cancer, DVT, chronic low back pain, osteoarthritis, renal insufficiency, colon resection in 2011, chronic anemia. SOCIAL HISTORY: Lives in assisted living. Per the patient, she was getting out of bed into a wheelchair with 1-person assist but has not been ambulatory in some time. No alcohol. No tobacco. ALLERGIES: None noted. CURRENT MEDICATIONS: She is on Neurontin 400 mg 3 times a day. Eliquis is being held because she underwent colonoscopy. She is also on pain medication, Protonix, Lipitor, Lopressor, Cymbalta, and Tylenol. REVIEW OF SYSTEMS: She denies any dizziness or lightheadedness, any blurry vision, double vision that is new, any nausea, vomiting, difficulty swallowing, difficulty chewing, any chest pain or shortness of breath. 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 She has difficulty moving both lower extremities. Pain in the left thigh and swelling in the lower extremities. Rash in the left thigh as well as dysvascular discoloration distally in both lower extremities. PHYSICAL EXAMINATION: General: Patient is an elderly woman seen lying in bed. She is awake and cooperative but in obvious discomfort with certain movements including the right shoulder and bilateral lower extremities. HEENT: She is normocephalic and atraumatic. Extraocular muscles appear intact. She has no obvious facial weakness. Poor dentition. Dry mucous membranes. Neck: Supple. Extremities: Edema in both lower extremities. Rash on the left thigh. Dysvascular changes in the lower extremities. Neuromuscular: She is awake, alert, oriented to person, place, and time. Cranial nerves 2-12 are grossly intact. She has limited use of the right upper extremity with only 90 degrees of forward flexion compared to the left shoulder which is 140 degrees of forward flexion. She has fairly good elbow flexion and extension. She has some moderate arthritic changes in the hands which are not limiting. In the lower extremities, very difficult to examine. She has pain with movement of either leg passively. Distally, she has better strength than proximally. Only 1-2/5 strength in the proximal lower extremities. Distally at least 2-3/5 strength in the left lower extremity. In the right lower extremity, perhaps 3-4, but not antigravity currently partially. She has a lot of pain in the right knee. Tenderness in both knees. OVERALL IMPRESSION: 1. Deficits in mobility and activities of daily living which appear multifactorial. 2. Left hip femoral head and acetabulum destruction which has progressed from February 15, 2017. 3. Underlying lumbar spondylosis with facet arthropathy, canal stenosis at L4-5. 4. Shingles, left lower extremity. 5. Deconditioning. 6. Diffuse osteoarthritis. 7. Right shoulder capsulitis. 8. Anemia. 9. Hypoalbuminemia. 10. History of deep venous thrombosis. 11. History of colon cancer. 12. Hypertension. 13. Edema of the lower extremities. PLAN/SUGGESTION: 1. Continue physical therapy at the bedside to improve range of motion; bed mobility; if able, transfers out of bed into a chair. Doubt she will be a functional ambulator. 2. When appropriate, out of bed to chair. 3. Restart anticoagulation when cleared. 4. Dietary consultation. 5. Safety/fall precautions. 6. Pain control. 7. May benefit from short-term rehabilitation to at least be able to transfer into a wheelchair depending on the needs at the assisted living. Thank you for this referral. NADIA TOWNSEND M.D. [id number]
[2017-11-28] MEDS: ATORVASTATIN CA 40 MG TABLET (FP) PO SCH (21:16)
[2017-11-29] MEDS: valACYclovir HCL 500 MG TABLET (FP) PO SCH ×3 (06:08→21:46)
[2017-11-29] MEDS: GABAPENTIN 400 MG CAPSULE (FP) PO SCH ×3 (06:08→21:45)
[2017-11-29] MEDS: DULoxetine HCL 20 MG CAPSULE.DR (FP) PO SCH (09:06)
[2017-11-29] MEDS: AMINO ACIDS/PROTEIN HYDROLYS 30 ML LIQUID.PKT PO SCH ×2 (09:06→17:24)
[2017-11-29] MEDS: APIXABAN 5 MG TABLET PO SCH ×2 (09:06→21:46)
[2017-11-29] MEDS: PANTOPRAZOLE 40 MG TABLET (FP) PO SCH ×2 (09:07→09:59)
[2017-11-29] MEDS: oxyCODONE HCL 10 MG SUSTAINED ACTING TABLET PO SCH ×3 (09:07→21:45)
[2017-11-29] MEDS: METOPROLOL TARTRATE 25 MG TABLET (FP) PO SCH ×2 (09:53→21:45)
[2017-11-29] MEDS: oxyCODONE HCL 5 MG TABLET PO PRN (09:59)
--- NOTE | 2017-11-29 11:09 | PN ---
Progress Note, Physician Chief Complaint: Cellulitis Zoster rash History of Present Illness: NAD -seen by ID and dermatology -IV acyclovir and Vanco completed -seen by Neurology for weakness and AMS 2/2 to narcotics--> on gabapentin -seen by GI for anemia--> for colonoscopy--> eliquis on hold -Stool guaiac negative -H/H stable at this time, received PRBC -Iron def, venofer ordered -had EGD yesterday, shows mild gastritis -for Colonoscopy today - Current Medication List Current Medications: Active Medications Acetaminophen (Tylenol -) 650 mg PO Q4H PRN PRN Reason: PAIN OR FEVER Last Admin: 11/25/17 02:08 Dose: 650 mg Amino Acids (Prosource No Carb Liquid Pkt) 30 ml PO BID@0800,1730 [facility] Last Admin: 11/29/17 09:06 Dose: Not Given Apixaban (Eliquis -) 5 mg PO BID [facility] Last Admin: 11/29/17 09:06 Dose: Not Given Atorvastatin Calcium (Lipitor -) 40 mg PO HS [facility] Last Admin: 11/28/17 21:16 Dose: 40 mg Duloxetine HCl (Cymbalta -) 20 mg PO DAILY [facility] Last Admin: 11/29/17 09:06 Dose: Not Given Gabapentin (Neurontin -) 400 mg PO TID [facility] Last Admin: 11/29/17 06:08 Dose: Not Given Metoprolol Tartrate (Lopressor -) 25 mg PO BID [facility] Last Admin: 11/29/17 09:53 Dose: 25 mg Oxycodone HCl (Roxicodone -) 5 mg PO Q6H PRN PRN Reason: PAIN LEVEL 4 - 6 Last Admin: 11/29/17 09:59 Dose: 5 mg Oxycodone HCl (Oxycontin -) 10 mg PO BID [facility] Last Admin: 11/29/17 09:07 Dose: Not Given Pantoprazole Sodium (Protonix -) 40 mg PO DAILY [facility] Last Admin: 11/29/17 09:59 Dose: 40 mg Valacyclovir HCl (Valtrex -) 1,000 mg PO TID [facility] Last Admin: 11/29/17 06:08 Dose: Not Given - Objective Vital Signs: Vital Signs Temperature 99.1 F 11/29/17 09:23 Pulse Rate 103 H 03/16/18 09:23 Respiratory Rate 20 11/29/17 09:23 Blood Pressure 132/74 11/29/17 09:23 O2 Sat by Pulse Oximetry (%) 93 L 11/28/17 21:00 Constitutional: Yes: Well Nourished, No Distress, Calm Cardiovascular: Yes: Regular Rate and Rhythm Respiratory: Yes: Regular Gastrointestinal: Yes: Normal Bowel Sounds, Soft, Abdomen, Obese Musculoskeletal: Yes: Muscle Weakness Edema: Yes Edema: LLE: 2+, RLE: 2+ Peripheral Pulses WNL: Yes Neurological: Yes: Alert, Oriented Psychiatric: Yes: Alert, Oriented Labs: CBC, BMP 11/28/17 07:30 11/28/17 07:34 INR, PTT INR 1.17 (0.82-1.09) H 11/28/17 07:30 Problem List - Problems (1) Bullous dermatitis Assessment/Plan: -IV Acyclovir completed -seen by derm and ID -IV vancomycin completed -crust formation Code(s): L13.9 - BULLOUS DISORDER, UNSPECIFIED (2) History of DVT (deep vein thrombosis) Assessment/Plan: -was on Eliquis, on hold for now for colonoscopy today Code(s): Z86.718 - PERSONAL HISTORY OF OTHER VENOUS THROMBOSIS AND EMBOLISM (3) Lumbar disc disease with radiculopathy Assessment/Plan: -seen y Neurology -Gabapentin -avoid Narcotics -B12, Thyroid profile normal -elevated CRP Code(s): M51.16 - INTERVERTEBRAL DISC DISORDERS W RADICULOPATHY, LUMBAR REGION (4) Polyarthralgia Code(s): M25.50 - PAIN IN UNSPECIFIED JOINT (5) Anemia Assessment/Plan: -Stool Ob negative -h/h is stable -Iron deficient on iron profile -/colonoscopy Code(s): D64.9 - ANEMIA, UNSPECIFIED (6) Anticoagulant long-term use Assessment/Plan: -was on Eliquis, on hold for now for planned colonoscopy -hematology consult Code(s): Z79.01 - PRISON (CURRENT) USE OF ANTICOAGULANTS (7) Hyperkalemia Assessment/Plan: -resolved Code(s): E87.5 - HYPERKALEMIA Assessment/Plan see problem list -poor performance with physical therapy, would need SNF upon discharge
[2017-11-29] MEDS ORDERED: LIDOCAINE HCL/PF 2% SDV 5ML VIAL ONE (11:53)
--- NOTE | 2017-11-29 13:03 | PROC ---
Endoscopy Procedure Endoscopy procedure completed. Please see scanned procedure report. A small polyp was found and removed, mild diverticulosis throughout the colon was noted. Mild inflammatory changes around 2 metallic hansel/sutures were noted in a narrow rectum. Otherwise normal colonoscopy.
[2017-11-29] MEDS ORDERED: PT OWN MED DRAWER 7, Y5N ONE ×3 (14:36→21:23)
[2017-11-29] MEDS: ATORVASTATIN CA 40 MG TABLET (FP) PO SCH (21:45)
[2017-11-30] MEDS: oxyCODONE HCL 5 MG TABLET PO PRN (03:02)
[2017-11-30] MEDS: valACYclovir HCL 500 MG TABLET (FP) PO SCH ×3 (05:51→21:55)
[2017-11-30] MEDS: GABAPENTIN 400 MG CAPSULE (FP) PO SCH ×3 (05:51→21:55)
[2017-11-30 08:44] LABS: BASO % 0.9 % (0-2.0); EOS % 0.6 % (0-4.5); HEMATOCRIT 29.7 % (32.4-45.2); HEMOGLOBIN 9.8 GM/dL (10.7-15.3); LYMPH % 28.4 % (8-40); MCH 29.7 pg (25.7-33.7); MEAN CELL VOLUME 89.9 fl (80-96); MEAN PLT VOLUME 7.9 fl (7.5-11.1); MONO % 11.7 % (3.8-10.2); NEUT % 58.4 % (42.8-82.8); PLATELET COUNT 522 K/MM3 (134-434); RBC 3.31 M/mm3 (3.60-5.2); RDW 15.8 % (11.6-15.6); WHITE BLOOD COUNT 7.2 K/mm3 (4.0-10.0)
[2017-11-30] MEDS: AMINO ACIDS/PROTEIN HYDROLYS 30 ML LIQUID.PKT PO SCH ×2 (08:44→17:24)
[2017-11-30 09:14] LABS: ALBUMIN 1.5 g/dl (3.4-5.0); ANION GAP 11 (8-16); BILIRUBIN,TOTAL 0.4 mg/dL (0.2-1.0); BLOOD UREA NITROGEN 20 mg/dL (7-18); CALCIUM 8.1 mg/dL (8.5-10.1); CHLORIDE 106 mmol/L (98-107); CO2 27 mmol/L (21-32); CREATININE 0.6 mg/dL (0.55-1.02); GLUCOSE,RANDOM 78 mg/dL (74-106); SGOT/AST 11 U/L (15-37); SGPT/ALT 13 U/L (12-78); SODIUM 144 mmol/L (136-145)
[2017-11-30 09:15] LABS: ALK PHOS 95 U/L (45-117)
[2017-11-30 09:31] LABS: POTASSIUM 2.9 mmol/L (3.5-5.1)
[2017-11-30] MEDS ORDERED: POTASSIUM CHLORIDE TABS 20 MEQ TABLET.ER (FP) PO ONE (09:47)
--- NOTE | 2017-11-30 10:32 | PN ---
Physical Exam: SUBJECTIVE: Patient seen and examined. She has no complaints. OBJECTIVE: Vital Signs Period Temp Pulse Resp BP Sys/Brown Pulse Ox Last 24 Hr 97.7 F-98.8 F 77-86 14-20 111-146/60-89 95-100 GENERAL: The patient is awake, alert, and fully oriented, in no acute distress. LUNGS: Breath sounds equal, clear to auscultation bilaterally, no wheezes, no crackles, no accessory muscle use. HEART: S1S2, RRR, PACs, (+) 2/6 SM ABDOMEN: Soft, nontender, nondistended, normoactive bowel sounds, no guarding, no rebound, no hepatosplenomegaly, no masses. EXTREMITIES: 2+ pulses, warm, well-perfused, 2+ edema. Laboratory Results - last 24 hr 11/29/17 11/30/17 11/30/17 06:45 08:00 08:00 WBC 7.2 RBC 3.31 L Hgb 9.8 L D Hct 29.7 L MCV 89.9 MCH 29.7 MCHC 33.0 RDW 15.8 H Plt Count 522 H MPV 7.9 Neutrophils % 58.4 D Lymphocytes % 28.4 D Monocytes % 11.7 H Eosinophils % 0.6 Basophils % 0.9 Sodium 144 Potassium 2.9 L* Chloride 106 Carbon Dioxide 27 Anion Gap 11 BUN 20 H Creatinine 0.6 Creat Clearance w eGFR > 60 Random Glucose 78 Calcium 8.1 L Total Bilirubin 0.4 D AST 11 L ALT 13 Alkaline Phosphatase 95 Total Protein 5.0 L Albumin 1.5 L Carcinoembryonic Ag 1.4 Active Medications Generic Name Dose Route Start Last Admin Trade Name Freq PRN Reason Stop Dose Admin Acetaminophen 650 mg 11/19/17 12:48 11/25/17 02:08 Tylenol - PO 650 mg Q4H PRN Administration PAIN OR FEVER Amino Acids 30 ml 11/20/17 17:30 11/30/17 08:44 Prosource No Carb Liquid Pkt PO 30 ml BID@0800,1730 MATHEW Administration Apixaban 5 mg 11/17/17 22:00 11/29/17 21:46 Eliquis - PO 5 mg BID MATHEW Administration Atorvastatin Calcium 40 mg 11/17/17 22:00 11/29/17 21:45 Lipitor - PO 40 mg HS MATHEW Administration Duloxetine HCl 20 mg 11/28/17 10:00 11/29/17 09:06 Cymbalta - PO Not Given DAILY MATHEW Gabapentin 400 mg 11/26/17 22:00 11/30/17 05:51 Neurontin - PO 400 mg TID MATHEW Administration Potassium Chloride 10 meq in 100 mls @ 100 mls/hr 11/30/17 10:00 Potassium Chloride 10 Meq Premix Ivpb - IVPB 11/30/17 11:59 Q60M MATHEW Metoprolol Tartrate 25 mg 11/18/17 22:00 11/29/17 21:45 Lopressor - PO 25 mg BID MATHEW Administration Oxycodone HCl 5 mg 11/17/17 16:15 11/30/17 03:02 Roxicodone - PO 5 mg Q6H PRN Administration PAIN LEVEL 4 - 6 Oxycodone HCl 10 mg 11/17/17 22:00 11/29/17 21:45 Oxycontin - PO 10 mg BID MATHEW Administration Pantoprazole Sodium 40 mg 11/18/17 10:00 11/29/17 09:59 Protonix - PO 40 mg DAILY MATHEW Administration Potassium Chloride 40 meq 11/30/17 09:47 K-Dur - PO 11/30/17 09:48 ONCE ONE Valacyclovir HCl 1,000 mg 11/24/17 14:00 11/30/17 05:51 Valtrex - PO 1,000 mg TID MATHEW Administration ASSESSMENT/PLAN: 1. Herpes zoster - Completed Acyclovir, Vancomycin 2. History of DVT - Continue Eliquis 3. Lumbar radiculopathy - Continue Neurontin, Cymbalta 4. Polyarthralgia 5. Anemia - Colonoscopy showed small polyp (removed), mild diverticulosis - EGD showed mild gastritis (biopsies done) - Follow up pathology 6. Hyperkalemia - Resolved 7. Hypokalemia - Replete potassium - Check magnesium 8. HTN - Continue Lopressor 9. Hyperlipidemia - Continue Lipitor 10. History of colon cancer Visit type - Emergency Visit Emergency Visit: Yes ED Registration Date: 11/17/17 Care time: The patient presented to the Emergency Department on the above date and was hospitalized for further evaluation of their emergent condition. - New Patient This patient is new to me today: Yes Date on this admission: 11/30/17 - Critical Care Critical Care patient: No - Discharge Referral Referred to [facility] No
[2017-11-30] MEDS ORDERED: PT OWN MED DRAWER 7, Y5N ONE ×3 (10:39→21:15)
[2017-11-30] MEDS: APIXABAN 5 MG TABLET PO SCH ×2 (10:40→21:55)
[2017-11-30] MEDS: oxyCODONE HCL 10 MG SUSTAINED ACTING TABLET PO SCH ×2 (10:40→21:55)
[2017-11-30] MEDS: METOPROLOL TARTRATE 25 MG TABLET (FP) PO SCH ×2 (10:40→21:55)
[2017-11-30] MEDS: DULoxetine HCL 20 MG CAPSULE.DR (FP) PO SCH (10:40)
[2017-11-30] MEDS: PANTOPRAZOLE 40 MG TABLET (FP) PO SCH (10:40)
[2017-11-30] MEDS: KCL 10 MEQ IVPB 10 MEQ/100 ML INFUS.BAG IVPB SCH ×2 (11:27→11:33)
[2017-11-30] MEDS: POTASSIUM CHLORIDE 10 MEQ in SODIUM CHLORIDE 100 ML IVPB SCH ×2 (11:36→13:14)
[2017-11-30 17:46] LABS: ANION GAP 6 (8-16); BLOOD UREA NITROGEN 20 mg/dL (7-18); CALCIUM 7.7 mg/dL (8.5-10.1); CHLORIDE 109 mmol/L (98-107); CO2 27 mmol/L (21-32); CREATININE 0.7 mg/dL (0.55-1.02); GLUCOSE,RANDOM 149 mg/dL (74-106); POTASSIUM 3.9 mmol/L (3.5-5.1); SODIUM 142 mmol/L (136-145)
[2017-11-30] MEDS: ATORVASTATIN CA 40 MG TABLET (FP) PO SCH (21:55)
[2017-12-01] MEDS: GABAPENTIN 400 MG CAPSULE (FP) PO SCH (06:44)
[2017-12-01] MEDS: valACYclovir HCL 500 MG TABLET (FP) PO SCH (06:45)
[2017-12-01] MEDS: AMINO ACIDS/PROTEIN HYDROLYS 30 ML LIQUID.PKT PO SCH (08:11)
[2017-12-01 09:09] VITALS: BP 145/78; PULSE 99; TEMP 98.9
[2017-12-01] MEDS ORDERED: PT OWN MED DRAWER 7, Y5N ONE (10:08)
[2017-12-01] MEDS: oxyCODONE HCL 10 MG SUSTAINED ACTING TABLET PO SCH (10:11)
[2017-12-01] MEDS: PANTOPRAZOLE 40 MG TABLET (FP) PO SCH (10:11)
[2017-12-01] MEDS: APIXABAN 5 MG TABLET PO SCH (10:12)
[2017-12-01] MEDS: METOPROLOL TARTRATE 25 MG TABLET (FP) PO SCH (10:12)
[2017-12-01] MEDS: DULoxetine HCL 20 MG CAPSULE.DR (FP) PO SCH (10:12)
--- NOTE | 2017-12-01 11:14 | DS ---
Physical Exam: SUBJECTIVE: Patient seen and examined OBJECTIVE: Vital Signs Period Temp Pulse Resp BP Sys/Brown Pulse Ox Last 24 Hr 98.5 F-98.9 F 86-99 20-22 126-145/57-78 96 PHYSICAL EXAM GENERAL: The patient is awake, alert, and fully oriented, in no acute distress. HEAD: Normal with no signs of trauma. EYES: PERRL, extraocular movements intact, sclera anicteric, conjunctiva clear. ENT: Ears normal, nares patent, oropharynx clear without exudates, moist mucous membranes. NECK: Trachea midline, full range of motion, supple. LUNGS: Breath sounds equal, clear to auscultation bilaterally, no wheezes, no crackles, no accessory muscle use. HEART: Regular rate and rhythm, S1, S2 without murmur, rub or gallop. ABDOMEN: Soft, nontender, nondistended, normoactive bowel sounds, no guarding, no rebound, no hepatosplenomegaly, no masses. EXTREMITIES: 2+ pulses, warm, well-perfused, no edema. NEUROLOGICAL: Cranial nerves II through XII grossly intact. Normal speech, gait not observed. PSYCH: Normal mood, normal affect. SKIN: Warm, dry, normal turgor, no rashes or lesions noted. LABS Laboratory Results - last 24 hr 11/30/17 12/01/17 15:25 06:52 Sodium 142 Potassium 3.9 Chloride 109 H Carbon Dioxide 27 Anion Gap 6 L BUN 20 H Creatinine 0.7 Random Glucose 149 H Calcium 7.7 L Magnesium 1.7 L HOSPITAL COURSE: Date of Admission:11/17/17 Date of Discharge: 12/01/17 Minutes to complete discharge: 45 Discharge Summary Reason For Visit: CELLULITIS/HERPES ZOSTER All Active Problems Abnormal CT scan, lumbar spine (Acute) Abnormal EKG (Acute) Anemia (Acute) Anticoagulant long-term use (Acute) Bullous dermatitis (Acute) Cholelithiasis (Acute) Colon polyp (Acute) Diverticulosis (Acute) Electrolyte abnormality (Acute) Gastritis (Acute) Herpes zoster (Acute) History of DVT (deep vein thrombosis) (Acute) Hydronephrosis (Acute) Hyperkalemia (Acute) Hypokalemia (Acute) Normocytic normochromic anemia (Acute) Occult blood in stools (Acute) Polyarthralgia (Acute) Tachycardia (Acute) Toxic metabolic encephalopathy (Acute) Weakness (Acute) Cannot walk (Chronic) Compression fracture (Chronic) Depression (Chronic) History of colon cancer in adulthood (Chronic) Hyperlipidemia (Chronic) Hypertension (Chronic) Lumbar disc disease with radiculopathy (Chronic) Lumbar spondylosis (Chronic) Obesity (BMI 30.0-34.9) (Chronic) Hospital Course: This patient is an 86 year old woman with a history of HTN, hyperlipidemia, colon cancer, DVT who presented to the ED for evaluation of a rash on her left thigh. She had itching followed by a worsening erythematous rash and blisters on her right thigh for 3 weeks. At the time of presentation, she reported severe burning at the site of the rash. She was admitted for treatment of Herpes zoster. Blood culture grew gram positive cocci in clusters. She was seen by Dr. Calix and treated with IV Acyclovir, IV vancomycin, and Neurontin. The organism was identified as Staph epidermidis in one of two cultures so vancomycin was discontinued. After 7 days, IV Acyclovir was discontinued and she was started on PO Valtrex to complete a total of 10 days of treatment. She reported left leg weakness where she was unable to lift it off the bed. She was seen by Dr. Meredith and it was thought that she had myotomal weakness in the same distribution as the zoster. CT of L-spine showed lumbar spondylosis, chronic compression fractures, bone destruction in left acetabulum and femoral head, atrophy of the left iliopsoas and gluteal muscles, moderate right hydroureteronephrosis, markedly distended urinary bladder, rectosigmoid anastomotic sutures, eccentric rectosigmoid wall thickening with surrounding fat stranding, cholelithiasis. She became very sleepy, thought to be secondary to Acyclovir, Neurontin, and oxycodone. She was seen by Dr. Lawton for hydronephrosis which was thought to be secondary to urinary retention from narcotics and pain. It was recommended that Terrazas catheter be maintained until narcotics could be discontinued. She was seen by Dr. Gayle for depression and Cymbalta was recommended to treat both depression and pain. She developed acute anemia and stool was found to be positive for occult blood. She was seen by Dr. Aly but she did not want any procedures, so she was treated empirically with Protonix and transfused 2 units PRBCs. She later agreed to GI evaluation. She was seen by Dr. Mcneal who felt Eliquis could be held for the procedures. EGD and colonoscopy were done on 11/29 showing mild gastritis, mild diverticulosis, and a small polyp which was removed. Eliquis was restarted after the procedures. Subacute rehabilitation was recommended and she is discharged to [facility] on 12/01. Condition: Stable - Instructions Diet, Activity, Other Instructions: Ms. Bacon is on a low sodium diet. She may do activity as tolerated. Please check CBC, BMP, magnesium in 3 days. Disposition: ALF FACILITY - Home Medications Comprehensive Discharge Medication List: Ambulatory Orders Atorvastatin Ca [Lipitor] 40 mg PO HS 07/29/17 Metoprolol Tartrate [Lopressor -] 25 mg PO DAILY 07/29/17 Apixaban [Eliquis -] 5 mg PO BID tablet 10/03/17 Pantoprazole Sodium [Protonix -] 40 mg PO DAILY tablet.ec 10/03/17 Carboxymethylcellulose Sodium [Lubricant Eye Drops] 1 each OU HS 11/17/17 Furosemide [Lasix] 40 mg PO DAILY 11/17/17 Metolazone 2.5 mg PO DAILY 11/17/17 oxyCODONE HCL [Roxicodone -] 5 mg PO Q6H PRN MDD 4 11/17/17 oxyCODONE SR [Oxycontin] 10 mg PO BID 11/17/17 Acetaminophen [Tylenol .Regular Strength -] 650 mg PO Q4H PRN tablet 12/01/17 Amino Acids/Protein Hydrolys [Prosource No Carb Liquid Pkt] 30 ml PO BID@0800, 1730 packet 12/01/17 Gabapentin [Neurontin -] 400 mg PO TID capsule 12/01/17 Magnesium Oxide [Magox 400] 400 mg PO BID #60 tablet 12/01/17 Potassium Chloride [K-Dur -] 20 meq PO BID #60 tablet.er 12/01/17 Problem List - Problems (1) Hyperlipidemia Code(s): E78.5 - HYPERLIPIDEMIA, UNSPECIFIED (2) Lumbar spondylosis Code(s): M47.816 - SPONDYLOSIS W/O MYELOPATHY OR RADICULOPATHY, LUMBAR REGION (3) Cholelithiasis Code(s): K80.20 - CALCULUS OF GALLBLADDER W/O CHOLECYSTITIS W/O OBSTRUCTION (4) Depression Code(s): F32.9 - MAJOR DEPRESSIVE DISORDER, SINGLE EPISODE, UNSPECIFIED (5) Occult blood in stools Code(s): R19.5 - OTHER FECAL ABNORMALITIES (6) Gastritis Code(s): K29.70 - GASTRITIS, UNSPECIFIED, WITHOUT BLEEDING (7) Diverticulosis Code(s): K57.90 - DVRTCLOS OF INTEST, PART UNSP, W/O PERF OR ABSCESS W/O BLEED (8) Colon polyp Code(s): K63.5 - POLYP OF COLON (9) Obesity (BMI 30.0-34.9) Code(s): E66.9 - OBESITY, UNSPECIFIED (10) Toxic metabolic encephalopathy Code(s): G92 - TOXIC ENCEPHALOPATHY (11) Lumbar disc disease with radiculopathy Code(s): M51.16 - INTERVERTEBRAL DISC DISORDERS W RADICULOPATHY, LUMBAR REGION (12) Compression fracture Code(s): KQE4200 - (13) Hypertension Code(s): I10 - ESSENTIAL (PRIMARY) HYPERTENSION (14) Weakness Code(s): R53.1 - WEAKNESS (15) Anemia Code(s): D64.9 - ANEMIA, UNSPECIFIED (16) History of colon cancer in adulthood Code(s): Z85.038 - PERSONAL HISTORY OF MALIGNANT NEOPLASM OF LARGE INTESTINE (17) Herpes zoster Code(s): B02.9 - ZOSTER WITHOUT COMPLICATIONS Qualifiers: Herpes zoster complications: unspecified herpes zoster complication Qualified Code(s): B02.8 - Zoster with other complications (18) Tachycardia Code(s): R00.0 - TACHYCARDIA, UNSPECIFIED (19) Hypokalemia Code(s): E87.6 - HYPOKALEMIA (20) Hydronephrosis Code(s): N13.30 - UNSPECIFIED HYDRONEPHROSIS (21) History of DVT (deep vein thrombosis) Code(s): Z86.718 - PERSONAL HISTORY OF OTHER VENOUS THROMBOSIS AND EMBOLISM (22) Hyperkalemia Code(s): E87.5 - HYPERKALEMIA This patient is new to me today: No Emergency Visit: Yes ED Registration Date: 11/17/17 Care time: The patient presented to the Emergency Department on the above date and was hospitalized for further evaluation of their emergent condition. Critical Care patient: No - Discharge Referral Referred to [facility] No
--- NOTE | 2017-12-02 11:44 | PATH ---
Surgical Pathology Report Patient Name: TRINA LE[facility]. Rec. #: [id number] /Age/Gender: 1930 (Age: 86) / F Account: [id number] Location: [address] [place] [address]/[facility] Taken: 11/29/2017 Received: 11/29/2017 Reported: 12/02/2017 Physicians: Juan C Whatley M.D. Specimen(s) Received BX DESCENDING COLON POLYP Clinical History Preoperative diagnosis: Anemia Postoperative diagnosis: Diverticulosis, polyp Final Diagnosis DESCENDING COLON, POLYP, POLYPECTOMY: TUBULAR ADENOMA. Electronically Signed Cori Floyd M.D. Gross Description Received in formalin, labeled "biopsy descending colon polyp" is a campoverde, irregular portion of soft tissue measuring 0.3 cm. in greatest dimension. The specimen is submitted in toto in one cassette. /11/29/2017 saudi/11/29/2017
--- NOTE | 2017-12-02 16:20 | PATH ---
Surgical Pathology Report Patient Name: TRINA LEON [facility]. Rec. #: [id number] /Age/Gender: 1930 (Age: 86) / F Account: [id number] Location: [address] [place] [address]/[facility] Taken: 11/28/2017 Received: 11/29/2017 Reported: 12/02/2017 Physicians: Juan C Whatley M.D. Specimen(s) Received BX ANTRUM Clinical History Preoperative diagnoses: Anemia Postoperative diagnosis: Gastritis Final Diagnosis STOMACH, ANTRUM, BIOPSY: GASTRIC ANTRAL MUCOSA WITH MODERATE CHRONIC GASTRITIS. IMMUNOHISTOCHEMICAL STAIN FOR H. PYLORI IS POSITIVE (FEW). Electronically Signed Cori Floyd M.D. Gross Description Received in formalin, labeled "biopsy antrum" are 4 campoverde, irregular portions of soft tissue ranging from 0.1-0.2 cm. in greatest dimension. The specimens are submitted in toto in one cassette. /11/29/2017 [facility]11/29/2017
== END 2017-12-01 13:24 | DRG 865 ==
LOC: JER 10:35 → JERBED 17:50 → J6S 20:08
PROVIDERS: ADMIT Family Medicine; ATTEND Internal Medicine
PROC: 30233N1 Transfusion of Nonautologous Red Blood Cells into Peripheral Vein, Percutaneous Approach (ICD-10-PCS; 2017-11-23)
PROC: 0DB68ZX Excision of Stomach, Via Natural or Artificial Opening Endoscopic, Diagnostic (ICD-10-PCS; 2017-11-28)
PROC: 0DBN8ZX Excision of Sigmoid Colon, Via Natural or Artificial Opening Endoscopic, Diagnostic (ICD-10-PCS; principal; 2017-11-29 14:15)
DX: B02.8 Zoster with other complications (principal); G93.41 Metabolic encephalopathy; G92 Toxic encephalopathy; L03.90 Cellulitis, unspecified; D64.9 Anemia, unspecified; R00.0 Tachycardia, unspecified; E87.6 Hypokalemia; E78.5 Hyperlipidemia, unspecified; E87.5 Hyperkalemia; I10 Essential (primary) hypertension; M54.16 Radiculopathy, lumbar region; Z85.038 Personal history of other malignant neoplasm of large intestine; L13.9 Bullous disorder, unspecified; M51.16 Intervertebral disc disorders with radiculopathy, lumbar region; M25.50 Pain in unspecified joint; K21.9 Gastro-esophageal reflux disease without esophagitis; E66.9 Obesity, unspecified; Z68.31 Body mass index [BMI] 31.0-31.9, adult; R33.9 Retention of urine, unspecified; R53.1 Weakness; K57.30 Diverticulosis of large intestine without perforation or abscess without bleeding; D12.5 Benign neoplasm of sigmoid colon; K29.70 Gastritis, unspecified, without bleeding
CPT/HCPCS: 36415; 36430; 71045-TC-FY; 72131-TC; 80048; 80053; 81003; 82272; 82378; 82550; 82553; 82607; 82728; 82803; 83540; 83550; 83605; 83735; 84439; 84443; 84484; 85025; 85027; 85610; 85651; 85730; 86140; 86850; 86900; 86901; 86922; 87040; 87086; 87186; 88305-TC; 93005; 93010; 97161-GP; 99283-25; J1756; J7030; P9038; P9058

== ENCOUNTER 2018-04-27 23:39 | Inpatient (IN) | payer OTHER, MEDICARE ==
[2018-04-28] MEDS ORDERED: ACETAMINOPHEN 1000 MG/100 ML VIAL (NON FORMULARY) IVPB ONE (00:32)
[2018-04-28] MEDS ORDERED: SODIUM CHLORIDE 1,000 ML IV STA (00:32)
--- NOTE | 2018-04-28 01:04 | PDOC ---
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 The patient reports around 3:00 pm today she was outside when she began to feel chills. The patient states she immediately went inside, but the chills never subsided. The patient reports general malaise but denies any focal complaints. Denies nausea, vomiting, diarrhea or constipation. Denies dysuria, hematuria, frequency or urgency to urinate. Denies chest pain or shortness of breath. Denies cough. Allergies: NKDA. crabs Surgical history: Ileostomy Social history: Former smoker. No alcohol or substance use reported. PCP: Dr. Mtz. Past History - Past Medical History Allergies/Adverse Reactions: Allergies Allergy/AdvReac Type Severity Reaction Status Date / Time crab Allergy Severe Hives Verified 04/28/18 05:27 Home Medications: Ambulatory Orders Atorvastatin Ca [Lipitor] 40 mg PO HS 07/29/17 Metoprolol Tartrate [Lopressor -] 25 mg PO DAILY 07/29/17 Apixaban [Eliquis -] 5 mg PO BID tablet 10/03/17 Pantoprazole Sodium [Protonix -] 40 mg PO DAILY tablet.ec 10/03/17 Carboxymethylcellulose Sodium [Lubricant Eye Drops] 1 each OU HS 11/17/17 Furosemide [Lasix] 40 mg PO DAILY 11/17/17 Metolazone 2.5 mg PO DAILY 11/17/17 oxyCODONE HCL [Roxicodone -] 5 mg PO Q6H PRN MDD 4 11/17/17 oxyCODONE SR [Oxycontin] 10 mg PO BID 11/17/17 Acetaminophen [Tylenol .Regular Strength -] 650 mg PO Q4H PRN tablet 12/01/17 Amino Acids/Protein Hydrolys [Prosource No Carb Liquid Pkt] 30 ml PO BID@0800, 1730 packet 12/01/17 Gabapentin [Neurontin -] 400 mg PO TID capsule 12/01/17 Magnesium Oxide [Magox 400] 400 mg PO BID #60 tablet 12/01/17 Potassium Chloride [K-Dur -] 20 meq PO BID #60 tablet.er 12/01/17 Acetaminophen [Tylenol .Regular Strength -] 650 mg PO Q6H PRN tablet 05/02/18 Apixaban [Eliquis -] 5 mg PO BID tablet 05/02/18 Ferrous Sulfate [Feosol] 325 mg PO DAILY #30 ud 05/02/18 Methyl Salicylate/Menthol Oint [Analgesic [place] -] 1 applic TP BID applic Polyvinyl Alcohol [Artificial Tears] 1 drop OU BID PRN drops 05/02/18 Anemia: No Asthma: No Cancer: Yes (colon ca) Cardiac Disorders: No CVA: No COPD: No CHF: No Dementia: No Diabetes: No GI Disorders: No Disorders: No HTN: Yes Hypercholesterolemia: Yes Liver Disease: No Seizures: No Thyroid Disease: No - Surgical History Abdominal Surgery: Yes (COLOSTOMY WITH REVERSAL) Appendectomy: No Cardiac Surgery: No Cholecystectomy: No Lung Surgery: No Neurologic Surgery: No Orthopedic Surgery: No - Immunization History Immunization Up to Date: Yes - Suicide/Smoking/Psychosocial Hx Smoking History: Never smoked Have you smoked in the past 12 months: No If you are a former smoker, when did you quit?: 30 yrs ago Information on smoking cessation initiated: No Hx Alcohol Use: No Drug/Substance Use Hx: No Substance Use Type: None Hx Substance Use Treatment: No Review of Systems - Review of Systems Comments:: 04/28/18 01:12 GENERAL/CONSTITUTIONAL: (+) malaise. (+) Fever and chills. No weakness. HEAD, EYES, EARS, NOSE AND THROAT: No change in vision. No ear pain or discharge. No sore throat. CARDIOVASCULAR: No chest pain or shortness of breath. RESPIRATORY: No cough, wheezing, or hemoptysis. GASTROINTESTINAL: No abdominal pain. No nausea, vomiting, diarrhea or constipation. GENITOURINARY: No dysuria, frequency, or change in urination. MUSCULOSKELETAL: No joint or muscle swelling or pain. No neck or back pain. SKIN: No rash NEUROLOGIC: No headache, vertigo, loss of consciousness, or change in strength/ sensation. ENDOCRINE: No increased thirst. No abnormal weight change. HEMATOLOGIC/LYMPHATIC: No anemia, easy bleeding, or history of blood clots. ALLERGIC/IMMUNOLOGIC: No hives or skin allergy. *Physical Exam - Vital Signs Last Vital Signs Temp Pulse Resp BP Pulse Ox 100.9 F H 101 H 19 131/56 96 04/27/18 23:40 04/27/18 23:40 04/27/18 23:40 04/27/18 23:40 04/27/18 23:40 - Physical Exam Comments: 04/28/18 01:13 GENERAL: Awake, alert, and fully oriented, in no acute distress. HEAD: No signs of trauma EYES: PERRLA, EOMI, sclera anicteric, conjunctiva clear ENT: Auricles normal inspection, hearing grossly normal, nares patent, oropharynx clear without exudates. Moist mucosa NECK: Nontender, no stepoffs, Normal ROM, supple, no lymphadenopathy, JVD, or masses LUNGS: Breath sounds equal, clear to auscultation bilaterally. No wheezes, and no crackles HEART: Regular rate and rhythm, normal S1 and S2, no murmurs, rubs or gallops ABDOMEN: Soft, nontender, normoactive bowel sounds. No guarding, no rebound. No masses EXTREMITIES: Normal range of motion, no edema. No clubbing or cyanosis. No cords, erythema, or tenderness NEUROLOGICAL: Cranial nerves II through XII intact. 5/5 strength and sensation in all extremities, Normal speech, normal gait, normal cerebellar function SKIN: Warm, Dry, normal turgor, no rashes or lesions noted. ED Treatment Course - LABORATORY CBC & Chemistry Diagram: 04/30/18 06:30 04/28/18 08:30 - RADIOLOGY Radiology Studies Ordered: Category Date Time Status CHEST PA & LAT [RAD] Stat Radiology 04/28/18 00:32 Taken - Medications Given in the ED: ED Medications Discontinued Medications Generic Name Dose Route Start Last Admin Trade Name Freq PRN Reason Stop Dose Admin Acetaminophen 1,000 mg 04/28/18 00:32 04/28/18 00:44 Ofirmev Injection - IVPB 04/28/18 00:33 1,000 mg ONCE ONE Administration Medical Decision Making - Medical Decision Making 04/28/18 01:13 87 F with fever, chills, and malaise. No focal signs of infection on exam. - Labs, cultures - CXR, UA - Flu swab - IVF, tylenol *DC/Admit/Observation/Transfer Diagnosis at time of Disposition: UTI (urinary tract infection) Qualifiers: Urinary tract infection type: acute cystitis Hematuria presence: without hematuria Qualified Code(s): N30.00 - Acute cystitis without hematuria Fever Qualifiers: Fever type: unspecified Qualified Code(s): R50.9 - Fever, unspecified - Discharge Dispostion Disposition: VNS/HOME HEALTH CARE Condition at time of disposition: Improved - Prescriptions - Referrals - Patient Instructions - Post Discharge Activity - Attestations Physician Attestion: 05/07/18 08:58 I, Dr. Varun Harris MD, attest that this document has been prepared under my direction and personally reviewed by me in its entirety. I further attest, that it accurately reflects all work, treatment, procedures and medical decision -making performed by me.
[2018-04-28 01:15] LABS: VENOUS PC02 46.8 mmHg (38-52); VENOUS PH 7.48 (7.32-7.42)
[2018-04-28 01:16] LABS: VENOUS PO2 44.9 mmHg (28-48)
[2018-04-28 01:24] LABS: BASO % 0.3 % (0-2.0); HEMATOCRIT 30.5 % (32.4-45.2); HEMOGLOBIN 10.4 GM/dL (10.7-15.3); LYMPH % 7.8 % (8-40); MCH 29.4 pg (25.7-33.7); MEAN CELL VOLUME 86.6 fl (80-96); NEUT % 81.9 % (42.8-82.8); PLATELET COUNT 265 K/MM3 (134-434); RBC 3.53 M/mm3 (3.60-5.2); WHITE BLOOD COUNT 8.8 K/mm3 (4.0-10.0)
[2018-04-28 01:29] LABS: INR 1.49 (0.83-1.09); PROTHROMBIN TIME (PATIENT) 16.8 SEC (9.7-13.0)
[2018-04-28 01:31] LABS: ACTIVATED PTT 30.3 SECONDS (25.2-36.5)
[2018-04-28 01:43] LABS: ALBUMIN 2.9 g/dl (3.4-5.0); ALK PHOS 102 U/L (45-117); ANION GAP 6 (8-16); BILIRUBIN,TOTAL 0.5 mg/dL (0.2-1.0); BLOOD UREA NITROGEN 32 mg/dL (7-18); CALCIUM 8.5 mg/dL (8.5-10.1); CHLORIDE 97 mmol/L (98-107); CO2 36 mmol/L (21-32); CREATININE 0.9 mg/dL (0.55-1.02); GLUCOSE,RANDOM 114 mg/dL (74-106); POTASSIUM 3.8 mmol/L (3.5-5.1); SGOT/AST 17 U/L (15-37); SGPT/ALT 17 U/L (12-78); SODIUM 139 mmol/L (136-145); TOT PROT 6.1 g/dl (6.4-8.2)
--- NOTE | 2018-04-28 01:59 | PDOC ---
*Physical Exam - Vital Signs Last Vital Signs Temp Pulse Resp BP Pulse Ox 100.9 F H 101 H 19 131/56 96 04/27/18 23:40 04/27/18 23:40 04/27/18 23:40 04/27/18 23:40 04/27/18 23:40 ED Treatment Course - LABORATORY CBC & Chemistry Diagram: 04/28/18 00:39 04/28/18 00:39 - ADDITIONAL ORDERS Additional order review: Laboratory Results 04/28/18 04/28/18 04/28/18 00:59 00:39 00:39 PT with INR INR PTT (Actin FS) VBG pH POC VBG pCO2 POC VBG pO2 Mixed VBG HCO3 Sodium 139 Potassium 3.8 Chloride 97 L Carbon Dioxide 36 H Anion Gap 6 L BUN 32 H Creatinine 0.9 Creat Clearance w eGFR 59.51 Random Glucose 114 H Lactic Acid 2.0 Calcium 8.5 Total Bilirubin 0.5 AST 17 ALT 17 Alkaline Phosphatase 102 Troponin I < 0.02 Total Protein 6.1 L Albumin 2.9 L 04/28/18 04/28/18 00:39 00:39 PT with INR 16.80 H INR 1.49 H PTT (Actin FS) 30.3 VBG pH 7.48 H POC VBG pCO2 46.8 POC VBG pO2 44.9 D Mixed VBG HCO3 34.8 H Sodium Potassium Chloride Carbon Dioxide Anion Gap BUN Creatinine Creat Clearance w eGFR Random Glucose Lactic Acid Calcium Total Bilirubin AST ALT Alkaline Phosphatase Troponin I Total Protein Albumin 04/28/18 00:59 Influenza Types A,B Antigen - Final Nasopharyngeal Swab - Final 04/28/18 00:39 RBC 3.53 L MCV 86.6 MCHC 34.0 RDW 14.0 D MPV 8.0 Neutrophils % 81.9 D Lymphocytes % 7.8 L D Monocytes % 10.0 Eosinophils % 0.0 D Basophils % 0.3 - Medications Given in the ED: ED Medications Discontinued Medications Generic Name Dose Route Start Last Admin Trade Name Freq PRN Reason Stop Dose Admin Acetaminophen 1,000 mg 04/28/18 00:32 04/28/18 00:44 Ofirmev Injection - IVPB 04/28/18 00:33 1,000 mg ONCE ONE Administration Sodium Chloride 1,000 mls @ 1,000 mls/hr 04/28/18 00:32 04/28/18 00:44 Normal Saline - IV 04/28/18 01:31 1,000 mls/hr ASDIR STA Administration Medical Decision Making - Medical Decision Making 04/28/18 05:13 s/o from Dr. 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 labs with no leukocytosis, lytes and Cr normal. BUN>32 c/w likely dehydration. UA via straight cath +leuk esterase and copious WBCs, f/u urine cx. antipyretics given, IVF with NSS x1 liter, IV ceftriaxone for UTI admit to hospitalist for abx, medical management, supportive care and hydration. s/o to Dr Deleon and team. 04/28/18 05:28 *DC/Admit/Observation/Transfer Diagnosis at time of Disposition: UTI (urinary tract infection) Qualifiers: Urinary tract infection type: acute cystitis Hematuria presence: without hematuria Qualified Code(s): N30.00 - Acute cystitis without hematuria Fever Qualifiers: Fever type: unspecified Qualified Code(s): R50.9 - Fever, unspecified - Discharge Dispostion Condition at time of disposition: Guarded Decision to Admit order: Yes - Referrals Referrals: Ge Walton MD [Primary Care Provider] - - Patient Instructions - Post Discharge Activity
[2018-04-28 04:56] LABS: URINE APPEARANCE SLCLOUDY; URINE BILIRUBIN NEGATIVE (<2.0 mg/dL); URINE COLOR YELLOW; URINE GLUCOSE (UA) NEGATIVE (NEGATIVE); URINE KETONE NEGATIVE (NEGATIVE); URINE NITRITE NEGATIVE (NEGATIVE); URINE PROTEIN NEGATIVE (NEGATIVE); URINE UROBILINOGEN NEGATIVE mg/dL (0.2-1.0)
[2018-04-28 04:58] LABS: URINE LEUK ESTERASE 3+ (NEGATIVE)
[2018-04-28 05:04] LABS: EPI CELLS RARE /HPF (FEW); URINE BACTERIA MODERATE /hpf (NONE SEEN); URINE MUCUS RARE
[2018-04-28] MEDS ORDERED: CEFTRIAXONE 1,000 MG in DEXTROSE 5%-WATER - 50 ML IVPB ONE (05:10)
[2018-04-28] MEDS ORDERED: CEFTRIAXONE 1 GM/50 ML BAG ONE (05:14)
[2018-04-28] MEDS: SODIUM CHLORIDE 1,000 ML IV SCH (05:30)
--- NOTE | 2018-04-28 05:41 | PN ---
Teaching Attending Note Name of Resident: Del Sanchez ATTENDING PHYSICIAN STATEMENT I saw and evaluated the patient. I reviewed the resident's note and discussed the case with the resident. I agree with the resident's findings and plan as documented. 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 The patient reports around 3:00 pm today she was outside when she began to feel chills. The patient states she immediately went inside, but the chills never subsided. The patient reports general malaise but denies any focal complaints. Denies nausea, vomiting, diarrhea, dysuria, chest pain or shortness of breath. OBJECTIVE: Somnolent but arousable Vital Signs Period Temp Pulse Resp BP Sys/Brown Pulse Ox Last 24 Hr 100.9 F 101 19 131/56 96 HEENT: No Jaundice, eye redness or discharge, PERRLA, EOMI. Normocephalic, atraumatic. External ears are normal and hearing is grossly intact. No nasal discharge. Neck: Supple, nontender. No palpable adenopathy or thyromegaly. No JVD Chest: Good effort. Clear to auscultation and percussion. Heart: Regular. No S3, rub or murmur Abdomen: Not distended, soft, nontender and no HSM. No rebound or guarding. Normoactive bowel sounds. Ext: Peripheral pulses intact. No leg edema. Skin: Warm and dry. No petechiae, rash or ecchymosis. Neuro: Alert. Oriented x3. CN 2-12 grossly intact. Sensation grossly intact in all four extremities and DTR are symmetric. Current Medications Generic Name Dose Route Start Last Admin Trade Name Freq PRN Reason Stop Dose Admin Sodium Chloride 1,000 mls @ 75 mls/hr 04/28/18 05:30 04/28/18 05:30 Normal Saline - IV 75 mls/hr ASDIR MATHEW Administration Home Medications Medication Instructions Recorded Atorvastatin Ca [Lipitor] 40 mg PO HS 07/29/17 Metoprolol Tartrate [Lopressor -] 25 mg PO DAILY 07/29/17 Apixaban [Eliquis -] 5 mg PO BID tablet 10/03/17 Pantoprazole Sodium [Protonix -] 40 mg PO DAILY tablet.ec 10/03/17 Carboxymethylcellulose Sodium 1 each OU HS 11/17/17 [Lubricant Eye Drops] Furosemide [Lasix] 40 mg PO DAILY 11/17/17 Metolazone 2.5 mg PO DAILY 11/17/17 oxyCODONE HCL [Roxicodone -] 5 mg PO Q6H PRN MDD 4 11/17/17 oxyCODONE SR [Oxycontin] 10 mg PO BID 11/17/17 Acetaminophen [Tylenol .Regular 650 mg PO Q4H PRN tablet 12/01/17 Strength -] Amino Acids/Protein Hydrolys 30 ml PO BID@0800,1730 packet 12/01/17 [Prosource No Carb Liquid Pkt] Gabapentin [Neurontin -] 400 mg PO TID capsule 12/01/17 Magnesium Oxide [Magox 400] 400 mg PO BID #60 tablet 12/01/17 Potassium Chloride [K-Dur -] 20 meq PO BID #60 tablet.er 12/01/17 Abnormal Lab Results 04/28/18 04/28/18 04/28/18 00:39 00:39 00:39 RBC 3.53 L Hgb 10.4 L Hct 30.5 L Lymphocytes % 7.8 L D PT with INR 16.80 H INR 1.49 H VBG pH 7.48 H Mixed VBG HCO3 34.8 H Chloride Carbon Dioxide Anion Gap BUN Random Glucose Total Protein Albumin Urine Blood Ur Leukocyte Esterase 04/28/18 04/28/18 00:39 04:50 RBC Hgb Hct Lymphocytes % PT with INR INR VBG pH Mixed VBG HCO3 Chloride 97 L Carbon Dioxide 36 H Anion Gap 6 L BUN 32 H Random Glucose 114 H Total Protein 6.1 L Albumin 2.9 L Urine Blood 2+ H Ur Leukocyte Esterase 3+ H ASSESSMENT AND PLAN: 1. Sepsis due to UTI - Healthcare-related, so will treat with IV Zosyn pending culture report. Most recent UTI (09/2017) was due to E.Coli. Unclear if abnormal mentation is entirely due sleepiness - so will get a brain CT scan. She is on Eliquis for remote DVT. Slow IV fluid, but liberal oral fluids to correct any associated dehydration. 2. Hypoalbuminemia - Possibly due to combined effects of malnutrition and inflammation associated with comorbid chronic conditions. No proteinuria on basic UA. Will ensure adequate dietary protein intake and also consult sharepoint net developer. 3. Anemia - Likely multifactorial. Will do basic anemia work up including serial stool guaiacs, reticulocyte count and iron studies. Would benefit from Procrit therapy once anemia work up is complete and she is iron replete. 4. Obesity - Will provide patient all the necessary assistance , counseling and positive reinforcement to facilitate weight loss. Consult sharepoint net developer. 5. DVT prophylaxis - On Eliquis for remote DVT. 6. Advance directives - Full code
--- NOTE | 2018-04-28 06:09 | HP ---
CHIEF COMPLAINT: Fevers PCP: HISTORY OF PRESENT ILLNESS: 87 yo female with PMH HTN, HLD, Colon Ca (Resection 2011), anemia, DVT on eliquis, presented to the ED from assisted living with subjective complaints of fevers. States she had an episode of chills today but resolved when she went outside. When I saw her pt was sleeping soundly and unwilling to wake up for interview. Hx taken from brief responses in addition to chart review and signout from ED attending ER course was notable for: (1) Febrile 100.9, tachy 101 (2) UA 2+blood, 3+LE, 73 WBCs, moderate bacteria (3) 1L NS, Ceftriaxone Recent Travel: PAST MEDICAL HISTORY: PMH HTN, HLD, Colon Ca (Resection 2011), anemia, DVT on eliquis, PAST SURGICAL HISTORY: Ileostomy Social History: Smoking: former smoker Alcohol: none Drugs: none Family History: Allergies crab Allergy (Severe, Verified 04/28/18 05:27) Hives HOME MEDICATIONS: Home Medications Medication Instructions Recorded Atorvastatin Ca [Lipitor] 40 mg PO HS 07/29/17 Metoprolol Tartrate [Lopressor -] 25 mg PO DAILY 07/29/17 Apixaban [Eliquis -] 5 mg PO BID tablet 10/03/17 Pantoprazole Sodium [Protonix -] 40 mg PO DAILY tablet.ec 10/03/17 Carboxymethylcellulose Sodium 1 each OU HS 11/17/17 [Lubricant Eye Drops] Furosemide [Lasix] 40 mg PO DAILY 11/17/17 Metolazone 2.5 mg PO DAILY 11/17/17 oxyCODONE HCL [Roxicodone -] 5 mg PO Q6H PRN MDD 4 11/17/17 oxyCODONE SR [Oxycontin] 10 mg PO BID 11/17/17 Acetaminophen [Tylenol .Regular 650 mg PO Q4H PRN tablet 12/01/17 Strength -] Amino Acids/Protein Hydrolys 30 ml PO BID@0800,1730 packet 12/01/17 [Prosource No Carb Liquid Pkt] Gabapentin [Neurontin -] 400 mg PO TID capsule 12/01/17 Magnesium Oxide [Magox 400] 400 mg PO BID #60 tablet 12/01/17 Potassium Chloride [K-Dur -] 20 meq PO BID #60 tablet.er 12/01/17 REVIEW OF SYSTEMS CONSTITUTIONAL: fever, chills, malaise Absent: , diaphoresis, generalized weakness, loss of appetite, weight change HEENT: Absent: rhinorrhea, nasal congestion, throat pain, throat swelling, difficulty swallowing, mouth swelling, ear pain, eye pain, visual changes CARDIOVASCULAR: Absent: chest pain, syncope, palpitations, irregular heart rate, lightheadedness , peripheral edema RESPIRATORY: Absent: cough, shortness of breath, dyspnea with exertion, orthopnea, wheezing, stridor, hemoptysis GASTROINTESTINAL: Absent: abdominal pain, abdominal distension, nausea, vomiting, diarrhea, constipation, melena, hematochezia GENITOURINARY: Absent: dysuria, frequency, urgency, hesitancy, hematuria, flank pain, genital pain MUSCULOSKELETAL: Absent: myalgia, arthralgia, joint swelling, back pain, neck pain SKIN: Absent: rash, itching, pallor HEMATOLOGIC/IMMUNOLOGIC: Absent: easy bleeding, easy bruising, lymphadenopathy, frequent infections ENDOCRINE: Absent: unexplained weight gain, unexplained weight loss, heat intolerance, cold intolerance NEUROLOGIC: Absent: headache, focal weakness or paresthesias, dizziness, unsteady gait, seizure, mental status changes, bladder or bowel incontinence PSYCHIATRIC: Absent: anxiety, depression, suicidal or homicidal ideation, hallucinations. PHYSICAL EXAMINATION Vital Signs - 24 hr 04/27/18 23:40 Temperature 100.9 F H Pulse Rate 101 H Respiratory 19 Rate Blood Pressure 131/56 O2 Sat by Pulse 96 Oximetry (%) GENERAL: A&O, no acute distress HEAD: Normocephalic, atraumatic. EYES: PERRL, EOMI, no scleral icterus EARS, NOSE, THROAT: oropharynx clear without exudates. Moist mucous membranes. NECK: supple without lymphadenopathy LUNGS: CTA b/l, no crackles or wheezes HEART: Regular rate and rhythm, normal S1 and S2, rub or gallop. ABDOMEN: Soft, nontender to palpation, normoactive bowel sounds MUSCULOSKELETAL: No bony deformities or tenderness. No CVA tenderness. UPPER EXTREMITIES: 2+ pulses, warm, well-perfused. No cyanosis. No clubbing. No peripheral edema. LOWER EXTREMITIES: 2+ pulses, warm, well-perfused. No calf tenderness. No peripheral edema. NEUROLOGICAL: Cranial nerves II-XII grossly intact. Normal speech. PSYCHIATRIC: Cooperative. Good eye contact. Appropriate mood and affect. SKIN: Warm, dry, normal turgor, no rashes or lesions noted Laboratory Results - last 24 hr 04/28/18 04/28/18 04/28/18 00:39 00:39 00:39 WBC 8.8 RBC 3.53 L Hgb 10.4 L Hct 30.5 L MCV 86.6 MCH 29.4 MCHC 34.0 RDW 14.0 D Plt Count 265 D MPV 8.0 Absolute Neuts (auto) 7.2 Neutrophils % 81.9 D Lymphocytes % 7.8 L D Monocytes % 10.0 Eosinophils % 0.0 D Basophils % 0.3 Nucleated RBC % 0 PT with INR 16.80 H INR 1.49 H PTT (Actin FS) 30.3 VBG pH 7.48 H POC VBG pCO2 46.8 POC VBG pO2 44.9 D Mixed VBG HCO3 34.8 H Sodium Potassium Chloride Carbon Dioxide Anion Gap BUN Creatinine Creat Clearance w eGFR Random Glucose Lactic Acid Calcium Total Bilirubin AST ALT Alkaline Phosphatase Troponin I Total Protein Albumin Urine Color Urine Appearance Urine pH Ur Specific Naylor Urine Protein Urine Glucose (UA) Urine Ketones Urine Blood Urine Nitrite Urine Bilirubin Urine Urobilinogen Ur Leukocyte Esterase Urine WBC (Auto) Urine RBC (Auto) Ur Epithelial Cells Urine Bacteria Urine Mucus 04/28/18 04/28/18 04/28/18 00:39 00:39 00:59 WBC RBC Hgb Hct MCV MCH MCHC RDW Plt Count MPV Absolute Neuts (auto) Neutrophils % Lymphocytes % Monocytes % Eosinophils % Basophils % Nucleated RBC % PT with INR INR PTT (Actin FS) VBG pH POC VBG pCO2 POC VBG pO2 Mixed VBG HCO3 Sodium 139 Potassium 3.8 Chloride 97 L Carbon Dioxide 36 H Anion Gap 6 L BUN 32 H Creatinine 0.9 Creat Clearance w eGFR 59.51 Random Glucose 114 H Lactic Acid 2.0 Calcium 8.5 Total Bilirubin 0.5 AST 17 ALT 17 Alkaline Phosphatase 102 Troponin I < 0.02 Total Protein 6.1 L Albumin 2.9 L Urine Color Urine Appearance Urine pH Ur Specific Naylor Urine Protein Urine Glucose (UA) Urine Ketones Urine Blood Urine Nitrite Urine Bilirubin Urine Urobilinogen Ur Leukocyte Esterase Urine WBC (Auto) Urine RBC (Auto) Ur Epithelial Cells Urine Bacteria Urine Mucus 04/28/18 04:50 WBC RBC Hgb Hct MCV MCH MCHC RDW Plt Count MPV Absolute Neuts (auto) Neutrophils % Lymphocytes % Monocytes % Eosinophils % Basophils % Nucleated RBC % PT with INR INR PTT (Actin FS) VBG pH POC VBG pCO2 POC VBG pO2 Mixed VBG HCO3 Sodium Potassium Chloride Carbon Dioxide Anion Gap BUN Creatinine Creat Clearance w eGFR Random Glucose Lactic Acid Calcium Total Bilirubin AST ALT Alkaline Phosphatase Troponin I Total Protein Albumin Urine Color Yellow Urine Appearance Slcloudy Urine pH 7.0 D Ur Specific Naylor 1.009 Urine Protein Negative Urine Glucose (UA) Negative Urine Ketones Negative Urine Blood 2+ H Urine Nitrite Negative Urine Bilirubin Negative Urine Urobilinogen Negative Ur Leukocyte Esterase 3+ H Urine WBC (Auto) 73 Urine RBC (Auto) 3 Ur Epithelial Cells Rare Urine Bacteria Moderate Urine Mucus Rare ASSESSMENT/PLAN: 87 yo female with PMH HTN, HLD, Colon Ca (Resection 2011), anemia, DVT on eliquis, admitted to the med/surg for sepsis secondary to UTI. Sepsis Secondary to UTI -UA noted with 2+ blood, 3+ LE, 73 WBCs. -Febrile and tachycardia -Ceftriaxone given in ED -Urine cultures -Consider Pseudomonas in Abx coverage until c/s return as patient is from assisted living home -Zosyn dosed for Pseudomonas coverage at 4.5 gm IV Q6 -ID consulted HLD -Lipitor 40 mg PO HS Anemia -Unknown cause of anemia as pt does not seem to be acutely bleeding -Iron studies -Reticulocyte count DVT on Eliquis -Continue eliquis 5 mg PO Daily Prophylaxis -As above FEN -NS @ 42 cc/hr -BMP in AM -Sodium controlled diet Disposition Admit to med/surg Visit type - Emergency Visit Emergency Visit: Yes Care time: The patient presented to the Emergency Department on the above date and was hospitalized for further evaluation of their emergent condition. - New Patient This patient is new to me today: Yes Date on this admission: 04/28/18 - Critical Care Critical Care patient: No Hospitalist Screening - Colonoscopy Questionnaire Colonoscopy Questionnaire: Colonoscopy Questionnaire - Patient: 50 - 75 years old and never had a screening colonoscopy: No History of colon or rectal polyps, or CA: Yes History of IBD, Crohn's disease or UC: No History of abdominal radiation therapy as a child: No - Relative: 1 with colon or rectal CA, or polyps at age 60 or younger: No Colon or rectal CA diagnosed at age 45 or younger: No Multiple relatives with colon or rectal CA: No - Outcome: Screening Result: Positive Screen
[2018-04-28] MEDS ORDERED: PIPERACILLIN/TAZOB 4.5 GM 4.5 GM in DEXTROSE 5%-WATER 100 ML IVPB SCH ×3 (06:15→15:00)
[2018-04-28 08:59] LABS: BASO % 0.6 % (0-2.0); EOS % 0.1 % (0-4.5); HEMATOCRIT 28.2 % (32.4-45.2); HEMOGLOBIN 9.7 GM/dL (10.7-15.3); MCH 30.1 pg (25.7-33.7); MCHC 34.4 g/dl (32.0-36.0); MEAN CELL VOLUME 87.5 fl (80-96); NEUT % 66.3 % (42.8-82.8); PLATELET COUNT 227 K/MM3 (134-434); RBC 3.22 M/mm3 (3.60-5.2); RDW 14.2 % (11.6-15.6)
--- NOTE | 2018-04-28 09:02 | PN ---
Progress Note, Physician Chief Complaint: EVENTS AND NOTES REVEIWED DENIES FEVER OR CHILLS ADMITTED FOR UTI/SEPSIS R/O - Current Medication List Current Medications: Active Medications Sodium Chloride (Normal Saline -) 1,000 mls @ 75 mls/hr IV ASDIR MATHEW Last Admin: 04/28/18 05:30 Dose: 75 mls/hr Piperacillin Sod/Tazobactam (Sod 4.5 gm/ Dextrose) 100 mls @ 200 mls/hr IVPB Q6H-IV MATHEW; Protocol Stop: 04/28/18 21:29 Piperacillin Sod/Tazobactam (Sod 4.5 gm/ Dextrose) 100 mls @ 200 mls/hr IVPB Q6H-IV MATHEW; Protocol - Objective Vital Signs: Vital Signs Temperature 98.9 F 04/28/18 06:34 Pulse Rate 79 04/28/18 06:34 Respiratory Rate 18 04/28/18 06:34 Blood Pressure 113/54 04/28/18 06:34 O2 Sat by Pulse Oximetry (%) 96 04/28/18 06:34 Constitutional: Yes: Mild Distress Eyes: Yes: WNL HENT: Yes: WNL Neck: Yes: WNL Cardiovascular: Yes: WNL Respiratory: Yes: WNL Gastrointestinal: Yes: WNL Genitourinary: Yes: Other Musculoskeletal: Yes: Muscle Weakness Extremities: Yes: WNL Edema: No Peripheral Pulses WNL: Yes Integumentary: Yes: WNL Wound/Incision: Yes: Clean/Dry Neurological: Yes: WNL ...Motor Strength: WNL Psychiatric: Yes: WNL Labs: INR, PTT INR 1.49 (0.83-1.09) H 04/28/18 00:39 Problem List - Problems (1) Fever Code(s): R50.9 - FEVER, UNSPECIFIED Qualifiers: Fever type: unspecified Qualified Code(s): R50.9 - Fever, unspecified (2) UTI (urinary tract infection) Code(s): N39.0 - URINARY TRACT INFECTION, SITE NOT SPECIFIED Qualifiers: Urinary tract infection type: acute cystitis Hematuria presence: without hematuria Qualified Code(s): N30.00 - Acute cystitis without hematuria (3) Anemia Code(s): D64.9 - ANEMIA, UNSPECIFIED (4) Hyperlipidemia Code(s): E78.5 - HYPERLIPIDEMIA, UNSPECIFIED (5) Hypertension Code(s): I10 - ESSENTIAL (PRIMARY) HYPERTENSION Assessment/Plan JORDAN MUNOZ AWAIT URINE AND BLOOD CULTURES IVF RESTART BOBBY PINEDA TO CHAIR WITH PT
[2018-04-28 09:49] LABS: ALBUMIN 2.6 g/dl (3.4-5.0); ANION GAP 7 (8-16); BILIRUBIN,TOTAL 0.4 mg/dL (0.2-1.0); BLOOD UREA NITROGEN 31 mg/dL (7-18); CALCIUM 8.6 mg/dL (8.5-10.1); CHLORIDE 102 mmol/L (98-107); CO2 35 mmol/L (21-32); CREATININE 0.8 mg/dL (0.55-1.02); GLUCOSE,RANDOM 91 mg/dL (74-106); POTASSIUM 3.5 mmol/L (3.5-5.1); SGPT/ALT 14 U/L (12-78); SODIUM 144 mmol/L (136-145); TOT PROT 5.6 g/dl (6.4-8.2)
[2018-04-28 09:51] LABS: ALK PHOS 98 U/L (45-117); SGOT/AST 10 U/L (15-37)
--- NOTE | 2018-04-28 11:20 | PN ---
Progress Note (short form) - Note Progress Note: ID Consult dictated UTI/ possible sepsis secondary to UTI Post herpetic neuralgia L LE Stasis dermatitis R LE Pending cultures empiric ceftriaxone 2gm IVPB q24h
--- NOTE | 2018-04-28 15:19 | CONS ---
DATE OF CONSULTATION: DATE OF DICTATION: 04/28/2018 HISTORY: An 87-year-old female evaluated for sepsis. The patient resides in an assisted living complex. She reports sharing a meal with her friends when she developed abrupt onset of shaking chills. She also complained of profound malaise. She was found to have fever at the facility and was transferred to the emergency room for further evaluation. The patient on initial evaluation was found to have a temperature of 100.9. Urinalysis showed pyuria. She was empirically treated with ceftriaxone and Zosyn for possible sepsis secondary to urinary tract infection. At the present time, she is awake and alert. She complains of profound malaise and weakness. She denies any dysuria or hematuria. No complaints of frequency or urgency. She has chronic left lower extremity pain secondary to postherpetic neuralgia. She denies any chest pain, shortness of breath, cough, or sputum production. No vomiting or diarrhea. PAST MEDICAL HISTORY: Positive for colon cancer status post colon resection and reversal of colostomy in 2011, hypertension, hyperlipidemia, chronic kidney disease, chronic anemia, DVT. ALLERGIES: No known allergies. MEDICATIONS: Lipitor, Lopressor, Eliquis, Protonix, Lasix, oxycodone, Neurontin. SOCIAL HISTORY: Lives in an assisted living complex. Former smoker. No history of alcohol abuse. SYSTEMS REVIEW: Neurologic: Positive for postherpetic neuralgia left lower extremity. Cardiac: Negative chest pain or palpitations. Respiratory: Negative cough or sputum production. Gastrointestinal: Negative vomiting or diarrhea. Genitourinary: As per HPI. LABORATORY DATA: White count 6, hematocrit 28.2, platelet count 227, BUN 13, creatinine 0.8. Urinalysis with 73 white cells, total bilirubin 0.4, alkaline phosphatase 98, AST 10. Influenza swab negative. Cultures pending. PHYSICAL EXAMINATION: General: She is awake, alert. Supine in bed. Vital Signs: Temperature 100.9, blood pressure 113/54, pulse 79 and regular, respirations 18 per minute. HEENT: Sclerae anicteric. Heart: Sounds S1, S2. Lungs: Clear bilaterally. No rales, rhonchi, or wheezing. Abdomen: Obese, soft. No tenderness elicited. There is a healed surgical scar right lower quadrant with incisional hernia. Extremities: Positive for lower extremity edema. There is an area of erythema present right pretibial area. It is not warm to touch nor tender. No lymphangitic streaking. IMPRESSION: 1. Urinary tract infection, possible sepsis secondary to urinary tract infection. 2. Postherpetic neuralgia left lower extremity. 3. Stasis dermatitis, right lower extremity. PLAN: Await culture results pending sepsis workup. Empiric antibiotic coverage with ceftriaxone 2 g IV piggyback daily. Further recommendations pending cultures. We will follow. Thank you for the kind referral. ULISES ANGULO M.D. [id number]
[2018-04-28] MEDS ORDERED: ARTIFICIAL TEARS (POLYVINYL ALCOHOL 1.4%) OPTH DROPS OU PRN (15:46)
[2018-04-28] MEDS: PANTOPRAZOLE 40 MG TABLET (FP) PO SCH (17:10)
[2018-04-28] MEDS: AMINO ACIDS/PROTEIN HYDROLYS 30 ML LIQUID.PKT PO SCH (17:10)
[2018-04-28] MEDS: oxyCODONE HCL 5 MG TABLET PO PRN (17:13)
[2018-04-28] MEDS: ACETAMINOPHEN 325 MG TABLET (FP) PO PRN (17:13)
[2018-04-28] MEDS: GABAPENTIN 300 MG CAPSULE (FP) PO SCH (23:12)
[2018-04-28] MEDS: MAGNESIUM OXIDE 400 MG TABLET (FP) PO SCH (23:12)
[2018-04-28] MEDS: ATORVASTATIN CA 40 MG TABLET (FP) PO SCH (23:12)
[2018-04-28] MEDS ORDERED: PT OWN MED DRAWER 7, Y5N ONE (23:26)
[2018-04-28] MEDS: APIXABAN 5 MG TABLET PO SCH (23:51)
[2018-04-29] MEDS: SODIUM CHLORIDE 1,000 ML IV SCH ×3 (00:50→16:46)
[2018-04-29] MEDS: oxyCODONE HCL 5 MG TABLET PO PRN ×2 (00:50→09:23)
[2018-04-29 06:06] LABS: SERUM IRON SATURATION 10 % (15-55); TOTAL IRON BINDING CAPACITY 195 ug/dL (250-450); UIBC 176 ug/dL (118-369)
[2018-04-29] MEDS: GABAPENTIN 300 MG CAPSULE (FP) PO SCH ×3 (06:30→22:54)
[2018-04-29 08:48] LABS: MAGNESIUM 1.9 mg/dL (1.8-2.4); PHOSPHOROUS 3.2 mg/dL (2.5-4.9)
[2018-04-29] MEDS ORDERED: DEXTROSE 5%-WATER 100 ML IVPB ONE (08:57)
[2018-04-29] MEDS ORDERED: PT OWN MED DRAWER 7, Y5N ONE ×2 (08:57→22:37)
--- NOTE | 2018-04-29 09:00 | PN ---
Progress Note, Physician - Current Medication List Current Medications: Active Medications Acetaminophen (Tylenol -) 650 mg PO Q6H PRN PRN Reason: PAIN OR FEVER Last Admin: 04/28/18 17:13 Dose: 650 mg Amino Acids (Prosource No Carb Liquid Pkt) 30 ml PO BID@0800,1730 [facility] Last Admin: 04/28/18 17:10 Dose: 30 ml Apixaban (Eliquis -) 5 mg PO BID [facility] Last Admin: 04/28/18 23:51 Dose: 5 mg Artificial Tears (Artificial Tears) 1 drop OU BID PRN PRN Reason: DRY EYES Atorvastatin Calcium (Lipitor -) 40 mg PO HS [facility] Last Admin: 04/28/18 23:12 Dose: 40 mg Furosemide (Lasix -) 40 mg PO DAILY [facility] Gabapentin (Neurontin -) 300 mg PO TID [facility] Last Admin: 04/29/18 06:30 Dose: 300 mg Sodium Chloride (Normal Saline -) 1,000 mls @ 75 mls/hr IV ASDIR [facility] Last Admin: 04/29/18 00:50 Dose: 75 mls/hr Ceftriaxone Sodium 2 gm/ (Dextrose) 100 mls @ 200 mls/hr IVPB DAILY [facility]; Protocol Magnesium Oxide (Mag-Ox -) 400 mg PO BID [facility] Last Admin: 04/28/18 23:12 Dose: 400 mg Metolazone (Zaroxolyn -) 2.5 mg PO DAILY [facility] Metoprolol Tartrate (Lopressor -) 25 mg PO DAILY [facility] Oxycodone HCl (Roxicodone -) 5 mg PO Q6H PRN PRN Reason: PAIN LEVEL 7 - 10 Last Admin: 04/29/18 00:50 Dose: 5 mg Pantoprazole Sodium (Protonix -) 40 mg PO DAILY [facility] Last Admin: 04/28/18 17:10 Dose: 40 mg - Objective Vital Signs: Vital Signs Temperature 98.4 F 04/29/18 06:00 Pulse Rate 78 04/29/18 06:00 Respiratory Rate 20 04/29/18 06:00 Blood Pressure 150/70 04/29/18 06:00 O2 Sat by Pulse Oximetry (%) 96 04/28/18 21:00 Labs: CBC, BMP 04/28/18 08:30 04/28/18 08:30 INR, PTT INR 1.49 (0.83-1.09) H 04/28/18 00:39 Problem List - Problems (1) UTI (urinary tract infection) Assessment/Plan: -UA noted with 2+ blood, 3+ LE, 73 WBCs. -Febrile and tachycardia -Ceftriaxone given in ED -Urine cultures -Abx per ID -ID consulted Code(s): N39.0 - URINARY TRACT INFECTION, SITE NOT SPECIFIED Qualifiers: Urinary tract infection type: acute cystitis Hematuria presence: without hematuria Qualified Code(s): N30.00 - Acute cystitis without hematuria (2) Anemia Assessment/Plan: -Unknown cause of anemia as pt does not seem to be acutely bleeding -Iron studies -Reticulocyte count Code(s): D64.9 - ANEMIA, UNSPECIFIED (3) Weakness Assessment/Plan: -As above -PT Code(s): R53.1 - WEAKNESS (4) History of DVT (deep vein thrombosis) Assessment/Plan: -Continue eliquis 5 mg PO Daily Code(s): Z86.718 - PERSONAL HISTORY OF OTHER VENOUS THROMBOSIS AND EMBOLISM
[2018-04-29 09:15] LABS: HEMATOCRIT 29.8 % (32.4-45.2); HEMOGLOBIN 10.1 GM/dL (10.7-15.3); MCH 29.6 pg (25.7-33.7); MCHC 33.8 g/dl (32.0-36.0); MEAN CELL VOLUME 87.6 fl (80-96); MEAN PLT VOLUME 8.2 fl (7.5-11.1); PLATELET COUNT 196 K/MM3 (134-434); RDW 14.3 % (11.6-15.6); WHITE BLOOD COUNT 5.4 K/mm3 (4.0-10.0)
[2018-04-29] MEDS: PANTOPRAZOLE 40 MG TABLET (FP) PO SCH (09:23)
[2018-04-29] MEDS: MAGNESIUM OXIDE 400 MG TABLET (FP) PO SCH ×2 (09:23→22:54)
[2018-04-29] MEDS: CEFTRIAXONE 2 GM in DEXTROSE 5%-WATER 100 ML IVPB SCH (09:23)
[2018-04-29] MEDS: METOPROLOL TARTRATE 25 MG TABLET (FP) PO SCH (09:23)
[2018-04-29] MEDS: AMINO ACIDS/PROTEIN HYDROLYS 30 ML LIQUID.PKT PO SCH ×2 (09:24→16:45)
[2018-04-29] MEDS: APIXABAN 5 MG TABLET PO SCH ×2 (09:24→22:55)
[2018-04-29] MEDS: METOLAZONE 2.5 MG TABLET (FP) PO SCH (09:25)
--- NOTE | 2018-04-29 10:00 | CONSULT ---
Consultation: REQUESTING PROVIDER: CONSULT REQUEST: We have been asked to medically evaluate this patient for ( Hematology-oncology ). 87 yo female with PMH HTN, HLD, Colon Ca (Resection 2011), anemia, DVT ( Sep 2017) on eliquis, presented to the ED from assisted living with subjective complaints of fevers, chills and nausea. In Hospital she was diagnosed with UTI and was started on IV antibiotics. She denies change in appetite, weight, blood in stool, urine and from vagina. Denies sob, chest pain, palpitations, lightheadedness. Recent Travel: No PAST MEDICAL HISTORY: PMH HTN, HLD, Colon Ca (Resection 2011), anemia, DVT on eliquis, shingles, post herpetic neuralgia, CHF PAST SURGICAL HISTORY: colectomy with ileostomy, ileostomy closure Social History: Smoking: former smoker, smoked for 10 years. Stopped 25 years ago. Use to smoke 1 pack a day. 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 Family History: Mother in seventies from heart failure Father from [place] in his eighties. 3 brothers and one sister healthy. No children Lives in assisted living as she is unable to walk from 6 months because of pain Allergies crab Allergy (Severe, Verified 04/28/18 05:27) Hivelder REVIEW OF SYSTEMS: CONSTITUTIONAL: Absent: diaphoresis, generalized weakness, malaise, loss of appetite, weight change HEENT: Absent: rhinorrhea, nasal congestion, throat pain, throat swelling, difficulty swallowing, mouth swelling, CARDIOVASCULAR: Absent: chest pain, syncope, palpitations, irregular heart rate, lightheadedness , RESPIRATORY: Absent: cough, shortness of breath, dyspnea with exertion, orthopnea, wheezing, stridor, hemoptysis GASTROINTESTINAL: Absent: abdominal pain, abdominal distension, nausea, vomiting, diarrhea, constipation, melena, hematochezia GENITOURINARY: Absent: dysuria, frequency, urgency, hesitancy, hematuria, SKIN: Absent: rash, itching, pallor HEMATOLOGIC/IMMUNOLOGIC: Absent: easy bleeding, easy bruising, ENDOCRINE: Absent: unexplained weight gain, u NEUROLOGIC: Absent: headache, focal weakness or paresthesias, dizziness, unsteady gait, seizure PSYCHIATRIC: Absent: anxiety, depression, PHYSICAL EXAMINATION Vital Signs - 24 hr 04/29/18 04/29/18 09:00 09:17 Temperature 98.5 F Pulse Rate 83 Respiratory 20 20 Rate Blood Pressure 154/78 O2 Sat by Pulse 96 Oximetry (%) GENERAL: Awake, alert, and fully oriented, HEAD: Normal with no signs of trauma. EYES: sclera anicteric, conjunctiva clear. EARS, NOSE, THROAT: oropharynx clear without exudates. dry mucous membranes. dentures present NECK: Normal range of motion, supple without lymphadenopathy, or masses. LUNGS: decrease air entry at bases, no wheezing, no crackles Breast: no mass palpable. Axilla: no lump palpable. HEART: Regular rate and rhythm, normal S1 and S2 ABDOMEN: Soft, nontender, not distended, normoactive bowel sounds, no guarding, no rebound, no masses. ileostomy scar and midline scar present. ventral hernia present in right side. MUSCULOSKELETAL: No CVA tenderness. UPPER EXTREMITIES: 2+ pulses, warm, well-perfused. No cyanosis. No clubbing. LOWER EXTREMITIES: well-perfused. erythematous patch present on jones of right leg NEUROLOGICAL: Normal speech. PSYCHIATRIC: Cooperative. Good eye contact. SKIN: Warm, dry, Laboratory Results - last 24 hr 04/28/18 04/28/18 04/29/18 08:30 08:30 07:48 Retic Count 1.48 Phosphorus 3.2 Magnesium 1.9 Iron 19 L TIBC 195 L Iron Saturation 10 L Active Medications Generic Name Dose Route Start Last Admin Trade Name Freq PRN Reason Stop Dose Admin Acetaminophen 650 mg 04/28/18 15:46 04/28/18 17:13 Tylenol - PO 650 mg Q6H PRN Administration PAIN OR FEVER Amino Acids 30 ml 04/28/18 17:30 04/29/18 09:24 Prosource No Carb Liquid Pkt PO 30 ml BID@0800,1730 MATHEW Administration Apixaban 5 mg 04/28/18 22:00 04/29/18 09:24 Eliquis - PO 5 mg BID MATHEW Administration Artificial Tears 1 drop 04/28/18 15:46 Artificial Tears OU BID PRN DRY EYES Atorvastatin Calcium 40 mg 04/28/18 22:00 04/28/18 23:12 Lipitor - PO 40 mg HS MATHEW Administration Furosemide 40 mg 04/29/18 10:00 Lasix - PO DAILY MATHEW Gabapentin 300 mg 04/28/18 22:00 04/29/18 06:30 Neurontin - PO 300 mg TID MATHEW Administration Sodium Chloride 1,000 mls @ 75 mls/hr 04/28/18 05:30 04/29/18 09:24 Normal Saline - IV Not Given ASDIR MATHEW Ceftriaxone Sodium 2 gm/ 100 mls @ 200 mls/hr 04/29/18 10:00 04/29/18 09:23 Dextrose IVPB 200 mls/hr DAILY MAT[facility]W Administration Protocol Magnesium Oxide 400 mg 04/28/18 22:00 04/29/18 09:23 Mag-Ox - PO 400 mg BID MATHEW Administration Metolazone 2.5 mg 04/29/18 10:00 04/29/18 09:25 Zaroxolyn - PO 2.5 mg DAILY MAT[facility]W Administration Metoprolol Tartrate 25 mg 04/29/18 10:00 04/29/18 09:23 Lopressor - PO 25 mg DAILY MAT[facility]W Administration Oxycodone HCl 5 mg 04/28/18 15:46 04/29/18 09:23 Roxicodone - PO 5 mg Q6H PRN Administration PAIN LEVEL 7 - 10 Pantoprazole Sodium 40 mg 04/28/18 16:00 04/29/18 09:23 Protonix - PO 40 mg DAILY MATHEW Administration Laboratory Tests 04/28/18 08:30 Iron 19 L TIBC 195 L Iron Saturation 10 L ASSESSMENT/PLAN: 87 yo female with PMH HTN, HLD, Colon Ca (Resection 2011), anemia, DVT ( Sep 2017) on eliquis, presented to the ED from assisted living with subjective complaints of fevers, chills and nausea. Diagnosed with UTI. Patient has anemia with MCV 87.5 and Hb 9.5. 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 Last colonoscopy was done in 11/2017 which showed one tubular adenoma of 0.3 cm. Endoscopy was done in 11/2017 which showed moderate antrum gastritis. CEA done in 11/2017 was 1.4. Patient denies any change in weight, appetite and blood in stool. She is on elequis since Sep 2017 for DVT. Patient also have reverse A:G ratio with back pain. Old scan shows degenerative disease. Iron studies pending. we will order Sr ferritin, TSH, Vitamin b12, folic acid, stool for occult, CEA level. GI follow up. Dispo: We will continue to follow the patient. Thank you for this consultative opportunity. Visit type - Emergency Visit Emergency Visit: Yes ED Registration Date: 04/28/18 Care time: The patient presented to the Emergency Department on the above date and was hospitalized for further evaluation of their emergent condition. - New Patient This patient is new to me today: Yes Date on this admission: 05/01/18 - Critical Care Critical Care patient: No
[2018-04-29] MEDS: FUROSEMIDE 40 MG TABLET (FP) PO SCH (11:27)
--- NOTE | 2018-04-29 12:36 | CONSULT ---
Consult Consult Specialty:: PM&R - History of Present Illness Chief Complaint: feeling better History of Present Illness: This is an 87 year old woman with a medical history of HTN, HLD, colon cancer s/ p resection 2011, renal insufficiency, OA, DVT on Eliquis, anemia, shingles ( low back into BLE), who presented to the ED 04/28/18 with fevers and chills. UA was positive, and UCx is growing lactulose fermenting negative bacilli. Ceftriaxone was started for sepsis due to UTI. She was seen by ID for UTI, as well as Heme-Onc for chronic anemia. Physiatry is being consulted for further recommendations. - History Source History Provided By: Patient, Medical Record - Past Medical History Cardio/Vascular: Yes: HTN, Hyperlipdemia Gastrointestinal: Yes: Cancer (colon cancer s/p resection 2011) Renal/: Yes: Renal Inusuff Musculoskeletal: Yes: Chronic low back pain, Osteoarthritis - Past Surgical History Past Surgical History: Yes: Ileosotomy (with ) - Alcohol/Substance Use Hx Alcohol Use: No History of Substance Use: reports: None - Smoking History Smoking history: Never smoked Have you smoked in the past 12 months: No If you are a former smoker, when did you quit?: 30 yrs ago - Social History Usual Living Arrangement: Assisted Living ([facility], w/c bound x5 months, has assistance in some ADLs) ADL: Support Services 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 History of Recent Travel: No Home Medications - Allergies Allergies/Adverse Reactions: Allergies Allergy/AdvReac Type Severity Reaction Status Date / Time crab Allergy Severe Hives Verified 04/28/18 05:27 - Home Medications Home Medications: Ambulatory Orders Atorvastatin Ca [Lipitor] 40 mg PO HS 07/29/17 Metoprolol Tartrate [Lopressor -] 25 mg PO DAILY 07/29/17 Apixaban [Eliquis -] 5 mg PO BID tablet 10/03/17 Pantoprazole Sodium [Protonix -] 40 mg PO DAILY tablet.ec 10/03/17 Carboxymethylcellulose Sodium [Lubricant Eye Drops] 1 each OU HS 11/17/17 Furosemide [Lasix] 40 mg PO DAILY 11/17/17 Metolazone 2.5 mg PO DAILY 11/17/17 oxyCODONE HCL [Roxicodone -] 5 mg PO Q6H PRN MDD 4 11/17/17 oxyCODONE SR [Oxycontin] 10 mg PO BID 11/17/17 Acetaminophen [Tylenol .Regular Strength -] 650 mg PO Q4H PRN tablet 12/01/17 Amino Acids/Protein Hydrolys [Prosource No Carb Liquid Pkt] 30 ml PO BID@0800, 1730 packet 12/01/17 Gabapentin [Neurontin -] 400 mg PO TID capsule 12/01/17 Magnesium Oxide [Magox 400] 400 mg PO BID #60 tablet 12/01/17 Potassium Chloride [K-Dur -] 20 meq PO BID #60 tablet.er 12/01/17 Family Disease History - Family Disease History Family Disease History: Diabetes: Sister (HTN, Hyperlipidemia), Heart Disease: Brother (CABG,HTN, hyperlipidemia), Sister, Other: Father ( 70: [place]), Mother ( 84: chf) Review of Systems Findings/Remarks: denies fevers, chills, changes in vision/ hearing/ mood, CP, SOB, abdominal pain , nausea, vomiting, constipation, diarrhea, dysuria, numbness/ paresthesias BUE / BLE, or muscle/ joint pain. Notes LBP into BLE due to shingles Physical Exam Vital Signs: Vital Signs Temperature 98.5 F 04/29/18 09:17 Pulse Rate 83 04/29/18 09:17 Respiratory Rate 20 04/29/18 09:17 Blood Pressure 154/78 04/29/18 09:17 O2 Sat by Pulse Oximetry (%) 96 04/29/18 09:00 Musculoskeletal: Yes: Other (General: calm elderly F sitting in bed NAD, AAO x3 N/M: R shoulder flexion to 75 degrees, then full BUE ROM, 4/5 R shoulder then 4+/5 BUE; 1/5 B HF/ L KE, 3/5 R KE, then 4+/5 B DF, unable to passively range BLE due to pain; Pinprick Intact BUE/ BLE Extremities: 2+ BLE pitting edema, no B calf tenderness, +B hallus valgus deformities) Labs: CBC, BMP 04/29/18 07:48 04/28/18 08:30 Imaging - Results Chest X-ray: Report Reviewed (CXR 04/28/18 shows chronic L shoulder subluxation without acute chest pathology) Assessment/Plan Impression: 1) Deficits mobility/ ADLs 2) Gait abnormality 3) Sepsis due to UTI 4) Chronic anemia 5) hx HTN, HLD 6) hx colon cancer s/p resection 2011 7) hx renal insufficiency 8) 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 9) hx DVT on Eliquis 10) hx shingles (low back into BLE) 11) Obesity 12) Up to date pneumovax, no documented flu shot Recommendations: 1) PT for BLE stretching strengthening ROM functional mobility 2) Falls, safety precautions 3) Cardiac precautions 4) On Gabapentin for shingles pain 5) DVT tx: on Eliquis 6) Skin protection: float heels, frequent turning 7) Denies constipation on current bowel regimen 8) Monitor CBC given anemia 9) Nutrition consult for obesity 10) She has chronic R shoulder subluxation for which she has received cortisone injections in past, recommend outpt Ortho f/u for repeat injection (last one was 08/2017 per her report) 11) Discharge planning: d/w pt being discharged to subacute rehabilitation, as she would benefit from more- intensive rehabilitation given 5 months of immobility. She declines and prefers to return to assisted living facility which has PT on-site (only 1-2x weekly). Thank you for this referral.
[2018-04-29] MEDS: FERROUS SO4 325 MG TABLET (FP) PO SCH (16:45)
[2018-04-29] MEDS ORDERED: IRON SUCROSE INJECTION 300 MG in SODIUM CHLORIDE 235 ML IVPB ONE (19:45)
--- NOTE | 2018-04-29 19:51 | PN ---
Teaching Attending Note Name of Resident: Jameel Bullard ATTENDING PHYSICIAN STATEMENT I saw and evaluated the patient. I reviewed the resident's note and discussed the case with the resident. I agree with the resident's findings and plan as documented. SUBJECTIVE:NC/C anemia OBJECTIVE:Low Fe++ low TIBC compatible with chronic disease and Fe++ deficiency Low B-12 Plan IV Venofer and B-12 therapy GI follow up. Protein studies for reverse A/G ratio. ASSESSMENT AND PLAN:
[2018-04-29] MEDS: ACETAMINOPHEN 325 MG TABLET (FP) PO PRN (22:53)
[2018-04-29] MEDS: ATORVASTATIN CA 40 MG TABLET (FP) PO SCH (22:54)
[2018-04-30] MEDS: SODIUM CHLORIDE 1,000 ML IV SCH (06:10)
[2018-04-30] MEDS: GABAPENTIN 300 MG CAPSULE (FP) PO SCH ×3 (06:10→22:20)
[2018-04-30] MEDS: oxyCODONE HCL 5 MG TABLET PO PRN ×2 (06:10→13:46)
[2018-04-30 08:10] LABS: BASO % 1.1 % (0-2.0); EOS % 1.5 % (0-4.5); HEMOGLOBIN 10.3 GM/dL (10.7-15.3); MCH 29.9 pg (25.7-33.7); MCHC 34.4 g/dl (32.0-36.0); MEAN PLT VOLUME 8.3 fl (7.5-11.1); MONO % 14.8 % (3.8-10.2); NEUT % 64.6 % (42.8-82.8); PLATELET COUNT 244 K/MM3 (134-434); RBC 3.45 M/mm3 (3.60-5.2); RDW 14.1 % (11.6-15.6); WHITE BLOOD COUNT 5.2 K/mm3 (4.0-10.0)
[2018-04-30] MEDS: AMINO ACIDS/PROTEIN HYDROLYS 30 ML LIQUID.PKT PO SCH ×2 (08:55→18:30)
[2018-04-30] MEDS ORDERED: PT OWN MED DRAWER 7, Y5N ONE ×3 (08:55→22:26)
[2018-04-30] MEDS ORDERED: DEXTROSE 5%-WATER 100 ML IVPB ONE (08:56)
[2018-04-30] MEDS: FERROUS SO4 325 MG TABLET (FP) PO SCH (09:10)
[2018-04-30] MEDS: CEFTRIAXONE 2 GM in DEXTROSE 5%-WATER 100 ML IVPB SCH (09:10)
[2018-04-30] MEDS: MAGNESIUM OXIDE 400 MG TABLET (FP) PO SCH ×2 (09:10→22:20)
--- NOTE | 2018-04-30 09:10 | PN ---
Progress Note, Physician - Current Medication List Current Medications: Active Medications Acetaminophen (Tylenol -) 650 mg PO Q6H PRN PRN Reason: PAIN OR FEVER Last Admin: 04/29/18 22:53 Dose: 650 mg Amino Acids (Prosource No Carb Liquid Pkt) 30 ml PO BID@0800,1730 [facility] Last Admin: 04/29/18 16:45 Dose: 30 ml Apixaban (Eliquis -) 5 mg PO BID [facility] Last Admin: 04/29/18 22:55 Dose: 5 mg Artificial Tears (Artificial Tears) 1 drop OU BID PRN PRN Reason: DRY EYES Atorvastatin Calcium (Lipitor -) 40 mg PO HS [facility] Last Admin: 04/29/18 22:54 Dose: 40 mg Cyanocobalamin (Vitamin B12 Injection -) 1,000 mcg IM Q7D@1000 [facility]W Ferrous Sulfate (Feosol -) 325 mg PO DAILY [facility] Last Admin: 04/29/18 16:45 Dose: 325 mg Furosemide (Lasix -) 40 mg PO DAILY [facility] Last Admin: 04/29/18 11:27 Dose: 40 mg Gabapentin (Neurontin -) 300 mg PO TID [facility] Last Admin: 04/30/18 06:10 Dose: 300 mg Sodium Chloride (Normal Saline -) 1,000 mls @ 75 mls/hr IV ASDIR [facility] Last Admin: 04/30/18 06:10 Dose: 75 mls/hr Ceftriaxone Sodium 2 gm/ (Dextrose) 100 mls @ 200 mls/hr IVPB DAILY [facility]; Protocol Last Admin: 04/29/18 09:23 Dose: 200 mls/hr Iron Sucrose 300 mg/ Sodium (Chloride) 250 mls @ 250 mls/hr IVPB ONCE ONE Stop: 04/30/18 08:46 Magnesium Oxide (Mag-Ox -) 400 mg PO BID [facility] Last Admin: 04/29/18 22:54 Dose: 400 mg Metolazone (Zaroxolyn -) 2.5 mg PO DAILY [facility] Last Admin: 04/29/18 09:25 Dose: 2.5 mg Metoprolol Tartrate (Lopressor -) 25 mg PO DAILY [facility] Last Admin: 04/29/18 09:23 Dose: 25 mg Oxycodone HCl (Roxicodone -) 5 mg PO Q6H PRN PRN Reason: PAIN LEVEL 7 - 10 Last Admin: 04/30/18 06:10 Dose: 5 mg Pantoprazole Sodium (Protonix -) 40 mg PO DAILY [facility] Last Admin: 04/29/18 09:23 Dose: 40 mg - Objective Vital Signs: Vital Signs Temperature 98.0 F 04/30/18 09:08 Pulse Rate 73 04/30/18 09:08 Respiratory Rate 20 04/30/18 09:08 Blood Pressure 120/44 04/30/18 09:08 O2 Sat by Pulse Oximetry (%) 96 04/29/18 21:00 Cardiovascular: Yes: Regular Rate and Rhythm Respiratory: Yes: Regular, CTA Bilaterally Gastrointestinal: Yes: Normal Bowel Sounds, Soft. No: Tenderness Labs: CBC, BMP 04/30/18 06:30 04/28/18 08:30 INR, PTT INR 1.49 (0.83-1.09) H 04/28/18 00:39 Problem List - Problems (1) UTI (urinary tract infection) Assessment/Plan: -UA noted with 2+ blood, 3+ LE, 73 WBCs. -Febrile and tachycardia -Ceftriaxone given in ED -Urine cultures -Abx per ID -ID consulted Code(s): N39.0 - URINARY TRACT INFECTION, SITE NOT SPECIFIED Qualifiers: Urinary tract infection type: acute cystitis Hematuria presence: without hematuria Qualified Code(s): N30.00 - Acute cystitis without hematuria (2) Anemia Assessment/Plan: -Unknown cause of anemia as pt does not seem to be acutely bleeding -Iron studies -Reticulocyte count Code(s): D64.9 - ANEMIA, UNSPECIFIED (3) Weakness Assessment/Plan: -As above -PT--REFUSES SNF Code(s): R53.1 - WEAKNESS (4) History of DVT (deep vein thrombosis) Assessment/Plan: -Continue eliquis 5 mg PO Daily Code(s): Z86.718 - PERSONAL HISTORY OF OTHER VENOUS THROMBOSIS AND EMBOLISM
[2018-04-30] MEDS: APIXABAN 5 MG TABLET PO SCH ×2 (09:11→22:21)
[2018-04-30] MEDS: METOLAZONE 2.5 MG TABLET (FP) PO SCH (09:11)
[2018-04-30] MEDS: PANTOPRAZOLE 40 MG TABLET (FP) PO SCH (09:11)
[2018-04-30] MEDS: METOPROLOL TARTRATE 25 MG TABLET (FP) PO SCH (09:13)
[2018-04-30] MEDS ORDERED: IRON SUCROSE INJECTION 300 MG in SODIUM CHLORIDE 235 ML IVPB ONE (11:15)
[2018-04-30] MEDS ORDERED: CYANOCOBALAMIN (VITAMIN B-12) 1000 MCG/1 ML VIAL IM SCH (11:15)
[2018-04-30] MEDS: FUROSEMIDE 40 MG TABLET (FP) PO SCH (11:16)
[2018-04-30 12:40] VITALS: BMI 34.4
[2018-04-30] MEDS ORDERED: ERTAPENEM SODIUM 1 GM/50 ML PRE-DOCKED IVPB SCH (13:00)
[2018-04-30] MEDS: ERTAPENEM SODIUM 1 GM in SODIUM CHLORIDE 50 ML IVPB SCH (15:13)
--- NOTE | 2018-04-30 17:59 | PN ---
Progress Note, Physician Chief Complaint: More awake and alert No c/o pain No dysuria Afebrile WBC WNL Urine c/s ESBL - Current Medication List Current Medications: Active Medications Acetaminophen (Tylenol -) 650 mg PO Q6H PRN PRN Reason: PAIN OR FEVER Last Admin: 04/29/18 22:53 Dose: 650 mg Amino Acids (Prosource No Carb Liquid Pkt) 30 ml PO BID@0800,1730 [facility] Last Admin: 04/30/18 08:55 Dose: 30 ml Apixaban (Eliquis -) 5 mg PO BID [facility] Last Admin: 04/30/18 09:11 Dose: 5 mg Artificial Tears (Artificial Tears) 1 drop OU BID PRN PRN Reason: DRY EYES Atorvastatin Calcium (Lipitor -) 40 mg PO HS [facility] Last Admin: 04/29/18 22:54 Dose: 40 mg Cyanocobalamin (Vitamin B12 Injection -) 1,000 mcg IM Q7D@1000 [facility] Last Admin: 04/30/18 12:29 Dose: 1,000 mcg Cyanocobalamin (Vitamin B12 -) 1,000 mcg PO DAILY [facility] Ferrous Sulfate (Feosol -) 325 mg PO DAILY [facility] Last Admin: 04/30/18 09:10 Dose: 325 mg Furosemide (Lasix -) 40 mg PO DAILY [facility] Last Admin: 04/30/18 11:16 Dose: 40 mg Gabapentin (Neurontin -) 300 mg PO TID [facility] Last Admin: 04/30/18 13:46 Dose: 300 mg Sodium Chloride (Normal Saline -) 1,000 mls @ 75 mls/hr IV ASDIR [facility] Last Admin: 04/30/18 06:10 Dose: 75 mls/hr Ertapenem 1 gm/ Sodium (Chloride) 50 mls @ 100 mls/hr IVPB DAILY [facility] Last Admin: 04/30/18 15:13 Dose: 100 mls/hr Magnesium Oxide (Mag-Ox -) 400 mg PO BID [facility] Last Admin: 04/30/18 09:10 Dose: 400 mg Metolazone (Zaroxolyn -) 2.5 mg PO DAILY [facility] Last Admin: 04/30/18 09:11 Dose: 2.5 mg Metoprolol Tartrate (Lopressor -) 25 mg PO DAILY [facility] Last Admin: 04/30/18 09:13 Dose: 25 mg Oxycodone HCl (Roxicodone -) 5 mg PO Q6H PRN PRN Reason: PAIN LEVEL 7 - 10 Last Admin: 04/30/18 13:46 Dose: 5 mg Pantoprazole Sodium (Protonix -) 40 mg PO DAILY [facility] Last Admin: 04/30/18 09:11 Dose: 40 mg - Objective Vital Signs: Vital Signs Temperature 97.9 F 04/30/18 14:18 Pulse Rate 58 L 04/30/18 14:18 Respiratory Rate 20 04/30/18 14:18 Blood Pressure 113/43 04/30/18 14:18 O2 Sat by Pulse Oximetry (%) 95 04/30/18 09:00 Constitutional: Yes: No Distress Eyes: Yes: Conjunctiva Clear Cardiovascular: Yes: Regular Rate and Rhythm, S1, S2 Respiratory: Yes: CTA Bilaterally Gastrointestinal: Yes: Normal Bowel Sounds, Soft Labs: CBC, BMP 04/30/18 06:30 04/28/18 08:30 INR, PTT INR 1.49 (0.83-1.09) H 04/28/18 00:39 Assessment/Plan UTI ESBL Substitute ertapenem 1gm IVPB q24h Contact precautions
[2018-04-30] MEDS: ATORVASTATIN CA 40 MG TABLET (FP) PO SCH (22:21)
[2018-05-01] MEDS: oxyCODONE HCL 5 MG TABLET PO PRN ×3 (00:17→19:16)
[2018-05-01] MEDS: SODIUM CHLORIDE 1,000 ML IV SCH ×2 (02:50→17:40)
[2018-05-01] MEDS: GABAPENTIN 300 MG CAPSULE (FP) PO SCH ×3 (05:53→22:57)
[2018-05-01 08:10] LABS: IGA IMMUNOGLOBULIN 176 mg/dL (64-422); IGM IMMUNOGLOBULIN 113 mg/dL (26-217)
--- NOTE | 2018-05-01 09:27 | PN ---
Progress Note, Physician Chief Complaint: FEELING BETTER RIGHT KNEE PAIN NO FEVERS - Current Medication List Current Medications: Active Medications Acetaminophen (Tylenol -) 650 mg PO Q6H PRN PRN Reason: PAIN OR FEVER Last Admin: 04/29/18 22:53 Dose: 650 mg Amino Acids (Prosource No Carb Liquid Pkt) 30 ml PO BID@0800,1730 [facility] Last Admin: 04/30/18 18:30 Dose: 30 ml Apixaban (Eliquis -) 5 mg PO BID [facility] Last Admin: 04/30/18 22:21 Dose: 5 mg Artificial Tears (Artificial Tears) 1 drop OU BID PRN PRN Reason: DRY EYES Atorvastatin Calcium (Lipitor -) 40 mg PO HS [facility] Last Admin: 04/30/18 22:21 Dose: 40 mg Cyanocobalamin (Vitamin B12 Injection -) 1,000 mcg IM Q7D@1000 [facility] Last Admin: 04/30/18 12:29 Dose: 1,000 mcg Cyanocobalamin (Vitamin B12 -) 1,000 mcg PO DAILY [facility] Ferrous Sulfate (Feosol -) 325 mg PO DAILY [facility] Last Admin: 04/30/18 09:10 Dose: 325 mg Furosemide (Lasix -) 40 mg PO DAILY [facility] Last Admin: 04/30/18 11:16 Dose: 40 mg Gabapentin (Neurontin -) 300 mg PO TID [facility] Last Admin: 05/01/18 05:53 Dose: 300 mg Sodium Chloride (Normal Saline -) 1,000 mls @ 75 mls/hr IV ASDIR [facility] Last Admin: 05/01/18 02:50 Dose: 75 mls/hr Ertapenem 1 gm/ Sodium (Chloride) 50 mls @ 100 mls/hr IVPB DAILY [facility] Last Admin: 04/30/18 15:13 Dose: 100 mls/hr Magnesium Oxide (Mag-Ox -) 400 mg PO BID [facility] Last Admin: 04/30/18 22:20 Dose: 400 mg Metolazone (Zaroxolyn -) 2.5 mg PO DAILY [facility] Last Admin: 04/30/18 09:11 Dose: 2.5 mg Metoprolol Tartrate (Lopressor -) 25 mg PO DAILY [facility] Last Admin: 04/30/18 09:13 Dose: 25 mg Oxycodone HCl (Roxicodone -) 5 mg PO Q6H PRN PRN Reason: PAIN LEVEL 7 - 10 Last Admin: 05/01/18 00:17 Dose: 5 mg Pantoprazole Sodium (Protonix -) 40 mg PO DAILY [facility] Last Admin: 04/30/18 09:11 Dose: 40 mg - Objective Vital Signs: Vital Signs Temperature 98.3 F 05/01/18 06:52 Pulse Rate 76 05/01/18 06:52 Respiratory Rate 18 05/01/18 06:52 Blood Pressure 134/53 05/01/18 06:52 O2 Sat by Pulse Oximetry (%) 95 04/30/18 21:00 Constitutional: Yes: Mild Distress Eyes: Yes: WNL HENT: Yes: WNL Neck: Yes: WNL Cardiovascular: Yes: WNL Respiratory: Yes: WNL Gastrointestinal: Yes: WNL Genitourinary: Yes: Other Musculoskeletal: Yes: Muscle Weakness Edema: Yes Edema: LLE: Trace, RLE: Trace Peripheral Pulses WNL: Yes Integumentary: Yes: WNL Wound/Incision: Yes: Clean/Dry Neurological: Yes: WNL ...Motor Strength: WNL Psychiatric: Yes: WNL Labs: CBC, BMP 04/30/18 06:30 04/28/18 08:30 INR, PTT INR 1.49 (0.83-1.09) H 04/28/18 00:39 Problem List - Problems (1) Fever Code(s): R50.9 - FEVER, UNSPECIFIED Qualifiers: Fever type: unspecified Qualified Code(s): R50.9 - Fever, unspecified (2) UTI (urinary tract infection) Code(s): N39.0 - URINARY TRACT INFECTION, SITE NOT SPECIFIED Qualifiers: Urinary tract infection type: acute cystitis Hematuria presence: without hematuria Qualified Code(s): N30.00 - Acute cystitis without hematuria (3) Anemia Code(s): D64.9 - ANEMIA, UNSPECIFIED (4) Hyperlipidemia Code(s): E78.5 - HYPERLIPIDEMIA, UNSPECIFIED (5) Hypertension Code(s): I10 - ESSENTIAL (PRIMARY) HYPERTENSION Assessment/Plan 1 MORE DAY OF ERTAPENAM PT EVAL BENGAY TO RIGHT KNEE DC PLANNING
[2018-05-01] MEDS ORDERED: PT OWN MED DRAWER 7, Y5N ONE (09:28)
[2018-05-01] MEDS: MAGNESIUM OXIDE 400 MG TABLET (FP) PO SCH ×2 (09:34→22:56)
[2018-05-01] MEDS: PANTOPRAZOLE 40 MG TABLET (FP) PO SCH (09:34)
[2018-05-01] MEDS: AMINO ACIDS/PROTEIN HYDROLYS 30 ML LIQUID.PKT PO SCH ×2 (09:34→17:43)
[2018-05-01] MEDS: METOPROLOL TARTRATE 25 MG TABLET (FP) PO SCH (09:34)
[2018-05-01] MEDS: CYANOCOBALAMIN 1,000 MCG TABLET (FP) PO SCH (09:34)
[2018-05-01] MEDS: FUROSEMIDE 40 MG TABLET (FP) PO SCH (09:34)
[2018-05-01] MEDS: APIXABAN 5 MG TABLET PO SCH ×2 (09:34→22:57)
[2018-05-01] MEDS: METOLAZONE 2.5 MG TABLET (FP) PO SCH (09:34)
[2018-05-01] MEDS: FERROUS SO4 325 MG TABLET (FP) PO SCH (09:35)
[2018-05-01] MEDS: ACETAMINOPHEN 325 MG TABLET (FP) PO PRN ×2 (09:35→15:23)
[2018-05-01] MEDS: ERTAPENEM SODIUM 1 GM in SODIUM CHLORIDE 50 ML IVPB SCH (11:02)
[2018-05-01] MEDS: METHYL SALICYLATE/MENTHOL OINT 30 GM TUBE TP SCH ×2 (11:03→22:59)
--- NOTE | 2018-05-01 13:40 | PN ---
Progress Note, Physician Chief Complaint: Awake and alert No c/o pain No c/o dysuria Afebrile WBC WNL Urine c/s ESBL - Current Medication List Current Medications: Active Medications Acetaminophen (Tylenol -) 650 mg PO Q6H PRN PRN Reason: PAIN OR FEVER Last Admin: 05/01/18 09:35 Dose: 650 mg Amino Acids (Prosource No Carb Liquid Pkt) 30 ml PO BID@0800,1730 [facility] Last Admin: 05/01/18 09:34 Dose: 30 ml Apixaban (Eliquis -) 5 mg PO BID [facility] Last Admin: 05/01/18 09:34 Dose: 5 mg Artificial Tears (Artificial Tears) 1 drop OU BID PRN PRN Reason: DRY EYES Atorvastatin Calcium (Lipitor -) 40 mg PO HS [facility] Last Admin: 04/30/18 22:21 Dose: 40 mg Cyanocobalamin (Vitamin B12 Injection -) 1,000 mcg IM Q7D@1000 [facility] Last Admin: 04/30/18 12:29 Dose: 1,000 mcg Cyanocobalamin (Vitamin B12 -) 1,000 mcg PO DAILY [facility] Last Admin: 05/01/18 09:34 Dose: 1,000 mcg Ferrous Sulfate (Feosol -) 325 mg PO DAILY [facility] Last Admin: 05/01/18 09:35 Dose: 325 mg Furosemide (Lasix -) 40 mg PO DAILY [facility] Last Admin: 05/01/18 09:34 Dose: 40 mg Gabapentin (Neurontin -) 300 mg PO TID [facility] Last Admin: 05/01/18 05:53 Dose: 300 mg Sodium Chloride (Normal Saline -) 1,000 mls @ 75 mls/hr IV ASDIR [facility] Last Admin: 05/01/18 02:50 Dose: 75 mls/hr Ertapenem 1 gm/ Sodium (Chloride) 50 mls @ 100 mls/hr IVPB DAILY [facility] Last Admin: 05/01/18 11:02 Dose: 100 mls/hr Magnesium Oxide (Mag-Ox -) 400 mg PO BID [facility] Last Admin: 05/01/18 09:34 Dose: 400 mg Methyl Salicylate ([place] -) 1 applic TP BID [facility] Last Admin: 05/01/18 11:03 Dose: 1 applic Metolazone (Zaroxolyn -) 2.5 mg PO DAILY [facility] Last Admin: 05/01/18 09:34 Dose: 2.5 mg Metoprolol Tartrate (Lopressor -) 25 mg PO DAILY [facility] Last Admin: 05/01/18 09:34 Dose: 25 mg Oxycodone HCl (Roxicodone -) 5 mg PO Q6H PRN PRN Reason: PAIN LEVEL 7 - 10 Last Admin: 05/01/18 11:17 Dose: 5 mg Pantoprazole Sodium (Protonix -) 40 mg PO DAILY [facility] Last Admin: 05/01/18 09:34 Dose: 40 mg - Objective Vital Signs: Vital Signs Temperature 98.1 F 05/01/18 09:00 Pulse Rate 83 05/01/18 09:00 Respiratory Rate 20 05/01/18 09:00 Blood Pressure 144/53 05/01/18 09:00 O2 Sat by Pulse Oximetry (%) 95 04/30/18 21:00 Constitutional: Yes: No Distress Eyes: Yes: Conjunctiva Clear Cardiovascular: Yes: Regular Rate and Rhythm, S1, S2 Respiratory: Yes: CTA Bilaterally Gastrointestinal: Yes: Normal Bowel Sounds, Soft, Abdomen, Obese. No: Tenderness Edema: Yes Labs: CBC, BMP 04/30/18 06:30 04/28/18 08:30 INR, PTT INR 1.49 (0.83-1.09) H 04/28/18 00:39 Assessment/Plan UTI ESBL Continue ertapenem 1gm IVPB q24h additional 24hr Contact precautions
[2018-05-01] MEDS: ATORVASTATIN CA 40 MG TABLET (FP) PO SCH (22:57)
[2018-05-02] MEDS: oxyCODONE HCL 5 MG TABLET PO PRN ×2 (01:13→09:35)
[2018-05-02] MEDS: GABAPENTIN 300 MG CAPSULE (FP) PO SCH ×2 (07:09→13:40)
[2018-05-02] MEDS: SODIUM CHLORIDE 1,000 ML IV SCH (07:09)
[2018-05-02 08:46] VITALS: BP 120/60; PULSE 74; TEMP 97.2
--- NOTE | 2018-05-02 09:09 | PN ---
Physical Exam: SUBJECTIVE: Patient seen and examined Patient feels good. no events overnight OBJECTIVE: Vital Signs Period Temp Pulse Resp BP Sys/Brown Pulse Ox Last 24 Hr 97.2 F-98.9 F 56-78 20-20 114-135/44-60 93 GENERAL: Awake, alert, and fully oriented, HEAD: Normal with no signs of trauma. EYES: sclera anicteric, conjunctiva clear. EARS, NOSE, THROAT: oropharynx clear without exudates. dentures present NECK: Normal range of motion, supple without lymphadenopathy, or masses. LUNGS: decrease air entry at bases, no wheezing, no crackles Breast: no mass palpable. Axilla: no lump palpable. HEART: Regular rate and rhythm, normal S1 and S2 ABDOMEN: Soft, nontender, not distended, normoactive bowel sounds, no guarding, no rebound, no masses. ileostomy scar and midline scar present. ventral hernia present in right side. MUSCULOSKELETAL: No CVA tenderness. UPPER EXTREMITIES: 2+ pulses, warm, well-perfused. No cyanosis. No clubbing. LOWER EXTREMITIES: well-perfused. erythematous patch present on jones of right leg NEUROLOGICAL: Normal speech. PSYCHIATRIC: Cooperative. Good eye contact. SKIN: Warm, dry, Laboratory Results - last 24 hr 04/30/18 06:30 Beta Globulins 0.8 OSBALDO & SPEP Interp Total Protein (OSBALDO) 5.8 L Albumin (OSBALDO) 2.8 L Albumin/Globulin (OSBALDO) 1.0 Hoang-5-Lrttimzbk OSBALDO 0.3 Pioyr-[id number] OSBALDO 0.9 Gamma Globulins (OSBALDO) 1.0 OSBALDO M-Donny Not observed OSBALDO Comments IEP IgG 965 IEP IgA 177 IEP IgM 112 Active Medications Generic Name Dose Route Start Last Admin Trade Name Freq PRN Reason Stop Dose Admin Acetaminophen 650 mg 04/28/18 15:46 05/01/18 15:23 Tylenol - PO 650 mg Q6H PRN Administration PAIN OR FEVER Amino Acids 30 ml 04/28/18 17:30 05/01/18 17:43 Prosource No Carb Liquid Pkt PO 30 ml BID@0800,1730 [facility] Administration Apixaban 5 mg 04/28/18 22:00 05/01/18 22:57 Eliquis - PO 5 mg BID [facility] Administration Artificial Tears 1 drop 04/28/18 15:46 Artificial Tears OU BID PRN DRY EYES Atorvastatin Calcium 40 mg 04/28/18 22:00 05/01/18 22:57 Lipitor - PO 40 mg HS [facility] Administration Cyanocobalamin 1,000 mcg 04/30/18 11:15 04/30/18 12:29 Vitamin B12 Injection - IM 1,000 mcg Q7D@1000 [facility] Administration Cyanocobalamin 1,000 mcg 05/01/18 10:00 05/01/18 09:34 Vitamin B12 - PO 1,000 mcg DAILY [facility] Administration Ferrous Sulfate 325 mg 04/29/18 15:15 05/01/18 09:35 Feosol - PO 325 mg DAILY [facility] Administration Furosemide 40 mg 04/29/18 10:00 05/01/18 09:34 Lasix - PO 40 mg DAILY [facility] Administration Gabapentin 300 mg 04/28/18 22:00 05/02/18 07:09 Neurontin - PO 300 mg TID [facility] Administration Sodium Chloride 1,000 mls @ 75 mls/hr 04/28/18 05:30 05/02/18 07:09 Normal Saline - IV 75 mls/hr ASDIR [facility] Administration Ertapenem 1 gm/ Sodium 50 mls @ 100 mls/hr 04/30/18 13:15 05/01/18 11:02 Chloride IVPB 100 mls/hr DAILY [facility] Administration Magnesium Oxide 400 mg 04/28/18 22:00 05/01/18 22:56 Mag-Ox - PO 400 mg BID [facility] Administration Methyl Salicylate 1 applic 05/01/18 10:00 05/01/18 22:59 [place] - TP 1 applic BID [facility] Administration Metolazone 2.5 mg 04/29/18 10:00 05/01/18 09:34 Zaroxolyn - PO 2.5 mg DAILY [facility] Administration Metoprolol Tartrate 25 mg 04/29/18 10:00 05/01/18 09:34 Lopressor - PO 25 mg DAILY [facility] Administration Oxycodone HCl 5 mg 04/28/18 15:46 05/02/18 01:13 Roxicodone - PO 5 mg Q6H PRN Administration PAIN LEVEL 7 - 10 Pantoprazole Sodium 40 mg 04/28/18 16:00 05/01/18 09:34 Protonix - PO 40 mg DAILY [facility] Administration ASSESSMENT/PLAN: 87 yo female with PMH HTN, HLD, Colon Ca (Resection 2011), anemia, DVT ( Sep 2017) on eliquis, presented to the ED from assisted living with subjective complaints of fevers, chills and nausea. Diagnosed with UTI. 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 Last colonoscopy was done in 11/2017 which showed one tubular adenoma of 0.3 cm. Endoscopy was done in 11/2017 which showed moderate antrum gastritis. CEA done in 11/2017 was 1.4. Patient hemoglobin improved. Found to have low Vitamin b12 and iron. Patient started on Vitamin b12 and iron. No M spike.Patient refused mri spine. Dispo: We will continue to follow the patient. Thank you for this consultative opportunity. Visit type - Emergency Visit Emergency Visit: Yes ED Registration Date: 04/28/18 Care time: The patient presented to the Emergency Department on the above date and was hospitalized for further evaluation of their emergent condition. - New Patient This patient is new to me today: No - Critical Care Critical Care patient: No
[2018-05-02] MEDS ORDERED: PT OWN MED DRAWER 7, Y5N ONE (09:31)
[2018-05-02] MEDS: METOPROLOL TARTRATE 25 MG TABLET (FP) PO SCH (09:34)
[2018-05-02] MEDS: MAGNESIUM OXIDE 400 MG TABLET (FP) PO SCH (09:34)
[2018-05-02] MEDS: ERTAPENEM SODIUM 1 GM in SODIUM CHLORIDE 50 ML IVPB SCH (09:34)
[2018-05-02] MEDS: AMINO ACIDS/PROTEIN HYDROLYS 30 ML LIQUID.PKT PO SCH (09:34)
[2018-05-02] MEDS: APIXABAN 5 MG TABLET PO SCH (09:35)
[2018-05-02] MEDS: FUROSEMIDE 40 MG TABLET (FP) PO SCH (09:36)
[2018-05-02] MEDS: PANTOPRAZOLE 40 MG TABLET (FP) PO SCH (09:36)
[2018-05-02] MEDS: CYANOCOBALAMIN 1,000 MCG TABLET (FP) PO SCH (09:36)
[2018-05-02] MEDS: METOLAZONE 2.5 MG TABLET (FP) PO SCH (09:36)
[2018-05-02] MEDS: FERROUS SO4 325 MG TABLET (FP) PO SCH (09:36)
[2018-05-02] MEDS: METHYL SALICYLATE/MENTHOL OINT 30 GM TUBE TP SCH (09:37)
[2018-05-02] MEDS ORDERED: INSULIN (LEVEMIR) 100 UNITS/ML UNITS SQ ONE (11:23)
[2018-05-02] MEDS ORDERED: IRON SUCROSE INJECTION 200 MG in SODIUM CHLORIDE 90 ML IVPB ONE (12:00)
--- NOTE | 2018-05-02 12:19 | DS ---
Physical Examination Vital Signs: Vital Signs Temperature 97.2 F L 05/02/18 08:45 Pulse Rate 74 05/02/18 08:45 Respiratory Rate 20 05/02/18 08:45 Blood Pressure 120/60 05/02/18 08:45 O2 Sat by Pulse Oximetry (%) 93 L 05/01/18 21:00 Constitutional: Yes: No Distress Eyes: Yes: WNL HENT: Yes: WNL Neck: Yes: WNL Cardiovascular: Yes: Pulse Irregular Respiratory: Yes: WNL Gastrointestinal: Yes: WNL Musculoskeletal: Yes: Muscle Weakness Extremities: Yes: WNL Edema: Yes Edema: LLE: Trace, RLE: Trace Peripheral Pulses WNL: Yes Integumentary: Yes: Erythema Wound/Incision: Yes: Dressing Dry and Intact Neurological: Yes: Pre-Existing Deficit ...Motor Strength: LLE, RLE Psychiatric: Yes: WNL Labs: CBC, BMP 04/30/18 06:30 04/28/18 08:30 Discharge Summary Reason For Visit: URINARY TRACT INFECTION;FEVER Current Active Problems Fever (Acute) UTI (urinary tract infection) (Acute) URINE SEPSIS Procedures: Principal: CT SCAN Hospital Course: ADMITTED URINE SEPSIS, TREATED IV ABX, DC HOME WITH [facility] IRON SUCROSE IV X 1 Condition: Improved - Instructions Diet, Activity, Other Instructions: [facility] SEE DR SWAIN IN 1 WEEK WILL NEED OUTPATIENT IRON SUCROSE IV HUNTER 7 Referrals: Ge Walton MD [Primary Care Provider] - Disposition: [facility]/HOME HEALTH CARE - Home Medications Comprehensive Discharge Medication List: Ambulatory Orders Atorvastatin Ca [Lipitor] 40 mg PO HS 07/29/17 Metoprolol Tartrate [Lopressor -] 25 mg PO DAILY 07/29/17 Apixaban [Eliquis -] 5 mg PO BID tablet 10/03/17 Pantoprazole Sodium [Protonix -] 40 mg PO DAILY tablet.ec 10/03/17 Carboxymethylcellulose Sodium [Lubricant Eye Drops] 1 each OU HS 11/17/17 Furosemide [Lasix] 40 mg PO DAILY 11/17/17 Metolazone 2.5 mg PO DAILY 11/17/17 oxyCODONE HCL [Roxicodone -] 5 mg PO Q6H PRN MDD 4 11/17/17 oxyCODONE SR [Oxycontin] 10 mg PO BID 11/17/17 Acetaminophen [Tylenol .Regular Strength -] 650 mg PO Q4H PRN tablet 12/01/17 Amino Acids/Protein Hydrolys [Prosource No Carb Liquid Pkt] 30 ml PO BID@0800, 1730 packet 12/01/17 Gabapentin [Neurontin -] 400 mg PO TID capsule 12/01/17 Magnesium Oxide [Magox 400] 400 mg PO BID #60 tablet 12/01/17 Potassium Chloride [K-Dur -] 20 meq PO BID #60 tablet.er 12/01/17 Acetaminophen [Tylenol .Regular Strength -] 650 mg PO Q6H PRN tablet 05/02/18 Apixaban [Eliquis -] 5 mg PO BID tablet 05/02/18 Ferrous Sulfate [Feosol] 325 mg PO DAILY #30 ud 05/02/18 Methyl Salicylate/Menthol Oint [Analgesic [place] -] 1 applic TP BID applic Polyvinyl Alcohol [Artificial Tears] 1 drop OU BID PRN drops 05/02/18
[2018-05-02] MEDS: ACETAMINOPHEN 325 MG TABLET (FP) PO PRN (13:39)
[2018-05-06] MEDS ORDERED: CYANOCOBALAMIN (VITAMIN B-12) 1000 MCG/1 ML VIAL IM SCH (10:00)
[2018-05-06 16:31] LABS: ALBUMIN % 31.1 % (.); ALPHA-1 FOR UPE 3.3 % (.); TOTAL PROTEIN, URINE 26.1 mg/dL (Not Estab.)
== END 2018-05-02 15:55 | disposition home health service (06) | DRG 872 ==
LOC: JER 23:39 → JERBED 04-28 05:12 → J5S 04-28 08:07 → J8W 04-30 20:09
PROVIDERS: ADMIT Internal Medicine; ATTEND Family Medicine
DX: A41.9 Sepsis, unspecified organism (principal); N39.0 Urinary tract infection, site not specified; B02.29 Other postherpetic nervous system involvement; Z16.12 Extended spectrum beta lactamase (ESBL) resistance; D50.9 Iron deficiency anemia, unspecified; I11.0 Hypertensive heart disease with heart failure; I50.9 Heart failure, unspecified; D63.8 Anemia in other chronic diseases classified elsewhere; Z85.038 Personal history of other malignant neoplasm of large intestine; Z90.49 Acquired absence of other specified parts of digestive tract; Z87.891 Personal history of nicotine dependence; M19.90 Unspecified osteoarthritis, unspecified site; Z79.01 Long term (current) use of anticoagulants; Z86.718 Personal history of other venous thrombosis and embolism; E86.0 Dehydration; E88.09 Other disorders of plasma-protein metabolism, not elsewhere classified; D64.9 Anemia, unspecified; E66.9 Obesity, unspecified; Z68.34 Body mass index [BMI] 34.0-34.9, adult; E78.5 Hyperlipidemia, unspecified; I87.2 Venous insufficiency (chronic) (peripheral); R53.1 Weakness; D51.9 Vitamin B12 deficiency anemia, unspecified
CPT/HCPCS: 36415; 71046-TC-FY; 80053; 81003; 81015; 82378; 82607; 82728; 82746; 82784; 82803; 83516; 83540; 83550; 83605; 83615; 83735; 84100; 84155; 84156; 84165; 84166; 84443; 84484; 85025; 85027; 85044; 85610; 85730; 86334; 86340; 87040; 87086; 87186; 87804; 97116-GP; 97162-GP; 99283-25; J0131; J1756; J7030

== ENCOUNTER 2019-06-22 11:20 | Inpatient (IN) | payer OTHER, MEDICARE ==
--- NOTE | 2019-06-22 11:47 | PDOC ---
History of Present Illness - General Stated Complaint: Shortness of Breath Time Seen by Provider: 06/22/19 11:47 - History of Present Illness Initial Comments: 06/22/19 12:11 Ms. 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 Since has had cough productive of yellow phlegm with associated shortness of breath, w/ additional headache and body aches. Patient further endorses some minor nausea (now resolved) w/out vomiting. Patient denies other symptoms at this time. The patient denies chest pain, headache and dizziness. Denies chills, vomit, diarrhea and constipation. Denies dysuria, frequency, urgency and hematuria. Past History - Past Medical History Allergies/Adverse Reactions: Allergies Allergy/AdvReac Type Severity Reaction Status Date / Time crab Allergy Severe Hives Verified 06/22/19 12:45 shellfish derived Allergy Severe Hives Verified 06/22/19 12:45 Home Medications: Ambulatory Orders Atorvastatin Ca [Lipitor] 40 mg PO HS 07/29/17 Metoprolol Tartrate [Lopressor -] 25 mg PO DAILY 07/29/17 Pantoprazole Sodium [Protonix -] 40 mg PO DAILY tablet.ec 10/03/17 Furosemide [Lasix] 40 mg PO DAILY 11/17/17 Gabapentin [Neurontin -] 400 mg PO TID capsule 12/01/17 Magnesium Oxide [Magox 400] 400 mg PO BID #60 tablet 12/01/17 Acetaminophen [Tylenol .Regular Strength -] 650 mg PO Q6H PRN tablet 05/02/18 Apixaban [Eliquis -] 5 mg PO BID tablet 05/02/18 Albuterol Sulfate [Albuterol Sulfate Hfa] 2 puff IH ASDIR PRN 03/27/19 Ascorbic Acid [Vitamin C] 500 mg PO DAILY 03/27/19 Cholecalciferol (Vitamin D3) [Vitamin D3] 1,000 unit PO DAILY 03/27/19 Duloxetine HCl [Cymbalta -] 20 mg PO DAILY 07/12/19 Potassium Chloride 20 meq PO DAILY 03/27/19 Tamsulosin HCl [Flomax] 0.4 mg PO DAILY 03/27/19 Vitamin B Complex 1 each PO DAILY 03/27/19 Anemia: Yes (REC'D B12) Asthma: No Cancer: Yes (COLON CA 2011) Cardiac Disorders: No CVA: No COPD: Yes (MILD USES INHALER AT NIGHT) CHF: No Dementia: No Diabetes: No GI Disorders: Yes (GERD) Disorders: No HTN: Yes Hypercholesterolemia: Yes Liver Disease: No Seizures: No Thyroid Disease: No - Surgical History Abdominal Surgery: Yes (COLOSTOMY 2011 WITH REVERSAL) Appendectomy: No Cardiac Surgery: No Cholecystectomy: No Lung Surgery: No Neurologic Surgery: No Orthopedic Surgery: No - Immunization History Immunization Up to Date: Yes - Psycho Social/Smoking Cessation Hx Smoking History: Never smoked Have you smoked in the past 12 months: No If you are a former smoker, when did you quit?: 30 yrs ago Hx Alcohol Use: No Drug/Substance Use Hx: No Substance Use Type: None Hx Substance Use Treatment: No Review of Systems - Review of Systems Comments:: 06/22/19 12:55 GENERAL/CONSTITUTIONAL: +Fever as described with body aches. No chills. No weakness. HEAD, EYES, EARS, NOSE AND THROAT: No change in vision. No ear pain or discharge. No sore throat. CARDIOVASCULAR: +SOB x1 day. No chest pain RESPIRATORY: No cough, wheezing, or hemoptysis. GASTROINTESTINAL: +Nausea w/out vomiting, diarrhea or constipation. GENITOURINARY: No dysuria, frequency, or change in urination. MUSCULOSKELETAL: No joint or muscle swelling or pain. No neck or back pain. SKIN: No rash NEUROLOGIC: No headache, vertigo, loss of consciousness, or change in strength/ sensation. ENDOCRINE: No increased thirst. No abnormal weight change HEMATOLOGIC/LYMPHATIC: No anemia, easy bleeding, or history of blood clots. ALLERGIC/IMMUNOLOGIC: No hives or skin allergy. *Physical Exam - Physical Exam Comments: 06/22/19 12:56 GENERAL: Awake, alert, and fully oriented, in no acute distress HEAD: No signs of trauma, normocephalic, atraumatic EYES: PERRLA, EOMI, sclera anicteric, conjunctiva clear ENT: Auricles normal inspection, hearing grossly normal, nares patent, oropharynx clear without exudates. Moist mucosa NECK: Normal ROM, supple, no lymphadenopathy, JVD, or masses LUNGS: +Coarse lung sound appreciated throughout. Patient on 4L O2. Speaks full sentences HEART: Regular rate and rhythm, normal S1 and S2, no murmurs, rubs or gallops, peripheral pulses normal and equal bilaterally. ABDOMEN: Soft, nontender, normoactive bowel sounds. No guarding, no rebound. No masses EXTREMITIES: 2+ Edema appreciated SAPPHIRE. Normal inspection, Normal range of motion , no edema. No clubbing or cyanosis. NEUROLOGICAL: Cranial nerves II through XII grossly intact. Normal speech, normal gait, no focal sensorimotor deficits SKIN: Warm, Dry, normal turgor, no rashes or lesions noted. ED Treatment Course - LABORATORY CBC & Chemistry Diagram: 06/22/19 12:30 06/22/19 14:00 Medical Decision Making - Medical Decision Making 06/22/19 13:06 Ms. Bacon is an 88 yo female w/ pmh as described who presents for evaluation of symptoms c/w hypervolemia vs. viral illness vs. cardiac process. Patient workup started accordingly with labs as below, EKG, CXR. 06/22/19 15:00 Patient CXR concerning for fluid overload vs. pneumonia. Labs as below significant for elevated BNP and troponin, however no concerning EKG findings noted (normal sinus rhythm). Patient also noted to have UTI as below. Patient given additional lasix for diuresis. Vanc/zosyn given for prophylaxis and patient will come in to ER for cardiac consult, further diuresis, and abx. Patient admitted to hospitalist. Laboratory Results - last 24 hr 06/22/19 06/22/19 06/22/19 12:20 12:30 12:30 WBC 5.7 RBC 4.32 Hgb 12.9 Hct 39.8 D MCV 92.2 MCH 29.9 MCHC 32.4 RDW 14.5 Plt Count 224 MPV 8.8 Absolute Neuts (auto) 3.7 Neutrophils % 64.6 Lymphocytes % 24.6 D Monocytes % 9.4 Eosinophils % 0.3 Basophils % 1.1 Nucleated RBC % 0 PT with INR INR PTT (Actin FS) Sodium Cancelled Potassium Cancelled Chloride Cancelled Carbon Dioxide Cancelled Anion Gap Cancelled BUN Cancelled Creatinine Cancelled Est GFR (CKD-EPI)AfAm Cancelled Est GFR (CKD-EPI)NonAf Cancelled Random Glucose Cancelled Lactic Acid 1.2 Calcium Cancelled Total Bilirubin Cancelled AST Cancelled ALT Cancelled Alkaline Phosphatase Cancelled Creatine Kinase Troponin I Cancelled B-Natriuretic Peptide Cancelled Total Protein Cancelled Albumin Cancelled Urine Color Urine Appearance Urine pH Ur Specific [place] Urine Protein Urine Glucose (UA) Urine Ketones Urine Blood Urine Nitrite Urine Bilirubin Urine Urobilinogen Ur Leukocyte Esterase Urine WBC (Auto) Urine RBC (Auto) Urine Casts (Auto) U Epithel Cells (Auto) Urine Bacteria (Auto) Influenza A (Rapid) Influenza B (Rapid) 06/22/19 06/22/19 06/22/19 12:30 12:30 13:45 WBC RBC Hgb Hct MCV MCH MCHC RDW Plt Count MPV Absolute Neuts (auto) Neutrophils % Lymphocytes % Monocytes % Eosinophils % Basophils % Nucleated RBC % PT with INR 17.10 H INR 1.44 H PTT (Actin FS) 34.5 Sodium Potassium Chloride Carbon Dioxide Anion Gap BUN Creatinine Est GFR (CKD-EPI)AfAm Est GFR (CKD-EPI)NonAf Random Glucose Lactic Acid Calcium Total Bilirubin AST ALT Alkaline Phosphatase Creatine Kinase Troponin I B-Natriuretic Peptide Total Protein Albumin Urine Color Dk yellow Urine Appearance Cloudy Urine pH 5.0 D Ur Specific [place] 1.020 Urine Protein 1+ H Urine Glucose (UA) Negative Urine Ketones Negative Urine Blood 2+ H Urine Nitrite Negative Urine Bilirubin Negative Urine Urobilinogen 0.2 Ur Leukocyte Esterase 2+ H Urine WBC (Auto) 55 Urine RBC (Auto) 2 Urine Casts (Auto) 112 U Epithel Cells (Auto) 1.2 Urine Bacteria (Auto) 5122.9 Influenza A (Rapid) Negative Influenza B (Rapid) Negative 06/22/19 14:00 WBC RBC Hgb Hct MCV MCH MCHC RDW Plt Count MPV Absolute Neuts (auto) Neutrophils % Lymphocytes % Monocytes % Eosinophils % Basophils % Nucleated RBC % PT with INR INR PTT (Actin FS) Sodium 141 Potassium 4.5 Chloride 101 Carbon Dioxide 37 H Anion Gap 4 L BUN 19.8 H Creatinine 1.1 Est GFR (CKD-EPI)AfAm 52.65 Est GFR (CKD-EPI)NonAf 45.42 Random Glucose 111 H Lactic Acid Calcium 8.3 L Total Bilirubin 0.4 AST 19 ALT 18 Alkaline Phosphatase 101 Creatine Kinase 65 Troponin I 0.37 H B-Natriuretic Peptide 3087.6 H Total Protein 5.9 L Albumin 3.0 L Urine Color Urine Appearance Urine pH Ur Specific [place] Urine Protein Urine Glucose (UA) Urine Ketones Urine Blood Urine Nitrite Urine Bilirubin Urine Urobilinogen Ur Leukocyte Esterase Urine WBC (Auto) Urine RBC (Auto) Urine Casts (Auto) U Epithel Cells (Auto) Urine Bacteria (Auto) Influenza A (Rapid) Influenza B (Rapid) Discharge - Discharge Information Problems reviewed: Yes Clinical Impression/Diagnosis: Elevated troponin Hypervolemia Qualifiers: Hypervolemia type: unspecified Qualified Code(s): E87.70 - Fluid overload, unspecified UTI (urinary tract infection) Qualifiers: Urinary tract infection type: site unspecified Hematuria presence: without hematuria Qualified Code(s): N39.0 - Urinary tract infection, site not specified - Admission Yes - Follow up/Referral Referrals: ON STAFF,NOT [Primary Care Provider] - - Patient Discharge Instructions - Post Discharge Activity
[2019-06-22 12:57] LABS: BASO % 1.1 % (0-2.0); EOS % 0.3 % (0-4.5); HEMATOCRIT 39.8 % (32.4-45.2); HEMOGLOBIN 12.9 GM/dL (10.7-15.3); LYMPH % 24.6 % (8-40); MCH 29.9 pg (25.7-33.7); MCHC 32.4 g/dl (32.0-36.0); MEAN CELL VOLUME 92.2 fl (80-96); MEAN PLT VOLUME 8.8 fl (7.5-11.1); MONO % 9.4 % (3.8-10.2); NEUT % 64.6 % (42.8-82.8); PLATELET COUNT 224 K/MM3 (134-434); RBC 4.32 M/mm3 (3.60-5.2); RDW 14.5 % (11.6-15.6); WHITE BLOOD COUNT 5.7 K/mm3 (4.0-10.0)
[2019-06-22 13:12] LABS: INR 1.44 (0.83-1.09); PROTHROMBIN TIME (PATIENT) 17.1 SEC (9.7-13.0)
[2019-06-22 13:14] LABS: ACTIVATED PTT 34.5 SECONDS (25.2-36.5)
--- NOTE | 2019-06-22 13:51 | PDOC ---
Attending Attestation - Resident Resident Name: Roni Phillips - ED Attending Attestation I have performed the following: I have examined & evaluated the patient, The case was reviewed & discussed with the resident, Exceptions are as noted - HPI HPI: 06/22/19 13:46 88 yo F with h/o HTN HLD, depression, prior DVT, fever cough and generalized weakness, been having fevers 102 at nursing facility. normally is wheel chair bound, today was feeling weak. Patient denies any nausea or vomiting has been having fever since yesterday of 102. Uncertain if he was given Tylenol today or yesterday does use nebulizers periodically for wheezing and is on Lasix for CHF. Currently denying any chest pain or abdominal pain no urinary complaints collateral, from nurse, Kristal, who caring for her at [facility]. pcp dr Alcazar [facility] - Physicial Exam PE: 06/22/19 13:49 Awake alert no acute distress patient has faint wheezes and crackles bilaterally. Heart is regular tachycardia no murmurs rubs or gallops abdomen is soft nontender obese no CVA tenderness. Extremities are warm and well- perfused there is bilateral nonpitting peripheral edema 2+ symmetric pulses bilaterally patient is awake alert moves all 4 extremities skin is warm and dry - Medical Decision Making 06/22/19 13:50 88-year-old female history of hypertension hyperlipidemia prior DVT here today with cough and fever for 2 days. Differential includes pneumonia, viral syndrome, UTI, sepsis, CHF also considered. Plan CBC CMP cultures lactate troponin EKG chest x-ray to rule out any underlying infection or edema. We will treat the patient with Tylenol will cover for healthcare associated pneumonia based on her symptoms and presence of fever will likely require admission here Heart Score/ECG Review #1 General ECG Interpretation: Sinus Rhythm, Normal Rate (61), Normal Intervals, No acute ischemic changes (TWI III, AVF, V3 - V4)
[2019-06-22] MEDS ORDERED: ACETAMINOPHEN 1000 MG/100 ML VIAL (NON FORMULARY) IVPB ONE (13:54)
[2019-06-22] MEDS ORDERED: ALBUTEROL SO4 2.5/IPRATROPIUM 0.5 INH SOL 3 ML VIAL.NEB. NEB ONE ×2 (13:56→13:59)
[2019-06-22] MEDS ORDERED: ACETAMINOPHEN INJECTION 100 ML IVPB ONE (13:59)
[2019-06-22 14:14] LABS: EPI CELLS 1.2 /HPF (0-5/HPF); HYALINE CASTS 112 /lpf (0-8); URINE APPEARANCE CLOUDY; URINE BACTERIA 5122.9 /hpf (NEGATIVE); URINE BILIRUBIN NEGATIVE (NEGATIVE); URINE COLOR DK YELLOW; URINE GLUCOSE (UA) NEGATIVE (NEGATIVE); URINE KETONE NEGATIVE (NEGATIVE); URINE LEUK ESTERASE 2+ (NEGATIVE); URINE NITRITE NEGATIVE (NEGATIVE); URINE PROTEIN 1+ (NEGATIVE); URINE RBC 2 /hpf (0-4); URINE UROBILINOGEN 0.2 mg/dL (0.2-1.0); URINE WBC 55 /hpf (0-5)
[2019-06-22] MEDS ORDERED: PIPERACILLIN/TAZOB 3.375 GM 3.375 GM in DEXTROSE 5%-WATER - 50 ML IVPB ONE (14:26)
[2019-06-22] MEDS ORDERED: VANCOMYCIN 1 GM in D5W (PRE-DOCKED) 1,000 MG/250 ML IVPB ONE (14:26)
[2019-06-22] MEDS ORDERED: VANCOMYCIN 1 GRAM (PRE-DOCKED) 1,000 MG/250 ML BAG IVPB ONE (14:28)
[2019-06-22] MEDS ORDERED: PIPERACILLIN/TAZOB 3.375 GM 3.375 GM/50 ML BAG IVPB ONE (14:29)
[2019-06-22 14:34] LABS: BILIRUBIN,TOTAL 0.4 mg/dL (0.2-1); BLOOD UREA NITROGEN 19.8 mg/dL (7-18); CALCIUM 8.3 mg/dL (8.5-10.1); CREATININE 1.1 mg/dL (0.55-1.3); N-TERMINAL BNP 3087.6 pg/ml (5-450); POTASSIUM 4.5 mmol/L (3.5-5.1); TOT PROT 5.9 g/dl (6.4-8.2)
[2019-06-22] MEDS ORDERED: FUROSEMIDE 40 MG/4 ML INJECTABLE VIAL IVPUSH ONE (14:49)
--- NOTE | 2019-06-22 15:08 | HP ---
Admitting History and Physical - Primary Care Physician PCP: Abby Mtz - Admission Chief Complaint: came in with cough History of Present Illness: Ms. 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 Salso develped cough productive of yellow phlegm with associated shortness of breath, w/ additional headache and body aches. Patient further endorses some minor nausea (now resolved) w/out vomiting. Patient denies other symptoms at this time.patient denies orthonopnea and increased leg swelling got iv lasix, iv zosyn and vancomcyin History Source: Patient - Past Medical History Cardiovascular: Yes: HTN, Hyperlipdemia Gastrointestinal: Yes: Cancer (colon cancer s/p resection 2011) Renal/: Yes: Renal Inusuff Heme/Onc: Yes: Anemia Musculoskeletal: Yes: Chronic low back pain, Osteoarthritis - Past Surgical History Past Surgical History: Yes: Ileosotomy (with ) - Smoking History Smoking history: Never smoked Have you smoked in the past 12 months: No If you are a former smoker, when did you quit?: 30 yrs ago - Alcohol/Substance Use Hx Alcohol Use: No History of Substance Use: reports: None - Social History ADL: Support Services 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 History of Recent Travel: No Home Medications - Allergies Allergies/Adverse Reactions: Allergies Allergy/AdvReac Type Severity Reaction Status Date / Time crab Allergy Severe Hives Verified 06/22/19 12:45 shellfish derived Allergy Severe Hives Verified 06/22/19 12:45 - Home Medications Home Medications: Ambulatory Orders Atorvastatin Ca [Lipitor] 40 mg PO HS 07/29/17 Metoprolol Tartrate [Lopressor -] 25 mg PO DAILY 07/29/17 Pantoprazole Sodium [Protonix -] 40 mg PO DAILY tablet.ec 10/03/17 Furosemide [Lasix] 40 mg PO DAILY 11/17/17 Gabapentin [Neurontin -] 400 mg PO TID capsule 12/01/17 Magnesium Oxide [Magox 400] 400 mg PO BID #60 tablet 12/01/17 Acetaminophen [Tylenol .Regular Strength -] 650 mg PO Q6H PRN tablet 05/02/18 Apixaban [Eliquis -] 5 mg PO BID tablet 05/02/18 Albuterol Sulfate [Albuterol Sulfate Hfa] 2 puff IH ASDIR PRN 03/27/19 Ascorbic Acid [Vitamin C] 500 mg PO DAILY 03/27/19 Cholecalciferol (Vitamin D3) [Vitamin D3] 1,000 unit PO DAILY 03/27/19 Duloxetine HCl [Cymbalta -] 20 mg PO DAILY 03/27/19 Potassium Chloride 20 meq PO DAILY 03/27/19 Tamsulosin HCl [Flomax] 0.4 mg PO DAILY 03/27/19 Vitamin B Complex 1 each PO DAILY 03/27/19 Review of Systems - Review of Systems Respiratory: reports: Cough, SOB Physical Examination Vital Signs: Vital Signs Temperature 100.1 F H 06/22/19 11:21 Pulse Rate 129 H 06/22/19 11:21 Respiratory Rate 16 06/22/19 11:21 Blood Pressure 119/79 06/22/19 11:21 O2 Sat by Pulse Oximetry (%) 96 06/22/19 11:25 Constitutional: Yes: Calm Cardiovascular: Yes: Regular Rate and Rhythm, S1, S2 Respiratory: Yes: Diminished Gastrointestinal: Yes: Normal Bowel Sounds, Soft Extremities: Yes: Erythema (redness of the calf) Edema: Yes Neurological: Yes: Alert, Oriented Labs: CBC, BMP 06/22/19 12:30 06/22/19 14:00 Imaging - Results Chest X-ray: Report Reviewed Problem List - Problems (1) Cough Assessment/Plan: sputum culture iv abx chest ct rapid flu maybe pna vs chf Code(s): R05 - COUGH (2) CHF (congestive heart failure) Assessment/Plan: iv lasix weights echo cardiology Code(s): I50.9 - HEART FAILURE, UNSPECIFIED (3) UTI (urinary tract infection) Assessment/Plan: iv abx urine culture Code(s): N39.0 - URINARY TRACT INFECTION, SITE NOT SPECIFIED Qualifiers: Urinary tract infection type: site unspecified Hematuria presence: without hematuria Qualified Code(s): N39.0 - Urinary tract infection, site not specified (4) Elevated troponin Assessment/Plan: could be secondary to demand ishcemia telemetry cardiology echo Code(s): R79.89 - OTHER SPECIFIED ABNORMAL FINDINGS OF BLOOD CHEMISTRY
[2019-06-22] MEDS ORDERED: FUROSEMIDE 40 MG/4 ML INJECTABLE VIAL ONE (15:38)
--- NOTE | 2019-06-22 16:13 | EKG ---
Test Reason : Blood Pressure : / mmHG Vent. Rate : 061 BPM Atrial Rate : 061 BPM P-R Int : 150 ms QRS Dur : 070 ms QT Int : 362 ms P-R-T Axes : 055 025 019 degrees QTc Int : 364 ms NORMAL SINUS RHYTHM NORMAL ECG WHEN COMPARED WITH ECG OF 18-NOV-2017 10:05, PREMATURE ATRIAL COMPLEXES ARE NO LONGER PRESENT VENT. RATE HAS DECREASED BY 31 BPM Confirmed by BRANDON BALLARD, GURWINDER ([id number]) on 06/22/2019 4:12:59 PM Referred By: Confirmed By:GURWINDER TAYLOR MD
[2019-06-22] MEDS ORDERED: ATORVASTATIN CA 40 MG TABLET (FP) PO SCH (22:00)
[2019-06-22] MEDS ORDERED: ATORVASTATIN CA 40 MG TABLET (FP) ONE (22:45)
[2019-06-23 06:42] LABS: BASO % 0.8 % (0-2.0); EOS % 1.3 % (0-4.5); HEMATOCRIT 38.8 % (32.4-45.2); HEMOGLOBIN 12.7 GM/dL (10.7-15.3); LYMPH % 27.4 % (8-40); MCH 30.4 pg (25.7-33.7); MCHC 32.6 g/dl (32.0-36.0); MEAN PLT VOLUME 8.5 fl (7.5-11.1); MONO % 9.6 % (3.8-10.2); NEUT % 60.9 % (42.8-82.8); PLATELET COUNT 193 K/MM3 (134-434); RBC 4.17 M/mm3 (3.60-5.2); RDW 14.3 % (11.6-15.6); WHITE BLOOD COUNT 6.8 K/mm3 (4.0-10.0)
[2019-06-23 07:04] LABS: BILIRUBIN,TOTAL 0.4 mg/dL (0.2-1); BLOOD UREA NITROGEN 19.6 mg/dL (7-18); MAGNESIUM 1.8 mg/dL (1.8-2.4); N-TERMINAL BNP 2680.6 pg/ml (5-450); PHOSPHOROUS 3.7 mg/dL (2.5-4.9); POTASSIUM 3.8 mmol/L (3.5-5.1); TOT PROT 5.9 g/dl (6.4-8.2)
[2019-06-23] MEDS ORDERED: FUROSEMIDE 40 MG/4 ML INJECTABLE VIAL IVPUSH SCH (10:00)
--- NOTE | 2019-06-23 11:40 | CON.CARD ---
Consult Consult Specialty:: Cardiology Referred by:: Dr. Gutiérrez Reason for Consultation:: cough - History of Present Illness Chief Complaint: cough History of Present Illness: 88 year old woman with a pmh HTN, HLD, colon ca s/p resection 2011, CKD, anemia , DVT, admitted with productive cough, fever, noted to have a mildly elevated troponin with normal CK level. pt seen and examined today in nad. states she is feeling better. states her LE edema is at baseline. denies any chest pain, states cough improved but better. - History Source History Provided By: Patient, Medical Record Limitations to Obtaining History: No Limitations - Past Medical History Cardio/Vascular: Yes: HTN, Hyperlipdemia Gastrointestinal: Yes: Cancer (colon cancer s/p resection 2011) Renal/: Yes: Renal Inusuff Musculoskeletal: Yes: Chronic low back pain, Osteoarthritis - Past Surgical History Past Surgical History: Yes: Ileosotomy (with ) - Alcohol/Substance Use Hx Alcohol Use: No History of Substance Use: reports: None - Smoking History Smoking history: Never smoked Have you smoked in the past 12 months: No If you are a former smoker, when did you quit?: 30 yrs ago - Social History Usual Living Arrangement: Assisted Living ([facility], w/c bound x5 months, has assistance in some ADLs) ADL: Support Services 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 History of Recent Travel: No Home Medications - Allergies Allergies/Adverse Reactions: Allergies Allergy/AdvReac Type Severity Reaction Status Date / Time crab Allergy Severe Hives Verified 06/22/19 12:45 shellfish derived Allergy Severe Hives Verified 06/22/19 12:45 - Home Medications Home Medications: Ambulatory Orders Atorvastatin Ca [Lipitor] 40 mg PO HS 07/29/17 Metoprolol Tartrate [Lopressor -] 25 mg PO DAILY 07/29/17 Pantoprazole Sodium [Protonix -] 40 mg PO DAILY tablet.ec 10/03/17 Furosemide [Lasix] 40 mg PO DAILY 11/17/17 Gabapentin [Neurontin -] 400 mg PO TID capsule 12/01/17 Magnesium Oxide [Magox 400] 400 mg PO BID #60 tablet 12/01/17 Acetaminophen [Tylenol .Regular Strength -] 650 mg PO Q6H PRN tablet 05/02/18 Apixaban [Eliquis -] 5 mg PO BID tablet 05/02/18 Albuterol Sulfate [Albuterol Sulfate Hfa] 2 puff IH ASDIR PRN 03/27/19 Ascorbic Acid [Vitamin C] 500 mg PO DAILY 03/27/19 Cholecalciferol (Vitamin D3) [Vitamin D3] 1,000 unit PO DAILY 03/27/19 Duloxetine HCl [Cymbalta -] 20 mg PO DAILY 03/27/19 Potassium Chloride 20 meq PO DAILY 03/27/19 Tamsulosin HCl [Flomax] 0.4 mg PO DAILY 03/27/19 Vitamin B Complex 1 each PO DAILY 03/27/19 Review of Systems - Review of Systems Constitutional: denies: No Symptoms, Chills, Diaphoresis, Fever, Lethargy, Loss of Appetite, Malaise, Night Sweats, Unintentional Wgt. Loss, Weakness, Other Eyes: denies: No Symptoms, Blind Spots, Blurred Vision, Double Vision, Eye Pain , Floaters, Photophobia, Recent Change in Vision, Other HENT: denies: No Symptoms, Difficult Swallowing, Ear Discharge, Ear Pain, Epistaxis, Gingival Bleeding, Hearing Loss, Mouth Swelling, Nasal Congestion, Ocular Prosthesis, Throat Pain, Toothache, Ringing in Ears, Other Neck: denies: No Symptoms, Decreased ROM, Lumps, Pain on Movement, Stiffness, Swollen Glands, Tenderness, Other Cardiovascular: denies: No Symptoms, Chest Pain, Edema, Palpitations, Shortness of Breath, Other Respiratory: denies: No Symptoms, Cough, Exercise Intolerance, Hemoptysis, Orthopnea, PND, Snoring, SOB, SOB on Exertion, Wheezing, Other Gastrointestinal: denies: No Symptoms, Abdominal Pain, Bloating, Constipation, Diarrhea, Dysphagia, Indigestion, Melena, Nausea, Rectal Bleeding, Vomiting, Vomiting Blood, Other Genitourinary: denies: No Symptoms, Burning, Discharge, Dysuria, Flank Pain, Frequency, Hematuria, Incontinence, Lesions, Menses, Pain, Testicular Mass, Testicular Pain, Testicular Swelling, Urgency, Vaginal Bleeding, Other Breasts: denies: No Symptoms Reported, See HPI, Breast Implants, Discharge from Nipple, Lumps, Pain, Skin Changes, Other Musculoskeletal: denies: No Symptoms, Back Pain, Crepitus, Decreased ROM, Extremity Pain, Joint Pain, Joint Swelling, Muscle Pain, Muscle Cramps, Muscle Weakness, Other Integumentary: denies: No Symptoms, Blister, Bruising, Change in Color, Eczema, Erythema, Incision, Lesions, Lump, Pallor, Pruritis, Rash, Wound, Other Neurological: denies: No Symptoms, Change in LOC, Change in Speech, Confusion, Dizziness, Headache, Incoordination, Numbness, Parasthesia, Pre-Existing Deficit , Seizure, Syncope, Tremors, Unsteady Gait, Weakness, Other Endocrine: denies: No Symptoms, Excessive Sweating, Flushing, Increased Hunger, Increased Thirst, Intolerance to Cold, Intolerance to Heat, Unexplained Weight Gain, Unexplained Weight Loss, Other Hematology/Lymphatic: denies: No Symptoms, Easily Bruised, Excessive Bleeding, Swollen Glands, Other Psychiatric: denies: No Symptoms, Altered Sleep Pattern, Anxiety, Depression, Hallucinations, Panic, Paranoia, Suicidal, Other - Risk Factors Known Risk Factors: Yes: Hypercholesterolemia, Hypertension Vital Signs: Vital Signs Temperature 99 F 06/22/19 18:38 Pulse Rate 64 06/22/19 18:38 Respiratory Rate 20 06/22/19 22:00 Blood Pressure 102/41 L 06/22/19 18:46 O2 Sat by Pulse Oximetry (%) 98 06/22/19 22:00 Constitutional: Yes: No Distress, Calm Eyes: Yes: Conjunctiva Clear, EOM Intact HENT: Yes: Atraumatic, Normocephalic Neck: Yes: Supple, Trachea Midline Respiratory: Yes: Regular, Cough, On Nasal O2, Rhonchi, Wheezes Gastrointestinal: Yes: Normal Bowel Sounds, Soft. No: Distention, Tenderness Cardiovascular: Yes: Regular Rate and Rhythm. No: Bradycardia, Tachycardia, Pulse Irregular, Gallop, Rub, Varicosities JVD: No Carotid Bruit: No PMI: Non-Displaced Heart Sounds: Yes: S1, S2. No: Split S2, S3, S4, Clicks, Gallop, Rub, Bruit Murmur: Yes: Systolic Murmur, Grade 3. No: Diastolic Murmur Edema: Yes Edema: LLE: 1+, RLE: 1+ Peripheral Pulses WNL: Yes Peripheral Pulses: 2+ Left Doralis Pedis, 2+ Right Dorsalis Pedis Neurological: Yes: Alert, Oriented Psychiatric: Yes: Alert, Oriented - Other Data Labs, Other Data: CBC, BMP 06/23/19 06:11 06/23/19 06:11 INR, PTT INR 1.44 (0.83-1.09) H 06/22/19 12:30 Troponin, BNP 06/22/19 06/22/19 06/22/19 12:30 14:00 21:30 Troponin I Cancelled 0.37 H 0.57 H B-Natriuretic Peptide Cancelled 3087.6 H 06/23/19 06:11 Troponin I 0.38 H B-Natriuretic Peptide 2680.6 H Troponin, BNP 06/22/19 06/22/19 06/22/19 12:30 14:00 21:30 Troponin I Cancelled 0.37 H 0.57 H B-Natriuretic Peptide Cancelled 3087.6 H 06/23/19 06:11 Troponin I 0.38 H B-Natriuretic Peptide 2680.6 H nsr 61bpm, normal ecg Imaging - Results Chest X-ray: Report Reviewed, Image Reviewed EKG: Report Reviewed, Image Reviewed Other: Report Reviewed, Image Reviewed Assessment/Plan 88 year old woman with a pmh HTN, HLD, colon ca s/p resection 2011, CKD, anemia , DVT, admitted with productive cough, fever, noted to have a mildly elevated troponin with normal CK level. states she is feeling better. states her LE edema is at baseline. denies any chest pain, states cough improved but better. SOB/Cough -likely acute bronchitis, wheezing and rhonchi on exam -does not appear significantly volume overloaded on exam -can cont Lasix for now, monitor strict I/Os, daily weights, bun/creat, electrolytes and replete as needed -[facility] pulmonary consult -Abx and consider steroids Elevated troponin -not c/w ACS or type I [place], ck wnl, troponin not trending up, no ischemia on ekg -fup echo -start ASA 81mg daily -cont statin -would not pursue further ischemic evaluation at this time
[2019-06-23] MEDS ORDERED: ALBUTEROL SO4 8 GM HFA INHALER IH PRN (16:05)
--- NOTE | 2019-06-23 16:07 | PN ---
Progress Note, Physician Chief Complaint: Cough UTI CHF Exacerbation History of Present Illness: Previous notes and events reviewed awake and alert NAD sts cough is improving denies SOB or chest pain UC prelim positive - Current Medication List Current Medications: Active Medications Aspirin (Ecotrin -) 81 mg PO DAILY [facility] Atorvastatin Calcium (Lipitor -) 40 mg PO HS [facility] Last Admin: 06/22/19 22:51 Dose: 40 mg Furosemide (Lasix Injection -) 40 mg IVPUSH DAILY [facility] Last Admin: 06/23/19 11:31 Dose: 40 mg - Objective Vital Signs: Vital Signs Temperature 98.7 F 06/23/19 15:01 Pulse Rate 72 06/23/19 15:01 Respiratory Rate 22 H 06/23/19 15:01 Blood Pressure 119/60 06/23/19 15:01 O2 Sat by Pulse Oximetry (%) 99 06/23/19 12:00 Constitutional: Yes: No Distress, Calm Eyes: Yes: Conjunctiva Clear HENT: Yes: Atraumatic Cardiovascular: Yes: Regular Rate and Rhythm Respiratory: Yes: Regular, Cough, Rhonchi, Wheezes Gastrointestinal: Yes: Normal Bowel Sounds, Soft, Abdomen, Obese Genitourinary: Yes: Incontinence Musculoskeletal: Yes: Muscle Weakness Extremities: Yes: WNL Edema: No Neurological: Yes: Alert, Oriented Psychiatric: Yes: Alert, Oriented Labs: CBC, BMP 06/23/19 06:11 06/23/19 06:11 INR, PTT INR 1.44 (0.83-1.09) H 06/22/19 12:30 Microbiology 06/22/19 12:30 Blood - Peripheral Venous Blood Culture - Preliminary NO GROWTH OBTAINED AFTER 24 HOURS, INCUBATION TO CONTINUE FOR 4 DAYS. 06/22/19 12:30 Blood - Peripheral Venous Blood Culture - Preliminary NO GROWTH OBTAINED AFTER 24 HOURS, INCUBATION TO CONTINUE FOR 4 DAYS. 06/22/19 13:45 Urine - Urine - Catheterized Urine Culture - Preliminary Lactose Fermenting Neg Bacilli Problem List - Problems (1) CHF (congestive heart failure) Assessment/Plan: -Cardiology on board -BNP 3087.6~2680.6 -daily weights -Furosemide -Echocardiogram Code(s): I50.9 - HEART FAILURE, UNSPECIFIED (2) Cough Assessment/Plan: -Bronchodilator -Robitussin -Pulm consult -O2 via NC -keep SpO2 >90% -CXR shows no sign of infiltrate or failure -Chest CT scan shows mild dependent atelectasis, no infiltrates, mild bronchiectasis -no leukocytosis Code(s): R05 - COUGH (3) Elevated troponin Assessment/Plan: -Cardiology on board -Troponin 0.37, 0.57, 0.38 Code(s): R79.89 - OTHER SPECIFIED ABNORMAL FINDINGS OF BLOOD CHEMISTRY (4) UTI (urinary tract infection) Assessment/Plan: -UA shows 2+ leuks, 2+ blood -UC prelim positive -ID consult -no leukocytosis -afebrile Code(s): N39.0 - URINARY TRACT INFECTION, SITE NOT SPECIFIED Qualifiers: Urinary tract infection type: site unspecified Hematuria presence: without hematuria Qualified Code(s): N39.0 - Urinary tract infection, site not specified (5) History of DVT (deep vein thrombosis) Assessment/Plan: -ELiquis Code(s): Z86.718 - PERSONAL HISTORY OF OTHER VENOUS THROMBOSIS AND EMBOLISM (6) Depression Assessment/Plan: -Cymbalta Code(s): F32.9 - MAJOR DEPRESSIVE DISORDER, SINGLE EPISODE, UNSPECIFIED (7) Hyperlipidemia Assessment/Plan: -Atorvastatin Code(s): E78.5 - HYPERLIPIDEMIA, UNSPECIFIED (8) Hypertension Assessment/Plan: -Metoprolol -low Na diet Code(s): I10 - ESSENTIAL (PRIMARY) HYPERTENSION Assessment/Plan see problem list
--- NOTE | 2019-06-23 16:57 | CONSULT ---
Consult Consult Specialty:: Infectious Disease Referred by:: Zaira chavez Reason for Consultation:: Positive urine cultures - History of Present Illness Chief Complaint: Fever x2 days History of Present Illness: Pt is a 88 yo F with PMHx HTN, HLD, Colon cancer s/p sx 2011 no chemo or radiatx , anemia, chronic leg pain, R hip fracture, leg DVT (eliq),GERD, HLD, presenting from assisted living facility for fever x 2 days. Pt reports cough with occasional clear sputum, no hemoptysis, no sore throat or difficulty swallowing. Pt reports needing diaper changes, no dysuria, no hematuria. Pt got UA done on presentation showing positive LE2+, Pr+, bld+, [id number], WBC-55 , WBC-55, Casts-112, Flu-ve. Pt has had multiple Ucxs- with 05/03-ESBL CT chest: atelectasis/bronchiectasis- CXR- Ucx-07/02- 06/22/19 Lactose ferm neg Bcx-ve - History Source History Provided By: Patient, Medical Record Limitations to Obtaining History: No Limitations - Past Medical History Cardio/Vascular: Yes: HTN, Hyperlipdemia Gastrointestinal: Yes: Cancer (colon cancer s/p resection 2011) Renal/: Yes: Renal Inusuff Musculoskeletal: Yes: Chronic low back pain, Osteoarthritis - Past Surgical History Past Surgical History: Yes: Ileosotomy (with ) - Alcohol/Substance Use Hx Alcohol Use: No History of Substance Use: reports: None - Smoking History Smoking history: Never smoked Have you smoked in the past 12 months: No If you are a former smoker, when did you quit?: 30 yrs ago - Social History Usual Living Arrangement: Assisted Living ([facility], w/c bound x5 months, has assistance in some ADLs) ADL: Support Services 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 History of Recent Travel: No <Agaba,Comfort I - Last Filed: 06/23/19 17:46> Home Medications <Agaba,Comfort I - Last Filed: 06/23/19 17:46> <Larissa Marina - Last Filed: 06/23/19 18:50> - Allergies Allergies/Adverse Reactions: Allergies Allergy/AdvReac Type Severity Reaction Status Date / Time crab Allergy Severe Hives Verified 06/22/19 12:45 shellfish derived Allergy Severe Hives Verified 06/22/19 12:45 - Home Medications Home Medications: Ambulatory Orders Atorvastatin Ca [Lipitor] 40 mg PO HS 07/29/17 Metoprolol Tartrate [Lopressor -] 25 mg PO DAILY 07/29/17 Pantoprazole Sodium [Protonix -] 40 mg PO DAILY tablet.ec 10/03/17 Furosemide [Lasix] 40 mg PO DAILY 11/17/17 Gabapentin [Neurontin -] 400 mg PO TID capsule 12/01/17 Magnesium Oxide [Magox 400] 400 mg PO BID #60 tablet 12/01/17 Acetaminophen [Tylenol .Regular Strength -] 650 mg PO Q6H PRN tablet 05/02/18 Apixaban [Eliquis -] 5 mg PO BID tablet 05/02/18 Albuterol Sulfate [Albuterol Sulfate Hfa] 2 puff IH ASDIR PRN 03/27/19 Ascorbic Acid [Vitamin C] 500 mg PO DAILY 03/27/19 Cholecalciferol (Vitamin D3) [Vitamin D3] 1,000 unit PO DAILY 03/27/19 Duloxetine HCl [Cymbalta -] 20 mg PO DAILY 03/27/19 Potassium Chloride 20 meq PO DAILY 03/27/19 Tamsulosin HCl [Flomax] 0.4 mg PO DAILY 03/27/19 Vitamin B Complex 1 each PO DAILY 03/27/19 Review of Systems - Review of Systems Constitutional: reports: Fever Respiratory: reports: Cough. denies: SOB, SOB on Exertion Gastrointestinal: denies: Dysphagia Genitourinary: denies: Burning Neurological: denies: Change in LOC <Agaba,Comfort I - Last Filed: 06/23/19 17:46> Physical Exam Vital Signs: Vital Signs Temperature 98.7 F 06/23/19 15:01 Pulse Rate 72 06/23/19 15:01 Respiratory Rate 22 H 06/23/19 15:01 Blood Pressure 119/60 06/23/19 15:01 O2 Sat by Pulse Oximetry (%) 99 06/23/19 12:00 Constitutional: Yes: Calm, Obese Eyes: Yes: Conjunctiva Clear. No: Sclera Icterus HENT: No: Epistaxis, Nasal Congestion, Pharyngeal Erythema, Rhinnorhea, Thrush, Tonsillar Exudate Neck: Yes: Supple Cardiovascular: Yes: Regular Rate and Rhythm, Murmur (2/6 LSB), S1, S2 Respiratory: Yes: Wheezes Gastrointestinal: Yes: Normal Bowel Sounds, Abdomen, Obese. No: Tenderness Edema: Yes Edema: LLE: 3+, RLE: 3+ (Pitting up the thigh) Neurological: Yes: Alert, Oriented ...Motor Strength: LUE (5/5), LLE, RUE (5/5), RLE (2/5) Psychiatric: Yes: Alert, Oriented Labs: CBC, BMP 06/23/19 06:11 06/23/19 06:11 <Marsha Frias I - Last Filed: 06/23/19 17:46> Vital Signs: Vital Signs Temperature 98.7 F 06/23/19 15:01 Pulse Rate 72 06/23/19 15:01 Respiratory Rate 22 H 06/23/19 15:01 Blood Pressure 119/60 06/23/19 15:01 O2 Sat by Pulse Oximetry (%) 99 06/23/19 12:00 Labs: CBC, BMP 06/23/19 06:11 06/23/19 06:11 <Larissa Marina - Last Filed: 06/23/19 18:50> Imaging - Results Chest X-ray: Report Reviewed, Image Reviewed Cat Scan: Report Reviewed, Image Reviewed <Marsha Frias I - Last Filed: 06/23/19 17:46> Assessment/Plan Ambulatory Orders Atorvastatin Ca [Lipitor] 40 mg PO HS 07/29/17 Metoprolol Tartrate [Lopressor -] 25 mg PO DAILY 07/29/17 Pantoprazole Sodium [Protonix -] 40 mg PO DAILY tablet.ec 10/03/17 Furosemide [Lasix] 40 mg PO DAILY 11/17/17 Gabapentin [Neurontin -] 400 mg PO TID capsule 12/01/17 Magnesium Oxide [Magox 400] 400 mg PO BID #60 tablet 12/01/17 Acetaminophen [Tylenol .Regular Strength -] 650 mg PO Q6H PRN tablet 05/02/18 Apixaban [Eliquis -] 5 mg PO BID tablet 05/02/18 Albuterol Sulfate [Albuterol Sulfate Hfa] 2 puff IH ASDIR PRN 03/27/19 Ascorbic Acid [Vitamin C] 500 mg PO DAILY 03/27/19 Cholecalciferol (Vitamin D3) [Vitamin D3] 1,000 unit PO DAILY 03/27/19 Duloxetine HCl [Cymbalta -] 20 mg PO DAILY 03/27/19 Potassium Chloride 20 meq PO DAILY 03/27/19 Tamsulosin HCl [Flomax] 0.4 mg PO DAILY 03/27/19 Vitamin B Complex 1 each PO DAILY 03/27/19 Current Medications Albuterol Sulfate (Ventolin Hfa Inhaler -) 2 puff IH ASDIR PRN PRN Reason: WHEEZING Apixaban (Eliquis -) 5 mg PO BID [facility] Ascorbic Acid (Vitamin C -) 500 mg PO DAILY [facility] Aspirin (Ecotrin -) 81 mg PO DAILY [facility] Cholecalciferol (Vitamin D3 -) 1,000 unit PO DAILY [facility] Duloxetine HCl (Cymbalta -) 20 mg PO DAILY [facility] Furosemide (Lasix -) 40 mg PO DAILY [facility] Gabapentin (Neurontin -) 400 mg PO TID [facility] Guaifenesin/Codeine Phosphate (Robitussin Ac -) 5 ml PO TID PRN PRN Reason: COUGH Ertapenem 1 gm/ Sodium (Chloride) 50 mls @ 100 mls/hr IVPB DAILY [facility] Magnesium Oxide (Mag-Ox -) 400 mg PO BID [facility] Metoprolol Tartrate (Lopressor -) 25 mg PO DAILY [facility] Multivitamins (Total B With C -) 1 each PO DAILY [facility] Pantoprazole Sodium (Protonix -) 40 mg PO DAILY [facility] Tamsulosin HCl (Flomax -) 0.4 mg PO DAILY@0830 [facility] Assessment/Plan: Pt is a 88 yo F with PMHx HTN, HLD, Colon cancer s/p sx 2011 no chemo or radiatx , anemia, chronic leg pain, R hip fracture, leg DVT (eliq),GERD, HLD, presenting from assisted living facility for fever x 2 days. HTN, HLD, Colon cancer s/p sx 2011 no chemo or radiatx, anemia, chronic leg pain, R hip fracture, leg DVT (eliq), GERD, HLD, fever Wheeze acute bronchitis UTI with prior ESBL Plan: #Cough with wheeze possibly in setting of acute bronchitis, flu swab negative RSV pending Cont nebs #Complicated UTI with previous ESBL cx Positive UA Pt unable to provide hx of UTI uses diapers, Still with fevers on vanc/zosyn Prior ESBL in urine Ertapenem 1g daily Pending Ucx Other mx per primary team D/W Dr Salas Frias PGY 3 <Marsha Frias I - Last Filed: 06/23/19 17:46> Visit type - Emergency Visit Emergency Visit: Yes ED Registration Date: 06/22/19 Care time: The patient presented to the Emergency Department on the above date and was hospitalized for further evaluation of their emergent condition. - New Patient This patient is new to me today: Yes Date on this admission: 06/23/19 - Critical Care Critical Care patient: No <Marsha Frias I - Last Filed: 06/23/19 17:46> ATTENDING PHYSICIAN STATEMENT I saw and evaluated the patient. I reviewed the resident's note and discussed the case with the resident. I agree with the resident's findings and plan as documented. SUBJECTIVE: OBJECTIVE: ASSESSMENT AND PLAN: <Marsha Frias I - Last Filed: 06/23/19 17:46> ATTENDING PHYSICIAN STATEMENT I saw and evaluated the patient. I reviewed the resident's note and discussed the case with the resident. I agree with the resident's findings and plan as documented. SUBJECTIVE: patient interviewed fevers for 2 days at home OBJECTIVE: Vital Signs Period Temp Pulse Resp BP Sys/Brown Pulse Ox Last 24 Hr 98.7 F-100.1 F 72-88 18-22 119-124/58-78 97-99 cor rrr lungs scattered wheezes abd soft, +reduciable NT hernia ext bilateral edema chronic venous stasis changes both lower legs no cvat no suprapubic pain CBC, BMP 06/23/19 06:11 06/23/19 06:11 Microbiology 06/22/19 12:30 Blood - Peripheral Venous Blood Culture - Preliminary NO GROWTH OBTAINED AFTER 24 HOURS, INCUBATION TO CONTINUE FOR 4 DAYS. 06/22/19 12:30 Blood - Peripheral Venous Blood Culture - Preliminary NO GROWTH OBTAINED AFTER 24 HOURS, INCUBATION TO CONTINUE FOR 4 DAYS. 06/22/19 13:45 Urine - Urine - Catheterized Urine Culture - Preliminary Lactose Fermenting Neg Bacilli ASSESSMENT AND PLAN: probable uti history of ecoli esbl switch to ertapenem asthmatic bronchitis- chest ct no pneumonia influenza negative check rsv antigen nebs as needed <Larissa Marina - Last Filed: 06/23/19 18:50>
[2019-06-23] MEDS: ERTAPENEM SODIUM 1 GM in SODIUM CHLORIDE 50 ML IVPB SCH (18:54)
[2019-06-23] MEDS ORDERED: ATORVASTATIN CA 40 MG TABLET (FP) PO SCH (22:00)
[2019-06-24] MEDS: MAGNESIUM OXIDE 400 MG TABLET (FP) PO SCH ×3 (00:24→21:42)
[2019-06-24] MEDS: APIXABAN 5 MG TABLET PO SCH ×3 (00:24→21:42)
[2019-06-24] MEDS: GABAPENTIN 400 MG CAPSULE (FP) PO SCH ×4 (00:25→21:43)
[2019-06-24 08:19] LABS: HEMATOCRIT 45.9 % (32.4-45.2); HEMOGLOBIN 14.8 GM/dL (10.7-15.3); MCH 29.9 pg (25.7-33.7); MCHC 32.2 g/dl (32.0-36.0); MEAN CELL VOLUME 92.7 fl (80-96); MEAN PLT VOLUME 9.1 fl (7.5-11.1); PLATELET COUNT 218 K/MM3 (134-434); RBC 4.95 M/mm3 (3.60-5.2); WHITE BLOOD COUNT 7.3 K/mm3 (4.0-10.0)
--- NOTE | 2019-06-24 08:29 | PN ---
Progress Note, Physician - Current Medication List Current Medications: Active Medications Albuterol Sulfate (Ventolin Hfa Inhaler -) 2 puff IH Q6H PRN PRN Reason: WHEEZING Apixaban (Eliquis -) 5 mg PO BID [facility] Last Admin: 06/24/19 00:24 Dose: 5 mg Ascorbic Acid (Vitamin C -) 500 mg PO DAILY [facility] Aspirin (Ecotrin -) 81 mg PO DAILY [facility] Cholecalciferol (Vitamin D3 -) 1,000 unit PO DAILY [facility] Duloxetine HCl (Cymbalta -) 20 mg PO DAILY [facility] Furosemide (Lasix -) 40 mg PO DAILY [facility] Gabapentin (Neurontin -) 400 mg PO TID [facility] Last Admin: 06/24/19 07:08 Dose: 400 mg Guaifenesin/Codeine Phosphate (Robitussin Ac -) 5 ml PO TID PRN PRN Reason: COUGH Ertapenem 1 gm/ Sodium (Chloride) 50 mls @ 100 mls/hr IVPB DAILY [facility] Last Admin: 06/23/19 18:54 Dose: 100 mls/hr Magnesium Oxide (Mag-Ox -) 400 mg PO BID [facility] Last Admin: 06/24/19 00:24 Dose: 400 mg Metoprolol Succinate (Toprol Xl -) 25 mg PO DAILY [facility] Multivitamins (Total B With C -) 1 each PO DAILY [facility] Pantoprazole Sodium (Protonix -) 40 mg PO DAILY [facility] Tamsulosin HCl (Flomax -) 0.4 mg PO DAILY@0830 [facility] - Objective Vital Signs: Vital Signs Temperature 98.1 F 06/24/19 06:00 Pulse Rate 96 H 06/24/19 06:00 Respiratory Rate 20 06/24/19 06:00 Blood Pressure 133/87 06/24/19 06:00 O2 Sat by Pulse Oximetry (%) 92 L 06/23/19 21:00 Cardiovascular: Yes: Murmur, S1, S2 Respiratory: Yes: On Nasal O2, Rhonchi Gastrointestinal: Yes: Normal Bowel Sounds, Soft Labs: CBC, BMP 06/24/19 07:25 INR, PTT INR 1.44 (0.83-1.09) H 06/22/19 12:30 Assessment/Plan - Problems (1) CHF (congestive heart failure) Assessment/Plan: -Cardiology on board -BNP 3087.6~2680.6 -daily weights -Furosemide -Echocardiogram Code(s): I50.9 - HEART FAILURE, UNSPECIFIED (2) Cough Assessment/Plan: -Bronchodilators -Robitussin -Pulm consult noted -O2 via NC -keep SpO2 >90% -CXR shows no sign of infiltrate or failure -Chest CT scan shows mild dependent atelectasis, no infiltrates, mild bronchiectasis -no leukocytosis Code(s): R05 - COUGH (3) Elevated troponin Assessment/Plan: -Cardiology on board -Troponin 0.37, 0.57, 0.38 Code(s): R79.89 - OTHER SPECIFIED ABNORMAL FINDINGS OF BLOOD CHEMISTRY (4) UTI (urinary tract infection) Assessment/Plan: -UA shows 2+ leuks, 2+ blood -UC prelim positive Microbiology 06/22/19 12:30 Blood - Peripheral Venous Blood Culture - Preliminary NO GROWTH OBTAINED AFTER 24 HOURS, INCUBATION TO CONTINUE FOR 4 DAYS. 06/22/19 12:30 Blood - Peripheral Venous Blood Culture - Preliminary NO GROWTH OBTAINED AFTER 24 HOURS, INCUBATION TO CONTINUE FOR 4 DAYS. 06/22/19 13:45 Urine - Urine - Catheterized Urine Culture - Preliminary Lactose Fermenting Neg Bacilli -ID consult noted- on ABX -no leukocytosis -afebrile Code(s): N39.0 - URINARY TRACT INFECTION, SITE NOT SPECIFIED Qualifiers: Urinary tract infection type: site unspecified Hematuria presence: without hematuria Qualified Code(s): N39.0 - Urinary tract infection, site not specified (5) History of DVT (deep vein thrombosis) Assessment/Plan: -ELiquis Code(s): Z86.718 - PERSONAL HISTORY OF OTHER VENOUS THROMBOSIS AND EMBOLISM (6) Depression Assessment/Plan: -Cymbalta Code(s): F32.9 - MAJOR DEPRESSIVE DISORDER, SINGLE EPISODE, UNSPECIFIED (7) Hyperlipidemia Assessment/Plan: -Atorvastatin Code(s): E78.5 - HYPERLIPIDEMIA, UNSPECIFIED (8) Hypertension Assessment/Plan: -Metoprolol -low Na diet Code(s): I10 - ESSENTIAL (PRIMARY) HYPERTENSION
[2019-06-24 08:53] LABS: ALBUMIN 3.2 g/dl (3.4-5.0); BILIRUBIN,TOTAL 0.7 mg/dL (0.2-1); BLOOD UREA NITROGEN 16.4 mg/dL (7-18); CALCIUM 8.8 mg/dL (8.5-10.1); CREATININE 0.9 mg/dL (0.55-1.3); POTASSIUM 3.3 mmol/L (3.5-5.1); TOT PROT 6.5 g/dl (6.4-8.2)
[2019-06-24] MEDS: TAMSULOSIN HCL 0.4 MG CAP PO SCH (08:54)
--- NOTE | 2019-06-24 09:19 | CON.PULM ---
Consult Consult Specialty:: PULM/CCM Referred by:: GRACE Reason for Consultation:: Cough / CT Chest - History of Present Illness Chief Complaint: cough History of Present Illness: 88 F, HTN, HLD, Colon cancer, S/P resection sx 2011 no chemo or radiation therapy, anemia, chronic leg pain, Right hip fracture, leg DVT on Eliquis, GERD , and HLD. Admitted via the ER due to cough with clear sputum and fever x 2 days. No reported hemoptysis or night sweats. No travel history or sick contacts. CT: minimal basilar atelectasis and bronchiectasis. No acute infiltrates, nodules, or masses. - History Source History Provided By: Patient Limitations to Obtaining History: No Limitations - Past Medical History Cardio/Vascular: Yes: HTN, Hyperlipdemia Gastrointestinal: Yes: Cancer (colon cancer s/p resection 2011) Renal/: Yes: Renal Inusuff ...: No Musculoskeletal: Yes: Chronic low back pain, Osteoarthritis - Past Surgical History Past Surgical History: Yes: Ileosotomy (with ) - Alcohol/Substance Use Hx Alcohol Use: No History of Substance Use: reports: None - Smoking History Smoking history: Never smoked Have you smoked in the past 12 months: No If you are a former smoker, when did you quit?: 30 yrs ago - Social History Usual Living Arrangement: Assisted Living ([facility], w/c bound x5 months, has assistance in some ADLs) ADL: Support Services 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 History of Recent Travel: No Home Medications - Allergies Allergies/Adverse Reactions: Allergies Allergy/AdvReac Type Severity Reaction Status Date / Time crab Allergy Severe Hives Verified 06/22/19 12:45 shellfish derived Allergy Severe Hives Verified 06/22/19 12:45 - Home Medications Home Medications: Ambulatory Orders Atorvastatin Ca [Lipitor] 40 mg PO HS 07/29/17 Metoprolol Tartrate [Lopressor -] 25 mg PO DAILY 07/29/17 Pantoprazole Sodium [Protonix -] 40 mg PO DAILY tablet.ec 10/03/17 Furosemide [Lasix] 40 mg PO DAILY 11/17/17 Gabapentin [Neurontin -] 400 mg PO TID capsule 12/01/17 Magnesium Oxide [Magox 400] 400 mg PO BID #60 tablet 12/01/17 Acetaminophen [Tylenol .Regular Strength -] 650 mg PO Q6H PRN tablet 05/02/18 Apixaban [Eliquis -] 5 mg PO BID tablet 05/02/18 Albuterol Sulfate [Albuterol Sulfate Hfa] 2 puff IH ASDIR PRN 03/27/19 Ascorbic Acid [Vitamin C] 500 mg PO DAILY 03/27/19 Cholecalciferol (Vitamin D3) [Vitamin D3] 1,000 unit PO DAILY 03/27/19 Duloxetine HCl [Cymbalta -] 20 mg PO DAILY 03/27/19 Potassium Chloride 20 meq PO DAILY 03/27/19 Tamsulosin HCl [Flomax] 0.4 mg PO DAILY 03/27/19 Vitamin B Complex 1 each PO DAILY 03/27/19 Review of Systems - Review of Systems Constitutional: reports: Fever, Malaise. denies: Chills, Night Sweats Eyes: reports: No Symptoms HENT: reports: No Symptoms Neck: reports: No Symptoms Cardiovascular: denies: Chest Pain, Edema, Palpitations, Shortness of Breath Respiratory: reports: Cough, SOB, SOB on Exertion, Wheezing. denies: Hemoptysis , Orthopnea, PND, Snoring Gastrointestinal: reports: No Symptoms Genitourinary: reports: Incontinence Breasts: reports: No Symptoms Reported Musculoskeletal: reports: No Symptoms Integumentary: reports: No Symptoms Neurological: reports: No Symptoms Endocrine: reports: No Symptoms Hematology/Lymphatic: reports: No Symptoms Psychiatric: reports: No Symptoms Physical Exam Vital Sings: Vital Signs Temperature 98.1 F 06/24/19 06:00 Pulse Rate 96 H 06/24/19 06:00 Respiratory Rate 20 06/24/19 06:00 Blood Pressure 133/87 06/24/19 06:00 O2 Sat by Pulse Oximetry (%) 92 L 06/23/19 21:00 Constitutional: Yes: No Distress, Calm, Obese Eyes: Yes: Conjunctiva Clear, EOM Intact HENT: Yes: Atraumatic, Normocephalic Neck: Yes: Supple, Trachea Midline Cardiovascular: Yes: Regular Rate and Rhythm Respiratory: Yes: Cough. No: Accessory Muscle Use, Rales, Rhonchi, SOB, SOB on Exertion, Stridor, Tachypnea, Wheezes ...Inspection: Yes: WNL ...Clubbing: No Gastrointestinal: Yes: Normal Bowel Sounds, Soft, Abdomen, Obese Renal/: Yes: WNL Musculoskeletal: Yes: WNL Extremities: Yes: WNL Edema: No Peripheral Pulses WNL: Yes Integumentary: Yes: WNL Neurological: Yes: WNL, Alert, Oriented ...Motor Strength: WNL Psychiatric: Yes: WNL, Alert, Oriented Labs: CBC, BMP 06/24/19 07:25 06/24/19 07:25 Imaging - Results Chest X-ray: Report Reviewed, Image Reviewed Cat Scan: Report Reviewed, Image Reviewed Problem List - Problems (1) Atelectasis Code(s): J98.11 - ATELECTASIS (2) Bronchiectasis Code(s): J47.9 - BRONCHIECTASIS, UNCOMPLICATED (3) URI (upper respiratory infection) Code(s): J06.9 - ACUTE UPPER RESPIRATORY INFECTION, UNSPECIFIED (4) CHF (congestive heart failure) Code(s): I50.9 - HEART FAILURE, UNSPECIFIED (5) Cough Code(s): R05 - COUGH (6) UTI (urinary tract infection) Code(s): N39.0 - URINARY TRACT INFECTION, SITE NOT SPECIFIED Qualifiers: Urinary tract infection type: site unspecified Hematuria presence: without hematuria Qualified Code(s): N39.0 - Urinary tract infection, site not specified (7) Anticoagulant long-term use Code(s): Z79.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 OF ANTICOAGULANTS (8) Colon polyp Code(s): K63.5 - POLYP OF COLON (9) Diverticulosis Code(s): K57.90 - DVRTCLOS OF INTEST, PART UNSP, W/O PERF OR ABSCESS W/O BLEED (10) Fever Code(s): R50.9 - FEVER, UNSPECIFIED Qualifiers: Fever type: unspecified Qualified Code(s): R50.9 - Fever, unspecified (11) History of DVT (deep vein thrombosis) Code(s): Z86.718 - PERSONAL HISTORY OF OTHER VENOUS THROMBOSIS AND EMBOLISM (12) Normocytic normochromic anemia Code(s): D64.9 - ANEMIA, UNSPECIFIED (13) Depression Code(s): F32.9 - MAJOR DEPRESSIVE DISORDER, SINGLE EPISODE, UNSPECIFIED (14) History of colon cancer in adulthood Code(s): Z85.038 - PERSONAL HISTORY OF MALIGNANT NEOPLASM OF LARGE INTESTINE (15) Hyperlipidemia Code(s): E78.5 - HYPERLIPIDEMIA, UNSPECIFIED (16) Hypertension Code(s): I10 - ESSENTIAL (PRIMARY) HYPERTENSION Assessment/Plan O2 as needed Noted per ID for UTI, do not suspect respiratory tract infection at this time BD TX PRN No indication for systemic steroids Eliquis to be continued Lasix Robitussin PRN Will follow Thank you. Dr Maciel
[2019-06-24] MEDS ORDERED: PT OWN MED DRAWER 7, Y5N ONE ×3 (09:22→21:27)
[2019-06-24] MEDS ORDERED: POTASSIUM CHLORIDE TABS 20 MEQ TABLET.ER (FP) PO ONE (10:15)
[2019-06-24] MEDS: DULoxetine HCL 20 MG CAPSULE.DR PO SCH (10:35)
[2019-06-24] MEDS: VITAMIN B COMPLEX W/C COMBO TABLET (FP) PO SCH (10:40)
[2019-06-24] MEDS: ERTAPENEM SODIUM 1 GM in SODIUM CHLORIDE 50 ML IVPB SCH (10:53)
[2019-06-24] MEDS: PANTOPRAZOLE 40 MG TABLET (FP) PO SCH (10:54)
[2019-06-24] MEDS: ASPIRIN COATED 81 MG TABLET.EC PO SCH (10:54)
[2019-06-24] MEDS: ASCORBIC ACID 500 MG TABLET (FP) PO SCH (10:54)
[2019-06-24] MEDS: metoPROLOL SUCCINATE 25 MG TAB.SR.24H (FP) PO SCH (10:54)
[2019-06-24] MEDS: CHOLECALCIFEROL (VIT D3) 1,000 UNIT (25 MCG) TABLET PO SCH (10:54)
[2019-06-24] MEDS: FUROSEMIDE 40 MG TABLET (FP) PO SCH (10:55)
--- NOTE | 2019-06-24 12:11 | PN ---
Progress Note (short form) - Note Progress Note: still with moist cough Vital Signs Period Temp Pulse Resp BP Sys/Brown Pulse Ox Last 24 Hr 98.1 F-99.2 F 72-96 18-22 119-156/55-89 92-96 cor-rrr lungs scattered rhonchi abd soft,nt ext venous stasis CBC, BMP 06/24/19 07:25 06/24/19 07:25 rsv antigen negative influenza antigen negative Microbiology 06/22/19 13:45 Urine - Urine - Catheterized Urine Culture - Final Escherichia Coli 06/22/19 12:30 Blood - Peripheral Venous Blood Culture - Preliminary NO GROWTH OBTAINED AFTER 24 HOURS, INCUBATION TO CONTINUE FOR 4 DAYS. 06/22/19 12:30 Blood - Peripheral Venous Blood Culture - Preliminary NO GROWTH OBTAINED AFTER 24 HOURS, INCUBATION TO CONTINUE FOR 4 DAYS. ap bronchitis/uri ecoli uti can switch to ceftriaxone if afebrile in am, can switch to po ceftin for 7 days please call back if needed
--- NOTE | 2019-06-24 14:03 | CONSULT ---
Consult Consult Specialty:: PM&R Dr Keene for Dr Franco - History of Present Illness Chief Complaint: tired History of Present Illness: This is an 88 year old woman with a medical history of HTN, HLD, colon cancer s/ p ileostomy 2011, renal insufficiency, anemia, DVT, herpes zoster , diffuse OA, who was admitted to the hospital 06/22/19 with fevers, SOB, cough and body aches. CT chest showed mildly dependent atelectasis with mild bronchiestasis. Cardiology was consulted for cough, who felt it was likely 2/2 acute bronchitis and that elevated troponin was not c/w ACS or MT. ID was consulted for ESBL and E coli UTI, who also felt there was no PNA. Pulm was consulted, who felt there was also no evidence URI. She has not been seen by PT. Physiatry is being consulted for further recommendations. - Past Medical History Cardio/Vascular: Yes: HTN, Hyperlipdemia Gastrointestinal: Yes: Cancer (colon cancer s/p resection 2011) Renal/: Yes: Renal Inusuff ...: No Musculoskeletal: Yes: Chronic low back pain, Osteoarthritis - Past Surgical History Past Surgical History: Yes: Ileosotomy (with ) - Alcohol/Substance Use Hx Alcohol Use: No History of Substance Use: reports: None - Smoking History Smoking history: Never smoked Have you smoked in the past 12 months: No If you are a former smoker, when did you quit?: 30 yrs ago - Social History Usual Living Arrangement: Assisted Living ([facility], w/c bound x5 months, has assistance in some ADLs) ADL: Support Services 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 History of Recent Travel: No Home Medications - Allergies Allergies/Adverse Reactions: Allergies Allergy/AdvReac Type Severity Reaction Status Date / Time crab Allergy Severe Hives Verified 06/22/19 12:45 shellfish derived Allergy Severe Hives Verified 06/22/19 12:45 - Home Medications Home Medications: Ambulatory Orders Atorvastatin Ca [Lipitor] 40 mg PO HS 07/29/17 Metoprolol Tartrate [Lopressor -] 25 mg PO DAILY 07/29/17 Pantoprazole Sodium [Protonix -] 40 mg PO DAILY tablet.ec 10/03/17 Furosemide [Lasix] 40 mg PO DAILY 11/17/17 Gabapentin [Neurontin -] 400 mg PO TID capsule 12/01/17 Magnesium Oxide [Magox 400] 400 mg PO BID #60 tablet 12/01/17 Acetaminophen [Tylenol .Regular Strength -] 650 mg PO Q6H PRN tablet 05/02/18 Apixaban [Eliquis -] 5 mg PO BID tablet 05/02/18 Albuterol Sulfate [Albuterol Sulfate Hfa] 2 puff IH ASDIR PRN 03/27/19 Ascorbic Acid [Vitamin C] 500 mg PO DAILY 03/27/19 Cholecalciferol (Vitamin D3) [Vitamin D3] 1,000 unit PO DAILY 03/27/19 Duloxetine HCl [Cymbalta -] 20 mg PO DAILY 03/27/19 Potassium Chloride 20 meq PO DAILY 03/27/19 Tamsulosin HCl [Flomax] 0.4 mg PO DAILY 03/27/19 Vitamin B Complex 1 each PO DAILY 03/27/19 Review of Systems Findings/Remarks: denies fevers, chills, changes in vision/ hearing/ mood, CP, abdominal pain, dysuria, muscle/ joint pain or numbness/ paresthesias. SOB / cough improving. Physical Exam Vital Signs: Vital Signs Temperature 98.1 F 06/24/19 06:00 Pulse Rate 96 H 06/24/19 06:00 Respiratory Rate 20 06/24/19 09:00 Blood Pressure 133/87 06/24/19 06:00 O2 Sat by Pulse Oximetry (%) 98 06/24/19 09:00 Musculoskeletal: Yes: Other (General: calm obese elderly F sitting in bed NAD on supplemental O2, initially awake and interactive then fell sound asleep; N/M: grossly 4/5 BUE except for 2/5 B delts, with B passive shoulder flexion to 75 degrees, then pt fell asleep and did not participate in MMT/ ROM BLE; Extremities: 2+ BLE pitting edema, no B calf tenderness) Labs: CBC, BMP 06/24/19 07:25 06/24/19 07:25 Imaging - Results Cat Scan: Report Reviewed (as per HPI) Assessment/Plan Impression: 1) Deficits mobility/ ADLs 2) Deconditioning 3) Gait abnormality 4) ESBL/ E coli UTI 5) Elevated troponin without ACS/ MT 6) hx HTN, HLD 7) hx colon cancer s/p ileostomy 2011 8) Renal insufficiency 9) hx anemia 10) hx DVT 11) hx herpes zoster in LE 12) Diffuse OA 13) Obesity 14) No documented flu shot/ pneumovax Recommendations: 1) PT for stretching strengthening ROM functional mobility and endurance; per notes, pt has been w/c/ bed-bound x months 2) Falls, safety precautions 3) Cardiopulmonary precautions 4) DVT ppx: on Eliquis 5) Bowel regimen prn 6) Skin protection: float heels, q2 hour turning 7) Nutrition consult for obesity 8) Monitor BMP given renal function 9) Continue plan per primary team 10) Discharge planning: depending on her progress once medically stable, she will likely benefit from short- course inpatient rehabilitation vs. being able to return to LTC at her facility Thank you for this referral.
--- NOTE | 2019-06-24 14:12 | ECHO ---
Name: TRINA LEON Exam:Adult Echocardiogram Study Date: 06/24/2019 07:36 AM Age: 88 yrs Reason For Study: LV Function Height: 59 in Weight: 220 lb BSA: 1.9 m2 MMode/2D Measurements & Calculations IVSd: 1.1 cm Ao root diam: 2.6 cm LVIDd: 3.9 cm LA dimension: 3.1 cm LVIDs: 2.4 cm LVPWd: 0.87 cm EDV(Teich): 64.0 ml LVOT diam: 2.0 cm ESV(Teich): 19.4 ml Doppler Measurements & Calculations MV E max loki: 92.2 cm/sec Ao V2 max: 103.2 cm/sec MV dec time: 0.09 sec Ao max P.3 mmHg CARLOS(V,D): 2.2 cm2 LV V1 max P.0 mmHg PA V2 max: 145.1 cm/sec LV V1 max: 71.3 cm/sec PA max P.4 mmHg Med Peak E' Loki: 6.7 cm/sec PI Vmax: 96.3 cm/sec Med E/e': 13.7 Lat Peak E' Loki: 6.7 cm/sec Lat E/e': 13.7 Procedure The study was technically difficult with many images being suboptimal in quality. Left Ventricle The left ventricular size, thickness and function are normal. The left ventricular ejection fraction is normal. Regional wall motion abnormalities cannot be excluded due to limited visualization. Right Ventricle The right ventricle is not well visualized. Atria Normal left and right atrial size and function. Mitral Valve There is mild mitral valve thickening. There is no mitral valve stenosis. There is trace to mild mitr al regurgitation. Tricuspid Valve There is mild tricuspid valve thickening. There is no tricuspid stenosis. There was insufficient TR d etected to calculate RV systolic pressure. Aortic Valve The aortic valve is not well visualized. No hemodynamically significant valvular aortic stenosis. No aortic regurgitation is present. Pulmonic Valve The pulmonic valve is not well visualized. Great Vessels The aortic root is normal size. Pericardium/Pleura There is no pericardial effusion. Interpretation Summary The left ventricular size, thickness and function are normal The left ventricular ejection fraction is normal. Regional wall motion abnormalities cannot be excluded due to limited visualization. There is trace to mild mitral regurgitation. There was insufficient TR detected to calculate RV systolic pressure. MD Alexey Westfall 06/24/2019 02:12 PM
--- NOTE | 2019-06-24 16:39 | PN ---
Progress Note (short form) - Note Progress Note: echo results reviewed showing normal LV systolic function. No further inpatient cardiac work up is needed at this time. Will see as needed. Please call with any additional questions.
[2019-06-24] MEDS: guaiFENesin/CODEINE 5 ML UNIT-DOSE CUPS PO PRN (21:48)
[2019-06-25] MEDS ORDERED: PT OWN MED DRAWER 7, Y5N ONE ×3 (06:10→16:46)
[2019-06-25] MEDS: guaiFENesin/CODEINE 5 ML UNIT-DOSE CUPS PO PRN (06:12)
[2019-06-25] MEDS: GABAPENTIN 400 MG CAPSULE (FP) PO SCH ×2 (06:12→16:49)
[2019-06-25] MEDS ORDERED: INSULIN (NOVOLOG) ASPART 100 UNITS/ML 10ML VIAL ONE (08:44)
[2019-06-25 08:56] LABS: BASO % 0.7 % (0-2.0); EOS % 1.8 % (0-4.5); HEMATOCRIT 39.4 % (32.4-45.2); HEMOGLOBIN 12.9 GM/dL (10.7-15.3); LYMPH % 16.8 % (8-40); MCH 30.1 pg (25.7-33.7); MCHC 32.6 g/dl (32.0-36.0); MEAN CELL VOLUME 92.2 fl (80-96); MEAN PLT VOLUME 8.3 fl (7.5-11.1); MONO % 6.3 % (3.8-10.2); NEUT % 74.4 % (42.8-82.8); PLATELET COUNT 224 K/MM3 (134-434); RBC 4.27 M/mm3 (3.60-5.2); RDW 14.4 % (11.6-15.6); WHITE BLOOD COUNT 6.9 K/mm3 (4.0-10.0)
[2019-06-25 09:18] LABS: BLOOD UREA NITROGEN 15.7 mg/dL (7-18); CALCIUM 8.7 mg/dL (8.5-10.1); CREATININE 1.1 mg/dL (0.55-1.3)
[2019-06-25] MEDS ORDERED: POTASSIUM CHLORIDE TABS 20 MEQ TABLET.ER (FP) PO SCH (10:00)
[2019-06-25] MEDS ORDERED: CEFTRIAXONE 1 GM in DEXTROSE 5%-WATER - 50 ML IVPB SCH (10:00)
--- NOTE | 2019-06-25 10:53 | PN ---
Progress Note (short form) - Note Progress Note: PULMONARY Occasional nonproductive cough. No wheezing. No fevers recorded. Vital Signs Period Temp Pulse Resp BP Sys/Brown Pulse Ox Last 24 Hr 98.6 F-98.8 F 70-81 20-20 111-131/47-68 98 Gen: NAD at rest Heart: RRR Lung: decreased breath sounds at the bases Abd: soft, nontender Ext: + edema CBC, BMP 06/25/19 08:20 06/25/19 08:20 Active Medications Albuterol Sulfate (Ventolin Hfa Inhaler -) 2 puff IH Q6H PRN PRN Reason: WHEEZING Apixaban (Eliquis -) 5 mg PO BID [facility] Last Admin: 06/24/19 21:42 Dose: 5 mg Ascorbic Acid (Vitamin C -) 500 mg PO DAILY [facility] Last Admin: 06/24/19 10:54 Dose: 500 mg Aspirin (Ecotrin -) 81 mg PO DAILY [facility] Last Admin: 06/24/19 10:54 Dose: 81 mg Cholecalciferol (Vitamin D3 -) 1,000 unit PO DAILY [facility] Last Admin: 06/24/19 10:54 Dose: 1,000 unit Duloxetine HCl (Cymbalta -) 20 mg PO DAILY [facility] Last Admin: 06/24/19 10:35 Dose: 20 mg Furosemide (Lasix -) 40 mg PO DAILY [facility] Last Admin: 06/24/19 10:55 Dose: 40 mg Gabapentin (Neurontin -) 400 mg PO TID [facility] Last Admin: 06/25/19 06:12 Dose: 400 mg Guaifenesin/Codeine Phosphate (Robitussin Ac -) 5 ml PO TID PRN PRN Reason: COUGH Last Admin: 06/25/19 06:12 Dose: 5 ml Ceftriaxone Sodium 1 gm/ (Dextrose) 50 mls @ 100 mls/hr IVPB DAILY [facility]; Protocol Magnesium Oxide (Mag-Ox -) 400 mg PO BID [facility] Last Admin: 06/24/19 21:42 Dose: 400 mg Metoprolol Succinate (Toprol Xl -) 25 mg PO DAILY [facility] Last Admin: 06/24/19 10:54 Dose: 25 mg Multivitamins (Total B With C -) 1 each PO DAILY [facility] Last Admin: 06/24/19 10:40 Dose: 1 each Pantoprazole Sodium (Protonix -) 40 mg PO DAILY [facility] Last Admin: 06/24/19 10:54 Dose: 40 mg Potassium Chloride (K-Dur -) 20 meq PO DAILY [facility] Tamsulosin HCl (Flomax -) 0.4 mg PO DAILY@0830 [facility] Last Admin: 06/24/19 08:54 Dose: 0.4 mg A/P UTI Acute Bronchitis + Troponins likely Demand Ischemia CKD HTN Hyperlipidemia Anemia h/o DVT h/o Colon Ca s/p resection - antibiotics per ID - inhaled bronchodilators - O2 to keep SpO2 >90% - continue anticoagulation - outpt PFTs
[2019-06-25] MEDS ORDERED: cefTRIAXone SODIUM 1 GM VIAL ONE (11:59)
[2019-06-25] MEDS ORDERED: DEXTROSE 5%-WATER - 50 ML IVPB ONE (11:59)
[2019-06-25] MEDS: TAMSULOSIN HCL 0.4 MG CAP PO SCH (12:09)
[2019-06-25] MEDS: FUROSEMIDE 40 MG TABLET (FP) PO SCH (12:09)
[2019-06-25] MEDS: APIXABAN 5 MG TABLET PO SCH (12:09)
[2019-06-25] MEDS: CHOLECALCIFEROL (VIT D3) 1,000 UNIT (25 MCG) TABLET PO SCH (12:10)
[2019-06-25] MEDS: ASCORBIC ACID 500 MG TABLET (FP) PO SCH (12:10)
[2019-06-25] MEDS: PANTOPRAZOLE 40 MG TABLET (FP) PO SCH (12:10)
[2019-06-25] MEDS: metoPROLOL SUCCINATE 25 MG TAB.SR.24H (FP) PO SCH (12:10)
[2019-06-25] MEDS: ASPIRIN COATED 81 MG TABLET.EC PO SCH (12:10)
[2019-06-25] MEDS: MAGNESIUM OXIDE 400 MG TABLET (FP) PO SCH (12:10)
[2019-06-25] MEDS: VITAMIN B COMPLEX W/C COMBO TABLET (FP) PO SCH (12:11)
[2019-06-25] MEDS: DULoxetine HCL 20 MG CAPSULE.DR PO SCH (12:11)
--- NOTE | 2019-06-25 12:52 | PN ---
Progress Note, Physician Chief Complaint: patient seen and examined awake alert says breathing is much better - Current Medication List Current Medications: Active Medications Albuterol Sulfate (Ventolin Hfa Inhaler -) 2 puff IH Q6H PRN PRN Reason: WHEEZING Albuterol/Ipratropium (Duoneb -) 1 amp NEB RTID [facility] Apixaban (Eliquis -) 5 mg PO BID [facility] Last Admin: 06/25/19 12:09 Dose: 5 mg Ascorbic Acid (Vitamin C -) 500 mg PO DAILY [facility] Last Admin: 06/25/19 12:10 Dose: 500 mg Aspirin (Ecotrin -) 81 mg PO DAILY [facility] Last Admin: 06/25/19 12:10 Dose: 81 mg Cholecalciferol (Vitamin D3 -) 1,000 unit PO DAILY [facility] Last Admin: 06/25/19 12:10 Dose: 1,000 unit Duloxetine HCl (Cymbalta -) 20 mg PO DAILY [facility] Last Admin: 06/25/19 12:11 Dose: 20 mg Furosemide (Lasix -) 40 mg PO DAILY [facility] Last Admin: 06/25/19 12:09 Dose: 40 mg Gabapentin (Neurontin -) 400 mg PO TID [facility] Last Admin: 06/25/19 06:12 Dose: 400 mg Guaifenesin/Codeine Phosphate (Robitussin Ac -) 5 ml PO TID PRN PRN Reason: COUGH Last Admin: 06/25/19 06:12 Dose: 5 ml Ceftriaxone Sodium 1 gm/ (Dextrose) 50 mls @ 100 mls/hr IVPB DAILY [facility]; Protocol Last Admin: 06/25/19 12:11 Dose: 100 mls/hr Magnesium Oxide (Mag-Ox -) 400 mg PO BID [facility] Last Admin: 06/25/19 12:10 Dose: 400 mg Metoprolol Succinate (Toprol Xl -) 25 mg PO DAILY [facility] Last Admin: 06/25/19 12:10 Dose: 25 mg Multivitamins (Total B With C -) 1 each PO DAILY [facility] Last Admin: 06/25/19 12:11 Dose: 1 each Pantoprazole Sodium (Protonix -) 40 mg PO DAILY [facility] Last Admin: 06/25/19 12:10 Dose: 40 mg Potassium Chloride (K-Dur -) 20 meq PO DAILY [facility] Last Admin: 06/25/19 12:10 Dose: 20 meq Tamsulosin HCl (Flomax -) 0.4 mg PO DAILY@0830 [facility] Last Admin: 06/25/19 12:09 Dose: 0.4 mg - Objective Vital Signs: Vital Signs Temperature 98.7 F 06/25/19 06:00 Pulse Rate 81 06/25/19 06:00 Respiratory Rate 20 06/25/19 06:00 Blood Pressure 131/68 06/25/19 06:00 O2 Sat by Pulse Oximetry (%) 98 06/24/19 21:00 Constitutional: Yes: Calm Cardiovascular: Yes: Regular Rate and Rhythm, S1, S2 Respiratory: Yes: Diminished Gastrointestinal: Yes: Normal Bowel Sounds, Soft Edema: Yes Neurological: Yes: Alert, Oriented Labs: CBC, BMP 06/25/19 08:20 06/25/19 08:20 INR, PTT INR 1.44 (0.83-1.09) H 06/22/19 12:30 Problem List - Problems (1) Cough Assessment/Plan: change to po ceftin iv abx chest ct no infiltrate , bronchiectasis seen bronchitis Code(s): R05 - COUGH (2) CHF (congestive heart failure) Assessment/Plan: oral lasix echo shows normal left ventricle systolic function Code(s): I50.9 - HEART FAILURE, UNSPECIFIED (3) UTI (urinary tract infection) Assessment/Plan: iv abx urine culture- ecoli change iv abx to oral ceftin Code(s): N39.0 - URINARY TRACT INFECTION, SITE NOT SPECIFIED Qualifiers: Urinary tract infection type: site unspecified Hematuria presence: without hematuria Qualified Code(s): N39.0 - Urinary tract infection, site not specified (4) Elevated troponin Assessment/Plan: could be secondary to demand ishcemia echo done Code(s): R79.89 - OTHER SPECIFIED ABNORMAL FINDINGS OF BLOOD CHEMISTRY Assessment/Plan [facility]
--- NOTE | 2019-06-25 12:54 | DS ---
Physical Examination Vital Signs: Vital Signs Temperature 98.7 F 06/25/19 06:00 Pulse Rate 81 06/25/19 06:00 Respiratory Rate 20 06/25/19 06:00 Blood Pressure 131/68 06/25/19 06:00 O2 Sat by Pulse Oximetry (%) 98 06/24/19 21:00 Constitutional: Yes: Calm Cardiovascular: Yes: Regular Rate and Rhythm, S1, S2 Respiratory: Yes: Diminished Gastrointestinal: Yes: Normal Bowel Sounds, Soft Edema: Yes Neurological: Yes: Alert, Oriented Labs: CBC, BMP 06/25/19 08:20 06/25/19 08:20 Discharge Summary Problems reviewed: Yes Reason For Visit: URINARY TRACT INFECTION;ELEVATED TROPONIN LEVEL Current Active Problems Atelectasis (Acute) Bronchiectasis (Acute) CHF (congestive heart failure) (Acute) Cough (Acute) Elevated troponin (Acute) Elevated troponin (Acute) Hypervolemia (Acute) URI (upper respiratory infection) (Acute) UTI (urinary tract infection) (Acute) Other Procedures: echo normal left ventricle systolic function. chest ct no infiltate and mild bronchiectasis Hospital Course: 88 yr old female admitted for cough and shortness of breath seen by pulm, cardiology and ID got iv abx for bronchitis and uti uti ecoli rocephin to po ceftin for 7 days Condition: Improved - Instructions Referrals: ON STAFF,NOT [Primary Care Provider] - Disposition: [facility] - Home Medications Comprehensive Discharge Medication List: Ambulatory Orders Atorvastatin Ca [Lipitor] 40 mg PO HS 07/29/17 Metoprolol Tartrate [Lopressor -] 25 mg PO DAILY 07/29/17 Pantoprazole Sodium [Protonix -] 40 mg PO DAILY tablet.ec 10/03/17 Furosemide [Lasix] 40 mg PO DAILY 11/17/17 Gabapentin [Neurontin -] 400 mg PO TID capsule 12/01/17 Magnesium Oxide [Magox 400] 400 mg PO BID #60 tablet 12/01/17 Acetaminophen [Tylenol .Regular Strength -] 650 mg PO Q6H PRN tablet 05/02/18 Apixaban [Eliquis -] 5 mg PO BID tablet 05/02/18 Albuterol Sulfate [Albuterol Sulfate Hfa] 2 puff IH ASDIR PRN 03/27/19 Ascorbic Acid [Vitamin C] 500 mg PO DAILY 03/27/19 Cholecalciferol (Vitamin D3) [Vitamin D3] 1,000 unit PO DAILY 03/27/19 Duloxetine HCl [Cymbalta -] 20 mg PO DAILY 03/27/19 Potassium Chloride 20 meq PO DAILY 03/27/19 Tamsulosin HCl [Flomax] 0.4 mg PO DAILY 03/27/19 Vitamin B Complex 1 each PO DAILY 03/27/19
[2019-06-25] MEDS: ALBUTEROL SO4 2.5/IPRATROPIUM 0.5 INH SOL 3 ML VIAL.NEB. NEB SCH ×2 (14:31→20:46)
[2019-06-25 15:26] VITALS: BMI 37.8
[2019-06-25 18:34] VITALS: BP 121/58; PULSE 74; TEMP 98
== END 2019-06-25 20:56 | DRG 202 ==
LOC: JER 11:20 → JERBED 15:05 → J5S 06-23 13:36
PROVIDERS: ADMIT Family Medicine; ATTEND Family Medicine
DX: J20.9 Acute bronchitis, unspecified (principal); N39.0 Urinary tract infection, site not specified; J98.11 Atelectasis; I10 Essential (primary) hypertension; E78.5 Hyperlipidemia, unspecified; J44.9 Chronic obstructive pulmonary disease, unspecified; D64.9 Anemia, unspecified; J47.9 Bronchiectasis, uncomplicated; F32.9 Major depressive disorder, single episode, unspecified; E66.9 Obesity, unspecified; Z68.37 Body mass index [BMI] 37.0-37.9, adult; B96.20 Unspecified Escherichia coli [E. coli] as the cause of diseases classified elsewhere; J06.9 Acute upper respiratory infection, unspecified; K21.9 Gastro-esophageal reflux disease without esophagitis
CPT/HCPCS: 36415; 71045-TC-FY; 71250-TC; 80048; 80053; 80061; 81003; 82550; 83036; 83605; 83721; 83735; 83880; 84100; 84484; 85025; 85027; 85610; 85730; 87040; 87086; 87186; 87804; 87807; 93005; 93010; 93306-TC; 94640; 97116-GP; 97162-GP; 99285-25; J0131